=== PATIENT | male | born 1940 | race Caucasian/White ===

== ENCOUNTER 2024-01-05 09:44 | Outpatient (CLI) | payer MEDICARE, OTHER, SELFPAY ==
[2024-01-05 09:38] LABS: Abs Immature Grans 0.03 10^3/uL (0.0-0.06); Absolute Basophil Count 0.06 10^3/uL (0.0-0.2); Absolute Eosinophil Count 0.23 10^3/uL (0.0-0.7); Absolute Lymphocyte Count 0.96 10^3/uL (1.2-3.4); Absolute Monocyte Count 0.62 10^3/uL (0.1-0.8); Eosinophils % 3.7 %; HCT 38.4 % (40.0-50.0); HGB 12.7 g/dL (13.5-17.5); Immature Grans % 0.5 %; Lymphocytes % 15.2 %; MCH 29.4 pg (27.0-33.0); MCHC 33.1 % (32.0-36.0); MCV 89 fL (80-95); MPV 8.2 fL (8.0-11.0); Monocytes % 9.8 %; Neutrophils % 69.8 %; Platelet Count 282 10^3/uL (130-400); RBC 4.32 10^6/uL (4.36-5.78); RDW 18.8 % (11.8-14.1); RDW-SD 61.4 fL
[2024-01-05 09:55] LABS: ALT 23 U/L (16-63); AST 18 U/L (15-37); Albumin 3.4 g/dL (3.4-5.0); Alkaline Phosphatase 82 U/L (46-116); Anion Gap 7.5 mmol/L (3-11); BUN 17 mg/dL (7-18); Bilirubin, Total 0.43 mg/dL (0.2-1.0); CO2 28.5 mmol/L (21.0-32.0); CREATININE 1.4 mg/dL (0.70-1.30); Calcium 9.4 mg/dL (8.5-10.1); Chloride 109 mmol/L (98-107); Estimated GFR 49.56 (mL/min/1.73m2); Glucose 92 mg/dL (74-106); Potassium 3.9 mmol/L (3.5-5.1); Sodium 145 mmol/L (136-145); Total Protein 7.4 g/dL (6.4-8.2)
--- OUTSIDE RECORDS SUMMARY | 2024-01-05 09:57 | XMS_ITS | Encounter Summary ---
Author Organization [facility] [place] [address] Care Team Providers Care Security Investigator Name Role Phone None Primary Care Provider Unavailabl e Encounter Details Date Type Department Care Team (Late Contact Info) Description 11/15/2023 Orders Only Hematology [place] [address] Alex Charles MD [facility] [place] [address] Social History Tobacco Use Types Packs/Day Years Used Date Smoking Tobacco: Former Cigarettes 2 25 Alcohol Use Standard Drinks/Week Comments Yes 21 (1 standard drink = 0.6 oz pu re alcohol) Sex and Gender Information Value Date Recorded Sex Assigned at Not on file Gender Identity Not on file Sexual Orientation Not on file documented as of this encounter Plan of Treatment Upcoming Encounters Date Type Department Care Team (Late Contact Info) Description 01/05/2024 10:00 AM EST Office Visit Hematology/Oncology at [address] [phone] Alex Charles MD [facility] [place] [address] Agnes Jose APRN [address] [place] [address] DR [place] [address] Colon cancer metastasized to liver 01/05/2024 10:30 AM EST Infusion Hematology Oncology at [address] [phone] Arrived documented as of this encounter Goals Goal Patient Goal Type Associated Problems Recent Progress Patient-Stated? Author Patient's specific desired goal: Patient Facing Action Plan No Godfrey Noguera, [facility] Note: Goal(s): Live an additional year to year and a half Measured by: survival Time-frame: to be tracked by pharmacy annually documented as of this encounter Visit Diagnoses Not on filedocumented in this encounter Care Teams Security Investigator Relationship Specialty Start Date End Date None None PCP - General 01/20/10 documented as of this encounter
--- OUTSIDE RECORDS SUMMARY | 2024-01-05 09:57 | XMS_ITS | Encounter Summary ---
Author Organization [facility] [place] [address] Care Team Providers Care Financial Services Agent Name Role Phone None Primary Care Provider Unavailabl e Encounter Details Date Type Department Care Team (Latest Contact Info) Description 11/23/2023 Travel Social History Tobacco Use Types Packs/Day Years [...] Encounters Date Type Department Care Team (Late st Contact Info) Description 01/05/2024 10:00 AM EST Office Visit Hematology/Oncology at [address] [phone] Alex Charles MD [facility] [place] [address] Agnes Jose APRN [address] [place] [address] DR HEMATOLOGY AND ONCOLOGY [place], [place] [id number] Colon cancer metastasized to liver 01/05/2024 10:30 AM EST Infusion Hematology Oncology at [address] [phone] Arrived documented as of this encounter Goals Goal Patient Goal Type Associated Problems Recent Progress Patient-Stated? Author Patient's specific desired goal: Patient Facing Action Plan No Godfrey Noguera, [facility] Note: Goal(s): Live an additional year to year and a half Measured by: survival Time-frame: to be tracked by pharmacy annually documented as of this encounter Visit Diagnoses Not on filedocumented in this encounter Care Teams Financial Services Agent Relationship Specialty Start Date End Date None None PCP - General 01/20/10 documented as of this encounter
--- OUTSIDE RECORDS SUMMARY | 2024-01-05 09:57 | XMS_ITS | Encounter Summary ---
Author Organization [facility] [place] [address] Care Team Providers Care Bean Sprout Grower Name Role Phone None Primary Care Provider Unavailabl e Reason for Visit * Reason Comments Follow-up Encounter Details Date Type Department Care Team (Late st Contact Info) Description 12/07/2023 8:15 AM EDT Office Visit Hematology [place] [phone] Nena Beverly, [facility] DR [place] [address] Colon cancer metastasized to liver Social History Tobacco Use Types Packs/Day Years Used Date Smoking Tobacco: Former Cigarettes 2 25 Alcohol Use Standard Drinks/Week Comments Yes 21 (1 standard drink = 0.6 oz pu re alcohol) Sex and Gender Information Value Date Recorded Sex Assigned at Not on file Gender Identity Not on file Sexual Orientation Not on file documented as of this encounter Last Filed Vital Signs Vital Sign Reading Time Taken Comments Blood Pressure 147/80 12/07/2023 8:02 AM EDT Pulse 83 12/07/2023 8:02 AM EDT Temperature 36 ??C (96.8 ??F) 12/07/2023 8:02 AM EDT Respiratory Rate 18 12/07/2023 8:02 AM EDT Oxygen Saturation 97% 12/07/2023 8:02 AM EDT Inhaled Oxygen Concentration - - Weight 101.3 kg (223 lb 5.2 oz) 12/07/2023 8:02 AM EDT Height 171.7 cm (5' 7.6) 12/07/2023 8:02 AM EDT Body Mass Index 34.36 12/07/2023 8:02 AM EDT documented in this encounter Progress Notes * Nena Beverly, [employer] - 12/07/2023 8:15 AM EDT Subjective Patient ID: Bart Hathaway is 83 y.o. Problem List: Colon cancer, stage IV A. September 2022 - began to have episodes of blood per rectum and subsequently had a syncopal episode. Colonoscopy 10/28/22 - fungating mass involving the appendiceal orifice on October 28, 2022. Pathology showed adenocarcinoma B. Developed fever and chills. CT showed an encapsulated collection arising from the sigmoid colon likely representing abscess. Patient was taken to the operating on December 14, 2022. He was found tohave adherence of the mid sigmoid colon to the cecum, bulky inflammatory extension of the mass intothe right lower quadrant retroperitoneum. He underwent sigmoid colectomy, right colectomy, ileotransverse anastomosis and end sigmoid colostomy. Findings: 1. No evidence of justin spillage or dissemination of infection freely into the peritoneal cavity 2. Wide dense adherence of the mid sigmoid colon to the cecum over a 5 to 7 cm length, not safely separable in malignant context. Approximately 12 cm of sigmoid colon removed 3. Bulky inflammatory extension of mass into the right lower quadrant retroperitoneum, carefully mobilized away from surrounding structures with care taken to avoid intrusion into tumor and injury tosurrounding structures. 4. Ileotransverse anastomosis created and end sigmoid colostomy created to limit leak risks and facilitate chemotherapy 12/14/22 - Right hemicolectomy Path - SYNOPTIC Specimen Procedure: Right hemicolectomy Tumor Tumor Site: Cecum Histologic Type: Adenocarcinoma Histologic Grade: G2, moderately differentiated Tumor Size: 4.5 Centimeters (cm) Tumor Extent: Invades through muscularis propria into the pericolonic or perirectal tissue Macroscopic Tumor Perforation: Cannot be determined - per report, cannot be determined but likely present given the tumor is adhered to a segment of sigmoid colon and the junctional giles are presumably engulfed by an abscess Lymphovascular Invasion: Not identified Perineural Invasion: Not identified Treatment Effect: No known presurgical therapy Margins Margin Status for Invasive Carcinoma: All margins negative for invasive carcinoma Margin Status for Non-Invasive Tumor: All margins negative for high-grade dysplasia / intramucosal carcinoma and low-grade dysplasia Regional Lymph Nodes Regional Lymph Node Status: All regional lymph nodes negative for tumor Number of Lymph Nodes Examined: 28 Tumor Deposits: Not identified Distant Metastasis Distant Site(s) Involved: Liver - refer to outside case labelled as [id number] Pathologic Stage Classification (pTNM, AJCC 8th Edition) pT Category: pT3 pN Category: pN0 pM Category: pM1 DISCUSSION Provided immunostains show that the expression of Mismatch Repair Proteins is intact. Molecular studies - KRAS mutated (No other clinically significant variants were detected within the genes analyzed: AKT1, BRAF, EGFR, ERBB2, FOXL2, GNA11, GNAQ, KIT, KRAS, MET, NRAS, PDGFRA, PIK3CA, RET and TP53. No amplifications in ERBB2, MET or EGFR were detected. C. CT chest 01/06/23 - Impression: Mulitple pulmonary nodules, largest measuring 1.7 cm in the left lower lobe superior segment with small bilateral pleural effisions could represent metastasis or infection/inflammation Unchanged right adrenal 1.2 cm nodule, indeterminate MRI 01/06/23 - Impression: 1. 1.2 cm solid enhancing lesion in the right hepatic lobe segment 6 suspicious for a metastasis 2. Bilateral adrenal nodularity not well assessed on the in/out of phase image due to motion artifact PET/CT 01/23/23 1.1 cm nodule in the right lobe of the liver very suspicious for metastatic disease 1.7 cm left lower nodule SUV 2.3 and minimal bilateral pleural effusions and a 1.4 cm right lower paratracheal lymph node; SUV 3 D. 02/15/23 - Liver mass, biopsy: - Metastatic adenocarcinoma, moderately differentiated, consistent with colonic origin, see note. Note: Provided immunostains show that the tumor cells are positive for CK20 and CDX2, whereas are negative for CK7. This immunoprofile supports above diagnosis E. CT chest 03/21/23 - Impression: Compared to December 2022: Motion degraded exam Resolution of multiple ill defined round glass and part solid nodules in the lungs No mediastinal lymphadenopathy Increased moderate right and small left pleural effusions Known metastatic liver lesion not imaged Indeterminate 12 mm right adrenal nodule without significant activity on prior PET/CTs 03/25/23 - Bronchoscopy and FNA. Lymph node 4R, 4L and 11R stations negative for malignancy F. 05/25/23 - CT guided ablation of liver metastasis G. MRI abdomen 07/26/23 - Impression: 1. Limited study due to patient motion artifact 2. Status post segment 5/6 ablation with 0.9 focus of residual or adjacent tumor at superior margin. At least four additional segment 5/6 peripherally hypoenhancing lesions measuring up to 1.2 cm, new from 12/2022 and suspicious for satellite metastases 3. 3.1 cm hepatic segment 4B peripherally enhancing metastasis, new from 12/[address] c/a/p 09/19/23 Chest - IMPRESSION: 1. No definite evidence of metastatic disease in the chest. There is a stable 4 mm nodule in the right lower lobe of the lungs. Stable subcentimeter thoracic lymph nodes. Abd/pelvis - IMPRESSION: 1. Hypoenhancing hepatic masses as described above, consistent with patient's known metastatic disease to the liver. Comparison to the prior outside MRI from 07/26/2023 is difficult, due to differences in modality. However, the hepatic masses appear increased in size on today's exam when compared to the prior MRI, which is suspicious for progression of metastatic disease in the liver with compared to the prior study. No other evidence of metastatic disease in the abdomen or pelvis. I. Began therapy with Capox on 10/28/23, reduced dose of both oxaliplatin and capecitabine J. CT c/a/p 11/18/23 - IMPRESSION 1. Enlarging hepatic metastases. 2. Stable 4 mm right lower lobe pulmonary nodule. This is indeterminate. Given stability, a benign etiology is favored. Continued attention on follow-up is recommended. 3. Stable 13 mm right adrenal nodule. This is indeterminate but givenstability favored to be benignas well. Continued attention on follow-up is recommended. 2. HTN 3. HLD 4. Atrial fibrillation HPI Bart Hathaway is referred for evaluation and management of stage IV colon cancer. The history is summarized above. On 10/28/23, he began therapy with reduced dose Capox. He developed a rash and SOB with his 1st cycle. Dr Charles recommended single agent irinotecan. He had his first cycle 2 weeks ago. He tolerated this well. Bart is by himself in clinic today. Soc Hx: Has homes in [place], [place], and [place]. 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 Fam Hx: Father - Prostate cancer Mother - Alzheimer's disease Review of Systems Constitutional: Positive for fatigue. Negative for activity change, appetite change and fever. Moderate constant pain HENT: Negative for sore throat and trouble swallowing. Respiratory: Negative for cough, chest tightness and shortness of breath. Cardiovascular: Negative for chest pain and palpitations. Gastrointestinal: Positive for abdominal pain (LLQ occasional) and diarrhea (1-2 days, uses imodium, Depends on what I eat). Negative for blood in stool, constipation, nausea and vomiting. Ostomy functioning well. Musculoskeletal: Negative for joint swelling and myalgias. Neurological: Negative for dizziness, weakness, light-headedness and numbness. Objective Patient Vitals for the past 24 hrs: Temp Pulse Resp BP SpO2 12/07/23 0802 36 ??C (96.8 ??F) 83 18 147/80 97 % Wt Readings from Last 3 Encounters: 12/07/23 101.3 kg (223 lb 5.2 oz) 11/23/23 100.6 kg (221 lb 12.5 oz) 11/15/23 99.1 kg (218 lb 7.6 oz) Physical Exam Vitals reviewed. Constitutional: General: He is not in acute distress. HENT: Head: Normocephalic and atraumatic. Mouth/Throat: Pharynx: No oropharyngeal exudate. Eyes: General: No scleral icterus. Cardiovascular: Rate and Rhythm: Normal rate and regular rhythm. Pulmonary: Effort: No respiratory distress. Breath sounds: No wheezing or rales. Abdominal: General: There is no distension. Tenderness: There is no abdominal tenderness. There is no guarding. Musculoskeletal: General: No swelling. Lymphadenopathy: Cervical: No cervical adenopathy. Skin: General: Skin is warm and dry. Findings: No rash. Neurological: General: No focal deficit present. Mental Status: He is alert. Coordination: Coordination normal. Psychiatric: Mood and Affect: Mood normal. Recent Results (from the past 24 hour(s)) CBC (with Diff) Result Value Ref Range White Blood Cell 4.71 4.00 - 9.50 x10(3)/mcL Red Blood Cell 3.71 (L) 4.58 - 5.54 x10(6)/mcL Hemoglobin 11.2 (L) 13.7 - 16.5 g/dL Hematocrit 33.0 (L) 40.5 - 48.5 % Mean Cell Volume 88.9 82.9 - 93.1 fL Mean Cell Hemoglobin 30.2 27.5 - 32.1 pg Mean Cell Hemoglobin Concentration 33.9 32.0 - 35.7 g/dL Platelet 253 145 - 357 x10(3)/mcL Mean Platelet Volume 8.3 7.6 - 12.9 fL RDW Standard Deviation 64.4 (H) 36.0 - 45.0 fL RDW coefficient of variation 20.0 (H) 11.4 - 13.8 % NRBC% auto 0.0 % NRBC Absolute <0.01 <0.01 x10(3)/mcL Neutrophil % 53.6 % Neutrophil Absolute (ANC) - Automated 2.52 1.70 - 6.10 x10(3)/mcL Lymph % 28.0 % Lymph Absolute 1.32 0.90 - 3.20 x10(3)/mcL Monocyte % 14.4 % Monocyte Absolute 0.68 0.30 - 0.90 x10(3)/mcL Eos % 3.2 % Eos Absolute 0.15 0.00 - 0.40 x10(3)/mcL Basophil % 0.4 % Baso Absolute <0.04 0.00 - 0.10 x10(3)/mcL Immature Gran % 0.4 % Immature Gran Absolute <0.04 0.00 - 0.04 x10(3)/mcL Comprehensive metabolic panel Non-fasting Result Value Ref Range Glucose 114 65 - 199 mg/dL Blood Urea Nitrogen 24 (H) 10 - 20 mg/dL Creatinine 1.41 0.80 - 1.50 mg/dL Sodium 142 135 - 145 mMol/L Potassium 4.3 3.5 - 5.0 mMol/L Chloride 109 (H) 98 - 107 mMol/L Carbon Dioxide 23 22 - 31 mMol/L Anion Gap 10 5 - 15 mMol/L Calcium 9.3 8.5 - 10.5 mg/dL Protein, Total 7.1 6.1 - 8.0 g/dL Albumin 3.7 3.2 - 5.2 g/dL Aspartate Aminotransferase 22 <=39 unit/L Alanine Aminotransferase 18 0 - 55 unit/L Alkaline Phosphatase 82 40 - 130 unit/L Bilirubin, Total 0.3 <=1.3 mg/dL Est Glomerular Filtration Rate - Male 49 mL/min/1.73 m?? Fasting Status No CEA Result Value Ref Range Carcinoembryonic Antigen 9.0 (H) <=3.8 ng/ml CEA 09/19/23 7.2 08/22/23 5.5 03/08/23 1.7 12/14/22 4.4 Pharmacogenomics (PGx) DPYD and UGT1A1 Genotyping DPYD Genotype: *1/*1 DPYD Activity Score: 2 DPYD Predicted Phenotype: DPYD Normal Metabolizer UGT1A1 Genotype: *1/*1 UGT1A1 Predicted Phenotype: UGT1A1 Normal Metabolizer Assessment and Plan Bart Hathaway is 83 yo, seen for in f/u of stage IV colon cancer, adenocarcinoma, pMMR, KRAS mutated. Dx in 09/2022 after presenting with blood per rectum. The primary was located in the cecum. 11/2022 - Emergent right colectomy, sigmoid colectomy, ileotransverse anastomosis and end sigmoid colostomy after presenting with fever, chills and abd pain, found to have liver abscess. Path report above. Staging evaluation showed liver lesion, biopsied and showed metastatic adenocarcinoma. Indeterminate lung nodule also seen, negative by EBUS. S/p ablation of liver lesion in 04/2023. MRI 07/26/23, CT c/a/p 08/2023 - progression of hepatic metastatic disease. He had multiple visits with Medical Oncology including Dr. Krishnan at [facility] who recommended Folfox/avastin, and with Dr. Monroy at [facility] who discussed options of FOLFOX plus Avastin, FOLFIRI plus Avastin, CAPOX, Xeloda plus Avastin, and Xeloda single agent. We met on 10/12/23. After an extended discussion about logistics, expected side effect profiles, expected response and efficacy, and prognostic information, Bart was not interested a fluorouracil-based regimen. He very much wants to maintain his current lifestyle. Thus, he was more amenable to capecitabine-based therapy. He elected to be treated with Capox. Given his age, medical history, and preferences, the doses of both the oxaliplatin and capecitabine were reduced to start. He began therapy on 10/28/23 and took the last dose of capecitabine in the AM on 11/11/23. He had a very difficult time with therapy, as described above. The skin reaction was primarily on the scalp. No HFS. The SOB sounds as though it was significant and also very worrisome. The skin is healing and his breathing is back to baseline. Given the toxicity he experienced, Dr Charles did not feel that wecan continue with the current therapy. One could perhaps consider trying Folfox instead although ifthis were going to be done, it would initially need to be done as an inpatient with close monitoring of his cardiopulmonary status. Another option would be single agent irinotecan. A third option would be a supportive care approach without ongoing active therapy. CT scan done 11/17 shows progression of hepatic metastatic disease. The lesions are too large for ablation at this time. The idea of hospitalization and of having a pump is very difficult for him given his desire/need totravel to [place]. We talked about it and he is very clear that he does not want the pump. He is s/p C1 FOLFOX. We will go ahead with therapy today with irinotecan. We will start with reduced dose therapy and increase if tolerated. Will also consider addition of avastin. We will see him in two weeks. His next visit after that will be in 4 weeks (due to travel), and we will plan to do that in [facility]. Nena Beverly DNP, APRN, AGACNP-BC, AOCNP, ACHPN Division of Hematology Oncology-Gastrointestinal Dining Services ManagerWirer Helperphoto tube assembler [facility] documented in this encounter Plan of Treatment Upcoming Encounters Date Type Department Care Team (Late st Contact Info) Description 01/05/2024 10:00 AM EST Office Visit Hematology/Oncology at [address] [phone] Alex Charles MD [facility] [place] [address] Agnes Jose APRN [address] [place] [address] DR [place]EMAT[place]Y [place] [address] Colon cancer metastasized to liver 01/05/2024 10:30 AM EST Infusion Hematology Oncology at [address] [phone] Arrived documented as of this encounter Goals Goal Patient Goal Type Associated Problems Recent Progress Patient-Stated? Author Patient's specific desired goal: Patient Facing Action Plan No Godfrey Noguera, [facility] Note: Goal(s): Live an additional year to year and a half Measured by: survival Time-frame: to be tracked by pharmacy annually documented as of this encounter Visit Diagnoses Diagnosis Colon cancer metastasized to liver Malignant neoplasm of colon, unspecified site Colon cancer metastasized to liver Malignant neoplasm of colon, unspecified site documented in this encounter Care Teams Bean Sprout Grower Relationship Specialty Start Date End Date None None PCP - General 01/20/10 documented as of this encounter
--- OUTSIDE RECORDS SUMMARY | 2024-01-05 09:57 | XMS_ITS | Encounter Summary ---
Author Organization [facility] [place] [address] Care Team Providers Care Dance Instructor Name Role Phone None Primary Care Provider Unavailabl e Encounter Details Date Type Department Care Team (Latest Contact Info) Description 12/07/2023 Travel Social History Tobacco Use Types Packs/Day [...] 10:00 AM EST Office Visit Hematology/Oncology at [address] [phone] Alex Charles MD [facility] [place] [address] Agnes Jose APRN [address] [place] [address] DR HEMATOLOGY AND ONCOLOGY [place], [place] [id number] Colon cancer metastasized to liver 01/05/2024 10:30 AM EST Infusion Hematology Oncology at [address] [phone] Arrived documented as of this encounter Goals Goal Patient Goal Type Associated Problems Recent Progress Patient-Stated? Author Patient's specific desired goal: Patient Facing Action Plan No Godfrey Noguera, [facility] Note: Goal(s): Live an additional year to year and a half Measured by: survival Time-frame: to be tracked by pharmacy annually documented as of this encounter Visit Diagnoses Not on filedocumented in this encounter Care Teams Dance Instructor Relationship Specialty Start Date End Date None None PCP - General 01/20/10 documented as of this encounter
--- OUTSIDE RECORDS SUMMARY | 2024-01-05 09:57 | XMS_ITS | Encounter Summary ---
Author Organization [facility] [place] [address] Care Team Providers Care Dermatology Nurse Name Role Phone None Primary Care Provider Unavailabl e Encounter Details Date Type Department Care Team (Latest Contact Info) Description 11/18/2023 Travel Social History Tobacco Use Types Packs/Day [...] 10:00 AM EST Office Visit Hematology/Oncology at [address] [phone] Alex Charles MD [facility] [place] [address] Agnes Jose APRN [address] [place] [address] DR HEMATOLOGY AND ONCOLOGY [place], [place] [id number] Colon cancer metastasized to liver 01/05/2024 10:30 AM EST Infusion Hematology Oncology at [address] [phone] Arrived documented as of this encounter Goals Goal Patient Goal Type Associated Problems Recent Progress Patient-Stated? Author Patient's specific desired goal: Patient Facing Action Plan No Godfrey Noguera, [facility] Note: Goal(s): Live an additional year to year and a half Measured by: survival Time-frame: to be tracked by pharmacy annually documented as of this encounter Visit Diagnoses Not on filedocumented in this encounter Care Teams Dermatology Nurse Relationship Specialty Start Date End Date None None PCP - General 01/20/10 documented as of this encounter
--- OUTSIDE RECORDS SUMMARY | 2024-01-05 09:57 | XMS_ITS | Encounter Summary ---
Author Organization [facility] [place] [place] [address] Care Team Providers Care Wildland Fire Operations Specialist Name Role Phone None Primary Care Provider Unavailabl e Reason for Visit * Treatment/Therapy Plan Authorization (Routine) - Authorized Specialty Diagnoses / Procedures Referred By Contac t Referred To Contact Hematology and Oncology Diagnoses Colon cancer metastasized to liver Procedures INFUSION Alex Charles MD [facility] [place] [address] [facility] Hem Onc Infusion [address] [place] [phone] Referral ID Status Reason Start Date Expiration Date V isits Requested Visits Authorized [id number] Authorized 11/23/2023 11/22/2024 1 99 Encounter Details Date Type Department Care Team (Latest Contact Info) Description 11/23/2023 7:35 AM EDT - 11/23/2023 11:59 PM EDT Hospital Encounter [place]ematology [place] [phone] Colon cancer metastasized to liver Discharge Disposition: Home Social History Tobacco Use Types Packs/Day Years Used Date Smoking Tobacco: Former Cigarettes 2 25 Alcohol Use Standard Drinks/Week Comments Yes 21 (1 standard drink = 0.6 oz pu re alcohol) Sex and Gender Information Value Date Recorded Sex Assigned at Not on file Gender Identity Not on file Sexual Orientation Not on file documented as of this encounter Medications at Time of Discharge Medication Sig Dispensed Refills Start Date End Date prochlorperazine (Compazine) 10 mg tabletIndications:Colon cancer metastasized to liver Take 1 tablet by mouth every 6 hours as needed for Nausea. 15 tablet 10/28/2023 ibuprofen (Advil) 200 mg tabletIndications:osteoa rthritis Take 600 mg by mouth every 6 hours as needed for Pain. Indications: joint damage causing pain and loss of function CAPEcitabine (Xeloda) 500 mg tabletIndications:Colon cancer metastasized to liver Take 3 tablets (1,500 mg) by mouth 2 times daily. Take within 30 minutes after eating. Call clinic before/prior to starting medication/script. Take twice a day for 14 days followed by 7 days off 84 tablet 5 10/20/2023 apixaban (Eliquis) 2.5 mg tablet Take 2.5 mg by mouth. 05/16/2023 fexofenadine-pseudoephed rine (Saniya-D 12 Hour) 60-120 mg Tablet Sustained Release 12 hr Take by mouth Daily @ 0600. 04/18/2017 multivitamin with minerals (MULTIVITAMIN AND MINERALS ORAL) Take by mouth. 05/20/2023 potassium chloride ER (Klor-Con M) 20 mEq ER micro-encapsulated crystal tablet Take 20 mEq by mouth 2 times daily. 04/18/2017 b complex vitamins Capsule Take by mouth. 06/03/2021 atorvastatin (Lipitor) 10 mg tablet Take 10 mg by mouth. 12/15/2022 cholecalciferoL, Vitamin D3, (Vitamin D3) 50 mcg (2,000 unit) tablet Take 50 mcg by mouth. 06/11/2022 docusate sodium (Colace) 100 mg capsule Take 100 mg by mouth. 01/06/2023 metoprolol succinate XL (Toprol-XL) 100 mg ER 24 hr tablet Take 100 mg by mouth. 05/20/2023 NIFEdipine (Adalat CC) 60 mg ER tablet Take 60 mg by mouth. 05/20/2023 hydroCHLOROthiazide (Esidrix) 50 mg tablet Take 50 mg by mouth daily. thiamine 100 mg Tablet Take 1 tablet by mouth daily. 90 tablet 6 11/29/2013 lisinopril (PRINIVIL;ZESTRIL) 10 mg Tablet Take 10 mg by mouth daily. simvastatin (ZOCOR) 10 mg Tablet Take 10 mg by mouth nightly. MV,Ca,Ynk-Tzuf-DD-Lycope ne 8 mg iron- 200 mcg-600 mcg Tablet Take 1 tablet by mouth Daily @ 0600. 12/15/2022 12/07/2023 documented as of this encounter Progress Notes * eLena Sanchez RN - 11/23/2023 10:08 AM EDT Patient Name: Bart Hathaway Patient Age: 83 y.o. Birthdate: 1940 Admit date: 11/23/2023 Attending Physician: No att. providers found TIME TREATMENT STARTED: 09 TIME TREATMENT ENDED: 1220 Bart Hathaway, 83 y.o. male with diagnosis of colon cancer with liver mets is here for chemotherapy infusion of irinotecan. CYCLE: 1 DAY: 1 S: Pt. offers no complaints at this time. O: Chemotherapy orders independently verified for correct drug name, route and dosage per patient'sheight, weight and BSA by Leena Sanchez RN and onsite pharmacist REACTIONS (DESCRIPTION, TIME, INTERVENTION AND EFFECTIVENESS) NA A: Pt. Tolerated treatment well. Bart Hathaway confirms that all questions and issues have been addressed. P: Return to clinic as advised. Pt. chemo teaching instructions reinforced: During clinic hours (8am-5pm Tuesday-Tuesday): pt. can call [phone] with questions or concerns. After clinic hours (5pm-8am Tuesday-Tuesday and weekends) pt can call [phone] and ask for the homoeopath/oncologist environmental manager. Bart Hathaway verbalized understanding of potential chemotherapy side effects and home care including but not limited to- handwashing to prevent infection, signs and symptoms of low blood counts (fever, fatigue, bleeding), to call with a fever of 100.4 or greater, any significant constipation/diarrhea, importance of nutrition and fluid intake (drinking at least 32-64 ounces of non-caffeinated beverages/day), mouth care. documented in this encounter Plan of Treatment Upcoming Encounters Date Type Department Care Team (Late st Contact Info) Description 01/05/2024 10:00 AM EST Office Visit Hematology/Oncology at [address] [phone] Alex Charles MD [facility] [place] [address] Agnes Jose APRN [address] [place] [address] DR [place] [address] Colon cancer metastasized to liver 01/05/2024 10:30 AM EST Infusion Hematology Oncology at [address] [phone] Arrived documented as of this encounter Goals Goal Patient Goal Type Associated Problems Recent Progress Patient-Stated? Author Patient's specific desired goal: Patient Facing Action Plan No Godfrey Noguera, [facility] Note: Goal(s): Live an additional year to year and a half Measured by: survival Time-frame: to be tracked by pharmacy annually documented as of this encounter Visit Diagnoses Diagnosis Colon cancer metastasized to liver Malignant neoplasm of colon, unspecified site Colon cancer metastasized to liver Malignant neoplasm of colon, unspecified site documented in this encounter Administered Medications Inactive Administered Medications - up to 3 most recent administrations Medication Order MAR Action Action Date Dose Rate Site atropine (0.1 mg/mL) injection 0.5 mg 0.5 mg, Intravenous, Administer over 1 Minutes, ONCE, 1 dose, On Tue11/23/23 at 0945, Administer prior to IRINOtecan, Routine Given 11/23/2023 10:28 AM EDT 0.5 mg dexAMETHasone (PF) (Decadron) (10 mg/mL) injection 10 mg 10 mg, Intravenous, ONCE, 1 dose, On Tue11/23/23 at 1015, Administer prior to chemotherapy Given 11/23/2023 10:01 AM EDT 10 mg IRINOtecan (Camptosar) 260 mg in dextrose 5% 513 mL infusion 260 mg (rounded from 273.75 mg = 125 mg/m2/dose ? 2.19 m2 Treatment Plan BSA from Recorded weight), Intravenous, ONCE, 1 dose, On Tue11/23/23 at 1045, Administer over 90 Minutes, Warning Vesicant/Irritant Medication New Bag 11/23/2023 10:35 AM EDT 260 mg 342 mL/hr palonosetron (Aloxi) (0.05 mg/mL) injection 0.25 mg 0.25 mg, Intravenous, ONCE, 1 dose, On Tue11/23/23 at 0945, Administer over 30 seconds. Administer prior to chemotherapy, Routine Given 11/23/2023 10:01 AM EDT 0.25 mg documented in this encounter Care Teams Wildland Fire Operations Specialist Relationship Specialty Start Date End Date None None PCP - General 01/20/10 documented as of this encounter
--- OUTSIDE RECORDS SUMMARY | 2024-01-05 09:57 | XMS_ITS | Encounter Summary ---
Author Organization [facility] Address [facility] [place] [address] Care Team Providers Care Soft Mud Molder Name Role Phone None Primary Care Provider Unavailabl e Reason for Visit * Treatment/Therapy Plan Authorization (Routine) - Authorized Specialty Diagnoses / Procedures Referred By Contac t Referred To Contact Hematology and Oncology Diagnoses Colon cancer metastasized to liver Procedures INFUSION Alex Charles MD [facility] [place] [address] [facility] Hem Onc Infusion [address] [place] [phone] Referral ID Status Reason Start Date Expiration Date V isits Requested Visits Authorized [id number] Authorized 11/23/2023 11/22/2024 1 99 Encounter Details Date Type Department Care Team (Late st Contact Info) Description 01/05/2024 10:30 AM EST Infusion Hematology Oncology at [address] [phone] Arrived Social History Tobacco Use Types Packs/Day Years [...] AM EST Office Visit Hematology/Oncology at [address] [phone] Alex Charles MD [facility] [place] [address] Agnes Jose APRN [address] [place] [address] [place] [address] Colon cancer metastasized to liver documented as of this encounter Goals Goal Patient Goal Type Associated Problems Recent Progress Patient-Stated? Author Patient's specific desired goal: Patient Facing Action Plan No Godfrey Noguera, [facility] Note: Goal(s): Live an additional year to year and a half Measured by: survival Time-frame: to be tracked by pharmacy annually documented as of this encounter Visit Diagnoses Not on filedocumented in this encounter Care Teams Soft Mud Molder Relationship Specialty Start Date End Date None None PCP - General 01/20/10 documented as of this encounter
--- OUTSIDE RECORDS SUMMARY | 2024-01-05 09:57 | XMS_ITS | Encounter Summary ---
Author Organization [facility] Address [facility] [place] [address] Care Team Providers Care Fee Clerk Name Role Phone None Primary Care Provider Unavailabl e Encounter Details Date Type Department Care Team (Late Contact Info) Description 01/05/2024 10:00 AM EST Office Visit Hematology/Oncology at [address] [phone] Alex Charles MD [facility] [address] Agnes Jose [address] HEMATOLOGY [place] [address] Colon cancer metastasized to liver Social History [...] Care Team (Late Contact Info) Description 01/05/2024 10:30 AM EST Infusion Hematology Oncology at [address] [phone] Arrived documented as of this encounter Goals Goal Patient Goal Type Associated Problems Recent Progress Patient-Stated? Author Patient's specific desired goal: Patient Facing Action Plan No Godfrey Ngouera, [facility] Note: Goal(s): Live an additional year to year and a half Measured by: survival Time-frame: to be tracked by pharmacy annually documented as of this encounter Visit Diagnoses Diagnosis Colon cancer metastasized to liver Malignant neoplasm of colon, unspecified site documented in this encounter Care Teams Fee Clerk Relationship Specialty Start Date End Date None None PCP - General 01/20/10 documented as of this encounter
--- OUTSIDE RECORDS SUMMARY | 2024-01-05 09:57 | XMS_ITS | Encounter Summary ---
Author Organization [facility] [place] [address] Care Team Providers Care Business Continuity Consultant Name Role Phone None Primary Care Provider Unavailabl e Encounter Details Date Type Department Care Team (Late Contact Info) Description 11/12/2023 Orders Only [place]ematology [place] [address] Alex Charles MD [facility] [place] [address] Social History Tobacco Use Types Packs/Day Years [...] 10:00 AM EST Office Visit Hematology/Oncology at [address] [phone] Alex Charles MD [facility] [place] [address] Agnes Jose APRN [address] [place] [address] DR HEMATOLOGY [place] [address] Colon cancer metastasized to liver 01/05/2024 10:30 AM EST Infusion Hematology Oncology at [address] [phone] Arrived documented as of this encounter Goals Goal Patient Goal Type Associated Problems Recent Progress Patient-Stated? Author Patient's specific desired goal: Patient Facing Action Plan No Godfrey Noguera, [facility] Note: Goal(s): Live an additional year to year and a half Measured by: survival Time-frame: to be tracked by pharmacy annually documented as of this encounter Visit Diagnoses Not on filedocumented in this encounter Care Teams Business Continuity Consultant Relationship Specialty Start Date End Date None None PCP - General 01/20/10 documented as of this encounter
--- OUTSIDE RECORDS SUMMARY | 2024-01-05 09:57 | XMS_ITS | Encounter Summary ---
Author Organization [facility] [place] [address] Care Team Providers Care Material Coordinator Name Role Phone None Primary Care Provider Unavailabl e Reason for Visit * Reason Comments Follow-up Encounter Details Date Type Department Care Team (Late st Contact Info) Description 11/23/2023 8:45 AM EDT Office Visit [place]ology [place] [phone] Alex Holliday MD [facility] [place] [address] Colon cancer metastasized to liver Social History [...] Sign Reading Time Taken Comments Blood Pressure 148/64 11/23/2023 8:06 AM EDT Pulse 82 11/23/2023 8:06 AM EDT Temperature 36.8 ??C (98.2 ??F) 11/23/2023 8:06 AM ED T Respiratory Rate 17 11/23/2023 8:06 AM EDT Oxygen Saturation 99% 11/23/2023 8:06 AM EDT Inhaled Oxygen Concentration - - Weight 100.6 kg (221 lb 12.5 oz) 11/23/2023 8:06 AM EDT Height 171.3 cm (5' 7.44) 11/23/2023 8:06 AM ED T Body Mass Index 34.28 11/23/2023 8:06 AM EDT documented in this encounter Progress Notes * Alex Holliday MD - 11/23/2023 8:45 AM EDT Subjective Patient ID: Bart Hathaway [...] - refer to outside case labelled as [id number] Pathologic Stage Classification (pTNM, AJCC 8th Edition) [...] he began therapy with reduced dose Capox. Bart is by himself in clinic today. He had a difficult time with cycle 1 of chemotherapy as described in the prior note. He is doing much better now and the symptoms have largely resolved. Soc Hx: Has homes in [place], [place], and [place]. 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 Fam Hx: Father - Prostate cancer Mother - Alzheimer's disease Review of Systems Constitutional: Negative for activity change, appetite change, fatigue and fever. HENT: Negative for sore throat and trouble swallowing. Respiratory: Negative for cough, chest tightness and shortness of breath. Cardiovascular: Negative for chest pain and palpitations. Gastrointestinal: Negative for abdominal pain, blood in stool, constipation, nausea and vomiting. Musculoskeletal: Negative for joint swelling and myalgias. Neurological: Negative for dizziness, weakness, light-headedness and numbness. Objective No data found. Physical Exam Vitals reviewed. Constitutional: General: He [...] Result Value Ref Range White Blood Cell 5.29 4.00 - 9.50 x10(3)/mcL Red Blood Cell 4.35 (L) 4.58 - 5.54 x10(6)/mcL Hemoglobin 12.3 (L) 13.7 - 16.5 g/dL Hematocrit 38.1 (L) 40.5 - 48.5 % Mean Cell Volume 87.6 82.9 - 93.1 fL Mean Cell Hemoglobin 28.3 27.5 - 32.1 pg Mean Cell Hemoglobin Concentration 32.3 32.0 - 35.7 g/dL Platelet 215 145 - 357 x10(3)/mcL Mean Platelet Volume 7.9 7.6 - 12.9 fL RDW Standard Deviation 58.6 (H) 36.0 - 45.0 fL RDW coefficient of variation 20.2 (H) 11.4 - 13.8 % NRBC% auto 0.0 % NRBC Absolute <0.01 <0.01 x10(3)/mcL Neutrophil % 59.3 % Neutrophil Absolute (ANC) - Automated 3.14 1.70 - 6.10 x10(3)/mcL Lymph % 17.6 % Lymph Absolute 0.93 0.90 - 3.20 x10(3)/mcL Monocyte % 15.5 % Monocyte Absolute 0.82 0.30 - 0.90 x10(3)/mcL Eos % 6.0 % Eos Absolute 0.32 0.00 - 0.40 x10(3)/mcL Basophil % 0.8 % Baso Absolute 0.04 0.00 - 0.10 x10(3)/mcL Immature Gran % 0.8 % Immature Gran Absolute 0.04 0.00 - 0.04 x10(3)/mcL CEA 09/19/23 7.2 08/22/23 5.5 03/08/23 1.7 12/14/22 4.4 Pharmacogenomics (PGx) DPYD and UGT1A1 Genotyping DPYD Genotype: *1/*1 DPYD Activity Score: 2 DPYD Predicted Phenotype: DPYD Normal Metabolizer UGT1A1 Genotype: *1/*1 UGT1A1 Predicted Phenotype: UGT1A1 Normal Metabolizer Assessment and Plan Bart Hathwaay is 83 yo, seen for in f/u [...] with Medical Oncology including Dr. Krishnan at [facility] who recommended Folfox/avastin, and with Dr. Monroy at [facility] who discussed options of FOLFOX plus Avastin, [...] to baseline. Given the toxicity he experienced, I do not feel that we can continue with the current therapy. One could perhaps consider trying Folfox instead although if this were going to be done, I think it would initially need to be done as an inpatient with close monitoringof his cardiopulmonary status. Another option would be single agent irinotecan. A third option would be a supportive care approach without ongoing active therapy. He returns today following a CT scan which shows progression of hepatic metastatic disease. The lesions are too large for ablation at this time. The idea of hospitalization and of having a pump is very difficult for him given his desire/need totravel to [place]. We talked about it and he is very clear that he does not want the pump. We will go ahead with therapy today with irinotecan. We will start with reduced dose therapy and increase if tolerated. Will also consider addition of avastin. We will see him in two weeks. His next visit after that will be in 4 weeks, and we will plan to do that in [facility]. documented in this encounter Miscellaneous Notes * Addendum Note - Alex Holliday MD - 11/23/2023 8:45 AM EDTAddended by: ALEX HOLLIDAY on: 11/23/2023 09:55 AM Modules accepted: Orders documented in this encounter Plan of Treatment Upcoming Encounters Date Type Department Care Team (Late st Contact Info) Description 01/05/2024 10:00 AM EST Office Visit Hematology/Oncology at [address] [phone] Alex Holliday MD [facility] [address] Agnes Jose APRN [address] [place] [address] HEMATOLOGY [place] [address] Colon cancer metastasized to liver 01/05/2024 10:30 AM EST Infusion Hematology Oncology at [address] [phone] Arrived Scheduled Orders Name Type Priority Associated Diagnoses Orde r Schedule CBC (with Diff) Lab Routine Colon cancer metastasized to liver Every 2 Weeks for 12 Occurrences starting 11/23/2023 until 11/22/2024 Comprehensive metabolic panel Non-fasting Lab Routine Colon cancer metastasized to liver Every 2 Weeks for 12 Occurrences starting 11/23/2023 until 11/22/2024 CEA Lab Routine Colon cancer metastasized to liver Every 2 Weeks for 12 Occurrences starting 11/23/2023 until 11/22/2024 documented as of this encounter Goals Goal Patient Goal Type Associated Problems Recent Progress Patient-Stated? Author Patient's specific desired goal: Patient Facing Action Plan No Godfrey Noguera, [facility] Note: Goal(s): Live an additional year to year and a half Measured by: survival Time-frame: to be tracked by pharmacy annually documented as of this encounter Visit Diagnoses Diagnosis Colon cancer metastasized to liver Malignant neoplasm of colon, unspecified site Colon cancer metastasized to liver Malignant neoplasm of colon, unspecified site documented in this encounter Care Teams Material Coordinator Relationship Specialty Start Date End Date None None PCP - General 01/20/10 documented as of this encounter
--- OUTSIDE RECORDS SUMMARY | 2024-01-05 09:57 | XMS_ITS | Encounter Summary ---
Author Organization [facility] [place] [address] Care Team Providers Care Palliative Care Physician Name Role Phone None Primary Care Provider Unavailabl e Encounter Details Date Type Department Care Team (Latest Contact Info) Description 11/15/2023 Travel Social History Tobacco Use Types Packs/Day [...] 10:00 AM EST Office Visit Hematology/Oncology at [address] [phone] Alex Charles MD [facility] [place] [address] Agnes Jose APRN [address] [place] [address] DR HEMATOLOGY AND ONCOLOGY [place], [place] [id number] Colon cancer metastasized to liver 01/05/2024 10:30 AM EST Infusion Hematology Oncology at [address] [phone] Arrived documented as of this encounter Goals Goal Patient Goal Type Associated Problems Recent Progress Patient-Stated? Author Patient's specific desired goal: Patient Facing Action Plan No Godfrey Noguera, [facility] Note: Goal(s): Live an additional year to year and a half Measured by: survival Time-frame: to be tracked by pharmacy annually documented as of this encounter Visit Diagnoses Not on filedocumented in this encounter Care Teams Palliative Care Physician Relationship Specialty Start Date End Date None None PCP - General 01/20/10 documented as of this encounter
--- OUTSIDE RECORDS SUMMARY | 2024-01-05 09:57 | XMS_ITS | Encounter Summary ---
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 MV,Ca,Pcu-Qjtb-WW-Lycope ne 8 mg iron- 200 mcg-600 mcg Tablet Take 1 tablet by mouth Daily @ 0600. 12/15/2022 12/07/2023 documented as of this encounter Plan of Treatment Upcoming Encounters Date Type Department Care Team (Late st Contact Info) Description 01/05/2024 10:00 AM EST Office Visit Hematology/Oncology at [address] [phone] Alex Charles MD [facility] [place] [address] Agnes Jose APRN [address] [place] [address] [place] [address] Colon cancer metastasized to liver 01/05/2024 10:30 AM EST Infusion Hematology Oncology at [address] [phone] Arrived documented as of this encounter Goals Goal Patient Goal Type Associated Problems Recent Progress Patient-Stated? 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 ??Enlarging hepatic metastases. 2. ??Stable 4 mm right lower lobe pulmonary nodule. ??This is indeterminate. Given stability, a benign etiology is favored. ??Continued attention on follow- up is recommended. 3. ??Stable 13 mm right adrenal nodule. ??This is indeterminate but given stability favored to be benign as well. ??Continued attention on follow-up is recommended. Thank you for letting us participate in the care of this patient. ??If you are a health care provider and have any questions regarding this report, please contact the number below. ??For patients who have questions please contact the health housekeeper caregiver that requested your imaging first. ? Narrative 11/22/2023 1:07 PM EDT EXAMINATION: CT CHEST ABDOMEN PELVIS W CONTRAST (GENERIC) CLINICAL HISTORY: Stage IV colon cancer, s/p 1 cycle of chemotherapy with significant adverse reaction. ??Restaging C18.9, Malignant neoplasm of colon, unspecified TECHNIQUE: Helical CT of the chest, abdomen, and pelvis following the intravenous administration of contrast. Administered 120.0 ml of OMNIPAQUE 350.00 mg/ml. Oral contrast was administered. COMPARISON: Comparison is made to CT of the Chest, Abdomen, and Pelvis September 19, 2023 FINDINGS: Radiology Aide Images: Noncontributory. CT OF THE CHEST: Pulmonary parenchyma: There is dependent atelectasis in the bilateral lungs. There are a few punctate calcified granulomas in both lungs. ??There is a stable 4 mm nodule in the right lower lobe (series 303, image 55). Airways: The central airways are patent. ??There is no endobronchial or endotracheal lesion. Pleura: There is no pleural effusion or pneumothorax. Lymph nodes:There are no pathologically enlarged lymph nodes. ??There are a few calcified right hilar lymph nodes, consistent with prior granulomatous disease. Heart, pericardium, and great vessels: Cardiac size is within normal limits. There is physiologic pericardial fluid. ??There is calcification of the aortic valve. ??There is moderate multifocal atherosclerotic calcification of the coronary arteries. ??The aorta is normal in course and caliber. ??There is a normal three-vessel aortic arch configuration. ??Visualized aspects the great vessels are widely patent. ??There is a retropharyngeal course of the bilateral common carotid arteries. ??The pulmonary arteries are normal in course and caliber; there are no central intraluminal filling defects. Other mediastinal structures: The mediastinal fat is preserved. ??Limited evaluation of the esophagus is within normal limits. Lower neck: The thyroid gland is atrophic. ??There are a few sub-5 mm hypoattenuating thyroid nodules, unchanged. ??Per ACR white paper guidelines, these require no further imaging follow-up. Body wall soft tissues: Normal. Skeletal structures: As detailed below. CT OF THE ABDOMEN AND PELVIS: Liver: There is hypoattenuating hepatic metastases particularly in the inferior aspect of the right hepatic lobe which are now confluent compared to the prior examination. ??Cumulatively, these metastases measure 8.6 x 2.5 cm. ??The largest component of metastases previously measured 4.4 x 2.2 cm. ??A more focal metastasis within the inferior aspect of segment 4 now measures 55 x 38 mm, previously 45 x 31 mm. ??There are scattered hypoattenuating lesions throughout the remainder of the liver, consistent with hepatic cysts. Bile ducts: Normal. Gallbladder: The gallbladder is contracted. ??There are calcified gallstones. There is no gallbladder wall thickening or pericholecystic fluid. ??The pericholecystic fat is preserved. Pancreas: Normal. Spleen: Normal. Adrenals: There is a stable 13 mm right adrenal nodule. ??Left adrenal gland is normal. Kidneys: Normal. Urinary Bladder: The urinary bladder is distended and is otherwise unremarkable. Vasculature: The aorta is normal in course and caliber. ??There is mild atherosclerotic calcification of the aorta and its branch vessels. ??The inferior vena cava is normal in course and caliber. ??The superior mesenteric, splenic, and portal veins are patent. ??The hepatic veins are limited evaluation but appear patent centrally. ??The renal veins are patent. Lymph Nodes: ??There are no pathologically enlarged lymph nodes. Bowel: Limited evaluation the distal esophagus is unremarkable. ??The stomach is distended with contrast and food stuffs. ??The duodenum is normal in course and caliber. ??The remainder of the small bowel is within normal limits. ??There is an ileocolonic anastomosis the right lower quadrant which appears patent. ??There is a moderate volume of stool throughout the remainder of the large bowel. ??There is a left lower quadrant end colostomy. ??There is a blind-ending sigmoid colon. There is moderate diverticulosis coli of the descending colon without secondary signs of acute diverticulitis. ??There is heterogeneity of the parastomal fat, unchanged. ??The layering fluid within the most caudal aspect of the parastomal fat is unchanged. Peritoneum and mesentery: No ascites, free air, or loculated fluid collection. No mesenteric inflammation. Abdominal wall: As detailed above under gastric intestinal tract. ??There is a well healed vertically origin midline incision. Reproductive organs: The prostate gland is mildly enlarged. ??There few calcifications centrally. ??Visualized aspects of the penis and scrotum are within normal limits. Osseous structures: There is paired posterior spinal fixation hardware at L4-S1. There is stable grade 1 anterolisthesis of L4 on L5 and L5 and S1 as well as grade 1 retrolisthesis of L1 on L2, L2 on L3 and L3 on L4. ??There are degenerative changes throughout the visualized spine. ??There are no suspicious osseous lesions. Procedure Note Frank Benito, DO - 11/22/2023 EXAMINATION: CT CHEST ABDOMEN PELVIS W CONTRAST (GENERIC) CLINICAL HISTORY: Stage IV colon cancer, s/p 1 cycle of chemotherapywith significant adverse reaction. Restaging C18.9, Malignant neoplasm of colon, unspecified TECHNIQUE: Helical CT of the chest, abdomen, and pelvis following the intravenous administration of contrast. Administered 120.0 ml ofOMNIPAQUE 350.00 mg/ml. Oral contrast was administered. COMPARISON: Comparison is made to CT of the Chest, Abdomen, and PelvisJuly 2023 FINDINGS: Radiology Aide Images: Noncontributory. CT OF THE CHEST: Pulmonary parenchyma: There is dependent atelectasis in the bilaterallungs. There are a few punctate calcified granulomas in both lungs. There is astable 4 mm nodule in the right lower lobe (series 303, image 55). Airways: The central airways are patent. There is no endobronchial or endotracheal lesion. Pleura: There is no pleural effusion or pneumothorax. Lymph nodes:There are no pathologically enlarged lymph nodes. There are afew calcified right hilar lymph nodes, consistent with prior granulomatousdisease. Heart, pericardium, and great vessels: Cardiac size is within normallimits. There is physiologic pericardial fluid. There is calcification of theaortic valve. There is moderate multifocal atherosclerotic calcification ofthe coronary arteries. The aorta is normal in course and caliber. There ernie normal three-vessel aortic arch configuration. Visualized aspects thegreat vessels are widely patent. There is a retropharyngeal course of thebilateral common carotid arteries. The pulmonary arteries are normal in courseand caliber; there are no central intraluminal filling defects. Other mediastinal structures: The mediastinal fat is preserved. Limited evaluation of the esophagus is within normal limits. Lower neck: The thyroid gland is atrophic. There are a few sub-5 mm hypoattenuating thyroid nodules, unchanged. Per ACR white paperguidelines, these require no further imaging follow-up. Body wall soft tissues: Normal. Skeletal structures: As detailed below. CT OF THE ABDOMEN AND PELVIS: Liver: There is hypoattenuating hepatic metastases particularly in theinferior aspect of the right hepatic lobe which are now confluent compared to theprior examination. Cumulatively, these metastases measure 8.6 x 2.5 cm. Thelargest component of metastases previously measured 4.4 x 2.2 cm. A more focal metastasis within the inferior aspect of segment 4 now measures 55 x 38mm, previously 45 x 31 mm. There are scattered hypoattenuating lesionsthroughout the remainder of the liver, consistent with hepatic cysts. Bile ducts: Normal. Gallbladder: The gallbladder is contracted. There are calcifiedgallstones. There is no gallbladder wall thickening or pericholecystic fluid. The pericholecystic fat is preserved. Pancreas: Normal. Spleen: Normal. Adrenals: There is a stable 13 mm right adrenal nodule. Left adrenalgland is normal. Kidneys: Normal. Urinary Bladder: The urinary bladder is distended and is otherwiseunremarkable. Vasculature: The aorta is normal in course and caliber. There is mild atherosclerotic calcification of the aorta and its branch vessels. Theinferior vena cava is normal in course and caliber. The superior mesenteric,splenic, and portal veins are patent. The hepatic veins are limited evaluationbut appear patent centrally. The renal veins are patent. Lymph Nodes: There are no pathologically enlarged lymph nodes. Bowel: Limited evaluation the distal esophagus is unremarkable. Thestomach is distended with contrast and food stuffs. The duodenum is normal in courseand caliber. The remainder of the small bowel is within normal limits. Thereis an ileocolonic anastomosis the right lower quadrant which appears patent.There is a moderate volume of stool throughout the remainder of the large bowel.There is a left lower quadrant end colostomy. There is a blind-ending sigmoidcolon. There is moderate diverticulosis coli of the descending colon withoutsecondary signs of acute diverticulitis. There is heterogeneity of the parastomalfat, unchanged. The layering fluid within the most caudal aspect of theparastomal fat is unchanged. Peritoneum and mesentery: No ascites, free air, or loculated fluidcollection. No mesenteric inflammation. Abdominal wall: As detailed above under gastric intestinal tract. Thereis a well healed vertically origin midline incision. Reproductive organs: The prostate gland is mildly enlarged. There few calcifications centrally. Visualized aspects of the penis and scrotumare within normal limits. Osseous structures: There is paired posterior spinal fixation hardware atL4-S1. There is stable grade 1 anterolisthesis of L4 on L5 and L5 and S1 as wellas grade 1 retrolisthesis of L1 on L2, L2 on L3 and L3 on L4. There are degenerative changes throughout the visualized spine. There are nosuspicious osseous lesions. IMPRESSION 1. Enlarging hepatic metastases. 2. Stable 4 mm right lower lobe pulmonary nodule. This is indeterminate. Given stability, a benign etiology is favored. Continued attention onfollow-up is recommended. 3. Stable 13 mm right adrenal nodule. This is indeterminate but given stability favored to be benign as well. Continued attention on follow-upis recommended. Thank you for letting us participate in the care of this patient. If youare a health care provider and have any questions regarding this report,please contact the number below. For patients who have questions please contactthe health housekeeper caregiver that requested your imaging first. 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 Colon cancer metastasized to liver Malignant neoplasm of colon, unspecified site documented in this encounter Administered Medications Inactive Administered Medications - up to 3 most recent administrations Medication Order MAR Action Action Date Dose Rate Site iohexoL (Omnipaque) (350 mg/mL) solution 0-200 mL 0-200 mL, Intravenous, ONCE PRN, 1 dose, Starting on Tue11/18/23 at 1647, Until Tue11/18/23 at 1648, Per Protocol, Warning Vesicant/Irritant Medication , Radiology Contrast, Routine Given 11/18/2023 4:48 PM EDT 120 mLs iohexoL (Omnipaque) (350 mg/mL) solution 0-50 mL 0-50 mL, Oral, ONCE, 1 dose, On Tue11/18/23 at 1745, Warning Vesicant/Irritant Medication , Radiology Contrast, Routine Given 11/18/2023 5:45 PM EDT 50 mLs documented in this encounter Care Teams Corporate Financial Analyst Relationship Specialty Start Date End Date None None PCP - General 01/20/10 documented as of this encounter
--- OUTSIDE RECORDS SUMMARY | 2024-01-05 09:57 | XMS_ITS | Encounter Summary ---
Author Organization [facility] Address [place] [address] Care Team Providers Care Director Safety Council Name Role Phone None Primary Care Provider Unavailabl e Encounter Details Date Type Department Care Team (Latest Contact Info) Description 01/05/2024 Travel Social History Tobacco Use Types Packs/Day [...] 10:00 AM EST Office Visit Hematology/Oncology at [address] [phone] Alex Charles MD [facility] [place] [address] Agnes Jose APRN [address] [place] [address] DR HEMATOLOGY AND ONCOLOGY [place], [place] [id number] Colon cancer metastasized to liver 01/05/2024 10:30 AM EST Infusion Hematology Oncology at [address] [phone] Arrived documented as of this encounter Goals Goal Patient Goal Type Associated Problems Recent Progress Patient-Stated? Author Patient's specific desired goal: Patient Facing Action Plan No Godfrey Noguera, [facility] Note: Goal(s): Live an additional year to year and a half Measured by: survival Time-frame: to be tracked by pharmacy annually documented as of this encounter Visit Diagnoses Not on filedocumented in this encounter Care Teams Director Safety Council Relationship Specialty Start Date End Date None None PCP - General 01/20/10 documented as of this encounter
--- OUTSIDE RECORDS SUMMARY | 2024-01-05 09:57 | XMS_ITS | Encounter Summary ---
[place] [address] Care Team Providers Care Infantryman Name Role Phone None Primary Care Provider Unavailabl e Encounter Details Date Type Department Care Team (Latest Contact Info) Description 11/23/2023 7:35 AM EDT - 11/23/2023 11:59 PM EDT Hospital Encounter Hematology [place] [phone] Primary colon cancer with metastasis to other [...] Tablet Take 10 mg by mouth nightly. MV,Ca,Ers-Molr-JN-Lycope ne 8 mg iron- 200 mcg-600 mcg Tablet Take 1 tablet by mouth Daily @ 0600. 12/15/2022 12/07/2023 documented as of this encounter Plan of Treatment Upcoming Encounters Date Type Department Care Team (Late st Contact Info) Description 01/05/2024 10:00 AM EST Office Visit Hematology/Oncology at [address] [phone] Alex Charles MD [facility] [place] [address] Agnes Jose APRN [address] [place] [address] [place] [address] Colon cancer metastasized to liver 01/05/2024 10:30 AM EST Infusion Hematology Oncology at [address] [phone] Arrived documented as of this encounter Goals Goal Patient Goal Type Associated Problems Recent Progress Patient-Stated? 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 This result was generated using a Nora Louise immunoassay. ??Results obtained from other methods or manufacturers cannot be used interchangeably with this method. Blood VENOUS BLOOD SPECIMEN / Unknown Venipuncture / Unknown 11/23/2023 7:45 AM EDT 11/23/2023 7:45 AM EDT Alex Charles MD CHEMISTRY ORDERABLES [facility] [place] [address] * Comprehensive metabolic panel (11/23/2023 7:45 AM EDT) Glucose 125 65 - 199 mg/dL 11/23/2023 8:24 AM [facility] Comment:Glucose Concentratio n >=200 mg/dL plus symptoms is consistent with Diabetes Mellitus. Blood Urea Nitrogen 19 10 - 20 mg/dL 11/23/2023 8:24 AM [facility] Creatinine 1.31 0.80 - 1.50 mg/dL 11/23/2023 8:24 AM [facility] Sodium 142 135 - 145 mMol/L 11/23/2023 8:24 AM [facility] Potassium 4.2 3.5 - 5.0 mMol/L 11/23/2023 8:24 AM [facility] Chloride 107 98 - 107 mMol/L 11/23/2023 8:24 AM [facility] Carbon Dioxide 24 22 - 31 mMol/L 11/23/2023 8:24 AM [facility] Anion Gap 11 5 - 15 mMol/L 11/23/2023 8:24 AM [facility] Calcium 9.1 8.5 - 10.5 mg/dL 11/23/2023 8:24 AM [facility] Protein, Total 6.9 6.1 - 8.0 g/dL 11/23/2023 8:24 AM [facility] Albumin 3.8 3.2 - 5.2 g/dL 11/23/2023 8:24 AM [facility] Aspartate Aminotransferase 23 <=39 unit/L 11/23/2023 8:24 AM [facility] Alanine Aminotransferase 17 0 - 55 unit/L 11/23/2023 8:24 AM [facility] Alkaline Phosphatase 80 40 - 130 unit/L 11/23/2023 8:24 AM [facility] Bilirubin, Total 0.4 <=1.3 mg/dL 11/23/2023 8:24 AM EDT [facility] Est Glomerular Filtration Rate - Male 54 mL/min/1. 73 m?? 11/23/2023 8:24 AM EDT [facility] Comment: This patient's estimated GFR was calculated using the 2020 CKD-EPI equation. The estimated GFR can vary from the measured GFR by up to 30% in the absence of rapidly changing kidney function. Assessment of the estimated GFR is not appropriate when creatinine concentrations are rapidly changing. For clinical situations in which a more precise estimate of GFR is necessary, consider alternative methods of GFR estimation such as a 24-hour urine creatinine clearance. Assignment of CKD stage 1 - 5 for patients with an eGFR near the transition point between stages may be based on clinical assessment of muscle mass and symptoms in addition to eGFR. Link: eGFR Calculator [employer] Fasting Status No 11/23/2023 8:24 AM T [facility] Blood VENOUS BLOOD SPECIMEN / Unknown Venipuncture / Unknown 11/23/2023 7:45 AM EDT 11/23/2023 7:45 AM EDT Alex Charles MD CHEMISTRY ORDERABLES [facility] [place] [address] * (ABNORMAL) CBC (with Diff) (11/23/2023 7:45 AM EDT) White Blood Cell 5.29 4.00 - 9.50 x10(3)/mc L 11/23/2023 7:59 AM EDT [facility] Red Blood Cell 4.35(L) 4.58 - 5.54 x10(6)/mc L 11/23/2023 7:59 AM EDT [facility] Hemoglobin 12.3(L) 13.7 - 16.5 g/dL 11/23/2023 7:59 AM EDT [facility] Hematocrit 38.1(L) 40.5 - 48.5 % 11/23/2023 7:59 AM EDT [facility] Mean Cell Volume 87.6 82.9 - 93.1 fL 11/23/2023 7:59 AM [facility] Mean Cell Hemoglobin 28.3 27.5 - 32.1 pg 11/23/2023 7:59 AM [facility] Mean Cell Hemoglobin Concentration 32.3 32.0 - 35.7 g/dL 11/23/2023 7:59 AM [facility] Platelet 215 145 - 357 x10(3)/mc L 11/23/2023 7:59 AM [facility] Mean Platelet Volume 7.9 7.6 - 12.9 fL 11/23/2023 7:59 AM [facility] RDW Standard Deviation 58.6(H) 36.0 - 45.0 fL 11/23/2023 7:59 AM [facility] RDW coefficient of variation 20.2(H) 11.4 - 13.8 % 11/23/2023 7:59 AM [facility] NRBC% auto 0.0 % 11/23/2023 7:59 AM [facility] NRBC Absolute <0.01 <0.01 x10(3)/mc L 11/23/2023 7:59 AM [facility] Neutrophil % 59.3 % 11/23/2023 7:59 AM [facility] Neutrophil Absolute (ANC) - Automated 3.14 1.70 - 6.10 x10(3)/mc L 11/23/2023 7:59 AM [facility] Lymph % 17.6 % 11/23/2023 7:59 AM [facility] Lymph Absolute 0.93 0.90 - 3.20 x10(3)/mc L 11/23/2023 7:59 AM [facility] Monocyte % 15.5 % 11/23/2023 7:59 AM [facility] Monocyte Absolute 0.82 0.30 - 0.90 x10(3)/mc L 11/23/2023 7:59 AM [facility] Eos % 6.0 % 11/23/2023 7:59 AM EDT [facility] Eos Absolute 0.32 0.00 - 0.40 x10(3)/mc L 11/23/2023 7:59 AM EDT [facility] Basophil % 0.8 % 11/23/2023 7:59 AM EDT [facility] Baso Absolute 0.04 0.00 - 0.10 x10(3)/mc L 11/23/2023 7:59 AM EDT [facility] Immature Gran % 0.8 % 7:59 AM EDT [facility] Immature Gran Absolute 0.04 0.00 - 0.04 x10(3)/mc L 11/23/2023 7:59 AM EDT [facility] Blood VENOUS BLOOD SPECIMEN / Unknown Venipuncture / Unknown 11/23/2023 7:45 AM EDT 11/23/2023 7:45 AM EDT Alex Charles MD HEMATOLOGY ORDERABLE S [facility] [place] [address] documented in this encounter Visit Diagnoses Diagnosis 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
--- OUTSIDE RECORDS SUMMARY | 2024-01-05 09:57 | XMS_ITS | Encounter Summary ---
Author Organization [facility] [place] [address] Care Team Providers Care Supervisor Coffee Name Role Phone None Primary Care Provider Unavailabl e Encounter Details Date Type Department Care Team (Latest Contact Info) Description 11/15/2023 1:51 PM EDT - 11/15/2023 11:59 PM EDT Hospital Encounter [place] [phone] Colon cancer metastasized to liver Discharge Disposition: [...] Tablet Take 10 mg by mouth nightly. MV,Ca,Ebj-Avoo-SF-Lycope ne 8 mg iron- 200 mcg-600 mcg Tablet Take 1 tablet by mouth Daily @ 0600. 12/15/2022 12/07/2023 documented as of this encounter Plan of Treatment Upcoming Encounters Date Type Department Care Team (Late st Contact Info) Description 01/05/2024 10:00 AM EST Office Visit Hematology/Oncology at [address] [phone] Alex Charles MD [facility] [place] [address] Agnes Jose APRN [address] [place] [address] DR [place] [address] Colon cancer metastasized to liver 01/05/2024 10:30 AM EST Infusion Hematology Oncology at [address] [place] [phone] Arrived documented as of this encounter Goals Goal Patient Goal Type Associated Problems Recent Progress Patient-Stated? Author Patient's specific desired goal: Patient Facing Action Plan Godfrey Najera [facility] Note: Goal(s): Live an additional year to year and a half Measured by: survival Time-frame: to be tracked by pharmacy annually documented as of this encounter Procedures Procedure Name Priority Date/Time Associated Diagnosis Comments URINALYSIS DIPSTICK STAT 11/15/2023 2 :05 PM EDT Colon cancer metastasized to liver CBC (WITH DIFF) STAT 11/15/2023 2:00 PM EDT Colon cancer metastasized to liver CEA STAT 11/15/2023 2:00 PM EDT Colon cancer metastasized to liver COMPREHENSIVE METABOLIC PANEL STAT 11/15/2023 2:00 PM EDT Colon cancer metastasized to liver documented in this encounter Results * (ABNORMAL) Urinalysis Dipstick (11/15/2023 2:05 PM EDT) Glucose, Urine Dipstick Negative Negative 11/15/2023 2:[address] [facility] Protein, Urine Dipstick Trace(A) Negative 11/15/2023 2:[address] [facility] Bilirubin, Urine Dipstick Negative Negative 11/15/2023 2:[address] [facility] Comment:Clinical correlation required for positive Urine Bilirubin results as false positive may occur with some drugs and drug related products. If a false positive is suspected a serum total bilirubin should be considered if clinically indicated. Urobilinogen, Urine Dipstick Normal Normal, 0.2 mg/dL, 1.0 mg/dL 11/15/2023 2:[address] [facility] pH, Urine (dipstick) 5.5 5.0 - 8.0 11/15/2023 2:[address] [facility] Blood, Urine Dipstick Negative Negative 11/15/2023 2:[address] [facility] Ketone, Urine Dipstick Trace(A) Negative 11/15/2023 2:[address] [facility] Nitrite, Urine Dipstick Negative Negative 11/15/2023 2:[address] [facility] Leukocytes, Urine Dipstick Negative Negative 11/15/2023 2:[address] [facility] Specific [place] Urine Automated 1.019 1.005 - 1.030 11/15/2023 2:[address] [facility] Appearance, Urine Dipstick Clear Clear 11/15/2023 2:[address] [facility] Color, Urine Dipstick Dark Yellow Yellow, Dark Yellow 11/15/2023 2:[address] [facility] CULTURE ADDED? 11/15/2023 2:[address] [facility] Urine URINE SPECIMEN OBTAINED BY CLEAN CATCH PROCEDURE / Unknown Non Blood Collection / Unknown 11/15/2023 2:05 PM EDT 11/15/2023 2:05 PM EDT Alex Charles MD URINE ORDERABLES [facility] [place] [address] * (ABNORMAL) CEA (11/15/2023 2:00 PM EDT) Carcinoembryonic Antigen 6.9(H) <=3.8 ng/ml 11/15/2023 3:[address] [facility] Comment: Some smokers may have elevated CEA, generally < 5.5 ng/mL. This result was generated using a Nora Louise immunoassay. ??Results obtained from other methods or manufacturers cannot be used interchangeably with this method. Blood VENOUS BLOOD SPECIMEN / Unknown Venipuncture / Unknown 11/15/2023 2:00 PM EDT 11/15/2023 2:00 PM EDT Alex Charles MD CHEMISTRY ORDERABLES [facility] [place] [address] * (ABNORMAL) Comprehensive metabolic panel (11/15/2023 2:00 PM EDT) Glucose 113 65 - 199 mg/dL 11/15/2023 3:[address] [facility] Comment:Glucose Concentratio n >=200 mg/dL plus symptoms is consistent with Diabetes Mellitus. Blood Urea Nitrogen 21(H) 10 - 20 mg/dL 11/15/2023 3:[address] [facility] Creatinine 1.29 0.80 - 1.50 mg/dL 11/15/2023 3:[address] [facility] Sodium 139 135 - 145 mMol/L 11/15/2023 3:[address] [facility] Potassium 3.4(L) 3.5 - 5.0 mMol/L 11/15/2023 3:[address] [facility] Chloride 100 98 - 107 mMol/L 11/15/2023 3:[address] [facility] Carbon Dioxide 25 22 - 31 mMol/L 11/15/2023 3:[address] [facility] Anion Gap 14 5 - 15 mMol/L 11/15/2023 3:[address] [facility] Calcium 9.2 8.5 - 10.5 mg/dL 11/15/2023 3:[address] [facility] Protein, Total 7.0 6.1 - 8.0 g/dL 11/15/2023 3:[address] [facility] Albumin 3.8 3.2 - 5.2 g/dL 11/15/2023 3:[address] [facility] Aspartate Aminotransferase 29 <=39 unit/L 11/15/2023 3:[address] [facility] Alanine Aminotransferase 22 0 - 55 unit/L 11/15/2023 3:[address] [facility] Alkaline Phosphatase 77 40 - 130 unit/L 11/15/2023 3:[address] [facility] Bilirubin, Total 0.3 <=1.3 mg/dL 11/15/2023 3:[address] [facility] Est Glomerular Filtration Rate - Male 55 mL/min/1. 73 m?? 11/15/2023 3:[address] [facility] Comment: This patient's estimated GFR was [...] Calculator [employer] Fasting Status No 11/15/2023 3:[address] [facility] Blood VENOUS BLOOD SPECIMEN / Unknown Venipuncture / Unknown 11/15/2023 2:00 PM EDT 11/15/2023 2:00 PM EDT Alex Charles MD CHEMISTRY ORDERABLES [facility] [place] [address] * (ABNORMAL) CBC (with Diff) (11/15/2023 2:00 PM EDT) White Blood Cell 7.31 4.00 - 9.50 x10(3)/mc L 11/15/2023 2:[address] [facility] Red Blood Cell 4.35(L) 4.58 - 5.54 x10(6)/mc L 11/15/2023 2:12 PM [facility] Hemoglobin 12.0(L) 13.7 - 16.5 g/dL 11/15/2023 2:12 PM [facility] Hematocrit 36.3(L) 40.5 - 48.5 % 11/15/2023 2:12 PM [facility] Mean Cell Volume 83.4 82.9 - 93.1 fL 11/15/2023 2:12 PM [facility] Mean Cell Hemoglobin 27.6 27.5 - 32.1 pg 11/15/2023 2:12 PM [facility] Mean Cell Hemoglobin Concentration 33.1 32.0 - 35.7 g/dL 11/15/2023 2:12 PM [facility] Platelet 185 145 - 357 x10(3)/mc L 11/15/2023 2:12 PM [facility] Mean Platelet Volume 7.6 7.6 - 12.9 fL 11/15/2023 2:12 PM [facility] RDW Standard Deviation 47.7(H) 36.0 - 45.0 fL 11/15/2023 2:12 PM [facility] RDW coefficient of variation 17.8(H) 11.4 - 13.8 % 11/15/2023 2:12 PM [facility] NRBC% auto 0.0 % 11/15/2023 2:12 PM [facility] NRBC Absolute 0.00 0.00 - 0.00 x10(3)/mc L 11/15/2023 2:12 PM [facility] Neutrophil % 67.1 % 11/15/2023 2:12 PM [facility] Neutrophil Absolute (ANC) - Automated 4.90 1.70 - 6.10 x10(3)/mc L 11/15/2023 2:12 PM [facility] Lymph % 16.8 % 11/15/2023 2:[address] [facility] Lymph Absolute 1.23 0.90 - 3.20 x10(3)/mc L 11/15/2023 2:[address] [facility] Monocyte % 13.1 % 11/15/2023 2:[address] [facility] Monocyte Absolute 0.96(H) 0.30 - 0.90 x10(3)/mc L 11/15/2023 2:[address] [facility] Eos % 1.2 % 11/15/2023 2:[address] [facility] Eos Absolute 0.09 0.00 - 0.40 x10(3)/mc L 11/15/2023 2:[address] [facility] Basophil % 0.3 % 11/15/2023 2:[address] [facility] Baso Absolute 0.02 0.00 - 0.10 x10(3)/mc L 11/15/2023 2:[address] [facility] Immature Gran % 1.5 % 2:[address] [facility] Immature Gran Absolute 0.11(H) 0.00 - 0.04 x10(3)/mc L 11/15/2023 2:[address] [facility] Blood VENOUS BLOOD SPECIMEN / Unknown Venipuncture / Unknown 11/15/2023 2:00 PM EDT 11/15/2023 2:00 PM EDT Alex Charles MD HEMATOLOGY ORDERABLE S [facility] [place] [address] documented in this encounter Visit Diagnoses Diagnosis Colon cancer metastasized to liver Malignant neoplasm of colon, unspecified site Colon cancer metastasized to liver Malignant neoplasm of colon, unspecified site documented in this encounter Care Teams Supervisor Coffee Relationship Specialty Start Date End Date None None PCP - General 01/20/10 documented as of this encounter
--- OUTSIDE RECORDS SUMMARY | 2024-01-05 09:57 | XMS_ITS | Encounter Summary ---
Author Organization [facility] [place] [address] Care Team Providers Care Director [facility] Name Role Phone None Primary Care Provider Unavailabl e Encounter Details Date Type Department Care Team (Late Contact Info) Description 12/06/2023 Orders Only Hematology [place] [address] Nena Beverly [facility] DR HEMATOLOGY [place] [address] Colon cancer metastasized to liver Social History [...] 10:00 AM EST Office Visit Hematology/Oncology at [address] [phone] Alex Charles MD [facility] [place] [address] Agnes Jose [address] [place] [address] Colon cancer metastasized to liver 01/05/2024 10:30 AM EST Infusion Hematology Oncology at [address] [phone] Arrived documented as of this encounter Goals Goal Patient Goal Type Associated Problems Recent Progress Patient-Stated? Author Patient's specific desired goal: Patient Facing Action Plan Godfrey Najera [facility] ED Note: Goal(s): Live an additional year to year and a half Measured by: survival Time-frame: to be tracked by pharmacy annually documented as of this encounter Results * (ABNORMAL) CEA (12/07/2023 7:37 AM EDT) Carcinoembryonic Antigen 9.0(H) <=3.8 ng/ml 12/07/2023 9:09 AM EDT [facility] Comment: Some smokers may have elevated CEA, generally < 5.5 ng/mL. This result was generated using a Nora Louise immunoassay. ??Results obtained from other methods or manufacturers cannot be used interchangeably with this method. Blood VENOUS BLOOD SPECIMEN / Unknown Venipuncture / Unknown 12/07/2023 7:37 AM EDT 12/07/2023 7:37 AM EDT Nena Beverly APRN CHEMISTRY ORDER KENTRELL [facility] [place] [address] * (ABNORMAL) Comprehensive metabolic panel Non-fasting (12/07/2023 7:37 AM EDT) Glucose 114 65 - 199 mg/dL 12/07/2023 8:22 AM EDT [facility] Comment:Glucose Concentratio n >=200 mg/dL plus symptoms is consistent with Diabetes Mellitus. Blood Urea Nitrogen 24(H) 10 - 20 mg/dL 12/07/2023 8:22 AM EDT [facility] Creatinine 1.41 0.80 - 1.50 mg/dL 12/07/2023 8:22 AM EDT [facility] Sodium 142 135 - 145 mMol/L 12/07/2023 8:22 AM [facility] Potassium 4.3 3.5 - 5.0 mMol/L 12/07/2023 8:22 AM [facility] Chloride 109(H) 98 - 107 mMol/L 12/07/2023 8:22 AM [facility] Carbon Dioxide 23 22 - 31 mMol/L 12/07/2023 8:22 AM [facility] Anion Gap 10 5 - 15 mMol/L 12/07/2023 8:22 AM [facility] Calcium 9.3 8.5 - 10.5 mg/dL 12/07/2023 8:22 AM [facility] Protein, Total 7.1 6.1 - 8.0 g/dL 12/07/2023 8:22 AM [facility] Albumin 3.7 3.2 - 5.2 g/dL 12/07/2023 8:22 AM [facility] Aspartate Aminotransferase 22 <=39 unit/L 12/07/2023 8:22 AM [facility] Alanine Aminotransferase 18 0 - 55 unit/L 12/07/2023 8:22 AM [facility] Alkaline Phosphatase 82 40 - 130 unit/L 12/07/2023 8:22 AM [facility] Bilirubin, Total 0.3 <=1.3 mg/dL 12/07/2023 8:22 AM [facility] Est Glomerular Filtration Rate - Male 49 mL/min/1. 73 m?? 12/07/2023 8:22 AM [facility] Comment: This patient's estimated GFR was [...] Calculator [employer] Fasting Status No 12/07/2023 8:22 AM EDT [facility] Blood VENOUS BLOOD SPECIMEN / Unknown Venipuncture / Unknown 12/07/2023 7:37 AM EDT 12/07/2023 7:37 AM EDT Nena Beverly APRN CHEMISTRY ORDER KENTRELL [facility] [place] [address] * (ABNORMAL) CBC (with Diff) (12/07/2023 7:37 AM EDT) White Blood Cell 4.71 4.00 - 9.50 x10(3)/mc L 12/07/2023 7:53 AM EDT [facility] Red Blood Cell 3.71(L) 4.58 - 5.54 x10(6)/mc L 12/07/2023 7:53 AM [facility] Hemoglobin 11.2(L) 13.7 - 16.5 g/dL 12/07/2023 7:53 AM [facility] Hematocrit 33.0(L) 40.5 - 48.5 % 12/07/2023 7:53 AM [facility] Mean Cell Volume 88.9 82.9 - 93.1 fL 12/07/2023 7:53 AM [facility] Mean Cell Hemoglobin 30.2 27.5 - 32.1 pg 12/07/2023 7:53 AM [facility] Mean Cell Hemoglobin Concentration 33.9 32.0 - 35.7 g/dL 12/07/2023 7:53 AM [facility] Platelet 253 145 - 357 x10(3)/mc L 12/07/2023 7:53 AM [facility] Mean Platelet Volume 8.3 7.6 - 12.9 fL 12/07/2023 7:53 AM [facility] RDW Standard Deviation 64.4(H) 36.0 - 45.0 fL 12/07/2023 7:53 AM [facility] RDW coefficient of variation 20.0(H) 11.4 - 13.8 % 12/07/2023 7:53 AM [facility] NRBC% auto 0.0 % 12/07/2023 7:53 AM [facility] NRBC Absolute <0.01 <0.01 x10(3)/mc L 12/07/2023 7:53 AM [facility] Neutrophil % 53.6 % 12/07/2023 7:53 AM [facility] Neutrophil Absolute (ANC) - Automated 2.52 1.70 - 6.10 x10(3)/mc L 12/07/2023 7:53 AM [facility] Lymph % 28.0 % 12/07/2023 7:53 AM [facility] Lymph Absolute 1.32 0.90 - 3.20 x10(3)/mc L 12/07/2023 7:53 AM [facility] Monocyte % 14.4 % 12/07/2023 7:53 AM [facility] Monocyte Absolute 0.68 0.30 - 0.90 x10(3)/mc L 12/07/2023 7:53 AM [facility] Eos % 3.2 % 12/07/2023 7:53 AM [facility] Eos Absolute 0.15 0.00 - 0.40 x10(3)/mc L 12/07/2023 7:53 AM [facility] Basophil % 0.4 % 12/07/2023 7:53 AM [facility] Baso Absolute <0.04 0.00 - 0.10 x10(3)/mc L 12/07/2023 7:53 AM [facility] Immature Gran % 0.4 % 7:53 AM EDT [facility] Immature Gran Absolute <0.04 0.00 - 0.04 x10(3)/mc L 12/07/2023 7:53 AM EDT [facility] Blood VENOUS BLOOD SPECIMEN / Unknown Venipuncture / Unknown 12/07/2023 7:37 AM EDT 12/07/2023 7:37 AM EDT Nena Beverly APRN HEMATOLOGY GLENIS YANCEY [facility] [place] [address] documented in this encounter Visit Diagnoses Diagnosis Colon cancer metastasized to liver Malignant neoplasm of colon, unspecified site Colon cancer metastasized to liver Malignant neoplasm of colon, unspecified site documented in this encounter Care Teams Director Community [facility] Relationship Specialty Start Date End Date None None PCP - General 01/20/10 documented as of this encounter
--- OUTSIDE RECORDS SUMMARY | 2024-01-05 09:57 | XMS_ITS | Encounter Summary ---
Author Organization [facility] [place] [address] Care Team Providers Care Appeals And Generalist Clerk Name Role Phone None Primary Care Provider Unavailabl e Encounter Details Date Type Department Care Team (Latest Contact Info) Description 12/07/2023 7:45 AM EDT Laboratory Appointment Lab at [facility] Hematology Oncology [address] [place] [id number] Colon cancer metastasized to liver Social History [...] 10:00 AM EST Office Visit Hematology/Oncology at [address] [phone] Alex Charles MD [facility] [place] [address] Agnes Jose APRN [address] [place] [address] [place] [address] Colon cancer metastasized to liver 01/05/2024 10:30 AM EST Infusion Hematology Oncology at [address] [phone] Arrived documented as of this encounter Goals Goal Patient Goal Type Associated Problems Recent Progress Patient-Stated? Author Patient's specific desired goal: Patient Facing Action Plan No Godfrey Noguera, [facility] Note: Goal(s): Live an additional year to year and a half Measured by: survival Time-frame: to be tracked by pharmacy annually documented as of this encounter Procedures Procedure Name Priority Date/Time Associated Diagnosis Comments CBC (WITH DIFF) STAT 12/07/2023 7:37 AM EDT Colon cancer metastasized to liver CEA STAT 12/07/2023 7:37 AM EDT Colon cancer metastasized to liver COMPREHENSIVE METABOLIC PANEL STAT 12/07/2023 7:37 AM EDT Colon cancer metastasized to liver documented in this encounter Results * (ABNORMAL) CEA (12/07/2023 7:37 AM EDT) Carcinoembryonic Antigen 9.0(H) <=3.8 ng/ml 12/07/2023 9:09 AM EDT [facility] Comment: Some smokers may have elevated CEA, generally < 5.5 ng/mL. This result was generated using a Nora Louise immunoassay. ??Results obtained from other methods or manufacturers cannot be used interchangeably with this method. Blood VENOUS BLOOD SPECIMEN / Unknown Venipuncture / Unknown 12/07/2023 7:37 AM EDT 12/07/2023 7:37 AM EDT Nena Beverly APRN CHEMISTRY ORDER KENTRELL [facility] [place] [address] * (ABNORMAL) Comprehensive metabolic panel Non-fasting (12/07/2023 7:37 AM EDT) Glucose 114 65 - 199 mg/dL 12/07/2023 8:22 AM EDT [facility] Comment:Glucose Concentratio n >=200 mg/dL plus symptoms is consistent with Diabetes Mellitus. Blood Urea Nitrogen 24(H) 10 - 20 mg/dL 12/07/2023 8:22 AM [facility] Creatinine 1.41 0.80 - 1.50 mg/dL 12/07/2023 8:22 AM [facility] Sodium 142 135 - 145 mMol/L 12/07/2023 8:22 AM [facility] Potassium 4.3 3.5 - 5.0 mMol/L 12/07/2023 8:22 AM [facility] Chloride 109(H) 98 - 107 mMol/L 12/07/2023 8:22 AM [facility] Carbon Dioxide 23 22 - 31 mMol/L 12/07/2023 8:22 AM [facility] Anion Gap 10 5 - 15 mMol/L 12/07/2023 8:22 AM [facility] Calcium 9.3 8.5 - 10.5 mg/dL 12/07/2023 8:22 AM [facility] Protein, Total 7.1 6.1 - 8.0 g/dL 12/07/2023 8:22 AM [facility] Albumin 3.7 3.2 - 5.2 g/dL 12/07/2023 8:22 AM [facility] Aspartate Aminotransferase 22 <=39 unit/L 12/07/2023 8:22 AM [facility] Alanine Aminotransferase 18 0 - 55 unit/L 12/07/2023 8:22 AM [facility] Alkaline Phosphatase 82 40 - 130 unit/L 12/07/2023 8:22 AM [facility] Bilirubin, Total 0.3 <=1.3 mg/dL 12/07/2023 8:22 AM [facility] Est Glomerular Filtration Rate - Male 49 mL/min/1. 73 m?? 12/07/2023 8:22 AM [facility] Comment: This patient's estimated GFR [...] Fasting Status No 12/07/2023 8:22 AM EDT [facility] Blood VENOUS BLOOD SPECIMEN / Unknown Venipuncture / Unknown 12/07/2023 7:37 AM EDT 12/07/2023 7:37 AM EDT Nena Beverly APRN CHEMISTRY ORDER KENTRELL [facility] [place] [address] * (ABNORMAL) CBC (with Diff) (12/07/2023 7:37 AM EDT) White Blood Cell 4.71 4.00 - 9.50 x10(3)/mc L 12/07/2023 7:53 AM [facility] Red Blood Cell 3.71(L) 4.58 - 5.54 x10(6)/mc L 12/07/2023 7:53 AM [facility] Hemoglobin 11.2(L) 13.7 - 16.5 g/dL 12/07/2023 7:53 AM [facility] Hematocrit 33.0(L) 40.5 - 48.5 % 12/07/2023 7:53 [facility] Mean Cell Volume 88.9 82.9 - 93.1 fL 12/07/2023 7:53 AM [facility] Mean Cell Hemoglobin 30.2 27.5 - 32.1 pg 12/07/2023 7:53 AM [facility] Mean Cell Hemoglobin Concentration 33.9 32.0 - 35.7 g/dL 12/07/2023 7:53 AM [facility] Platelet 253 145 - 357 x10(3)/mc L 12/07/2023 7:53 AM [facility] Mean Platelet Volume 8.3 7.6 - 12.9 fL 12/07/2023 7:53 AM [facility] RDW Standard Deviation 64.4(H) 36.0 - 45.0 fL 12/07/2023 7:53 AM [facility] RDW coefficient of variation 20.0(H) 11.4 - 13.8 % 12/07/2023 7:53 AM [facility] NRBC% auto 0.0 % 12/07/2023 7:53 AM [facility] NRBC Absolute <0.01 <0.01 x10(3)/mc L 12/07/2023 7:53 AM [facility] Neutrophil % 53.6 % 12/07/2023 7:53 AM [facility] Neutrophil Absolute (ANC) - Automated 2.52 1.70 - 6.10 x10(3)/mc L 12/07/2023 7:53 AM [facility] Lymph % 28.0 % 12/07/2023 7:53 AM [facility] Lymph Absolute 1.32 0.90 - 3.20 x10(3)/mc L 12/07/2023 7:53 AM [facility] Monocyte % 14.4 % 12/07/2023 7:53 AM [facility] Monocyte Absolute 0.68 0.30 - 0.90 x10(3)/mc L 12/07/2023 7:53 AM [facility] Eos % 3.2 % 12/07/2023 7:53 AM [facility] Eos Absolute 0.15 0.00 - 0.40 x10(3)/mc L 12/07/2023 7:53 AM EDT [facility] Basophil % 0.4 % 12/07/2023 7:53 AM EDT [facility] Baso Absolute <0.04 0.00 - 0.10 x10(3)/mc L 12/07/2023 7:53 AM EDT [facility] Immature Gran % 0.4 % 7:53 AM EDT [facility] Immature Gran Absolute <0.04 0.00 - 0.04 x10(3)/mc L 12/07/2023 7:53 AM EDT [facility] Blood VENOUS BLOOD SPECIMEN / Unknown Venipuncture / Unknown 12/07/2023 7:37 AM EDT 12/07/2023 7:37 AM EDT Nena Beverly APRN HEMATOLOGY GLENIS YANCEY Performing Organization Address City/State/[facility] Co de Phone Number [facility] [place] [address] documented in this encounter Visit Diagnoses Diagnosis Colon cancer metastasized to liver Malignant neoplasm of colon, unspecified site Colon cancer metastasized to liver Malignant neoplasm of colon, unspecified site documented in this encounter Care Teams Appeals And Generalist Clerk Relationship Specialty Start Date End Date None None PCP - General 01/20/10 documented as of this encounter
--- OUTSIDE RECORDS SUMMARY | 2024-01-05 09:57 | XMS_ITS ---
Author Organization [facility] [place] [address] Care Team Providers Care Billposter Name Role Phone None Primary Care Provider Unavailabl e Active Problems Problem Noted Date Diagnosed Date Colon cancer metastasized to liver 10/12/2023 Radiculopathy of lumbar region 08/11/2020 Hypertension 11/28/2013 Elevated cholesterol 11/28/2013 Current Oncology Plans [facility] ONC GI COLORECTAL CANCER - IRINOtecan (180 MG/M2 EVERY 14 DAYS)* Plan Start Date:11/23/2023 Plan Provider:Alex Charles MD Linked Problems Colon cancer metastasized to liver Treatment Medications Current Day (Day 1 , Cycle 3 - Planned for 01/05/2024) Next Day (Day 1, Cycle 4 - Planned for 2024) IRINOtecan (Camptosar) in de xtrose 5% 500 mL infusionIRINOtecan (Camptosar) Recon Soln IRINOtecan (Camptosar) 260 mg in dextrose 5% 513 mL infusion IRINOtecan (Camptosar) 260 mg in dextrose 5% 513 mL infusion Past Plans ADULT TREATMENT Plan Name Start Date Discontinue Date Treatment Medications Discontinue Reason Plan Provider Cycles [facility] ONC GI COLORECTAL CANCER - OXALIplatin / CAPEcitabine / BEVACizumab 4 11/23/2023 oxaliplatin (Eloxatin)OXAL Iplatin (Eloxatin) in dextrose 5% 250 mL infusion Not Tolerated Alex Charles MD 1 of 4 cycles started Radiation Treatments * No radiation treatments are documented for this patient in [facility]. Treatments may have been administered in another system.
--- OUTSIDE RECORDS SUMMARY | 2024-01-05 09:57 | XMS_ITS | Encounter Summary ---
[place] [address] Care Team Providers Care Keel Press Operator Name Role Phone None Primary Care Provider Unavailabl e Encounter Details Date Type Department Care Team (Late st Contact Info) Description 11/17/2023 Specialty [place] [phone] Katia Gay [facility] Social History Tobacco Use Types Packs/Day Years Used Date Smoking Tobacco: Former Cigarettes 2 25 Alcohol Use Standard Drinks/Week Comments Yes 21 (1 standard drink = 0.6 oz pu re alcohol) Sex and Gender Information Value Date Recorded Sex Assigned at Not on file Gender Identity Not on file Sexual Orientation Not on file documented as of this encounter Progress Notes * Katia Gay [facility] - 11/17/2023 11:01 AM EDT Clinical Management Plan: Discontinuation of Therapy Specialty Pharmacy Consultation; Katia Gay [facility] Comprehensive Medication Management (CMM) Bart Hathaway [address] [place] [phone] Telephone Information: Work Phone Not on file. [facility] re: severe skin rxn on scalp - may do Irino or Folfox Is the patient transferring services to a different Specialty Pharmacy, discontinuing the medication, or modifying current Specialty services? See above (Optional) If modifying Specialty services, patient unenrolls from: n/a Medication: Capecitabine Reason for discontinuation or transfer: severe skin rash on scalp. May transition to infusions. Approximate date of discontinuation or transfer: 11/08/23 Patient's response to therapy: unable to determine, short course Summary of services provided by [facility] Special[facility]: Counseling, billing assistance, refill reminders Summary of on-going needs: follow up scheduled Referral for additional services (if applicable): N/A Is the patient aware of the referral? Yes Instructions provided to patient about discharge/transfer: Yes, clinic staff aware. Provider aware of discontinuation or transfer: Yes Patient understands no changes to current drug regimen were made at the appointment and [facility] (summary located at top of note) for provider review and follow up. Of note, if transferring to another specialty pharmacy, a copy of patient's medication profile was offered to accepting pharmacy. Katia Gay RPH 11/17/23 11:05 AM documented in this encounter Plan of Treatment Upcoming Encounters Date Type Department Care Team (Late st Contact Info) Description 01/05/2024 10:00 AM EST Office Visit Hematology/Oncology at [address] [phone] Alex Charles MD [facility] [place] [address] Agnes Jose APRN [address] [place] [address] DR [place] [address] Colon cancer metastasized to liver 01/05/2024 10:30 AM EST Infusion Hematology Oncology at [address] [phone] Arrived documented as of this encounter Goals Goal Patient Goal Type Associated Problems Recent Progress Patient-Stated? Author Patient's specific desired goal: Patient Facing Action Plan No Godfrey Noguera [facility] Note: Goal(s): Live an additional year to year and a half Measured by: survival Time-frame: to be tracked by pharmacy annually documented as of this encounter Visit Diagnoses Not on filedocumented in this encounter Care Teams Keel Press Operator Relationship Specialty Start Date End Date None None PCP - General 01/20/10 documented as of this encounter
--- OUTSIDE RECORDS SUMMARY | 2024-01-05 09:57 | XMS_ITS | Clinical Summary ---
Author Organization [facility] Address [facility] [place] [address] Care Team Providers Care Dry Boss Name Role Phone None Primary Care Provider Unavailabl e Allergies Active Allergy Reactions Criticality Noted Date Comments Grass Pollen 07/21/2004 nasal congestion Tree And Shrub Pollen 07/21/2004 nasal congestion Medications Medication Sig Dispensed Refills Start Date End Date Status lisinopril (PRINIVIL;ZESTRIL) 10 mg Tablet Take 10 mg by mouth daily. Active simvastatin (ZOCOR) 10 mg Tablet Take 10 mg by mouth nightly. Active thiamine 100 mg Tablet Take 1 tablet by mouth daily. 90 tablet 6 11/29/2013 Active apixaban (Eliquis) 2.5 mg tablet Take 2.5 mg by mouth. 05/16/2023 Active fexofenadine-pseudoep hedrine (Saniya-D 12 Hour) 60-120 mg Tablet Sustained Release 12 hr Take by mouth Daily @ 0600. 04/18/2017 Active multivitamin with minerals (MULTIVITAMIN AND MINERALS ORAL) Take by mouth. 05/20/2023 Active potassium chloride ER (Klor-Con M) 20 mEq ER micro-encapsulated crystal tablet Take 20 mEq by mouth 2 times daily. 04/18/2017 Active b complex vitamins Capsule Take by mouth. 06/03/2021 Active atorvastatin (Lipitor) 10 mg tablet Take 10 mg by mouth. 12/15/2022 Active cholecalciferoL, Vitamin D3, (Vitamin D3) 50 mcg (2,000 unit) tablet Take 50 mcg by mouth. 06/11/2022 Active docusate sodium (Colace) 100 mg capsule Take 100 mg by mouth. 01/06/2023 Active metoprolol succinate XL (Toprol-XL) 100 mg ER 24 hr tablet Take 100 mg by mouth. 05/20/2023 Active NIFEdipine (Adalat CC) 60 mg ER tablet Take 60 mg by mouth. 05/20/2023 Active hydroCHLOROthiazide (Esidrix) 50 mg tablet Take 50 mg by mouth daily. Active ibuprofen (Advil) 200 mg tabletIndications:ost eoarthritis Take 600 mg by mouth every 6 hours as needed for Pain. Indications: joint damage causing pain and loss of function Active CAPEcitabine (Xeloda) 500 mg tabletIndications:Col on cancer metastasized to liver Take 3 tablets (1,500 mg) by mouth 2 times daily. Take within 30 minutes after eating. Call clinic before/prior to starting medication/script . Take twice a day for 14 days followed by 7 days off 84 tablet 5 10/20/2023 Active prochlorperazine (Compazine) 10 mg tabletIndications:Col on cancer metastasized to liver Take 1 tablet by mouth every 6 hours as needed for Nausea. 15 tablet 10/28/2023 Active Active Problems Problem Noted Date Diagnosed Date Colon cancer metastasized to liver 10/12/2023 Radiculopathy of lumbar region 08/11/2020 Hypertension 11/28/2013 Elevated cholesterol 11/28/2013 Encounters Date Type Department Care Team Description 01/05/2024 10:30 AM EST Infusion Hematology Oncology at [address] [phone] Arrived 01/05/2024 10:00 AM EST Office Visit Hematology/Oncolog y at [address] [phone] Alex Charles MD LaRoza, Stephanie A, APRN Colon cancer metastasized to liver 01/05/2024 Travel 12/07/2023 8:15 AM EDT Office Visit Hematology [place] [address] Nena Beverly APRN Colon cancer metastasized to liver 12/07/2023 7:45 AM EDT Laboratory Appointment Lab at [facility] [place] Oncology [address] [place] [id number] Colon cancer metastasized to liver 12/07/2023 7:33 AM EDT - 12/07/2023 11:59 PM EDT Hospital Encounter Hematology [place] [address] Colon cancer metastasized to liver Discharge Disposition: Home 12/07/2023 Travel 12/06/2023 Orders Only Hematology [place] [address] Nena Beverly APRN Colon cancer metastasized to liver 11/23/2023 8:45 AM EDT Office Visit Hematology [place] [address] Alex Charles MD Colon cancer metastasized to liver 11/23/2023 7:35 AM EDT - 11/23/2023 11:59 PM EDT Hospital Encounter Hematology [place] [address] 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 Discharge Disposition: Home 11/23/2023 7:35 AM EDT - 11/23/2023 11:59 PM EDT Hospital Encounter Hematology [place] [address] Colon cancer metastasized to liver Discharge Disposition: Home 11/23/2023 Travel 11/18/2023 2:16 PM EDT - 11/18/2023 11:59 PM EDT Hospital [place] [address] Alex Charles MD 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 Discharge Disposition: Home 11/18/2023 Travel 11/17/2023 Specialty [place] [address] Katia Gay, [facility] 11/15/2023 3:00 PM EDT Office Visit Hematology [place] [address] Alex Charles MD 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 11/15/2023 1:51 PM EDT - 11/15/2023 11:59 PM EDT Hospital Encounter Hematology [place] [address] Colon cancer metastasized to liver Discharge Disposition: Home 11/15/2023 Orders Only Hematology and Oncology at [place] [phone] Alex Charles MD 11/15/2023 Travel 11/14/2023 Telephone Hematology and Oncology at [place] [phone] Christine Florentino RN 11/12/2023 Orders Only Hematology and Oncology at [place] [phone] Alex Charles MD 11/11/2023 Telephone Hematology [place] [address] Flor Dotson RN 11/02/2023 Telephone Hematology [place] [address] Ayla Espinal, RN 10/28/2023 10:00 AM EDT Office Visit Hematology and Oncology at [place] [phone] Nena Beverly APRN Colon cancer metastasized to liver 10/28/2023 9:44 AM EDT - 10/28/2023 11:59 PM EDT Hospital Encounter Hematology and Oncology at [place] [phone] Colon cancer metastasized to liver Discharge Disposition: Home 10/28/2023 9:43 AM EDT Hospital Encounter Hematology [place] [address] Colon cancer metastasized to liver Discharge Disposition: Home 10/28/2023 Travel 10/28/2023 Specialty Pharmacy Pharmacy at [place] [phone] Brit Lora CPHT 10/26/2023 Telephone Hematology [place] [phone] Ayla Espinal RN 10/26/2023 Orders Only Hematology [place] [address] Alex Charles MD 10/20/2023 Orders Only Hematology and Oncology at [place] [phone] Alex Charles MD Colon cancer metastasized to liver 10/20/2023 Specialty Pharmacy Pharmacy at [place] [address] Godfrey Noguera, [facility] Initial Clinical Assessment/Patient Education (capecitabine) for HemOnc 10/13/2023 Telephone Hematology [place] [address] Ayla Espinal RN 10/13/2023 Specialty [place] [address] Janet Hatfield [facility] 10/12/2023 2:45 PM EDT Office Visit Hematology and Oncology at [place] [address] Alex Charles MD Colon cancer metastasized to liver 10/12/2023 Travel from Last 3 Months Immunizations Name Administration Dates Next Due Influenza PF, Split 11/29/2013 Family History Medical History Relation Comments Heart Disease Father Heart Disease Paternal Grandfather Heart Disease Paternal Grandmother Relation Status Comments Father Paternal Grandfather Paternal Grandmother Social History Tobacco Use Types Packs/Day Years Used Date Smoking Tobacco: Former Cigarettes 2 25 Tobacco Cessation:Counseling Given: Not Answered Alcohol Use Standard Drinks/Week Comments Yes 21 (1 standard drink = 0.6 oz pu re alcohol) Sex and Gender Information Value Date Recorded Sex Assigned at Not on file Gender Identity Not on file Sexual Orientation Not on file Last Filed Vital Signs Vital Sign Reading [...] Mass Index 34.36 12/07/2023 8:02 AM EDT Plan of Treatment Upcoming Encounters Date Type Department Care Team (Late st Contact Info) Description 01/05/2024 10:00 AM EST Office Visit Hematology/Oncology at [address] [phone] Alex Charles MD [facility] [place] [address] Agnes Jose APRN [address] [place] [address] DR HEMATOLOGY AND ONCOLOGY [place], [place] [phone] Colon cancer metastasized to liver 01/05/2024 10:30 AM EST Infusion Hematology Oncology at [address] [phone] Arrived Health Maintenance Due Date Last Done Comments Tetanus/Diphtheria/Pertussis Vaccines (1 - Tdap) 1958 Zoster vaccine (1 of 2) 1989 Advance Directive 1994 Pneumoccocal Vaccine: 65+ (1 of 1 - PCV) 01/20/2004 Covid-19 Vaccine (3 - season) 2023, 04/29/2020 Influenza (Flu) vaccine (1 o f 1 - Influenza standard series) 10/30/2023 11/29/2013 Goals Goal Patient Goal Type Associated Problems Recent Progress Patient-Stated? 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 COMPREHENSIVE METABOLIC PANEL Routine 11/23/2023 7:45 AM EDT 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 CBC (WITH DIFF) Routine 11/23/2023 7:45 AM EDT 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 CT CHEST ABDOMEN PELVIS W CONTRAST (GENERIC) Routine 11/18/2023 4:47 PM EDT 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 URINALYSIS DIPSTICK STAT 11/15/2023 2 :05 PM EDT Colon cancer metastasized to liver CEA STAT 11/15/2023 2:00 PM EDT Colon cancer metastasized to liver COMPREHENSIVE METABOLIC PANEL STAT 11/15/2023 2:00 PM EDT Colon cancer metastasized to liver CBC (WITH DIFF) STAT 11/15/2023 2:00 PM EDT Colon cancer metastasized to liver URINALYSIS DIPSTICK STAT 10/28/2023 9 :52 AM EDT Colon cancer metastasized to liver COMPREHENSIVE METABOLIC PANEL STAT 10/28/2023 9:49 AM EDT Colon cancer metastasized to liver CEA STAT 10/28/2023 9:49 AM EDT Colon cancer metastasized to liver CBC (WITH DIFF) STAT 10/28/2023 9:49 AM EDT Colon cancer metastasized to liver DIAGNOSTIC RADIOLOGY SCAN 10/07/2023 12:00 AM EDT from Last 3 Months Results * (ABNORMAL) CBC (with Diff) (12/07/2023 7:37 AM EDT) Only the most recent of4 resultswithin the time period is included. White Blood Cell 4.71 4.00 - 9.50 x10(3)/mc L [facility]07[facility] Red Blood Cell 3.71(L) 4.58 - 5.54 x10(6)/mc L 12/07/2023 7:53 AM [facility] Hemoglobin 11.2(L) 13.7 - 16.5 g/dL 12/07/2023 7:53 AM [facility] Hematocrit 33.0(L) 40.5 - 48.5 % 12/07/2023 7:53 AM [facility] Mean Cell Volume 88.9 82.9 - 93.1 fL 12/07/2023 7:53 AM [facility] Mean Cell Hemoglobin 30.2 27.5 - 32.1 pg 12/07/2023 7:53 AM [facility] Mean Cell Hemoglobin Concentration 33.9 32.0 - 35.7 g/dL 12/07/2023 7:53 AM [facility] Platelet 253 145 - 357 x10(3)/mc L 12/07/2023 7:53 AM [facility] Mean Platelet Volume 8.3 7.6 - 12.9 fL 12/07/2023 7:53 AM [facility] RDW Standard Deviation 64.4(H) 36.0 - 45.0 fL 12/07/2023 7:53 AM [facility] RDW coefficient of variation 20.0(H) 11.4 - 13.8 % 12/07/2023 7:53 AM [facility] NRBC% auto 0.0 % 12/07/2023 7:53 AM [facility] NRBC Absolute <0.01 <0.01 x10(3)/mc L 12/07/2023 7:53 AM [facility] Neutrophil % 53.6 % 12/07/2023 7:53 AM [facility] Neutrophil Absolute (ANC) - Automated 2.52 1.70 - 6.10 x10(3)/mc L 12/07/2023 7:53 AM [facility] Lymph % 28.0 % 12/07/2023 7:53 AM [facility] Lymph Absolute 1.32 0.90 - 3.20 x10(3)/mc L 12/07/2023 7:53 AM [facility] Monocyte % 14.4 % 12/07/2023 7:53 AM [facility] Monocyte Absolute 0.68 0.30 - 0.90 x10(3)/mc L 12/07/2023 7:53 AM [facility] Eos % 3.2 % 12/07/2023 7:53 AM [facility] Eos Absolute 0.15 0.00 - 0.40 x10(3)/mc L 12/07/2023 7:53 AM [facility] Basophil % 0.4 % 12/07/2023 7:53 AM [facility] Baso Absolute <0.04 0.00 - 0.10 x10(3)/mc L 12/07/2023 7:53 AM [facility] Immature Gran % 0.4 % 7:53 AM [facility] Immature Gran Absolute <0.04 0.00 - 0.04 x10(3)/mc L 12/07/2023 7:53 AM [facility] Blood VENOUS BLOOD SPECIMEN / Unknown Venipuncture / Unknown 12/07/2023 7:37 AM EDT 12/07/2023 7:37 AM EDT Nena Beverly APRN HEMATOLOGY ORDE RABLES Performing Organization Address [facility] Co de Phone Number [facility] [place] [address] * (ABNORMAL) CEA (12/07/2023 7:37 AM EDT) Only the most recent of4 resultswithin the time period is included. Carcinoembryonic Antigen 9.0(H) <=3.8 ng/ml 12/07/2023 9:09 AM EDT [facility] Comment: Some smokers may have elevated CEA, generally < 5.5 ng/mL. This result was generated using a Nora Louise immunoassay. ??Results obtained from other methods or manufacturers cannot be used interchangeably with this method. Blood VENOUS BLOOD SPECIMEN / Unknown Venipuncture / Unknown 12/07/2023 7:37 AM EDT 12/07/2023 7:37 AM EDT Nena Beverly APRN CHEMISTRY ORDER KENTRELL Performing Organization Address [facility] Co de Phone Number [facility] [place] [address] * (ABNORMAL) Comprehensive metabolic panel Non-fasting (12/07/2023 7:37 AM EDT) Only the most recent of4 resultswithin the time period is included. Glucose 114 65 - 199 mg/dL 12/07/2023 8:22 AM EDT [facility] Comment:Glucose Concentratio n >=200 mg/dL plus symptoms is consistent with Diabetes Mellitus. Blood Urea Nitrogen 24(H) 10 - 20 mg/dL 12/07/2023 8:22 AM EDT [facility] Creatinine 1.41 0.80 - 1.50 mg/dL 12/07/2023 8:[facility] Sodium 142 135 - 145 mMol/L 12/07/2023 8:22 AM [facility] Potassium 4.3 3.5 - 5.0 mMol/L 12/07/2023 8:22 AM [facility] Chloride 109(H) 98 - 107 mMol/L 12/07/2023 8:22 AM [facility] Carbon Dioxide 23 22 - 31 mMol/L 12/07/2023 8:22 AM [facility] Anion Gap 10 5 - 15 mMol/L 12/07/2023 8:22 AM [facility] Calcium 9.3 8.5 - 10.5 mg/dL 12/07/2023 8:22 AM [facility] Protein, Total 7.1 6.1 - 8.0 g/dL 12/07/2023 8:22 AM [facility] Albumin 3.7 3.2 - 5.2 g/dL 12/07/2023 8:22 AM [facility] Aspartate Aminotransferase 22 <=39 unit/L 12/07/2023 8:22 AM [facility] Alanine Aminotransferase 18 0 - 55 unit/L 12/07/2023 8:22 AM [facility] Alkaline Phosphatase 82 40 - 130 unit/L 12/07/2023 8:22 AM [facility] Bilirubin, Total 0.3 <=1.3 mg/dL 12/07/2023 8:22 AM [facility] Est Glomerular Filtration Rate - Male 49 mL/min/1. 73 m?? 12/07/2023 8:22 AM [facility] Comment: This patient's estimated GFR [...] Fasting Status No 12/07/2023 8:22 AM EDT [facility] Blood VENOUS BLOOD SPECIMEN / Unknown Venipuncture / Unknown 12/07/2023 7:37 AM EDT 12/07/2023 7:37 AM EDT Nena Beverly APRN CHEMISTRY ORDER KENTRELL [facility] [place] [address] * CT Chest Abdomen Pelvis w Contrast (Generic) (11/18/2023 4:47 PM EDT) Fylet WORKSTATION ID [id number] RAD Anatomical Region Laterality Modality Abdomen, Pelvis [...] who have questions please contact the health acute care assistant that requested your imaging first. ? Electronically signed by: Frank Benito DO, [facility] ([phone]), at 11/22/2023 1:07 PM Narrative 11/22/2023 1:07 PM EDT EXAMINATION: CT [...] Abdomen, and Pelvis September 19, 2023 FINDINGS: [employer] Consultant Images: Noncontributory. CT OF THE CHEST: Pulmonary [...] suspicious osseous lesions. Procedure Note Frank Benito, - 11/22/2023 EXAMINATION: CT CHEST ABDOMEN PELVIS [...] the Chest, Abdomen, and PelvisJuly 2023 FINDINGS: [employer] Consultant Images: Noncontributory. CT OF THE CHEST: Pulmonary [...] patients who have questions please contactthe health acute care assistant that requested your imaging first. Electronically signed by: Frank Benito DO, [facility]([phone]), at 11/22/2023 1:07 PM Alex Charles MD IM CT ORDERABLES * (ABNORMAL) Urinalysis Dipstick (11/15/2023 2:05 PM EDT) Only the most recent of2 resultswithin the time period is included. Glucose, Urine Dipstick Negative Negative 11/15/2023 2:32 PM EDT [facility] Protein, Urine Dipstick Trace(A) Negative 11/15/2023 2:32 PM EDT [facility] Bilirubin, Urine Dipstick Negative Negative 11/15/2023 2:32 PM EDT [facility] Comment:Clinical correlation required for positive Urine Bilirubin results as false positive may occur with some drugs and drug related products. If a false positive is suspected a serum total bilirubin should be considered if clinically indicated. Urobilinogen, Urine Dipstick Normal Normal, 0.2 mg/dL, 1.0 mg/dL 11/15/2023 2:32 PM EDT [facility] pH, Urine (dipstick) 5.5 5.0 - 8.0 11/15/2023 2:32 PM EDT [facility] Blood, Urine Dipstick Negative Negative 11/15/2023 2:32 PM EDT [facility] Ketone, Urine Dipstick Trace(A) Negative 11/15/2023 2:32 PM EDT [facility] Nitrite, Urine Dipstick Negative Negative 11/15/2023 2:32 PM EDT [facility] Leukocytes, Urine Dipstick Negative Negative 11/15/2023 2:32 PM EDT [facility] Specific [place] Urine Automated 1.019 1.005 - 1.030 11/15/2023 2:32 PM EDT [facility] Appearance, Urine Dipstick Clear Clear 11/15/2023 2:32 PM EDT [facility] Color, Urine Dipstick Dark Yellow Yellow, Dark Yellow 11/15/2023 2:32 PM EDT [facility] CULTURE ADDED? 11/15/2023 2:32 PM EDT [facility] Urine URINE SPECIMEN OBTAINED BY CLEAN CATCH PROCEDURE / Unknown Non Blood Collection / Unknown 11/15/2023 2:05 PM EDT 11/15/2023 2:05 PM EDT Alex Charles MD URINE ORDERABLES [facility] [place] [address] * Scan Doc: Diagnostic Radiology (10/07/2023 12:00 AM EDT) Anatomical Region Laterality Modality Other Narrative 10/07/2023 12:00 AM EDT Ordered by an unspecified provider. Scanning Provider MEDIA MGR SCAN EXT O RDR/RSLT from Last 3 Months Advance Directives * Full Code (Latest Code Status on File) Date Activated Date Inactivated Comments 11/29/2013 2:21 PM 08/11/2020 11:24 AM Question Answer Comments Does patient have decision m aking capacity? Yes, Order is based on Patients wishes. * Full Code Date Activated Date Inactivated Comments 11/28/2013 10:00 PM 11/29/2013 2:21 PM Question Answer Comments Order Status: Initial Order Does patient have decision m aking capacity? Yes, Order is based on Patients wishes. Care Teams Dry Boss Relationship Specialty Start Date End Date None None PCP - General 01/20/10
--- OUTSIDE RECORDS SUMMARY | 2024-01-05 09:57 | XMS_ITS | Encounter Summary ---
Author Organization [facility] [place] [address] Care Team Providers Care Distribution Center Associate Name Role Phone None Primary Care Provider Unavailabl e Encounter Details Date Type Department Care Team (Late st Contact Info) Description 11/14/2023 Telephone Hematology [place] [phone] Christine Florentino RN Social History Tobacco Use Types Packs/Day Years Used Date Smoking Tobacco: Former Cigarettes 2 25 Alcohol Use Standard Drinks/Week Comments Yes 21 (1 standard drink = 0.6 oz pu re alcohol) Sex and Gender Information Value Date Recorded Sex Assigned at Not on file Gender Identity Not on file Sexual Orientation Not on file documented as of this encounter Miscellaneous Notes * Telephone Encounter - Christine Florentino RN - 11/14/2023 2:21 PM EDT Call to Bart to check in on rash discussed with other RN 11/11/23. Pt also took a questionnaire in anticipation of his Med Onc Appt tomorrow that had reported severe symptoms Pt did not answer, vm left. It appears he is active on [facility] as well, so will send him message there too. Note to Dr. Charles to inform of questionnaire and inability to reach pt. Pt has appt with Dr. Charles tomorrow 11/14. Addendum: attempted to call patient again [phone]. No answers at either listed number. Left ER precautions in . 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 He tells me that since he started taking these chemo pills and everything has been downhill, last dose Tuesday AM. Reports his lips are still swollen and it feels like he has a fever but he keeps checking and it ranges in the 97sF although he does endorse taking ibuprofen 600mg every 6 hours throughout the day. He also tells me under his eyes are swollen and on his lips. His rash continues but he says it's improved although he did notice his head has began to peel skin in some spots. His eyes are burning but he is not light sensitive or having vision changes.No sores in mouth. Eating and drinking ok untiltoday, stopped eating because of the diarrhea. Reports having 3-4 episodes of diarrhea today. Denies dizziness, lightheadedness, heart palpitations. Has had a couple cups of tea, a glass of water, a hydration drink. His diarrhea is brown and without blood or black tarry appearance. He is out audibly out of breath on the phone, he said he is short of breath but This is no different than how it's been, it's been a couple weeks like this Reports he is getting2-3 hours of sleep and wakes up to pee and then it's hard to get back to sleep. Reports no problem with shortness of breath at night when lying down, only using 1 pillow. Denies any pain today including on rash. 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 He understands the risks associated with this syndrome including that we discussed . He does NOT wish to go to the ER. He wants to proceed with his Dr. Charles appt tomorrow. Asked if provider called him to relay need for ER if that would encourage him to go, he said it would NOT. Plan of Care and actions for worsening condition per Telephone Triage for Oncology Nurses, 3rd Edition, Fernando RICO and Vicente, 2019/Telephone Triage Protocols for Nurses 6th Edition, Negar Diaz/ [facility] Standard Practice and/or discussion w/ provider . Pt/responsible caregiver able to read back and verbalize understanding of plan and intention to comply with plan/disposition: Yes Pt/responsible caregiver able to verbalize understanding of and intention to call clinic with any new or worsening signs or symptoms: yes Follow up: high priority note to provider and secure chat to draw attn to this message. documented in this encounter Plan of Treatment Upcoming Encounters Date Type Department Care Team (Late st Contact Info) Description 01/05/2024 10:00 AM EST Office Visit Hematology/Oncology at [address] [phone] Alex Charles MD [facility] [place] [address] Agnes Jose APRN [address] [place] [address] DR [place] [address] Colon cancer metastasized to liver 01/05/2024 10:30 AM EST Infusion Hematology Oncology at [address] [phone] Arrived documented as of this encounter Goals Goal Patient Goal Type Associated Problems Recent Progress Patient-Stated? Author Patient's specific desired goal: Patient Facing Action Plan No Godfrey Noguera, [facility] Note: Goal(s): Live an additional year to year and a half Measured by: survival Time-frame: to be tracked by pharmacy annually documented as of this encounter Visit Diagnoses Not on filedocumented in this encounter Care Teams Distribution Center Associate Relationship Specialty Start Date End Date None None PCP - General 01/20/10 documented as of this encounter
--- OUTSIDE RECORDS SUMMARY | 2024-01-05 09:57 | XMS_ITS | Encounter Summary ---
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 Social History Tobacco Use Types Packs/Day Years [...] Sign Reading Time Taken Comments Blood Pressure 120/59 11/15/2023 2:10 PM EDT Pulse 78 11/15/2023 2:10 PM EDT Temperature 36.5 ??C (97.7 ??F) 11/15/2023 2:10 PM ED T Respiratory Rate 18 11/15/2023 2:10 PM EDT Oxygen Saturation 97% 11/15/2023 2:10 PM EDT Inhaled Oxygen Concentration - - Weight 99.1 kg (218 lb 7.6 oz) 11/15/2023 2:10 P M EDT Height 171.3 cm (5' 7.45) 11/15/2023 2:10 PM ED T Body Mass Index 33.76 11/15/2023 2:10 PM EDT documented in this encounter Progress Notes * Alex Charles MD - 11/15/2023 3:00 PM EDT Subjective Patient ID: Bart Hathaway is [...] - refer to outside case labelled as [id number] Pathologic Stage Classification (pTNM, AJCC 8th Edition) [...] reduced dose of both oxaliplatin and capecitabine 2. HTN 3. HLD 4. Atrial fibrillation HPI Bart Hathaway is referred for evaluation and management of stage IV colon cancer. The history is summarized above. On 10/28/23, he began therapy with reduced dose Capox. Bart's significant other [place] is on speaker phone. He had a difficult time with cycle 1. The lastdose of capecitabine was in the AM on 11/11/23. He called in that day with a severe rash, mostly on his face and upper shoulders and also had swelling of the lips. No sores in his mouth. He is carefulabout sun exposure due to a prior h/o skin cancer. The lips are still a little bit swollen and sore but much better. He felt SOB while on the pills and says getting up and down stairs was difficult for him because of breathing problems. He says he is able to get up and down the stairs easily now and that his breathing is back to baseline. He denies chest pain. Yesterday AM he began to have diarrhea. He did not take anything for that and has not had any stools today. He has been eating well although his weight is a few pounds lower. He had some cold sensitivity after treatment but that is gonenow. He had no chest pain, no jaw pain, no arm pain, no palpitations, no nausea or vomiting, no diaphoresis. [place] mentions that she was with Bart throughout the treatment. She describes significant dyspnea and says that times when talking to him, he was breathing very hard, as though he had just run a race. Soc Hx: Has homes in [place], [place], and [place]. 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 Fam Hx: Father - Prostate cancer Mother - Alzheimer's disease Review of Systems Constitutional: Negative for activity change, appetite change, fatigue and fever. HENT: Negative for sore throat and trouble swallowing. Respiratory: Positive for shortness of breath (while on chemotherapy, none now). Negative for coughand chest tightness. Cardiovascular: Negative for chest pain and palpitations. Gastrointestinal: Negative for abdominal pain, blood in stool, constipation, nausea and vomiting. Musculoskeletal: Negative for joint swelling and myalgias. Neurological: Negative for dizziness, weakness, light-headedness and numbness. Objective No data found. Physical Exam Vitals reviewed. Constitutional: General: He is not in acute distress. HENT: Head: Normocephalic and atraumatic. Mouth/Throat: Pharynx: No oropharyngeal exudate. Comments: No sores in the mouth. Lower lip appears somewhat swollen and with some scabbing. Eyes: General: No scleral icterus. Cardiovascular: Rate and Rhythm: Normal rate and regular rhythm. Pulmonary: Effort: No respiratory distress. Breath sounds: No wheezing or rales. Abdominal: General: There is no distension. Tenderness: There is no abdominal tenderness. There is no guarding. Musculoskeletal: General: No swelling. Lymphadenopathy: Cervical: No cervical adenopathy. Skin: General: Skin is warm and dry. Findings: No rash. Comments: Erythema of skin of scalp with some scabbing, no evidence of infection. Neurological: General: No focal deficit present. Mental Status: He is alert. Coordination: Coordination normal. Psychiatric: Mood and Affect: Mood normal. Recent Results (from the past 24 hour(s)) CBC (with Diff) Result Value Ref [place] White Blood Cell 7.31 4.00 - 9.50 x10(3)/mcL Red Blood Cell 4.35 (L) 4.58 - 5.54 x10(6)/mcL Hemoglobin 12.0 (L) 13.7 - 16.5 g/dL Hematocrit 36.3 (L) 40.5 - 48.5 % Mean Cell Volume 83.4 82.9 - 93.1 fL Mean Cell Hemoglobin 27.6 27.5 - 32.1 pg Mean Cell Hemoglobin Concentration 33.1 32.0 - 35.7 g/dL Platelet 185 145 - 357 x10(3)/mcL Mean Platelet Volume 7.6 7.6 - 12.9 fL RDW Standard Deviation 47.7 (H) 36.0 - 45.0 fL RDW coefficient of variation 17.8 (H) 11.4 - 13.8 % NRBC% auto 0.0 % NRBC Absolute 0.00 0.00 - 0.00 x10(3)/mcL Neutrophil % 67.1 % Neutrophil Absolute (ANC) - Automated 4.90 1.70 - 6.10 x10(3)/mcL Lymph % 16.8 % Lymph Absolute 1.23 0.90 - 3.20 x10(3)/mcL Monocyte % 13.1 % Monocyte Absolute 0.96 (H) 0.30 - 0.90 x10(3)/mcL Eos % 1.2 % Eos Absolute 0.09 0.00 - 0.40 x10(3)/mcL Basophil % 0.3 % Baso Absolute 0.02 0.00 - 0.10 x10(3)/mcL Immature Gran % 1.5 % Immature Gran Absolute 0.11 (H) 0.00 - 0.04 x10(3)/mcL Comprehensive metabolic panel Result Value Ref Range Glucose 113 65 - 199 mg/dL Blood Urea Nitrogen 21 (H) 10 - 20 mg/dL Creatinine 1.29 0.80 - 1.50 mg/dL Sodium 139 135 - 145 mMol/L Potassium 3.4 (L) 3.5 - 5.0 mMol/L Chloride 100 98 - 107 mMol/L Carbon Dioxide 25 22 - 31 mMol/L Anion Gap 14 5 - 15 mMol/L Calcium 9.2 8.5 - 10.5 mg/dL Protein, Total 7.0 6.1 - 8.0 g/dL Albumin 3.8 3.2 - 5.2 g/dL Aspartate Aminotransferase 29 <=39 unit/L Alanine Aminotransferase 22 0 - 55 unit/L Alkaline Phosphatase 77 40 - 130 unit/L Bilirubin, Total 0.3 <=1.3 mg/dL Est Glomerular Filtration Rate - Male 55 mL/min/1.73 m?? Fasting Status No CEA Result Value Ref Range Carcinoembryonic Antigen 6.9 (H) <=3.8 ng/ml Urinalysis Dipstick Result Value Ref Range Glucose, Urine Dipstick Negative Negative Protein, Urine Dipstick Trace (A) Negative Bilirubin, Urine Dipstick Negative Negative Urobilinogen, Urine Dipstick Normal Normal, 0.2 mg/dL, 1.0 mg/dL pH, Urine (dipstick) 5.5 5.0 - 8.0 Blood, Urine Dipstick Negative Negative Ketone, Urine Dipstick Trace (A) Negative Nitrite, Urine Dipstick Negative Negative Leukocytes, Urine Dipstick Negative Negative Specific [place] Urine Automated 1.019 1.005 - 1.030 Appearance, Urine Dipstick Clear Clear Color, Urine Dipstick Dark Yellow Yellow, Dark Yellow CULTURE ADDED? CEA 09/19/23 7.2 08/22/23 5.5 03/08/23 1.7 [...] with Medical Oncology including Dr. Krishnan at [facility] who recommended Folfox/avastin, and with Dr. Monroy at [facility] who discussed options of FOLFOX plus Avastin, [...] care approach without ongoing active therapy. He would like to think about things.I am going to see him back in 1-2 weeks with a restaging CT scan (to reassess whether there may be a role for liver directed therapies) and we will discuss options further. The CMP came back after he had left. I tried to call him to ask him to take some potassium but did not reach him. I left a message and hope to talk with him tomorrow. documented in this encounter Plan of Treatment Upcoming Encounters Date Type Department Care Team (Late st Contact Info) Description 01/05/2024 10:00 AM EST Office Visit Hematology/Oncology at [address] [phone] Alex Charles MD [facility] [place] [address] Agnes Jose [address] HEMATOLOGY [place] [address] Colon cancer metastasized to liver 01/05/2024 10:30 AM EST Infusion Hematology Oncology at [address] [phone] Arrived documented as of this encounter Goals Goal Patient Goal Type Associated Problems Recent Progress Patient-Stated? Author Patient's specific desired goal: Patient Facing Action Plan Godfrey Najera, [facility] Note: Goal(s): Live an additional year to year and a half Measured by: survival Time-frame: to be tracked by pharmacy annually documented as of this encounter Results * (ABNORMAL) CEA (11/23/2023 7:45 AM EDT) Carcinoembryonic Antigen 10.4(H) <=3.8 ng/ml 11/23/2023 8:31 AM EDT [facility] Comment: Some smokers may have elevated CEA, generally < 5.5 ng/mL. This result was generated using a Nora Louise immunoassay. ??Results obtained from other methods or manufacturers cannot be used interchangeably with this method. Blood VENOUS BLOOD SPECIMEN / Unknown Venipuncture / Unknown 11/23/2023 7:45 AM EDT 11/23/2023 7:45 AM EDT Alex Charles MD CHEMISTRY ORDERABLES [facility] [place] [address] * Comprehensive metabolic panel (11/23/2023 7:45 AM EDT) Glucose 125 65 - 199 mg/dL 11/23/2023 8:24 AM EDT [facility] Comment:Glucose Concentratio n >=200 mg/dL plus symptoms is consistent with Diabetes Mellitus. Blood Urea Nitrogen 19 10 - 20 mg/dL 11/23/2023 8:24 AM EDT [facility] Creatinine 1.31 0.80 - 1.50 mg/dL [facility]/23[facility]23 [facility] Sodium 142 135 - 145 mMol/L 11/23/2023 8:[facility] Potassium 4.2 3.5 - 5.0 mMol/L 11/23/2023 8:24 [facility] Chloride 107 98 - 107 mMol/L 11/23/2023 8:24 [facility] Carbon Dioxide 24 22 - 31 mMol/L 11/23/2023 8:24 [facility] Anion Gap 11 5 - 15 mMol/L 11/23/2023 8:[address] [facility] Calcium 9.1 8.5 - 10.5 mg/dL 11/23/2023 8:24 [facility] Protein, Total 6.9 6.1 - 8.0 g/dL 11/23/2023 8:24 [facility] Albumin 3.8 3.2 - 5.2 g/dL 11/23/2023 8:24 AM EDT [facility] Aspartate Aminotransferase 23 <=39 unit/L 11/23/2023 8:[facility] Alanine Aminotransferase 17 0 - 55 unit/L 11/23/2023 8:[address] [facility] Alkaline Phosphatase 80 40 - 130 unit/L 11/23/2023 8:[address] [facility] Bilirubin, Total 0.4 <=1.3 mg/dL 11/23/2023 8:[address] [facility] Est Glomerular Filtration Rate - Male 54 mL/min/1. 73 m?? 11/23/2023 8:[address] [facility] Comment: This patient's estimated GFR [...] Fasting Status No 11/23/2023 8:24 AM T [facility] Blood VENOUS BLOOD SPECIMEN / Unknown Venipuncture / Unknown 11/23/2023 7:45 AM EDT 11/23/2023 7:45 AM EDT Alex Charles MD CHEMISTRY ORDERABLES [facility] [place] [address] * (ABNORMAL) CBC (with Diff) (11/23/2023 7:45 AM EDT) White Blood Cell 5.29 4.00 - 9.50 x10(3)/mc L 11/23/2023 7:59 AM EDT [facility] Red Blood Cell 4.35(L) 4.58 - 5.54 x10(6)/mc L 11/23/2023 7:[address] [facility] Hemoglobin 12.3(L) 13.7 - 16.5 g/dL 11/23/2023 7:[address] [facility] Hematocrit 38.1(L) 40.5 - 48.5 % 11/23/2023 7:[address] [facility] Mean Cell Volume 87.6 82.9 - 93.1 fL 11/23/2023 7:[address] [facility] Mean Cell Hemoglobin 28.3 27.5 - 32.1 pg 11/23/2023 7:[address] [facility] Mean Cell Hemoglobin Concentration 32.3 32.0 - 35.7 g/dL 11/23/2023 7:[address] [facility] Platelet 215 145 - 357 x10(3)/mc L 11/23/2023 7:[address] [facility] Mean Platelet Volume 7.9 7.6 - 12.9 fL 11/23/2023 7:[address] [facility] RDW Standard Deviation 58.6(H) 36.0 - 45.0 fL 11/23/2023 7:[address] [facility] RDW coefficient of variation 20.2(H) 11.4 - 13.8 % 11/23/2023 7:[address] [facility] NRBC% auto 0.0 % 11/23/2023 7:[address] [facility] NRBC Absolute <0.01 <0.01 x10(3)/mc L 11/23/2023 7:[address] [facility] Neutrophil % 59.3 % 11/23/2023 7:[address] [facility] Neutrophil Absolute (ANC) - Automated 3.14 1.70 - 6.10 x10(3)/mc L 11/23/2023 7:[address] [facility] Lymph % 17.6 % 11/23/2023 7:59 AM EDT [facility] Lymph Absolute 0.93 0.90 - 3.20 x10(3)/mc L 11/23/2023 7:59 AM EDT [facility] Monocyte % 15.5 % 11/23/2023 7:59 AM EDT [facility] Monocyte Absolute 0.82 0.30 - 0.90 x10(3)/mc L 11/23/2023 7:59 AM EDT [facility] Eos % 6.0 % 11/23/2023 7:59 AM EDT [facility] Eos Absolute 0.32 0.00 - 0.40 x10(3)/mc L 11/23/2023 7:59 AM EDT [facility] Basophil % 0.8 % 11/23/2023 7:59 AM EDT [facility] Baso Absolute 0.04 0.00 - 0.10 x10(3)/mc L 11/23/2023 7:59 AM EDT [facility] Immature Gran % 0.8 % 7:59 AM EDT [facility] Immature Gran Absolute 0.04 0.00 - 0.04 x10(3)/mc L 11/23/2023 7:59 AM EDT [facility] Blood VENOUS BLOOD SPECIMEN / Unknown Venipuncture / Unknown 11/23/2023 7:45 AM EDT 11/23/2023 7:45 AM EDT Alex Charles MD HEMATOLOGY ORDERABLE S [facility] [address] * CT Chest Abdomen Pelvis w Contrast (Generic) (11/18/2023 4:47 PM EDT) Pathologist [email or web address] WORKSTATION ID [id number] RAD Anatomical Region Laterality Modality Abdomen, Pelvis [...] who have questions please contact the health childcare center administrator that requested your imaging first. ? Electronically signed by: Frank Benito DO, [facility] ([phone]), at 11/22/2023 1:07 PM Narrative 11/22/2023 1:07 [...] Abdomen, and Pelvis September 19, 2023 FINDINGS: Rotary Drier Feeder Images: Noncontributory. CT OF THE CHEST: Pulmonary [...] the Chest, Abdomen, and PelvisJuly 2023 FINDINGS: Rotary Drier Feeder Images: Noncontributory. CT OF THE CHEST: Pulmonary [...] patients who have questions please contactthe health childcare center administrator that requested your imaging first. 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
--- OUTSIDE RECORDS SUMMARY | 2024-01-05 09:57 | XMS_ITS | Encounter Summary ---
Author Organization [facility] [place] [address] Care Team Providers Care Multimedia Editor Name Role Phone None Primary Care Provider Unavailabl e Reason for Visit * Reason Comments Chemotherapy * Treatment/Therapy Plan Authorization (Routine) - Authorized Specialty Diagnoses / Procedures Referred By Kim murphy Referred To Contact Hematology and Oncology Diagnoses Colon cancer metastasized to liver Procedures INFUSION lAex Charles MD [facility] [place] [address] [facility] Hem Onc Infusion [address] [place] [phone] Referral ID Status Reason Start Date Expiration Date V isits Requested Visits Authorized [id number] Authorized 11/23/2023 11/22/2024 1 99 Encounter Details Date Type Department Care Team (Latest Contact Info) Description 12/07/2023 7:33 AM EDT - 12/07/2023 11:59 PM EDT Hospital Encounter [place] [phone] Colon cancer metastasized to liver Discharge Disposition: [...] 15 tablet 10/28/2023 ibuprofen (Advil) 200 mg tabletIndications:osteoar thritis Take 600 mg by mouth every 6 [...] tablet Take 2.5 mg by mouth. 05/16/2023 fexofenadine-pseudoephedr ine (Saniya-D 12 Hour) 60-120 mg Tablet Sustained [...] Tablet Take 10 mg by mouth nightly. documented as of this encounter Progress Notes * So Elizondo RN - 12/07/2023 8:56 AM EDT Patient Name: Bart Hathaway Patient Age: 83 y.o. Birthdate: 1940 Admit date: 12/07/2023 Attending Physician: Pati att. providers found TIME TREATMENT STARTED: 0900 TIME TREATMENT ENDED: 1125 Bart Hathaway, 83 y.o. male with diagnosis of colon cancer metastasized to liver is here for chemotherapy infusion of Irinotecan. PROTOCOL: n/a CYCLE: 2 WEEK: n/a DAY: 1 S: Pt. offers no complaints at this time. O: Chemotherapy orders independently verified for correct drug name, route and dosage per patient'sheight, weight and BSA by So Elizondo RN and onsite pharmacist REACTIONS (DESCRIPTION, TIME, INTERVENTION AND EFFECTIVENESS) none A: Pt. Tolerated treatment well. Bart Hathaway confirms that all questions and issues have been addressed. P: Return to clinic as advised. documented in this encounter Plan of Treatment Upcoming Encounters Date Type Department Care Team (Late st Contact Info) Description 01/05/2024 10:00 AM EST Office Visit Hematology/Oncology at [address] [phone] Alex Charles MD [facility] [place] [address] Agnes Jose APRN [address] [place] [address] DR HEMATOLOGY AND ONCOLOGY [place], [place] [address] Colon cancer metastasized to liver 01/05/2024 10:30 AM EST Infusion Hematology Oncology at [address] [phone] Arrived documented as of this encounter Goals Goal Patient Goal Type Associated Problems Recent Progress Patient-Stated? Author Patient's specific desired goal: Patient Facing Action Plan No Godfrey Noguera, [facility] Note: Goal(s): Live an additional year [...] over 1 Minutes, ONCE, 1 dose, On Tue12/07/23 at 0900, Administer prior to IRINOtecan, Routine Given 12/07/2023 9:20 AM EDT 0.5 mg dexAMETHasone (Decadron) tablet 10 mg 10 mg, Oral, ONCE, 1 dose, On Tue12/07/23 at 0900, Administer prior to chemotherapy, Routine Given 12/07/2023 9:17 AM EDT 10 mg IRINOtecan (Camptosar) 260 mg in dextrose 5% 513 mL infusion 260 mg (rounded from 273.75 mg = 125 mg/m2/dose ? 2.19 m2 Treatment Plan BSA from Recorded weight), Intravenous, ONCE, 1 dose, On Tue12/07/23 at 1000, Administer over 90 Minutes, Warning Vesicant/Irritant Medication New Bag 12/07/2023 9:42 AM EDT 260 mg 342 mL/hr palonosetron (Aloxi) (0.05 mg/mL) injection 0.25 mg 0.25 mg, Intravenous, ONCE, 1 dose, On Tue12/07/23 at 0900, Administer over 30 seconds. Administer prior to chemotherapy, Routine Given 12/07/2023 9:18 AM EDT 0.25 mg documented in this encounter Care Teams Multimedia Editor Relationship Specialty Start Date End Date None None PCP - General 01/20/10 documented as of this encounter
--- OUTSIDE RECORDS SUMMARY | 2024-01-05 09:58 | XMS_ITS | Encounter Summary ---
Author Organization [facility] Address [facility] [place] [address] Care Team Providers Care Assessment Technician Name Role Phone None Primary Care Provider Unavailabl e Encounter Details Date Type Department Care Team (Late Contact Info) Description 02/09/2017 Interpretation Only [address] [place] [phone] Josh Pérez MD [address] [place] [id number] Social History Tobacco Use Types Packs/Day Years [...] 10:00 AM EST Office Visit Hematology/Oncology at [address] [phone] Alex Charles MD [facility] [address] Agnes Jose APRN [address] [place] [address] DR HEMATOLOGY AND ONCOLOGY [place], [place] [phone] Colon cancer metastasized to liver 01/05/2024 10:30 AM EST Infusion Hematology Oncology at [address] [phone] Arrived documented as of this encounter Procedures Procedure Name Priority Date/Time Associated Diagnosis Comments XR O-ARM MORE THAN ONE HOUR Routine 02/09/2017 9:30 AM EST documented in this encounter Results * XR O-Arm More Than One Hour (02/09/2017 9:30 AM EST) Anatomical Region Laterality Modality Other 02/09/2017 9:30 AM EST Impressions 02/10/2017 8:11 AM EST Intraoperative fluoroscopic and tomographic images of posterior fixation of L4-S1. Narrative 02/10/2017 8:11 AM EST EXAMINATION: C-ARM (=>1HR) , O-ARM ( =>1HR ) CLINICAL HISTORY: CORTICAL SCREW 2 LVL - OR2, ?? TECHNIQUE: AP and lateral saved intraoperative fluoroscopic images and axial tomographic images of the lower lumbar spine COMPARISON: None FINDINGS: Postsurgical changes from laminectomies at L4 and L5 with bilateral pedicle screw placements at L4-S1. None of the screws extend into the paravertebral soft tissues. There is multilevel degenerative disc disease and facet arthropathy. Mild calcified atherosclerosis of the visualized abdominal aorta and iliac arteries. Procedure Note Bart Broussard MD - 02/10/2017 EXAMINATION: C-ARM (=>1HR) , O-ARM ( =>1HR ) CLINICAL HISTORY: CORTICAL SCREW 2 LVL - OR2, TECHNIQUE: AP and lateral saved intraoperative fluoroscopic images andaxial tomographic images of the lower lumbar spine COMPARISON: None FINDINGS: Postsurgical changes from laminectomies at L4 and L5 with bilateralpedicle screw placements at L4-S1. None of the screws extend into theparavertebral soft tissues. There is multilevel degenerative disc disease and facetarthropathy. Mild calcified atherosclerosis of the visualized abdominal aorta andiliac arteries. IMPRESSION Intraoperative fluoroscopic and tomographic images of posterior fixationof L4-S1. Josh Pérez MD PACS IMAGES documented in this encounter Visit Diagnoses Not on filedocumented in this encounter Care Teams Assessment Technician Relationship Specialty Start Date End Date None None PCP - General 01/20/10 documented as of this encounter
--- OUTSIDE RECORDS SUMMARY | 2024-01-05 09:58 | XMS_ITS | Encounter Summary ---
Author Organization [facility] [place] [address] Care Team Providers Care Business Analytics Director Name Role Phone None Primary Care Provider Unavailabl e Encounter Details Date Type Department Care Team (Late st Contact Info) Description 10/13/2023 Telephone [place]ematology [place] [phone] Ayla Espinal, RN Social History Tobacco Use Types Packs/Day [...] encounter Miscellaneous Notes * Telephone Encounter - Ayla Espinal, RN - 10/13/2023 3:52 PM EDT Message received from clinical clerical secretary: [phone]-Patient called and states he was reading about the medication prescribed yesterday,he states the literature states not to be taken with ibuprofen. Patient states he has to take ibuprofen for his back pain and is wondering what he should do. Call placed to patient who explains he takes around 600mg TID of ibuprofen. Has had issues with back pain for years and finds that this is the only thing that helps him. Was reading that he shouldn't take it while on treatment. Explained that he can continue to take the ibuprofen. We will watch his counts and if platelets start to get low he will have to talk with providers more regarding a plan. Pt verbalized understanding and agreement and knows to call clinic with any concerns and/or questions. aware and in agreement with the above. documented in this encounter Plan of Treatment Upcoming Encounters Date Type Department Care Team (Late st Contact Info) Description 01/05/2024 10:00 AM EST Office Visit Hematology/Oncology at [address] [phone] Alex Charles MD [facility] [place] [address] Agnes Jose APRN [address] [place] [address] DR HEMATOLOGY AND ONCOLOGY [place], [place] [address] Colon cancer metastasized to liver 01/05/2024 10:30 AM EST Infusion Hematology Oncology at [address] [phone] Arrived documented as of this encounter Visit Diagnoses Not on filedocumented in this encounter Care Teams Business Analytics Director Relationship Specialty Start Date End Date None None PCP - General 01/20/10 documented as of this encounter
--- OUTSIDE RECORDS SUMMARY | 2024-01-05 09:58 | XMS_ITS | Encounter Summary ---
Author Organization [facility] [place] [address] Care Team Providers Care Maintenance And Engineering Manager Name Role Phone None Primary Care Provider Unavailabl e Reason for Visit * Reason Comments Follow-up Encounter Details Date Type Department Care Team (Late st Contact Info) Description 10/28/2023 10:00 AM EDT Office Visit [place]ematology [place] [phone] Nena Beverly, [facility] DR HEMATOLOGY [place] [address] Colon cancer metastasized to liver Social History [...] Sign Reading Time Taken Comments Blood Pressure 150/72 10/28/2023 9:58 AM EDT Pulse 88 10/28/2023 9:58 AM EDT Temperature 36.3 ??C (97.3 ??F) 10/28/2023 9:58 AM ED T Respiratory Rate 18 10/28/2023 9:58 AM EDT Oxygen Saturation 96% 10/28/2023 9:58 AM EDT Inhaled Oxygen Concentration - - Weight 100.4 kg (221 lb 5.5 oz) 10/28/2023 9:58 AM EDT Height 170.8 cm (5' 7.24) 10/28/2023 9:58 AM ED T Body Mass Index 34.42 10/28/2023 9:58 AM EDT documented in this encounter Progress Notes * Nena Beverly, APPLIANCE SERVICE REPRESENTATIVE - 10/28/2023 10:00 AM EDT Images from the original note were not included. Subjective Patient ID: Bart Hathaway is 83 [...] - refer to outside case labelled as [id number] Pathologic Stage Classification (pTNM, AJCC 8th Edition) [...] metastatic disease in the abdomen or pelvis. 2. HTN 3. HLD 4. Atrial fibrillation HPI Bart Hathaway is seen for management of stage IV colon cancer. He is to start CAPOX today. The history is summarized above. Bart is accompanied to clinic today via phone by a friend, [place] Packer (currently in [place]). 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 He divides his time equally between all He feels overall well. I do everything. 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 Stool output is consistent and without blood. He does have an injured R shoulder and has had some tingling in his right hand as a result since June. Other medical issues of HTN and afib are well-controlled on his current medications. Has a trip planned in 12/17/23-01/01/24 for a work trip which may interfere with treatment. Soc Hx: Has homes in [place], [place], and [place]. 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 Fam [...] 24 hrs: Temp Pulse Resp BP SpO2 10/28/23 0958 36.3 ??C (97.3 ??F) 88 18 150/72 96 % Wt Readings from Last 3 Encounters: 10/28/23 100.4 kg (221 lb 5.5 oz) 10/12/23 100.5 kg (221 lb 9 oz) 04/19/17 103 kg (227 lb 1.9 oz) Physical Exam Vitals reviewed. Constitutional: General: He is not in acute distress. HENT: Head: Normocephalic and atraumatic. Mouth/Throat: Pharynx: Oropharynx is clear. No oropharyngeal exudate. Eyes: General: No scleral icterus. Cardiovascular: Rate and Rhythm: Normal rate and regular rhythm. Pulmonary: Effort: Pulmonary effort is normal. No respiratory distress. Breath sounds: No wheezing or rales. Abdominal: General: There is no distension. Tenderness: There is no abdominal tenderness. There is no guarding. Comments: Ostomy in place, clean, and non-tender Musculoskeletal: General: No swelling. Lymphadenopathy: Cervical: No cervical adenopathy. Skin: General: Skin is warm and dry. Findings: No rash. Neurological: General: No focal deficit present. Mental Status: He is alert. Coordination: Coordination normal. Psychiatric: Mood and Affect: Mood normal. CEA 09/19/23 7.2 08/22/23 5.5 03/08/23 1.7 12/14/22 4.4 Pharmacogenomics (PGx) DPYD and UGT1A1 Genotyping DPYD Genotype: *1/*1 DPYD Activity Score: 2 DPYD Predicted Phenotype: DPYD Normal Metabolizer UGT1A1 Genotype: *1/*1 UGT1A1 Predicted Phenotype: UGT1A1 Normal Metabolizer Assessment and Plan Bart Hathaway is 83 yo, seen for evaluation and management of stage IV colon cancer, adenocarcinoma, pMMR, [...] - progression of hepatic metastatic disease. He has not yet received systemic therapy. This has been discussed with Dr. Krishnan at [facility] whorecommended Folfox/avastin, and with Dr. Monroy at [facility] who discussed options of FOLFOX plus Avastin, FOLFIRI plus Avastin, CAPOX, Xeloda plus Avastin, and Xeloda single agent. After an extended discussion about logistics, expected side effect profiles, expected response and efficacy, and prognostic information, Bart is not particularly interested a fluorouracil-based regimen. He very much wants to maintain his current lifestyle. Thus, he is more amenable to capecitabine-based therapy. Given his age, medical history, and preferences, we will plan to start at a reduced dose of CAPOX (850mg/m2 and 85mg/m2, respectively). In setting of potential further liver ablation, we will hold off on bevacizumab. Clinically stable, counts meet treatment parameters. We will proceed with C1 CAPOX. Side effects discussed, encouraged to call immediately with uncontrolled symptoms, questions and/or concerns. Plan to RTC in 3 weeks with infusion (oxaliplatin), labs, and provider visit. Nena Juarez. Rush MORFIN APRN, AGACNP-BC, AOCNP, ACHPN Division of Hematology Oncology-Gastrointestinal Toe Closing Machine TenderRestaurant Workerclothing busheler [facility] documented in this encounter Plan of Treatment Upcoming Encounters Date Type Department Care Team (Late st Contact Info) Description 01/05/2024 10:00 AM EST Office Visit Hematology/Oncology at [address] [phone] Alex Charles MD [facility] [place] [place] [address] Agnes Jose APRN [address] [place] [address] H[place]Y [place] [address] Colon cancer metastasized to liver 01/05/2024 10:30 AM EST Infusion Hematology Oncology at [address] [phone] Arrived documented as of this encounter Goals Goal Patient Goal Type Associated Problems Recent Progress Patient-Stated? Author Patient's specific desired goal: Patient Facing Action Plan No Godfrey Noguera, [facility] Note: Goal(s): Live an additional year to year and a half Measured by: survival Time-frame: to be tracked by pharmacy annually documented as of this encounter Visit Diagnoses Diagnosis Colon cancer metastasized to liver Malignant neoplasm of colon, unspecified site Colon cancer metastasized to liver Malignant neoplasm of colon, unspecified site documented in this encounter Care Teams Maintenance And Engineering Manager Relationship Specialty Start Date End Date None None PCP - General 01/20/10 documented as of this encounter
--- OUTSIDE RECORDS SUMMARY | 2024-01-05 09:58 | XMS_ITS | Encounter Summary ---
Author Organization [facility] [address] Care Team Providers Care Motor Grader Rough Grade Name Role Phone None Primary Care Provider Unavailabl e Encounter Details Date Type Department Care Team (Latest Contact Info) Description 09/19/2023 7:31 AM EDT - 09/19/2023 11:59 PM EDT Hospital [place] [phone] Discharge Disposition: Home Social History Tobacco Use [...] Sig Dispensed Refills Start Date End Date apixaban (Eliquis) 2.5 mg tablet Take 2.5 [...] tablet Take 60 mg by mouth. 05/20/2023 thiamine 100 mg Tablet Take 1 tablet by mouth daily. 90 tablet 6 11/29/2013 lisinopril (PRINIVIL;ZESTRIL) 10 mg Tablet Take 10 mg by mouth daily. simvastatin (ZOCOR) 10 mg Tablet Take 10 mg by mouth nightly. MV,Ca,Yia-Oypk-EX-Lycope ne 8 mg iron- 200 mcg-600 mcg Tablet Take 1 tablet by mouth Daily @ 0600. 12/15/2022 12/07/2023 hydrochlorothiazide (MICROZIDE) 12.5 mg Capsule Take 12.5 mg by mouth daily. 10/12/2023 aspirin 81 mg Tablet, Delayed Release (E.C.) Take 81 mg by mouth daily. 10/12/2023 documented as of this encounter Plan of Treatment Upcoming Encounters Date Type Department Care Team (Late st Contact Info) Description 01/05/2024 10:00 AM EST Office Visit Hematology/Oncology at [address] [phone] Alex Charles MD [facility] [place] [address] Agnes Jose APRN [address] [place] [address] DR [place] [address] Colon cancer metastasized to liver 01/05/2024 10:30 AM EST Infusion Hematology Oncology at [address] [phone] Arrived documented as of this encounter Procedures Procedure Name Priority Date/Time Associated Diagnosis Comments SURGICAL PATHOLOGY REPORT Routine 09/19/2023 7:31 AM EDT documented in this encounter Results * Surgical Pathology Report (09/19/2023 7:31 AM EDT) Final Diagnosis [id number] ? Location: [facility] The signing pathologist has (i) examined the relevant preparation(s) for the specimen(s) and (ii) rendered or confirmed the diagnosis(es). . ?Surgical Pathology DIAGNOSIS CONSULTATION CASE A - 35 slide(s) labeled [id number], collection date . 1. Ileocecal lymph node: - One lymph node, negative for malignancy (0/1). 2. Right colon with attached sigmoid colon: - Invasive colonic adenocarcinoma, moderately differentiated, see synoptic report. B - 5 slide(s) labeled [id number], collection date 02/15/2023. 1. Liver mass, biopsy: - Metastatic adenocarcinoma, moderately differentiated, consistent with colonic origin, see note. Note: Provided immunostains show that the tumor cells are positive for CK20 and CDX2, whereas are negative for CK7. This immunoprofile supports above diagnosis. Electronically signed by: ?Anurag CLAYTON, [place] Verified: ??09/28/2023 14:08 ??Pathologist Performed at: ??-[facility] Dept. of Pathology, [place] [address] Museum Informatics Specialist: Nannette Jacinto MD, FCAP, ??IA Certificate: [id number] SYNOPTIC Specimen ? Procedure: ??Right hemicolectomy Tumor ? Tumor Site: ??Cecum ? Histologic Type: ??Adenocarcinoma ? Histologic Grade: ??G2, moderately differentiated ? Tumor Size: ??4.5 Centimeters (cm) ? Tumor Extent: ??Invades through muscularis propria into the pericolonic or ?perirectal tissue ? Macroscopic Tumor Perforation: ??Cannot be determined - per report, cannot ?be determined but likely present given the tumor is adhered to a segment of ?sigmoid colon and the junctional giles are presumably engulfed by an abscess ? Lymphovascular Invasion: ??Not identified ? Perineural Invasion: ??Not identified ? Treatment Effect: ??No known presurgical therapy Margins ? Margin Status for Invasive Carcinoma: ??All margins negative for invasive ?carcinoma ? Margin Status for Non-Invasive Tumor: ??All margins negative for high-grade ?dysplasia / intramucosal carcinoma and low-grade dysplasia Regional Lymph Nodes ? Regional Lymph Node Status: ??All regional lymph nodes negative for tumor ? Number of Lymph Nodes Examined: ??28 ? Tumor Deposits: ??Not identified Distant Metastasis ? Distant Site(s) Involved: ??Liver - refer to outside case labelled as ?[id number] Pathologic Stage Classification (pTNM, AJCC 8th Edition) ? pT Category: ??pT3 . SYNOPTIC ? pN Category: ??pN0 ? pM Category: ??pM1 Additional Findings ? Additional Findings: ??Adenoma(s); ??Diverticulosis ? CAP eCC 2021 Q2 Release DISCUSSION Provided immunostains show that the expression of Mismatch Repair Proteins is intact. SPECIMEN(S) SUBMITTED CONSULTATION CASE A - 35 slide(s) labeled [id number], collection date . B - 5 slide(s) labeled [id number], collection date 02/15/2023. [id number] CARBON COPY: [facility] Department of Pathology [address] [place] [address] Phone: ??[phone] Fax: ??[phone] CLINICAL INFORMATION Colon mass SPECIMEN PROCESSING [facility] pathology slide(s) are reviewed. Refer to Diagnosis and Specimen Submitted for specific case information. For the full text of the [facility] report(s) please refer to the Chart Review Media tab in the electronic health record (eDH). 09/28/2023 2:08 PM EDT [facility] Consult Case 09/19/2023 7:31 AM EDT 09/19/2023 7:31 AM EDT Consult Case 09/19/2023 7:31 AM EDT 09/19/2023 7:31 AM EDT Alex Charles MD PATHOLOGY/CYTOLOGY O RDERABLES Performing Organization Address City/State/[facility] Co de Phone Number [facility] [place] [place] [address] documented in this encounter Visit Diagnoses Not on filedocumented in this encounter Care Teams Motor Grader Rough Grade Relationship Specialty Start Date End Date None None PCP - General 01/20/10 documented as of this encounter
--- OUTSIDE RECORDS SUMMARY | 2024-01-05 09:58 | XMS_ITS | Encounter Summary ---
Author Organization [facility] Address [facility] Marianne johnson [place] [address] Care Team Providers Care Frame Operator Name Role Phone None Primary Care Provider Unavailabl e Encounter Details Date Type Department Care Team (Late Contact Info) Description 09/19/2023 12:05 AM EDT Ancillary Procedure Radiology Library at [facility] [place] [phone] Antony Blanco MD [address] [place] [address] [place] [address] Social History Tobacco Use Types Packs/Day Years [...] 10:00 AM EST Office Visit Hematology/Oncology at [address] [phone] Alex Charles MD [facility] [place] [address] Agnes Jose APRN [address] [place] [address] DR HEMATOLOGY [place] [address] Colon cancer metastasized to liver 01/05/2024 10:30 AM EST Infusion Hematology Oncology at [address] [phone] Arrived documented as of this encounter Procedures Procedure Name Priority Date/Time Associated Diagnosis Comments FILM LIBRARY STORAGE ONLY CT ABDOMEN AND PELVIS Routine 09/19/2023 12:05 AM EDT documented in this encounter Results * Film Library- Storage Only CT Abdomen & Pelvis (09/19/2023 12:05 AM EDT) Narrative PRISCILLA RODAS - 10/07/2023 3:40 PM EDT This exam is auto-finalizing. It's purpose is for storage only. Antony Blanco MD IMG FILM LIBRARY ORD ERABLES [place], [place] documented in this encounter Visit Diagnoses Not on filedocumented in this encounter Care Teams Frame Operator Relationship Specialty Start Date End Date None None PCP - General 01/20/10 documented as of this encounter
--- OUTSIDE RECORDS SUMMARY | 2024-01-05 09:58 | XMS_ITS | Encounter Summary ---
[place] [address] Care Team Providers Care Firmware Test Engineer Name Role Phone None Primary Care Provider Unavailabl e Reason for Visit * Reason Comments Vertigo Irregular Heart Beat Encounter Details Date Type Department Care Team (Late st Contact Info) Description 11/28/2013 4:23 PM EDT - 11/29/2013 5:01 PM EDT Emergency [address] [id number] Jody Valle MD [facility] [place] [address] Kalpana Guerin, [facility] [place] [address] Hypertension; Ataxia Discharge Disposition: Home Social History Tobacco Use [...] Sign Reading Time Taken Comments Blood Pressure 160/97 11/29/2013 12:02 PM EDT rn notified Pulse 78 11/29/2013 12:02 PM EDT Temperature 36.7 ??C (98.1 ??F) 11/29/2013 1 2:02 PM EDT Respiratory Rate 16 11/29/2013 12:0 2 PM EDT Oxygen Saturation 97% 11/29/2013 12: 02 PM EDT Inhaled Oxygen Concentration - - Weight 95.1 kg (209 lb 11.2 oz) 11/28/2013 9:46 PM EDT Height 185.4 cm (6' 1) 11/28/2013 9:46 PM EDT Body Mass Index 27.67 11/28/2013 9:46 PM EDT documented in this encounter Discharge Instructions * Patient Instructions* Lb Trejo MD - 11/29/2013 2:11 PM EDT You were admitted to the neurology service at [facility]. Your diagnosis: Viral Illness with Inner Ear Vestibular Disturbance. Medication Changes: Continue these medications: HCTZ 12.5 mg daily, Simvastatin 10 mg nightly, Lisinopril 10 mg daily, Aspirin 81 mg daily, Thiamine 100 mg daily Stop these medications: none. Change these medications: none. Patient Instructions: Call your doctor or seek medical attention if you have weakness or numbness in your face or one of your limbs or difficulty speaking loss of vision seizures or loss of consciousness Diet: we recommend a heart healthy diet: low fat, low cholesterol, low concentrated sweets. Activity Restrictions: none Driving Restrictions: none Home oxygen therapy: none needed Anticoagulation Follow-up and Instructions: none FOLLOWUP APPOINTMENT: You will have an outpatient followup appointment in the neurology clinic at [facility]. If not already listed in this document, we will contact you to schedule this appointment. -- If 1 week passes by after you are discharged and you still do not have an appointment, please call [phone]. Future Appointments and Orders Future Appointments: Provider: Department: Dept Phone: Center: 01/01/2014 2:00 PM Tiffanie Omer MD Neurology [phone] [facility] Future Orders Please Complete By Expires Full code [COD2 Custom] Process Instructions: 1) Ordering MD or AUTOMOTIVE ELECTRICIAN must provide Order Justification documentation for a: Partial Code Order Do Not Attempt Resuscitation (DNR) Revision of Code Status order (Rescind DNR Order) 2) If the Attending of Record, as the Responsible decision maker selects a Partial Code or DNR order, a 2nd physician must document in a note, their agreement that resuscitation would be a non-beneficial treatment. 3) If the ordering provider is not the Attending of Record, the ordering MD or AUTOMOTIVE ELECTRICIAN must obtain (verbal) approval of the Attending of Record. Completing this documentation indicates that you have obtained verbal approval from the Attending of Record Scheduling Instructions: Comments: Questions: Responses: Responsible decision maker(s), other than patient Does patient have decision making capacity? Yes, Order is based on Patients wishes. Content of discussion: documented in this encounter Medications at Time of Discharge Medication Sig Dispensed Refills Start Date End Date thiamine 100 mg Tablet Take 1 tablet by mouth daily. 90 tablet 6 11/29/2013 lisinopril (PRINIVIL;ZESTRIL) 10 mg Tablet Take 10 mg by mouth daily. simvastatin (ZOCOR) 10 mg Tablet Take 10 mg by mouth nightly. hydrochlorothiazide (MICROZIDE) 12.5 mg Capsule Take 12.5 mg by mouth daily. 10/12/2023 aspirin 81 mg Tablet, Delayed Release (E.C.) Take 81 mg by mouth daily. 10/12/2023 documented as of this encounter Progress Notes * Provider, Brenda - 11/30/2013 9:16 AM EDT * Marleni Cooper RN - 11/29/2013 1:26 PM EDT Per Neuro team another set of orthostatic vitals taken after bolus. Lying Down: 159/86 124 HR Immediately Standin/86 113 HR Pt reports not feeling dizzy during orthostatics, or dizzy at all throughout the day. Pt reports increase in sinus pressure and runny nose after bolus earlier. * Kalpana Guerin DO - 11/29/2013 9:00 AM EDT Neurology Progress Note Patient Name: Bart Hathaway Admit Date: 11/28/2013 Attending: Dr. Guerin Patient ID: Bart Hathaway is a 73 y.o. M w/hx of HLD, HTN presenting with complaints of nausea and gait instability. Also had a recent earache in his inner ear. Active Issues: Gait instability Secondary Problems: HTN HLD BCC resection Cataract surgery Interval History: Patient doing well this AM. Afebrile. Denies any dizziness or instability while sitting up. Gait much improved. Medications: Scheduled Meds: ??? thiamine 100 mg Intravenous Daily ??? [COMPLETED] bolus IV fluid Intravenous Once ??? aspirin 81 mg Oral Daily ??? hydrochlorothiazide 12.5 mg Oral Daily ??? simvastatin 10 mg Oral Nightly ??? sodium chloride 0.9 % 5 mL Intravenous Q12H ??? enoxaparin 40 mg Subcutaneous Daily ??? docusate sodium 100 mg Oral BID ??? senna-docusate 1-4 tablet Oral BID Continuous Infusions: ??? [] sodium chloride 0.9% 100 mL/hr (11/28/13 2205) PRN Meds:.sodium chloride 0.9 %, lidocaine (PF), acetaminophen, [COMPLETED] gadopentetate dimeglumine, flu vacc (5 yrs+) (PF) Physical Exam: Vitals: Temp: [36.7 ??C (98.1 ??F)-36.8 ??C (98.2 ??F)] Heart Rate: [71-109] Resp: [14-25] BP: (130-170)/(74-106) SpO2: [95 %-98 %] Gen: Patient of apparent stated age, well nourished, well developed, awake, alert, NAD Neuro Exam: MS: Alert and oriented to person, place and time, clear language, no dysarthria, follows commands CN: PERRL, EOMI, visual lafleur full Facial sensation intact, no facial asymmetry Hearing intact to finger rub Palate elevates symmetrically, tongue protrudes midline SCM and trap strength intact Motor: Normal bulk and tone. UE and LE are 5/5 bilaterally. Sensation: Intact to light touch Reflexes: DTRs 2+ R, 2+ L Biceps 2+ R, 2+ L Brachioradialis 2+ R, 2+ L Triceps 3+ R, 3+ L Patellar Toes - R down, L down Coordination: Mild action tremor on finger to nose, bilaterally. Gait: Stable, mildly unsteady, improved balance. Labs: Recent Results (from the past 24 hour(s)) VITAMIN B12 Component Value Range Vitamin B-12 661 207 - 974 pg/mL FOLATE, SERUM Component Value Range Folate Lvl >20.0 4.6 - 34.8 ng/mL URINALYSIS WITH MICROSCOPIC Component Value Range Glucose UA Negative Negative mg/dL Protein UA Negative Negative mg/dL Bilirubin UA Negative Negative mg/dL Urobilinogen UA Normal Normal mg/dL pH UA 5.0 5.0 - 8.0 Blood UA Negative Negative mg/dL Ketones UA Negative Negative mg/dL Nitrite UA Negative Negative Leukocytes UA Negative Negative mcL Appearance UA Hazy (*) Clear Spec [place] UA 1.012 1.002 - 1.030 Color UA Yellow Yellow RBC UA <1 0 - 3 /HPF WBC UA 1 0 - 3 /HPF Squam Epith UA <1 <=4 /HPF MAGNESIUM Component Value Range Magnesium 0.82 0.69 - 1.07 mmol/L PHOSPHORUS Component Value Range Phosphorus 3.6 2.5 - 4.5 mg/dL PROTHROMBIN TIME Component Value Range PT 13.6 12.5 - 15.5 sec INR 1.0 0.9 - 1.1 APTT Component Value Range PTT 31 25 - 35 sec VITAMIN B12 Component Value Range Vitamin B-12 631 207 - 974 pg/mL BASIC METABOLIC PANEL (NON-FASTING) Component Value Range Glucose Lvl 108 60 - 199 mg/dL BUN 17 10 - 20 mg/dL Creatinine 1.13 0.80 - 1.50 mg/dL Sodium 143 135 - 145 mmol/L Potassium 3.7 3.5 - 5.0 mmol/L Chloride 104 98 - 107 mmol/L CO2 27 22 - 31 mmol/L Anion Gap 12 5 - 15 mmol/L Calcium 9.1 8.5 - 10.5 mg/dL Estimated GFR >60 >=60 HEMOGRAM Component Value Range WBC 5.5 4.0 - 10.0 x10(3)/mcL RBC 4.77 4.63 - 6.08 x10(6)/mcL Hemoglobin 16.2 13.7 - 17.5 gm/dL Hematocrit 44.5 40.0 - 51.0 % MCV 93.3 (*) 79.0 - 92.0 fL MCH 34.0 (*) 25.6 - 32.2 pg MCHC 36.4 32.0 - 36.5 gm/dL Platelets 189 145 - 370 x10(3)/mcL RDWSD 41.8 35.0 - 46.0 fL RDWCV 12.4 10.9 - 14.4 % MPV 8.5 (*) 9.0 - 12.0 fL DIFFERENTIAL, AUTOMATED Component Value Range Neutrophils % 55.4 34.0 - 71.0 % Neutr Abs (ANC) 3.05 1.50 - 6.30 x10(3)/mcL Lymphocytes % 25.1 19.0 - 53.0 % Lymphocytes Abs 1.4 1.0 - 3.6 x10(3)/mcL Monocytes % 17.3 (*) 4.0 - 13.0 % Monocyte Abs 1.0 0.2 - 1.0 x10(3)/mcL Eosinophils % 1.6 0.0 - 7.0 % Eosinophils Abs 0.1 0.0 - 0.5 x10(3)/mcL Basophils % 0.2 0.0 - 2.0 % Basophils Abs 0.0 0.0 - 0.2 x10(3)/mcL Immature Gran % 0.40 0.00 - 0.66 % Cherise Gran Abs 0.02 0.00 - 0.05 x10(3)/mcL HIV Component Value Range HIV 1/2 Ab Negative Negative Diagnostic Tests and Imaging: CT head 11/28/2013: Impression 1. Small focus of hypoattenuation in the right occipital lobe with associated mass effect which could reflect a subacute stroke or small mass. Unexpected finding. 2. Patchy foci of subcortical and periventricular hypoattenuation which may reflect the sequelae of chronic microvascular ischemic disease. 3. 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 4. Minimal paranasal sinus disease. MRI 11/28/2013: Impression 1. No intracranial mass or abnormal enhancement. The finding on CT probably represents an area of partial volume effect. 2. No evidence of infarct. Narrowing of the left P1 WOOL HAT FLANGER segment. Assessment / Plan: Bart Hathaway is a 73 y.o. M w/hx of HTN, HLD presenting with acute onset gait instability. On admission, he was found to have a (+)Romberg, and gait instability with veering to the right on ambulation. His MRI is negative for any abnormal enhancement and the CT head shows hypo-attenuation which may reflect the sequelae of chronic microvascular ischemic diease. He may have had an inner ear infection ([facility]), and he may have had a viral illness related to his earache and sinus headache. Labs till date have been unrevealing. In addition, HIV test has been negative. Pending labs are syphilis antibody, vitamin b1, vitamin E and lyme antibody.In addition, orthostatics will be completed since his heart rate increases when he stands. He has been given IV fluids for this and he was rechecked. His orthostatics were normal after IV fluid bolus. At this time IV thiamine is being given as inpatient as there is a history of alcohol abuse and hewill be discharged on thiamine tablets 100 mg daily. He will be optimized for discharge today has his symptoms has significantly and markedly improved and the leading diagnosis is related to a possible viral illness causing vestibular problems. # Inner Ear, Viral Illness causing ataxia - q4h vitals and neuro checks - MRI Brain w/wo contrast completed. - B12/Folate, Vitamin E pending. - Lyme IgM and IgG pending. - TSH/Free T4 completed. #Supportive - PT/OT - [facility] diet - Tylenol PRN - RBOs - Lovenox for DVT ppx - Continue home Aspirin 81mg qd, Simvastatin 10mg qd, HCTX 12.5 qd - HOLD home lisinopril given possible need for permissive HTN in case of stroke Tiffanie Omer MD Neurology Resident PGY2 Pager [phone] General Neurology [phone] Neurology Staff Note I have reviewed the above resident's history during the visit and I agree with the details as written. My physical examination confirms the resident's findings. The assessment and plan were formulated in discussion with me at the time of the visit and I agree with them as documented. KALPANA GUERIN DO * Brit Valle RN - 11/29/2013 6:42 AM EDT Patient Name:Bart Hathaway 04/02 [facility] Telemetry Note Diagnosis r/t telemetry:tachycardia No complaints of SOB, N/V, or CP, CTM BP 143/88 Pulse 71 Temp 36.8 ??C (98.2 ??F) (Oral) Resp 20 Ht 185.4 cm (6' 1) Wt 95.119 kg (209 lb 11.2 oz) BMI 27.67 kg/m2 SpO2 95% Cardiac meds: See MAR Assessment: Potential Risk for Change in Cardiac Status, No events of note. Plan: Continue tele monitoring, assess hemodynamic tolerance of dysrythmia, see tele strip (attached) BRIT VALLE RN 11/29/2013 6:42 AM documented in this encounter H&P Notes * Kalpana Guerin, DO - 11/28/2013 1:46 PM EDT Neurology History and Physical Patient name:Bart Hathaway Date of :1940 Admit date: 11/28/2013 CC: Unstable gait We have been asked to see Bart Hathaway by the ED HPI: Bart Hathaway is a 73 y.o. M w/hx of HLD, HTN presenting with complaints of nausea and gait instability. He was at his usual state of health until Tuesday morning. In the morning on Tuesday he was ambulating to the bathroom when he realized he was unstable on ambulation. Says he had to grab on to objects to ambulate, these symptoms continued for the whole day. Found himself veering to the right when walking. He usually has no trouble walking, few days ago would walk at least one mile, now walkswith a cane. Denies any lightheadedness, or vertigo. No sensory symptoms (tingling, burning pain, numbness) and no weakness in his extremities.No vision changes, no visual field deficits. Has developed a mild frontal headache 1-2/10 in intensity, dull and largely constant. Since Tuesday his symptomshave slightly improved. He was also experiencing abdominal pains, nausea and vomiting on Tuesday, associated with loose stool (4 BMs, brown in color). Abdominal complaints and nausea resolved by the following day - he attributed his symptoms to acid reflux, took Pepcid AC on Tuesday, which relieved his pain. On Tuesday he also started developing an ear ache on the right side, and fell congested - thought he was developing an ear infection, which prompted his visit to the [facility] in [facility] today morning. Upon evaluation he was found to be tachycardic, and was sent to the ED for further evaluation. He denies any fevers, chills or sweats. No issues swallowing. No sore throat. No new cough, or shortness of breath. No chest pain or palpitations. No BRPRB, melena. No hematuria or dysuria. No myalgias or arthralgias. No rash. No history of neurologic disease, no prior strokes. He has a ~50 py history, quit decades ago. Currently uses alcohol 2-3 drinks per night. 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 He is based in [place], however has a house in [place] as well. He is not , but is in a relationship. He has been tested for STDs in the past. Denies any travel outside of the country. No tick bites, did have mosquito bites. Past Medical History: - Hypertension - Hyperlipidemia - BCC resection - Cataract surgery Medications: Dose Details aspirin 81 mg Tbec Take 81 mg by mouth daily. 81 mg Refills: 0 hydrochlorothiazide 12.5 mg Cap Commonly known as: MICROZIDE Take 12.5 mg by mouth daily. 12.5 mg Refills: 0 lisinopril 10 mg Tab Commonly known as: PRINIVIL;ZESTRIL Take 10 mg by mouth daily. 10 mg Refills: 0 simvastatin 10 mg Tab Commonly known as: ZOCOR Take 10 mg by mouth nightly. 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 Single, but in a relationship. - Smoking History: ~50 py history - Alcohol History: ~2 drinks per night Physical Exam: Vitals: Temp: -- Heart Rate: [97-106] Resp: [13-29] BP: (148-158)/(93-97) SpO2: [97 %-98 %] Constitutional: Patient of apparent stated age, well nourished, well developed, no acute distress HEENT: Anicteric sclerae, no injection, no sinus tenderness, ear canals nl, no tympanic membranes translucent, Neck: No menengismus CV: RRR, S1, S2, no murmur Resp: CTAB Abd: Soft, nontender, non-distended, no lundberg's Ext: No edema. No bony deformity Neuro: - MS: Alert, oriented, clear language, no dysarthria - CN: PERRL no APD, EOMI no nystagmus, visual lafleur full, trigeminal sensation intact, no facial asymmetry, hearing intact to whisper, Moreira's does not lateralize, Rinne's AC>BC bilaterally palate elevates symmetrically, tongue protrudes midline, SCM and trap strength intact - Motor: Normal bulk and tone. 4+/5 strength in LUE, otherwise 5/5 bilaterally - Sensation: Intact to light touch, pain, temperature, vibration and proprioception throughout - Reflexes: 3+ DTRs throughout, downgoing toes - Coordination: Finger to nose intact, rapid alternating movements intact and symmetric, slight intention tremor L>R, (+) romberg - Gait: Unstable and wide based gait, veering to the right on ambulation, impaired tandem gait. Labs: Recent Results (from the past 24 hour(s)) ELECTROLYTES PANEL Component Value Range Sodium 139 135 - 145 mmol/L Potassium 3.4 (*) 3.5 - 5.0 mmol/L Chloride 101 98 - 107 mmol/L CO2 26 22 - 31 mmol/L Anion Gap 12 5 - 15 mmol/L BUN Component Value Range BUN 16 10 - 20 mg/dL CREATININE Component Value Range Creatinine 1.19 0.80 - 1.50 mg/dL Estimated GFR 60 >=60 GLUCOSE, RANDOM Component Value Range Glucose Lvl 98 60 - 199 mg/dL PROTHROMBIN TIME Component Value Range PT 13.0 12.5 - 15.5 sec INR 0.9 0.9 - 1.1 HEMOGRAM Component Value Range WBC 5.3 4.0 - 10.0 x10(3)/mcL RBC 5.05 4.63 - 6.08 x10(6)/mcL Hemoglobin 17.0 13.7 - 17.5 gm/dL Hematocrit 47.4 40.0 - 51.0 % MCV 93.9 (*) 79.0 - 92.0 fL MCH 33.7 (*) 25.6 - 32.2 pg MCHC 35.9 32.0 - 36.5 gm/dL Platelets 188 145 - 370 x10(3)/mcL RDWSD 42.5 35.0 - 46.0 fL RDWCV 12.6 10.9 - 14.4 % MPV 8.7 (*) 9.0 - 12.0 fL DIFFERENTIAL, AUTOMATED Component Value Range Neutrophils % 63.1 34.0 - 71.0 % Neutr Abs (ANC) 3.32 1.50 - 6.30 x10(3)/mcL Lymphocytes % 18.3 (*) 19.0 - 53.0 % Lymphocytes Abs 1.0 1.0 - 3.6 x10(3)/mcL Monocytes % 16.7 (*) 4.0 - 13.0 % Monocyte Abs 0.9 0.2 - 1.0 x10(3)/mcL Eosinophils % 1.1 0.0 - 7.0 % Eosinophils Abs 0.1 0.0 - 0.5 x10(3)/mcL Basophils % 0.4 0.0 - 2.0 % Basophils Abs 0.0 0.0 - 0.2 x10(3)/mcL Immature Gran % 0.40 0.00 - 0.66 % Cherise Gran Abs 0.02 0.00 - 0.05 x10(3)/mcL Diagnostic Tests and Imaging: CT Head: Impression 1. Small focus of hypoattenuation in the right occipital lobe with associated mass effect which could reflect a subacute stroke or small mass. Unexpected finding. 2. Patchy foci of subcortical and periventricular hypoattenuation which may reflect the sequelae of chronic microvascular ischemic disease. 3. 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 4. Minimal paranasal sinus disease. MRI Brain w/wo contrast pending: Pending Assessment/Plan: Mr. Hathaway is a 73 yo M w/hx of HTN, HLD presenting with acute onset gait instability. On exam heis found to have a (+)Romberg, and gait instability with veering to the right on ambulation. Interestingly no cerebellar findings are present. Most likely cause for his symptoms are stroke, and possible a mass lesions. Cerebellitis is also a possibility, he may have had a viral illness (headache, GI sx, ear ache). Will send thyroid panel for diffuse hyperreflexia and tachycardia. Further work-up will depend on MRI findings. Plan as below; - Admit to neurology, q4h vitals and neuro checks - MRI Brain w/wo contrast for further characterization of lesions - B12/Folate, Vitamin E LFTs - Lyme IgM and IgG - TSH/Free T4 - Consider LP - PT/OT - [facility] diet - Tylenol PRN - RBOs - Lovenox for DVT ppx - Continue home Aspirin 81mg qd, Simvastatin 10mg qd, HCTX 12.5 qd - HOLD home lisinopril given possible need for permissive HTN in case of stroke CODE: FULL PCP: Office Rui Land, [facility] [place], [place]. JOEL GONZALES MD PGY 2 Neurology Pager #[phone] Neurology Staff Note I have reviewed the above resident's history during the visit and I agree with the details as written. My physical examination confirms the resident's findings. The assessment and plan were formulated in discussion with me at the time of the visit and I agree with them as documented. The patient does have a wide based, ataxic gait and was c/o vomiting, a sinus MARIE, and right ear pain. Will proceed with MRI w/and w/out contrast to r/o mass or stroke. Other considerations include viral, inner ear infection. 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 Patient is updated that we are waiting for his bed to be cleaned. * Jody Valle MD - 11/28/2013 11:07 AM EDT Chief Complaint Patient presents with ??? Vertigo ??? Irregular Heart Beat HPI This is a 73 yo M with a history of HTN presenting from [facility] with an irregular heartbeatand vertigo for the past 5 days. The patient was in his usual state of health until 11/24, but started to feel like a flu was coming on, which he says includes sinus pressure and earache worse on the R than the L. He also developed difficulty walking with accompanying dizziness. The next day, he had one episode of yellow vomit and 4 episodes of diarrhea which he characterized as solid, well formed stool. He has not had a bowel movement since these BMs. He continues to have dizziness, however, with a requirement of a cane for walking because he feels he may fall. He has not fallen thus far. No Known Allergies Review of Systems Constitutional: Negative for fever, chills, activity change, appetite change and fatigue. HENT: Positive for hearing loss, ear pain, congestion and tinnitus. Negative for rhinorrhea, sneezing, neck pain, neck stiffness and ear discharge. 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 He has a clicking in his R ear which he says started with his symptoms of dizziness. Eyes: Negative for discharge and visual disturbance. Respiratory: Negative for chest tightness, shortness of breath and wheezing. Cardiovascular: Negative for chest pain, palpitations and leg swelling. Gastrointestinal: Negative for nausea, vomiting, abdominal pain, diarrhea, constipation and abdominal distention. Genitourinary: Negative for frequency and difficulty urinating. Musculoskeletal: Negative for myalgias. Skin: Negative for color change. Neurological: Negative for headaches. Physical Exam Constitutional: He is oriented to person, place, and time. He appears well- nourished. No distress. HENT: Head: Atraumatic. Right Ear: External ear normal. Left Ear: External ear normal. Nose: Nose normal. Mouth/Throat: Oropharynx is clear and moist. No oropharyngeal exudate. Normal ear exam bilaterally. Eyes: Conjunctivae normal and EOM are normal. Pupils are equal, round, and reactive to light. Righteye exhibits no discharge. Left eye exhibits no discharge. No scleral icterus. Neck: Normal range of motion. Neck supple. No JVD present. Cardiovascular: Normal rate, regular rhythm and normal heart sounds. Exam reveals no gallop and no friction rub. No murmur heard. Pulmonary/Chest: Effort normal and breath sounds normal. No respiratory distress. He has no wheezes. He has no rales. He exhibits no tenderness. Abdominal: Soft. Bowel sounds are normal. He exhibits no distension and no mass. There is no tenderness. Musculoskeletal: Normal range of motion. Lymphadenopathy: He has no cervical adenopathy. Neurological: He is alert and oriented to person, place, and time. He has normal reflexes. No cranial nerve deficit. He exhibits normal muscle tone. Coordination abnormal. (+) Romberg. No dysdiadochokinesia. Deviation of gait to the R with notable ataxia. (-) Ramona-Hallpike test B/L. Skin: Skin is warm and dry. He is not diaphoretic. Procedures MDM 73 yo M with history of HTN and HLP with symptoms concerning for a cerebellar lesion vs. Peripheralproprioceptive deficit such as BPPV. We will image his head to rule out acute infarct or intracranial bleed. The patient is currently clinically stable. F/u CBC, BMP, U/A, CT head ED Course: CBC was unremarkable. Urinalysis was (-). CT head showed R occipital lesion with mass effect, possibly partially on the cerebellum. Neurology was consulted and admitted the patient to their service in stable condition. MRI pending. Leonardo Nash MD Resident 11/28/13 1644 ED ATTENDING ADDENDUM: The patient was seen in conjunction with Dr. Nash, the resident physician. I have independently performed the yanez portions of the history and physical exam. I have reviewed all diagnostic studies personally including labs, imaging studies and EKG's. I have discussed the details of the case with the resident and agree with the assessment and plan as described in the resident note above unless noted otherwise below. Jody Valle MD 11/30/13 1026 * Valerie Jonas RN - 11/28/2013 10:34 AM EDT Resident at bedside documented in this encounter Miscellaneous Notes * Miscellaneous - Provider, Scanning - 11/29/2013 6:03 PM EDT * Discharge Summary - Kalpana Guerin DO - 11/29/2013 1:46 PM EDT Discharge Summary Patient Name: Bart Hathaway Patient Age: 73 y.o. Language: German Race: White Ethnicity: Not nor Admit date: 11/28/2013 Discharge date and time: 11/29/2013 Attending Physician: Kalpana Guerin DO Discharge Physician: Tiffanie Omer MD Follow-up Recommendations for Providers: Please follow up with patient for his tachycardia and orthostatics. Inpatient was resolved with IV fluids, may need cardiology follow up for any repeat tachycardia. Inpatient Provider Contact Information: For questions regarding this document or issues related to this hospitalization on the Neurology Service, please contact the author(s) of this discharge summary through the [facility] . Discharge Diagnoses (Hospital Problems) and Secondary Diagnoses (Chronic Problems): Active Hospital Problems Diagnosis ??? Hypertension ??? Elevated cholesterol Resolved Hospital Problems Diagnosis Date Resolved No resolved problems to display. There are no active non-hospital problems to display for this patient. Past Medical History Diagnosis Date ??? Hyperlipidemia ??? Hypertension History of Presentation: Bart Hathaway is a 73 y.o. M w/hx of HLD, HTN presenting with complaints of nausea and gait instability. He was at his usual state of health until Tuesday morning. In the morning on Tuesday he was ambulating to the bathroom when he realized he was unstable on ambulation. Says he had to grab on to objects to ambulate, these symptoms continued for the whole day. Found himself veering to the right when walking. He usually has no trouble walking, few days ago would walk at least one mile, now walkswith a cane. Denies any lightheadedness, or vertigo. No sensory symptoms (tingling, burning pain, numbness) and no weakness in his extremities.No vision changes, no visual field deficits. Has developed a mild frontal headache 1-2/10 in intensity, dull and largely constant. Since Tuesday his symptomshave slightly improved. He was also experiencing abdominal pains, nausea and vomiting on Tuesday, associated with loose stool (4 BMs, brown in color). Abdominal complaints and nausea resolved by the following day - he attributed his symptoms to acid reflux, took Pepcid AC on Tuesday, which relieved his pain. On Tuesday he also started developing an ear ache on the right side, and fell congested - thought he was developing an ear infection, which prompted his visit to the [facility] in [facility] today morning. Upon evaluation he was found to be tachycardic, and was sent to the ED for further evaluation. He denies any fevers, chills or sweats. No issues swallowing. No sore throat. No new cough, or shortness of breath. No chest pain or palpitations. No BRPRB, melena. No hematuria or dysuria. No myalgias or arthralgias. No rash. No history of neurologic disease, no prior strokes. He has a ~50 py history, quit decades ago. Currently uses alcohol 2-3 drinks per night. 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 He is based in [place], however has a house in [place] as well. He is not , but is in a relationship. He has been tested for STDs in the past. Denies any travel outside of the country. No tick bites, did have mosquito bites. Physical Exam at Admission: Vitals: Temp: -- Heart Rate: [97-106] Resp: [13-29] BP: (148-158)/(93-97) SpO2: [97 %-98 %] Constitutional: Patient of apparent stated age, well nourished, well developed, no acute distress HEENT: Anicteric sclerae, no injection, no sinus tenderness, ear canals nl, no tympanic membranes translucent, Neck: No menengismus CV: RRR, S1, S2, no murmur Resp: CTAB Abd: Soft, nontender, non-distended, no lundberg's Ext: No edema. No bony deformity Neuro: - MS: Alert, oriented, clear language, no dysarthria - CN: PERRL no APD, EOMI no nystagmus, visual lafleur full, trigeminal sensation intact, no facial asymmetry, hearing intact to whisper, Moreira's does not lateralize, Rinne's AC>BC bilaterally palate elevates symmetrically, tongue protrudes midline, SCM and trap strength intact - Motor: Normal bulk and tone. 4+/5 strength in LUE, otherwise 5/5 bilaterally - Sensation: Intact to light touch, pain, temperature, vibration and proprioception throughout - Reflexes: 3+ DTRs throughout, downgoing toes - Coordination: Finger to nose intact, rapid alternating movements intact and symmetric, slight intention tremor L>R, (+) romberg - Gait: Unstable and wide based gait, veering to the right on ambulation, impaired tandem gait. Hospital Course: Bart Hathaway was admitted to the neurology service for further evaluation. Patient was monitoredwith frequent checks of vitals and neurological status. He is a 73 y.o. M with a history of HTN, HLD presenting with acute onset gait instability on 11/28/2013. On admission, he was found to have a positive Romberg, and gait instability with veering to the right on ambulation. These physical findings were concerning and his the initial diagnostic differential included: stroke, mass lesions in the brain, cerebellitis related to a viral illness since he complained of an earache, headache and mild GI symptoms. In lieu of this, an CT head was pursued which showed a question of hypo-attenuation possibly reflecting the sequelae of chronic microvascular ischemic disease. With this finding, an MRI brain was pursued and it was negative for any abnormal enhancement and essentially normal. Since admission he received Normal Saline IV fluids with his home medications continued except for the Lisinopril for permissive hypertension, in case he had had a stroke (As discussed earlier, MRI did not show one). The leading thought was that he may have had a viral illness as he presented with nausea and vomiting, also affecting his inner ear causing the unsteady gait and a vestibular disturbance. There may have also been a component of orthostatic hypotension. On day 2 of admission his orthostatics were mildly positive and they improved somewhat after fluids. His HR might have been elevated as related to dehydration. He was not symptomatic in this regard and was wanting to be discharged today. If his heart rate continues to remain elevated in the [employer] he should be evaluated by acardiologist as well as follow up with his primary care physician. This has been discussed extensively with the patient prior to discharge. Labs till date have been unrevealing. In addition, HIV test has been negative. Pending labs are syphilis antibody, vitamin b1, vitamin E and lyme antibody. He was also given IV thiamine as inpatient as there is a history of alcohol abuse and he will be discharged on thiamine tablets 100 mg daily. As mentioned earlier, his B1 lab level is pending. Through his admission his symptoms have significantly and markedly improved. He was walking much steadier and he expressed readiness for discharge. He was evaluated by rehabilitation services and deemed appropriate for discharge to Home without PT services. Patient essentially returned to prior level of function, rehabilitation not indicated at this time. He will continue uses his own cane. Operations & Procedures: none. Consultations: 1. PT/OT- he can be discharged to home without PT services and will use cane at home. Diagnostic Tests & Neuroimaging: Date Study Results 11/29/13 ECG Sinus rhythm with Premature atrial complexes Voltage criteria for left ventricular hypertrophy Abnormal ECG When compared with ECG of 09-SEP-1994 16:17, Premature atrial complexes are now Present Nonspecific T wave abnormality now evident in Lateral leads 11/28/13 CT Head 1. Small focus of hypoattenuation in the right occipital lobe with associated mass effect which could reflect a subacute stroke or small mass. Unexpected finding. 2. Patchy foci of subcortical and periventricular hypoattenuation which may reflect the sequelae of chronic microvascular ischemic disease. 3. 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 4. Minimal paranasal sinus disease. 11/28/13 MRI BRAIN 1. No intracranial mass or abnormal enhancement. The finding on CT probably represents an area of partial volume effect. 2. No evidence of infarct. Narrowing of the left P1 [employer] segment. Labs: Recent Results (from the past 72 hour(s)) EKG 12-LEAD Component Value Range Ventricular rate 100 Atrial Rate 100 P-R Interval 156 QRS Duration 86 Q-T Interval 350 QTC Calculated (Bezet) 451 Calculated P Richmond 35 Calculated R Richmond -17 Calculated T Richmond 48 INTERPRETATION Value: Sinus rhythm with Premature atrial complexes Voltage criteria for left ventricular hypertrophy Abnormal ECG When compared with ECG of 09-SEP-1994 16:17, Premature atrial complexes are now Present Nonspecific T wave abnormality now evident in Lateral leads Confirmed by Gordon Gong MD ([id number]) on 11/29/2013 10:44:37 AM ELECTROLYTES PANEL Component Value Range Sodium 139 135 - 145 mmol/L Potassium 3.4 (*) 3.5 - 5.0 mmol/L Chloride 101 98 - 107 mmol/L CO2 26 22 - 31 mmol/L Anion Gap 12 5 - 15 mmol/L BUN Component Value Range BUN 16 10 - 20 mg/dL CREATININE Component Value Range Creatinine 1.19 0.80 - 1.50 mg/dL Estimated GFR 60 >=60 GLUCOSE, RANDOM Component Value Range Glucose Lvl 98 60 - 199 mg/dL PROTHROMBIN TIME Component Value Range PT 13.0 12.5 - 15.5 sec INR 0.9 0.9 - 1.1 HEMOGRAM Component Value Range WBC 5.3 4.0 - 10.0 x10(3)/mcL RBC 5.05 4.63 - 6.08 x10(6)/mcL Hemoglobin 17.0 13.7 - 17.5 gm/dL Hematocrit 47.4 40.0 - 51.0 % MCV 93.9 (*) 79.0 - 92.0 fL MCH 33.7 (*) 25.6 - 32.2 pg MCHC 35.9 32.0 - 36.5 gm/dL Platelets 188 145 - 370 x10(3)/mcL RDWSD 42.5 35.0 - 46.0 fL RDWCV 12.6 10.9 - 14.4 % MPV 8.7 (*) 9.0 - 12.0 fL DIFFERENTIAL, AUTOMATED Component Value Range Neutrophils % 63.1 34.0 - 71.0 % Neutr Abs (ANC) 3.32 1.50 - 6.30 x10(3)/mcL Lymphocytes % 18.3 (*) 19.0 - 53.0 % Lymphocytes Abs 1.0 1.0 - 3.6 x10(3)/mcL Monocytes % 16.7 (*) 4.0 - 13.0 % Monocyte Abs 0.9 0.2 - 1.0 x10(3)/mcL Eosinophils % 1.1 0.0 - 7.0 % Eosinophils Abs 0.1 0.0 - 0.5 x10(3)/mcL Basophils % 0.4 0.0 - 2.0 % Basophils Abs 0.0 0.0 - 0.2 x10(3)/mcL Immature Gran % 0.40 0.00 - 0.66 % Cherise Gran Abs 0.02 0.00 - 0.05 x10(3)/mcL T4 TOTAL Component Value Range T4, total 6.7 5.1 - 10.8 mcg/dL TSH Component Value Range TSH 1.87 0.27 - 4.20 mcIU/mL VITAMIN B12 Component Value Range Vitamin B-12 661 207 - 974 pg/mL FOLATE, SERUM Component Value Range Folate Lvl >20.0 4.6 - 34.8 ng/mL URINALYSIS WITH MICROSCOPIC Component Value Range Glucose UA Negative Negative mg/dL Protein UA Negative Negative mg/dL Bilirubin UA Negative Negative mg/dL Urobilinogen UA Normal Normal mg/dL pH UA 5.0 5.0 - 8.0 Blood UA Negative Negative mg/dL Ketones UA Negative Negative mg/dL Nitrite UA Negative Negative Leukocytes UA Negative Negative mcL Appearance UA Hazy (*) Clear Spec [place] UA 1.012 1.002 - 1.030 Color UA Yellow Yellow RBC UA <1 0 - 3 /HPF WBC UA 1 0 - 3 /HPF Squam Epith UA <1 <=4 /HPF MAGNESIUM Component Value Range Magnesium 0.82 0.69 - 1.07 mmol/L PHOSPHORUS Component Value Range Phosphorus 3.6 2.5 - 4.5 mg/dL PROTHROMBIN TIME Component Value Range PT 13.6 12.5 - 15.5 sec INR 1.0 0.9 - 1.1 APTT Component Value Range PTT 31 25 - 35 sec VITAMIN B12 Component Value Range Vitamin B-12 631 207 - 974 pg/mL BASIC METABOLIC PANEL (NON-FASTING) Component Value Range Glucose Lvl 108 60 - 199 mg/dL BUN 17 10 - 20 mg/dL Creatinine 1.13 0.80 - 1.50 mg/dL Sodium 143 135 - 145 mmol/L Potassium 3.7 3.5 - 5.0 mmol/L Chloride 104 98 - 107 mmol/L CO2 27 22 - 31 mmol/L Anion Gap 12 5 - 15 mmol/L Calcium 9.1 8.5 - 10.5 mg/dL Estimated GFR >60 >=60 HEMOGRAM Component Value Range WBC 5.5 4.0 - 10.0 x10(3)/mcL RBC 4.77 4.63 - 6.08 x10(6)/mcL Hemoglobin 16.2 13.7 - 17.5 gm/dL Hematocrit 44.5 40.0 - 51.0 % MCV 93.3 (*) 79.0 - 92.0 fL MCH 34.0 (*) 25.6 - 32.2 pg MCHC 36.4 32.0 - 36.5 gm/dL Platelets 189 145 - 370 x10(3)/mcL RDWSD 41.8 35.0 - 46.0 fL RDWCV 12.4 10.9 - 14.4 % MPV 8.5 (*) 9.0 - 12.0 fL DIFFERENTIAL, AUTOMATED Component Value Range Neutrophils % 55.4 34.0 - 71.0 % Neutr Abs (ANC) 3.05 1.50 - 6.30 x10(3)/mcL Lymphocytes % 25.1 19.0 - 53.0 % Lymphocytes Abs 1.4 1.0 - 3.6 x10(3)/mcL Monocytes % 17.3 (*) 4.0 - 13.0 % Monocyte Abs 1.0 0.2 - 1.0 x10(3)/mcL Eosinophils % 1.6 0.0 - 7.0 % Eosinophils Abs 0.1 0.0 - 0.5 x10(3)/mcL Basophils % 0.2 0.0 - 2.0 % Basophils Abs 0.0 0.0 - 0.2 x10(3)/mcL Immature Gran % 0.40 0.00 - 0.66 % Cherise Gran Abs 0.02 0.00 - 0.05 x10(3)/mcL EKG 12-LEAD Component Value Range Ventricular rate 107 Atrial Rate 107 P-R Interval 156 QRS Duration 88 Q-T Interval 336 QTC Calculated (Bezet) 448 Calculated P Richmond 41 Calculated R Richmond -15 Calculated T Richmond -144 INTERPRETATION Value: Sinus tachycardia with Premature atrial complexes Moderate voltage criteria for LVH, may be normal variant T wave abnormality, consider lateral ischemia Abnormal ECG When compared with ECG of 28-NOV-2013 10:23, (unconfirmed) Premature atrial complexes are now Present Inverted T waves have replaced nonspecific T wave abnormality in Lateral leads HIV Component Value Range HIV 1/2 Ab Negative Negative Pending Studies and Lab Data: The patient will need the following 5 tests completed on: 11/28/2013 1. Hepatic Function Panel 4. Vitamin E 2. Lyme IgG & IgM Antibody 5. Vitamin B1, whole blood 3. Syphilis Antibody, IgG Authorizing Provider: Jody Valle MD, Kalpana Guerin, Vital Signs at Discharge: BP: 160/97 mmHg (rn notified), Heart Rate: 78 , Temp: 36.7 ??C (98.1 ??F), Resp: 16 , BMI (Calculated): 27.7 Height: 185.4 cm (6' 1) (11/28/132145) Weight - Scale: 95.119 kg (209 lb 11.2 oz) (11/28/132145) Functional and Cognitive Status: Stable Physical Exam at Discharge: Vitals: Temp: [36.7 ??C (98.1 ??F)-36.8 ??C (98.2 ??F)] Heart Rate: [71-109] Resp: [14-25] BP: (130-170)/(74-106) SpO2: [95 %-98 %] Gen: Patient of apparent stated age, well nourished, well developed, awake, alert, NAD Neuro Exam: MS: Alert and oriented to person, place and time, clear language, no dysarthria, follows commands CN: PERRL, EOMI, visual lafleur full Facial sensation intact, no facial asymmetry Hearing intact to finger rub Palate elevates symmetrically, tongue protrudes midline SCM and trap strength intact Motor: Normal bulk and tone. UE and LE are 5/5 bilaterally. Sensation: Intact to light touch Reflexes: DTRs 2+ R, 2+ L Biceps 2+ R, 2+ L Brachioradialis 2+ R, 2+ L Triceps 3+ R, 3+ L Patellar Toes - R down, L down Coordination: Mild action tremor on finger to nose, bilaterally. Gait: Stable, mildly unsteady, improved balance. Discharge Conditions/Prognosis: Stable Discharge to: Home Updated Allergies/ADRs: No Known Allergies Immunizations Given this Hospitalization: There is no immunization history for the selected administration types on file for this patient. Discharge Medications: Your Medications As of 11/29/2013 3:09 PM New Medications Dose Details thiamine 100 mg Tab Take 1 tablet by mouth daily. 100 mg Quantity: 90 tablet Refills: 6 Continued medications, unchanged Dose Details aspirin 81 mg Tbec Take 81 mg by mouth daily. 81 mg Refills: 0 hydrochlorothiazide 12.5 mg Cap Commonly known as: MICROZIDE Take 12.5 mg by mouth daily. 12.5 mg Refills: 0 lisinopril 10 mg Tab Commonly known as: PRINIVIL;ZESTRIL Take 10 mg by mouth daily. 10 mg Refills: 0 simvastatin 10 mg Tab Commonly known as: ZOCOR Take 10 mg by mouth nightly. 10 mg Refills: 0 Smoking Status at Discharge: History Smoking status ??? Former Smoker -- 2.0 packs/day for 25 years ??? Types: Cigarettes Smokeless tobacco ??? Not on file Instructions Given to Patient at Discharge: Patient Instructions You were admitted to the neurology service at [facility]. Your diagnosis: Viral Illness with Inner Ear Vestibular Disturbance. Medication Changes: Continue these medications: HCTZ 12.5 mg daily, Simvastatin 10 mg nightly, Lisinopril 10 mg daily, Aspirin 81 mg daily, Thiamine 100 mg daily Stop these medications: none. Change these medications: none. Patient Instructions: Call your doctor or seek medical attention if you have weakness or numbness in your face or one of your limbs or difficulty speaking loss of vision seizures or loss of consciousness Diet: we recommend a heart healthy diet: low fat, low cholesterol, low concentrated sweets. Activity Restrictions: none Driving Restrictions: none Home oxygen therapy: none needed Anticoagulation Follow-up and Instructions: none FOLLOWUP APPOINTMENT: You will have an outpatient followup appointment in the neurology clinic at [facility]. If not already listed in this document, we will contact you to schedule this appointment. -- If 1 week passes by after you are discharged and you still do not have an appointment, please call [phone]. Future Appointments and Orders Future Appointments: Provider: Department: Dept Phone: Center: 01/01/2014 2:00 PM Tiffanie Omer MD Neurology [phone] [facility] Future Orders Please Complete By Expires Full code [COD2 Custom] Process Instructions: 1) Ordering MD or AUTOMOTIVE ELECTRICIAN must provide Order Justification documentation for a: Partial Code Order Do Not Attempt Resuscitation (DNR) Revision of Code Status order (Rescind DNR Order) 2) If the Attending of Record, as the Responsible decision maker selects a Partial Code or DNR order, a 2nd physician must document in a note, their agreement that resuscitation would be a non-beneficial treatment. 3) If the ordering provider is not the Attending of Record, the ordering MD or AUTOMOTIVE ELECTRICIAN must obtain (verbal) approval of the Attending of Record. Completing this documentation indicates that you have obtained verbal approval from the Attending of Record Scheduling Instructions: Comments: Questions: Responses: Responsible decision maker(s), other than patient Does patient have decision making capacity? Yes, Order is based on Patients wishes. Content of discussion: General Instructions None Future Appointments and Orders Future Appointments: Provider: Department: Dept Phone: Center: 01/01/2014 2:00 PM Tiffanie Omer MD Neurology [phone] [facility] Future Orders Please Complete By Expires Full code [COD2 Custom] Process Instructions: 1) Ordering MD or AUTOMOTIVE ELECTRICIAN must provide Order Justification documentation for a: Partial Code Order Do Not Attempt Resuscitation (DNR) Revision of Code Status order (Rescind DNR Order) 2) If the Attending of Record, as the Responsible decision maker selects a Partial Code or DNR order, a 2nd physician must document in a note, their agreement that resuscitation would be a non-beneficial treatment. 3) If the ordering provider is not the Attending of Record, the ordering MD or AUTOMOTIVE ELECTRICIAN must obtain (verbal) approval of the Attending of Record. Completing this documentation indicates that you have obtained verbal approval from the Attending of Record Scheduling Instructions: Comments: Questions: Responses: Responsible decision maker(s), other than patient Does patient have decision making capacity? Yes, Order is based on Patients wishes. Content of discussion: Neurology Staff Note I have reviewed the above resident's discharge summary, I agree with the details as written. KALPANA GUERIN DO * Consult Note - Ravinder Diaz, RN - 11/29/2013 1:00 PM EDT Behavioral Intervention Team Note 73 year old man with a history of HLD, HTN admitted with complaints of nausea and gait instability.History of alcohol dependence-currently 2-3 drinks per night. No apparent signs or symptoms of withdrawal currently. Discussed health issues associated with alcohol consumption and the definition of high and low riskdrinking for males over 65 years of age. Patient reports being unaware of these guidelines. He declines the need to eliminate alcohol consumption completely stating, I am very active and I like my drinks in the evening..but I could cut down. Patient plans to reduce his daily consumption to a lowrisk level-1 drink per day. He agreed to review Rethinking Drinking booklet but declines the need for substance use treatment resources. Assessment: 73 year old man with a history of HLD, HTN admitted with complaints of nausea and gait instability.History of alcohol dependence-currently 2-3 drinks per night. No apparent signs or symptoms of withdrawal currently. Declines the need to eliminate alcohol consumption completely but plans to reduce drinking to low risk level-1 drink per day. Declines the need for substance use treatment resources but will review Rethinking Drinking booklet. Plan: 1. Patient plans to reduce alcohol consumption to 1 drink per day. 2 Patient to review Rethinking Drinking booklet. Ravinder Caraballo RN BIT pager #[phone] * Initial Assessments - MinisterioRui argueta - 11/29/2013 12:42 PM EDT Physical Therapy Evaluation Patient profile: Pt. is a 73 y.o. y.o. male admitted on 11/28/[address] Guerin, Kalpana Moe DO. Per H&P yesterday, 73 yo M w/hx of HTN, HLD presenting with acute onset gait instability. On exam heis found to have a (+)Romberg, and gait instability with veering to the right on ambulation. Interestingly no cerebellar findings are present. Most likely cause for his symptoms are stroke, and possible a mass lesions. Cerebellitis is also a possibility, he may have had a viral illness (headache, GI sx, ear ache). Will send thyroid panel for diffuse hyperreflexia and tachycardia. Further work-up will depend on MRI findings. PMH: Past Medical History Diagnosis Date ??? Hyperlipidemia ??? Hypertension No past surgical history on file. Social History: Patient lives alone, has a friend who can stay with him. 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 Says he is days behind and needs to be discharged today so he can get on the road. Says I have thousands of dollars depending on it Precautions/Special Considerations: fall risk, Afib Subjective: feeling fine, wants to go home, says he has not fallen at home, just felt off balance, travels for work and says thousands of dollars at stake if not getting going for work immediately; pt feels he is at his baseline functional ability. Objective: Pt seen for evaluation today. Pain: no complaints Vital Signs: Sp02: WNL on room air HR: 100s at rest, up to 130 per tele monitor when attempting ambulation, short distance Mental Status: pleasant, cooperative, anxious to get out because of his work Musculoskeletal: ROM: WFL Strength: WFL--symmetrical, no deficits LEs Other: denies numbness or tingling, denies visual deficits, light touch all intact; C/o R ear ache Bed Mobility: Supine to Sit: indep, no difficulty Sit to Supine: indep, no difficulty Transfers: Sit to Stand: supervision Stand to Sit: supervision Gait: Distance: 75 feet Device used: straight cane Level of assist: Standby supervision except on episode of losing his balance to the R at which timehe needed min assist to maintain stance Gait pattern: slow, wide base, caution posture Pt. to utilize straight cane and contact guard assist for ambulation with nursing. Balance: Sitting: good Standing: fair, lost his balance once and felt he could have self corrected with cane but therapists had already helped stabilize stance Informed Consent: The patient agrees to and understands the PT treatment plan and goals. Education: patient has been educated on Safety , Role of therapy and Discharge planning and verbalizes understanding. Patient status, treatment, and mobility recommendations discussed with nursing. Assessment: Pt tolerated today???s evaluation well. The patient presents with decreased balance. The pt would benefit from skilled therapy services to maximize functional independence while in the hospital and to address limitations as noted above. Anticipate home at d/c, likely to use assistive dev ice at all times. Plan: Pt to be seen 1-2 times for therapy including Gait , Role of therapy, Balance and Discharge planning. Patient agrees with plan as stated above. Equipment needs: to be determined Discharge Recommendations: to be determined Occupational Therapy consult Total time spent with patient: 30 minutes for evaluation with OT Total timed interventions: 0 minutes RUI LEÓN, PT 11/29/2013 Pager: [phone] Physical Therapy G-Code: Mobility Status Modifier CURRENT CI - At least 1 percent but less than 20 percent impaired, limited or restricted PROJECTED CI - At least 1 percent but less than 20 percent impaired, limited or restricted DISCHARGE CI - At least 1 percent but less than 20 percent impaired, limited or restricted G Code Rationale: This G-Code and these disability modifiers were selected as the primary therapy goal based upon the patient's evaluation including the following functional test(s) No Functional Measure Used. Current ability measures, co-morbidities and clinical judgement were also used to select the disability modifier. This Patient's current G-Code functional level is 1-20% impaired based uponslightly decreased balance. * Consult Note - Ravinder Diaz RN - 11/29/2013 10:41 AM EDT Behavioral Intervention Team Screening Note This chart was reviewed by the BIT team. Further intervention is planned. BIT Team Pager #[phone] * Initial Assessments - Adam Peoples, OT - 11/29/2013 8:18 AM EDT Occupational Therapy Evaluation Patient profile: Bart Hathaway is a 73 y.o. male patient of Kalpana Manriquez DO, admitted on 11/28/2013. Per H&P yesterday, 73 yo M w/hx of HTN, HLD presenting with acute onset gait instability. On exam he is found to have a (+)Romberg, and gait instability with veering to the right on ambulation. Interestingly no cerebellar findings are present. Most likely cause for his symptoms are stroke, and possible a mass lesions. Cerebellitis is also a possibility, he may have had a viral illness (headache, GI sx, ear ache). Will send thyroid panel for diffuse hyperreflexia and tachycardia. Further work-up will depend on MRI findings. Past Medical History Diagnosis Date ??? Hyperlipidemia ??? Hypertension No past surgical history on file. Social History: Patient lives alone. Patient has a friend who can stay with him. Home Setup: Multi level home, bathrooms on main level and upstairs; tub shower and walk in shower DME: Patient using cane the past week or two. Baseline ADL/Mobility: Independent ADLS and IADLS. Patient drives for work to other states. 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 Objective: Seen today for OT evaluation. Cognitive Status/Behavior: alert, oriented to person, place, and time Communication: [facility] Vision & Perception: Patient tracking left and right. Patient with nystagmus with left side tracking. Patient able to read clock. Range of motion, strength, coordination: B UE WFL Sensation: Patient does not report any numbness or tingling. Activities of Daily Living: Self-feeding: Independent after set-up Upper and lower body dressing and bathing: ?? Patient able to don pants supervision. Functional Mobility: Supine to sit: Independent Stand to stand: Supervision Ambulation: Supervision with LOB x1 to the right CTG A Stand to sit: Supervision Sit to supine: Independent Balance: Dynamic standing fair to good. IADL???s: Assistance available to patient. Endurance: Information taken from last recorded vitals in flow sheet. Last value Range last 8 hrs Heart Rate Heart Rate: 88 Heart Rate: [71-88] Blood Pressure BP: 132/81 mmHg BP: (132-143)/(81-88) SpO2 SpO2: 97 % SpO2: [95 %-97 %] Fair- with HR increase into the 140s needing to lay down after mobility Pain: Minimal discomfort. Skin: Not assessed. Informed Consent: The patient agrees to and understands the OT treatment plan and goals. Education: patient educated on Role of occupational therapy/rehabilitation, ADL, Safety and Recommendations and needs reinforcement. understanding. Patient status, treatment, and mobility recommendations discussed with nursing. Assessment: Pt has been seen by OT for evaluation, and he presents with impaired ability to perform daily activities and functional mobility secondary to instability and steering to the right. Pt tolerated treatment in conjunction with PT with elevated HR and needing to lay down per nursing instruction. Pt would benefit from ongoing OT services to maximize functional independence. Recommendations: Equipment needs at discharge: ? chair in shower Discharge Recommendations: Patient would like to return home and return back to work including driving. Goals: To be achieved by D/C. 1. Patient will stand at sink level with independent x10 min for ADLs. 2. Patient will perform simple kitchen mgt independently. 3. Patient will ambulate to the bathroom with independently, assistive device as needed. 4. Patient will demonstrate energy conservation principals with all ADLs indep. Plan: Pt to be seen 1 to 3 more treatments for therapy including Role of occupational therapy/rehabilitation, Adaptive equipment training, ADL, Safety, Precautions/Protocol, Functional Mobility, HomeManagement, Recommendations and Discharge planning Eval Date: 11/29/2013 Total time spent with patient: 30 minutes evaluation with PT Total timed interventions: 0 minutes Pager: [phone] ADAM PEOPLES OT 11/29/2013 Occupational Therapy Rehabilitation Department G-Code: Self-Care Status Modifier CURRENT CI - At least 1 percent but less than 20 percent impaired, limited or restricted PROJECTED CI - At least 1 percent but less than 20 percent impaired, limited or restricted DISCHARGE Patient not d/c yet G Code Rationale: This G-Code and these disability modifiers were selected as the primary therapy goal based upon the patient's evaluation including the following functional test(s) No Functional Measure Used. Current ability measures, co-morbidities and clinical judgement were also used to select the disability modifier. Mr. Hathaway's current G-Code functional level is 5% impaired based upon clinical observation. * Plan of Care - Brit Valle RN - 11/28/2013 10:46 PM EDT Problem: General Plan of Care Goal: Plan of Care Review Outcome: Present (see interventions, notes) Pt arrived on unit, able to amb to bed with standby assist, slightly unsteady. Pt oriented to room,able to make needs known, educated to purposeful rounding. Pt encouraged to use call houser, urinal placed at bedside. Pt able to reposition independently in bed, belongings accounted for, PRECISION DEVICES INSPECTOR/TESTER performed VS, no issues of note, 2/10 headache, denied need for anything to help with pain. Pt A+Ox4, IV fluids infusing via IV in right hand, stat lock applied and dressing to IV changed. Pt on tele, CTM BRIT VALLE RN 11/28/2013 10:46 PM * Miscellaneous - Provider, Scanning - 11/28/2013 8:14 PM EDT * ED Triage - Valerie Jonas, RN - 11/28/2013 10:10 AM EDT Patient arrives through triage after being sent over from the [facility] with an irregular heartbeat. Patient states he went to the [facility] with complaints of an ear ache and dizziness and was told to come here. Patient is alert and oriented X4. Skin warm pink and dry. Patient ambulates toroom with steady gait. documented in this encounter Plan of Treatment Upcoming Encounters Date Type Department Care Team (Late st Contact Info) Description 01/05/2024 10:00 AM EST Office Visit Hematology/Oncology at [address] [phone] Alex Charles MD [facility] [place] [address] Agnes Jose [employer] [address] [place] [address] DR HEMATOLOGY AND ONCOLOGY [place], [place] [phone] Colon cancer metastasized to liver 01/05/2024 10:30 AM EST Infusion Hematology Oncology at [address] [phone] Arrived documented as of this encounter Procedures Procedure Name Priority Date/Time Associated Diagnosis Comments BULLET SLUGS INSPECTOR SCAN 11/30/2013 9:16 AM EDT VITAMIN B1, WHOLE BLOOD STAT 11/29/2013 9:48 AM EDT SYPHILIS ANTIBODY SCREEN WITH REFLEX STAT 11/29/2013 9:48 AM EDT HIV SCREEN, 4TH GENERATION ([facility]/CGP/APD/NLH) STAT 11/29/2013 9:48 AM EDT EKG 12-LEAD STAT 11/29/2013 9:14 AM EDT Hypertension LYME IGG & IGM ANTIBODY Routine 11/29/2013 6:15 AM EDT HEMOGRAM Routine 11/29/2013 6:15 AM EDT DIFFERENTIAL, AUTOMATED Routine 11/29/2013 6:15 AM EDT APTT Routine 11/29/2013 6:15 AM EDT PROTHROMBIN TIME Routine 11/29/2013 6:15 AM EDT CBC (WITH DIFF) Routine 11/29/2013 6:15 AM EDT VITAMIN E Routine 11/29/2013 6:15 AM EDT PHOSPHORUS Routine 11/29/2013 6:15 AM EDT MAGNESIUM Routine 11/29/2013 6:15 AM EDT VITAMIN B12 Routine 11/29/2013 6:15 AM EDT BASIC METABOLIC PANEL Routine 11/29/2013 6:15 AM EDT MRI ANGIOGRAM HEAD & MRI BRAIN WWO CONTRAST STAT 11/28/2013 5:02 PM EDT URINALYSIS WITH REFLEX CULTURE STAT 11/28/2013 4:06 PM EDT FOLATE, SERUM Routine 11/28/2013 3:15 PM EDT VITAMIN B12 Routine 11/28/2013 3:15 PM EDT HEMOGRAM STAT 11/28/2013 11:45 AM EDT DIFFERENTIAL, AUTOMATED STAT 11/28/2013 11:45 AM EDT CREATININE STAT 11/28/2013 11:45 AM EDT PROTHROMBIN TIME STAT 11/28/2013 11:4 5 AM EDT CBC (WITH DIFF) STAT 11/28/2013 11:45 AM EDT BUN STAT 11/28/2013 11:45 AM EDT TSH STAT 11/28/2013 11:45 AM EDT T4 TOTAL STAT 11/28/2013 11:45 AM EDT GLUCOSE STAT 11/28/2013 11:45 AM EDT ELECTROLYTES PANEL STAT 11/28/2013 11 :[address] HEAD WO CONTRAST (GENERIC) STAT 11/28/2013 11:32 AM EDT EKG 12-LEAD STAT 11/28/2013 10:23 AM EDT documented in this encounter Results * SCAN DOC: BULLET SLUGS INSPECTOR (11/30/2013 9:16 AM EDT) Anatomical Region Laterality Modality Other Narrative 11/30/2013 9:44 AM EDT Procedure Note Provider, Scanning - 11/30/2013 9:16 AM EDT Scanning Provider MEDIA MGR SCAN EXT O RDR/RSLT * Syphilis Antibody, IgG (11/29/2013 9:48 AM EDT) Syphilis IgG Neg Neg [facility] Blood specimen (specimen) 11/29/2013 9:48 AM EDT 11/30/2013 7:55 AM EDT Narrative Resulting Agency Comment Spec In Lab Kalpana Guerin DO CHEMISTRY ORDERABLES [facility] * HIV (11/29/2013 9:48 AM EDT) HIV 1/2 Ab Negative Negative [facility] Blood specimen (specimen) 11/29/2013 9:48 AM EDT 11/29/2013 9:55 AM EDT Narrative Resulting Agency Comment Spec In Lab Kalpana Guerin DO CHEMISTRY ORDERABLES Performing Organization Address [facility] Co de Phone Number [facility] * Vitamin B1, whole blood (11/29/2013 9:48 AM EDT) Pathologist [facility] Vit B1 Lvl Wb (JUNE) 148 70 - 180 nmol/L [facility] Comment: Test Performed by: [employer] [place] [address] [place]: Laurel Snow, Ph.D. Blood specimen (specimen) 11/29/2013 9:48 AM EDT 12/03/2013 4:04 PM EDT Narrative Resulting Agency Comment Spec In Lab Kalpana Guerin DO LAB SEND OUT ORDERAB LES Performing Organization Address [facility] Co de Phone Number [facility] * EKG 12 Lead (11/29/2013 9:14 AM EDT) [facility] Ventricular rate 107 BPM MUSE SYSTEM Atrial Rate 107 BPM MUSE SYSTEM P-R Interval 156 ms MUSE SYSTEM QRS Duration 88 ms MUSE SYSTEM Q-T Interval 336 ms MUSE SYSTEM QTC Calculated (Bezet) 448 ms MUSE SYSTEM Calculated P [place] 41 degrees MUSE SYSTEM Calculated R [place] -15 degrees MUSE SYSTEM Calculated T [place] -144 degrees MUSE SYSTEM INTERPRETATION Sinus tachycardia with Premature atrial complexes Moderate voltage criteria for LVH, may be normal variant T wave abnormality, consider lateral ischemia Abnormal ECG When compared with ECG of 28-NOV-2013 10:23, Premature atrial complexes are now Present Inverted T waves have replaced nonspecific T wave abnormality in Lateral leads Confirmed by Gordon Gong MD ([id number]) on 11/30/2013 9:52:13 AM MUSE SYSTEM 11/29/2013 9:14 AM EDT 11/30/2013 9:52 AM EDT Kalpana Guerin DO ECG ORDERABLES Performing Organization Address [facility] Co de Phone Number MUSE SYSTEM * (ABNORMAL) Differential, Automated (11/29/2013 6:15 AM EDT) Neutrophil % 55.4 34.0 - 71.0 % [facility] MILLENNI[facility] Neutrophil Absolute 3.05 1.50 - 6.30 x10(3)/mc L [facility] MILLENNIUM Lymph % 25.1 19.0 - 53.0 % CERNER MILLENNIUM Lymphocytes Abs 1.4 1.0 - 3.6 x10(3)/mc L [facility] MILLENNIUM Monocyte % 17.3(H) 4.0 - 13.0 % CERNER MILLENNIUM Monocyte Abs 1.0 0.2 - 1.0 x10(3)/mc L [facility] MILLENNIUM Eos % 1.6 0.0 - 7.0 % CERNER MILLENNIUM Eosinophils Abs 0.1 0.0 - 0.5 x10(3)/mc L [facility] MILLENNIUM Basophil % 0.2 0.0 - 2.0 % CERNER MILLENNIUM Baso Absolute 0.0 0.0 - 0.2 x10(3)/mc L [facility] MILLENNIUM Immature Gran % 0.40 0.00 - 0.66 % [facility]ILLENNI[facility] Comment: Immature granulocytes(IG's)percentage and absolute count will include metamyelocytes, myelocytes, and promyelocytes. Blood smears from CBCs yielding IG's will be scanned manually for concordance. If this scan disagrees with the automated IG or if promyelocytes are noted, a manual differential will be performed. Immature Gran Absolute 0.02 0.00 - 0.05 x10(3)/mc L [facility] Blood specimen (specimen) 11/29/2013 6:15 AM EDT 11/29/2013 6:33 AM EDT Narrative Resulting Agency Comment Spec In Lab Jody Valle MD HEMATOLOGY ORDERABL ES [facility] * (ABNORMAL) Hemogram (11/29/2013 6:15 AM EDT) White Blood Cell 5.5 4.0 - 10.0 x10(3)/mc L [facility] MILLENNIUM Red Blood Cell 4.77 4.63 - 6.08 x10(6)/mc L [facility] MILLENNIUM Hemoglobin 16.2 13.7 - 17.5 gm/dL [facility] MILLENNIUM Hematocrit 44.5 40.0 - 51.0 % CERNER MILLENNIUM Mean Cell Volume 93.3(H) 79.0 - 92.0 fL CERN[facility] MILLENNIUM Mean Cell Hemoglobin 34.0(H) 25.6 - 32.2 pg CERNER MILLENNIUM Mean Cell Hemoglobin Concentration 36.4 32.0 - 36.5 gm/dL CERNER MILLENNIUM Platelet 189 145 - 370 x10(3)/mc L CERNER MILLENNIUM RDW Standard Deviation 41.8 35.0 - 46.0 fL CERNER MILLENNIUM RDW coefficient of variation 12.4 10.9 - 14.4 % CERNER MILLENNIUM Mean Platelet Volume 8.5(L) 9.0 - 12.0 fL [facility] MILLENNIUM Blood specimen (specimen) 11/29/2013 6:15 AM EDT 11/29/2013 6:33 AM EDT Narrative Resulting Agency Comment Spec In Lab Jody Valle MD HEMATOLOGY ORDERABL ES [facility] * Basic Metabolic Panel (non-fasting) (11/29/2013 6:15 AM EDT) [facility] Glucose 108 60 - 199 mg/dL [facility] MILLENNIUM Comment:Diabetes: >=200 mg/d L plus symptoms Blood Urea Nitrogen 17 10 - 20 mg/dL CERNER MILLENNIUM Creatinine 1.13 0.80 - 1.50 mg/dL [facility] MILLENNIUM Comment: Please note that the pediatric reference intervals supplied above were not validated at [facility]. Results from pediatric patients should be interpreted in conjunction to the patient's age, height and muscle mass. Sodium 143 135 - 145 mmol/L CERNER MILLENNIUM Potassium 3.7 3.5 - 5.0 mmol/L [facility] MILLENNIUM Comment: Please note: ??Patients with WBC >100,000 may have falsely elevated Potassium levels. ??For accurate Potassium quantification in these patients send serum separator tube (gold top) for subsequent determinations. ??Contact the Clinical Chemistry Laboratory if there are any questions. Chloride 104 98 - 107 mmol/L CERNER MILLENNIUM Carbon Dioxide 27 22 - 31 mmol/L CERNER MILLENNIUM Anion Gap 12 5 - 15 mmol/L CERN[facility] MILLENNIUM Calcium 9.1 8.5 - 10.5 mg/dL CERNER MILLENNIUM Est Glomerular Filtration Rate >60 >=60 [facility] MILLENNI[facility] Comment: This estimated GFR (eGFR) value was calculated using the MDRD equation which has been validated on patients between the ages of 18 and 70. The MDRD should not be used to assess kidney function in patients < 18 years of age or in patients with extremes of body mass, or in patients with acute kidney failure. This value should be multiplied by 1.2 for patients. For further information please copy and paste the following links into your internet browser. http://Goodreads/DHnkdep http://Goodreads/DHMCnkf Blood specimen (specimen) 11/29/2013 6:15 AM EDT 11/29/2013 6:33 AM EDT Narrative Resulting Agency Comment Spec In Lab Jody Valle MD CHEMISTRY ORDERABLE S Performing Organization Address [facility] Co de Phone Number [facility] MILLENNI[facility] * Lyme IgG & IgM Antibody (11/29/2013 6:15 AM EDT) Lyme Antibody Neg Neg [facility] MILLENNIUM Blood specimen (specimen) 11/29/2013 6:15 AM EDT 11/30/2013 7:55 AM EDT Narrative Resulting Agency Comment Spec In Lab Kalpana Guerin DO IMMUNOLOGY ORDERABLE S Performing Organization Address [facility] Co de Phone Number [facility] MILLENNIUM * Vitamin E (11/29/2013 6:15 AM EDT) Vitamin E 12.6 5.5 - 17.0 mg/L [facility]ILL[facility] Comment: Test Performed by: [employer] [address] [address] [place]: Laurel Snow, Ph.D. Blood specimen (specimen) 11/29/2013 6:15 AM EDT 11/29/2013 8:28 AM EDT Narrative Resulting Agency Comment Spec In Lab Kalpana Guerin DO LAB SEND OUT ORDERAB LES Performing Organization Address [facility] Co de Phone Number [facility] * Vitamin B12 (11/29/2013 6:15 AM EDT) Vitamin B12 631 207 - 974 pg/mL [facility] Blood specimen (specimen) 11/29/2013 6:15 AM EDT 11/29/2013 6:33 AM EDT Narrative Resulting Agency Comment Spec In Lab Kalpana Guerin CHEMISTRY ORDERABLES Performing Organization Address [facility] de Phone Number [facility] * APTT (11/29/2013 6:15 AM EDT) Partial Thromboplastin Time 31 25 - 35 sec [facility] Comment: Recommended therapeutic PTT range for full dose unfractionated heparin is 80-114 seconds. Blood specimen (specimen) 11/29/2013 6:15 AM EDT 11/29/2013 6:33 AM EDT Narrative Resulting Agency Comment Spec In Lab Jody Valle MD HEMATOLOGY ORDERABL ES Performing Organization Address [facility] de Phone Number [facility] * Prothrombin Time (11/29/2013 6:15 AM EDT) Prothrombin Time 13.6 12.5 - 15.5 sec [facility] Comment: [facility] Transfusion Committee Guidelines: INR less than 2.0, PTT less than OR equal to 43.5 seconds, or Fibrinogen greater than or equal to 100 mg/dl indicate adequate procoagulant activity for hemostasis in patients without underlying bleeding disorders. International Normalization Ratio 1.0 0.9 - 1.1 [facility] MILLENNIUM Blood specimen (specimen) 11/29/2013 6:15 AM EDT 11/29/2013 6:33 AM EDT Narrative Resulting Agency Comment Spec In Lab Jody Valle MD HEMATOLOGY ORDERABL ES Performing Organization Address [facility]/ZIP Co de Phone Number [facility] * Phosphorus (11/29/2013 6:15 AM EDT) Phosphorus 3.6 2.5 - 4.5 mg/dL [facility] SEQUEIR[facility] Blood specimen (specimen) 11/29/2013 6:15 AM EDT 11/29/2013 6:33 AM EDT Narrative Resulting Agency Comment Spec In Lab Jody Valle MD CHEMISTRY ORDERABLE S Performing Organization Address [facility]/ZIP Co de Phone Number [facility] * Magnesium (11/29/2013 6:15 AM EDT) Magnesium 0.82 0.69 - 1.07 mmol/L [facility] Blood specimen (specimen) 11/29/2013 6:15 AM EDT 11/29/2013 6:33 AM EDT Narrative Resulting Agency Comment Spec In Lab Jody Valle MD CHEMISTRY ORDERABLE S Performing Organization Address [facility] Co de Phone Number [facility] * MRI head angiogram and MRI brain with/WO contrast (11/28/2013 5:02 PM EDT) Anatomical Region Laterality Modality Head Magnetic Resonan ce 11/28/2013 5:02 PM EDT Narrative 11/28/2013 5:45 PM EDT Examination MRA Head and MRI Brain W [facility] Clinical History pt with R-occpital lobe lesion with mass effect, ataxia and (+) romberg on exam Comparison None Technique MRI of the brain performed prior to and following intravenous administration of 18 mL Magnevist. ??MRA of the [place] Couch performed without the use of intravenous contrast. Findings MR brain: There is mild generalized atrophy. ??Ventricles are otherwise normal in size and contour. ??There is no restricted diffusion to suggest recent infarct. ??There is no intracranial mass, mass effect or shift. ??There is no abnormal enhancement. ??Patchy areas of T2 prolongation are present throughout the white matter of both cerebral hemispheres, a common nonspecific finding typically attributed to small vessel ischemic change. ??Posterior fossa structures, and the craniocervical junction are normal. MRI [place] Couch: ??The intracranial ICAs are normal in caliber bilaterally. ?? MCA, JERRICA, and visualized branches appear normal. ??The intradural vertebral arteries, basilar artery are normal in caliber. ??There are some areas of narrowing of the left P1 segment which appear to be mild to moderate, especially just after the origin of the WOOL HAT FLANGER. ?? Impression ? 1. No intracranial mass or abnormal enhancement. ??The finding on CT probably represents an area of partial volume effect. ? 2. No evidence of infarct. Narrowing of the left P1 WOOL HAT FLANGER segment. Procedure Note Shiva Rivera MD - 11/28/2013 Examination MRA Head and MRI Brain W [facility]ad Clinical History pt with R-occpital lobe lesion with mass effect, ataxia and (+) romberg onexam Comparison None Technique MRI of the brain performed prior to and following intravenousadministration of 18 mL Magnevist. MRA of the [place] C[place] performed without the use of intravenous contrast. Findings MR brain: There is mild generalized atrophy. Ventricles are otherwisenormal in size and contour. There is no restricted diffusion to suggest recent infarct. There is no intracranial mass, mass effect or shift. There isno abnormal enhancement. Patchy areas of T2 prolongation are presentthroughout the white matter of both cerebral hemispheres, a common nonspecificfinding typically attributed to small vessel ischemic change. Posterior fossa structures, and the craniocervical junction are normal. MRI [place] Couch: The intracranial ICAs are normal in caliberbilaterally. MCA, JERRICA, and visualized branches appear normal. The intradural vertebral arteries, basilar artery are normal in caliber. There are some areas of narrowing of the left P1 segment which appear to be mild to moderate, especially just after the origin of the WOOL HAT FLANGER. Impression 1. No intracranial mass or abnormal enhancement. The finding on CT probably represents an area of partial volume effect. 2. No evidence of infarct. Narrowing of the left P1 WOOL HAT FLANGER segment. Jody Valle MD [facility] [place] ORDERABLES * (ABNORMAL) Urinalysis with microscopic (11/28/2013 4:06 PM EDT) Glucose, Urine Dipstick Negative Negative mg/dL [facility] MILLENNIUM Protein, Urine Dipstick Negative Negative mg/dL [facility]ERN[facility] MILLENNIUM Bilirubin, Urine Dipstick Negative Negative mg/dL [facility] Comment: Clinical correlation required for positive Urine Bilirubin results as false positive may occur with some drugs and drug related products. If a false positive is suspected a serum total bilirubin should be considered if clinically indicated. Urobilinogen, Urine Dipstick Normal Normal mg/dL CERNER MILLENNIUM pH, Urn (dipstick) 5.0 5.0 - 8.0 CERNER MILLENNIUM Blood, Urine Dipstick Negative Negative mg/dL CERNER MILLENNIUM Ketone, Urine Dipstick Negative Negative mg/dL CERNER MILLENNIUM Nitrite, Urine Dipstick Negative Negative CERNER MILLENNIUM Leukocytes, Urine Dipstick Negative Negative mcL CERNER MILLENNIUM Appearance, Urine Dipstick Hazy(A) Clear CERNER MILLENNIUM Specific [place] Urine Automated 1.012 1.002 - 1.030 CERNER MILLENNIUM Color, Urine Dipstick Yellow Yellow CERNER MILLENNIUM RBC, Urine <1 0 - 3 /HPF CERNER MILLENNIUM WBC, Urine 1 0 - 3 /HPF CERNER MILLENNIUM Squamous Epithelial Cells, Urine <1 <=4 /HPF CERNER MILLENNIUM Urine specimen (specimen) 11/28/2013 4:06 PM EDT 11/28/2013 4:18 PM EDT Narrative Resulting Agency Comment Spec In Lab Jody Valle MD URINE ORDERABLES CERNER MILLENNIUM * Folate, serum (11/28/2013 3:15 PM EDT) Pathologist [facility] Folate >20.0 4.6 - 34.8 ng/mL CERNER MILLENNIUM Blood specimen (specimen) 11/28/2013 3:15 PM EDT 11/28/2013 3:26 PM EDT Narrative Resulting Agency Comment Spec In Lab Jody Valle MD CHEMISTRY ORDERABLE S CERNER MILLENNIUM * Vitamin B12 (11/28/2013 3:15 PM EDT) Pathologist [facility] Vitamin B12 661 207 - 974 pg/mL [facility] MILLENNIUM Blood specimen (specimen) 11/28/2013 3:15 PM EDT 11/28/2013 3:26 PM EDT Narrative Resulting Agency Comment Spec In Lab Jody Valle MD CHEMISTRY ORDERABLE S Performing Organization Address [facility] Co de Phone Number [facility] MARCOSENNIUM * TSH (11/28/2013 11:45 AM EDT) Pathologist [facility] Thyroid Stimulating Hormone 1.87 0.27 - 4.20 mcIU/mL [facility] MARCOSENNIUM Blood specimen (specimen) 11/28/2013 11:45 AM EDT 11/28/2013 11:56 AM EDT Narrative Resulting Agency Comment Spec In Lab Jody Valle MD CHEMISTRY ORDERABLE S Performing Organization Address [facility] de Phone Number [facility] MARCOSENNIUM * T4 Total (11/28/2013 11:45 AM EDT) [facility] T4 Total 6.7 5.1 - 10.8 mcg/dL [facility] MARCOSENNIUM Comment: Reference Range: Cord Blood: ??6.9-14.4 mcg/dL Females: ??7.2-14.2 mcg/dL Pediatric ranges: ??Interpret with caution-ranges have not been verified Blood specimen (specimen) 11/28/2013 11:45 AM EDT 11/28/2013 11:56 AM EDT Narrative Resulting Agency Comment Spec In Lab Jody Valle MD CHEMISTRY ORDERABLE S Performing Organization Address [facility] Co de Phone Number [facility] MARCOSSAN [facility] * (ABNORMAL) Differential, Automated (11/28/2013 11:45 AM EDT) Pathologist [facility] Neutrophil % 63.1 34.0 - 71.0 % [facility] Neutrophil Absolute 3.32 1.50 - 6.30 x10(3)/mc L [facility] Lymph % 18.3(L) 19.0 - 53.0 % CERNER MILLENNIUM Lymphocytes Abs 1.0 1.0 - 3.6 x10(3)/mc L CERNER MILLENNIUM Monocyte % 16.7(H) 4.0 - 13.0 % CERNER MILLENNIUM Monocyte Abs 0.9 0.2 - 1.0 x10(3)/mc L CERNER MILLENNIUM Eos % 1.1 0.0 - 7.0 % CERNER MILLENNIUM Eosinophils Abs 0.1 0.0 - 0.5 x10(3)/mc L CERNER MILLENNIUM Basophil % 0.4 0.0 - 2.0 % CERNER MILLENNIUM Baso Absolute 0.0 0.0 - 0.2 x10(3)/mc L CERNER MILLENNIUM Immature Gran % 0.40 0.00 - 0.66 % CERNER MILLENNIUM Comment: Immature granulocytes(IG's)percentage and absolute count will include metamyelocytes, myelocytes, and promyelocytes. Blood smears from CBCs yielding IG's will be scanned manually for concordance. If this scan disagrees with the automated IG or if promyelocytes are noted, a manual differential will be performed. Immature Gran Absolute 0.02 0.00 - 0.05 x10(3)/mc L CERNER MILLENNIUM Blood specimen (specimen) 11/28/2013 11:45 AM EDT 11/28/2013 11:52 AM EDT Narrative Resulting Agency Comment Spec In Lab Jody Valle MD HEMATOLOGY ORDERABL ES CERKAMI RODRÍGUEZENNIUM * (ABNORMAL) Hemogram (11/28/2013 11:45 AM EDT) White Blood Cell 5.3 4.0 - 10.0 x10(3)/mc L CERNER MILLENNIUM Red Blood Cell 5.05 4.63 - 6.08 x10(6)/mc L CERNER MILLENNIUM Hemoglobin 17.0 13.7 - 17.5 gm/dL CERNER MILLENNIUM Hematocrit 47.4 40.0 - 51.0 % CERNER MILLENNIUM Mean Cell Volume 93.9(H) 79.0 - 92.0 fL CERNER MILLENNIUM Mean Cell Hemoglobin 33.7(H) 25.6 - 32.2 pg CERNER MILLENNIUM Mean Cell Hemoglobin Concentration 35.9 32.0 - 36.5 gm/dL CERNER MILLENNIUM Platelet 188 145 - 370 x10(3)/mc L CERNER MILLENNIUM RDW Standard Deviation 42.5 35.0 - 46.0 fL CERNER MILLENNIUM RDW coefficient of variation 12.6 10.9 - 14.4 % CERNER MILLENNIUM Mean Platelet Volume 8.7(L) 9.0 - 12.0 fL [facility] MILLENNIUM Blood specimen (specimen) 11/28/2013 11:45 AM EDT 11/28/2013 11:52 AM EDT Narrative Resulting Agency Comment Spec In Lab Jody Valle MD HEMATOLOGY ORDERABL ES Performing Organization Address [facility] Co de Phone Number [facility] * Prothrombin Time (11/28/2013 11:45 AM EDT) Prothrombin Time 13.0 12.5 - 15.5 sec [facility] Comment: [facility] Transfusion Committee Guidelines: INR less than 2.0, PTT less than OR equal to 43.5 seconds, or Fibrinogen greater than or equal to 100 mg/dl indicate adequate procoagulant activity for hemostasis in patients without underlying bleeding disorders. International Normalization Ratio 0.9 0.9 - 1.1 [facility] Blood specimen (specimen) 11/28/2013 11:45 AM EDT 11/28/2013 11:52 AM EDT Narrative Resulting Agency Comment Spec In Lab Jody Valle MD HEMATOLOGY ORDERABL ES Performing Organization Address [facility]/ZIP Co de Phone Number [facility] * Glucose, random (11/28/2013 11:45 AM EDT) Glucose 98 60 - 199 mg/dL [facility] Comment:Diabetes: >=200 mg/d L plus symptoms Blood specimen (specimen) 11/28/2013 11:45 AM EDT 11/28/2013 11:52 AM EDT Narrative Resulting Agency Comment Spec In Lab Jody Valle MD CHEMISTRY ORDERABLE S Performing Organization Address [facility] Co de Phone Number [facility] [employer]IUM * Creatinine (11/28/2013 11:45 AM EDT) Creatinine 1.19 0.80 - 1.50 mg/dL [facility] [employer] Bio-TechSAN [facility] Comment: Please note that the pediatric reference intervals supplied above were not validated at [facility]. Results from pediatric patients should be interpreted in conjunction to the patient's age, height and muscle mass. Est Glomerular Filtration Rate 60 >=60 CERNER [employer] Bio-TechENNIUM Comment: This estimated GFR (eGFR) value was calculated using the MDRD equation which has been validated on patients between the ages of 18 and 70. The MDRD should not be used to assess kidney function in patients < 18 years of age or in patients with extremes of body mass, or in patients with acute kidney failure. This value should be multiplied by 1.2 for patients. For further information please copy and paste the following links into your internet browser. http://Goodreads/DHnkdep [email or web address]://Goodreads/[facility]f Blood specimen (specimen) 11/28/2013 11:45 AM EDT 11/28/2013 11:52 AM EDT Narrative Resulting Agency Comment Spec In Lab Jody Valle MD CHEMISTRY ORDERABLE S Performing Organization Address [facility] de Phone Number [facility] [employer]IUM * BUN (11/28/2013 11:45 AM EDT) Blood Urea Nitrogen 16 10 - 20 mg/dL [facility] [employer] Bio-TechS[facility] Blood specimen (specimen) 11/28/2013 11:45 AM EDT 11/28/2013 11:52 AM EDT Narrative Resulting Agency Comment Spec In Lab Jody Valle MD CHEMISTRY ORDERABLE S Performing Organization Address [facility] Co de Phone Number [employer] * (ABNORMAL) Electrolytes panel (11/28/2013 11:45 AM EDT) Sodium 139 135 - 145 mmol/L CERNER MILLENNIUM Potassium 3.4(L) 3.5 - 5.0 mmol/L CERNER MILLENNIUM Comment: Please note: ??Patients with WBC >100,000 may have falsely elevated Potassium levels. ??For accurate Potassium quantification in these patients send serum separator tube (gold top) for subsequent determinations. ??Contact the Clinical Chemistry Laboratory if there are any questions. Chloride 101 98 - 107 mmol/L CERNER MILLENNIUM Carbon Dioxide 26 22 - 31 mmol/L CERNER MILLENNIUM Anion Gap 12 5 - 15 mmol/L CERNER MILLENNIUM Blood specimen (specimen) 11/28/2013 11:45 AM EDT 11/28/2013 11:52 AM EDT Narrative Resulting Agency Comment Spec In Lab Jody Valle MD CHEMISTRY ORDERABLE S CERNER MILLENNIUM * (ABNORMAL) CT head WO contrast (11/28/2013 11:32 AM EDT) Anatomical Region Laterality Modality Head Computed Tomogra phy 11/28/2013 11:3 2 AM EDT Narrative 11/28/2013 12:[address] Head Without Contrast Clinical History Ataxia for past 5 days. ??Sinus congestion and earache. ??R/o stroke Comparison None Technique CT head without contrast Findings There is a small focus of hypoattenuation in the right occipital lobe associated with local mass effect and focal [id number] midline shift to the posterior falx. There is asymmetric enlargement of the occipital horn of the right lateral ventricle which may be related to focal cerebral atrophy. There are patchy foci of subcortical and periventricular hypoattenuation. Basal cisterns are patent and symmetric. No intraparenchymal hemorrhage or cortical infarct. Collins-white differentiation is preserved. No extra-axial blood or fluid collections. There is mild mucosal thickening in the paranasal sinuses. Mastoid air cells are clear. Multiple high attenuation foci in the region of the left supraorbital rim may reflect postsurgical change. ??Orbits are unremarkable. No abnormalities of the base of skull or the calvarium. Impression ? 1. Small focus of hypoattenuation in the right occipital lobe with associated mass effect which could reflect a subacute stroke or small mass. Unexpected finding. ? 2. Patchy foci of subcortical and periventricular hypoattenuation which may reflect the sequelae of chronic microvascular ischemic disease. ? 3. 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 ? 4. Minimal paranasal sinus disease. Film and interpretation reviewed by the attending Resulting Agency Comment Unexpected Finding Procedure Note Latanya Gregory MD - 11/28/[address] Head Without Contrast Clinical History Ataxia for past 5 days. Sinus congestion and earache. R/o stroke Comparison None Technique CT head without contrast Findings There is a small focus of hypoattenuation in the right occipital lobe associated with local mass effect and focal [id number] midline shift tothe posterior falx. There is asymmetric enlargement of the occipital horn ofthe right lateral ventricle which may be related to focal cerebral atrophy.There are patchy foci of subcortical and periventricular hypoattenuation. Basal cisterns are patent and symmetric. No intraparenchymal hemorrhage orcortical infarct. Collins-white differentiation is preserved. No extra-axial blood orfluid collections. There is mild mucosal thickening in the paranasal sinuses.Mastoid air cells are clear. Multiple high attenuation foci in the region of theleft supraorbital rim may reflect postsurgical change. Orbits areunremarkable. No abnormalities of the base of skull or the calvarium. Impression 1. Small focus of hypoattenuation in the right occipital lobe with associated mass effect which could reflect a subacute stroke or smallmass. Unexpected finding. 2. Patchy foci of subcortical and periventricular hypoattenuationwhich may reflect the sequelae of chronic microvascular ischemic disease. 3. Probable remote infarct involving the right parasagittal parietallobe. 4. Minimal paranasal sinus disease. Film and interpretation reviewed by the attending Jody Valle MD IMG CT ORDERABLES * EKG 12 Lead (11/28/2013 10:23 AM EDT) Ventricular rate 100 BPM MUSE SYSTEM Atrial Rate 100 BPM MUSE SYSTEM P-R Interval 156 ms MUSE SYSTEM QRS Duration 86 ms MUSE SYSTEM Q-T Interval 350 ms MUSE SYSTEM QTC Calculated (Bezet) 451 ms MUSE SYSTEM Calculated P [place] 35 degrees MUSE SYSTEM Calculated R [place] -17 degrees MUSE SYSTEM Calculated T [place] 48 degrees MUSE SYSTEM INTERPRETATION Sinus rhythm with Premature atrial complexes Voltage criteria for left ventricular hypertrophy Abnormal ECG When compared with ECG of 09-SEP-1994 16:17, Premature atrial complexes are now Present Nonspecific T wave abnormality now evident in Lateral leads Confirmed by Gordon Gong MD ([id number]) on 11/29/2013 10:44:37 AM MUSE SYSTEM 11/28/2013 10:2 3 AM EDT 11/29/2013 10:44 AM EDT Jody Valle MD ECG ORDERABLES MUSE SYSTEM documented in this encounter Visit Diagnoses Diagnosis Hypertension Unspecified essential hypertension Ataxia Lack of coordination Hypertension Unspecified essential hypertension Elevated cholesterol Pure hypercholesterolemia Colon cancer metastasized to liver Malignant neoplasm of colon, unspecified site documented in this encounter Administered Medications Inactive Administered Medications - up to 3 most recent administrations Medication Order MAR Action Action Date Dose Rate Site aspirin EC tablet 81 mg 81 mg, Oral, DAILY, First dose on Tue11/29/13 at 0900, Until Discontinued, Routine Given 11/29/2013 8:15 AM EDT 81 mg enoxaparin (LOVENOX) injection 40 mg 40 mg, Subcutaneous, DAILY, First dose on Tue11/29/13 at 0900, Until Discontinued, Routine Given 11/29/2013 8:17 AM EDT 40 mg gadopentetate dimeglumine (MAGNEVIST) injection 0.2 mL/kg 0.2 mL/kg/dose, Intravenous, ONCE PRN, Per Protocol, Starting on Tue11/28/13 at 1742, 1 dose, Until Tue11/28/13 at 1645 Given 11/28/2013 4:45 PM EDT 18 mLs hydrochlorothiazide (HYDRODIURIL) tablet 12.5 mg 12.5 mg, Oral, DAILY, First dose on Tue11/29/13 at 0900, Until Discontinued, Routine Given 11/29/2013 8:14 AM EDT 12.5 mg simvastatin (ZOCOR) tablet 10 mg 10 mg, Oral, NIGHTLY, First dose on Tue11/28/13 at 2230, Until Discontinued Given 11/29/2013 8:16 AM EDT 10 mg sodium chloride 0.9 % flush 5 mL 5 mL, Intravenous, EVERY 12 HOURS, First dose on Tue11/28/13 at 2230, Until Discontinued, Routine Given 11/29/2013 10:30 AM EDT 5 mLs Given 11/28/2013 10:02 PM EDT 5 mLs sodium chloride 0.9% 1,000 mL IV bolus Intravenous, ONCE, 1 dose, On Valery 11/29/13 at 0945 Given 11/29/2013 10:18 AM EDT sodium chloride 0.9% infusion 100 mL/hr, Intravenous, CONTINUOUS, Starting on Tue11/28/13 at 2230, Until Tue11/29/13 at 0829 New Bag 11/28/2013 10:05 PM EDT 100 mL/hr 100 mL/hr New Bag 11/28/2013 10:04 PM EDT 100 mL/hr 100 mL/hr thiamine (B-1) injection 100 mg 100 mg, Intravenous, DAILY, First dose on Tue11/29/13 at 1000, Until Discontinued Given 11/29/2013 12:01 PM EDT 100 mg documented in this encounter Active and Recently Administered Medications Times are shown in EDT. Scheduled Medication Order 11/27/2013 11/28/2013 11/29/2013 aspirin EC tablet 81 mg (CANCELED) 81 mg, Oral, DAILY, First dose on Tue11/29/13 at 0900, Until Discontinued, Routine 0815 (Given - Provid er: Marleni Cooper RN) enoxaparin (LOVENOX) injection 40 mg (CANCELED) 40 mg, Subcutaneous, DAILY, First dose on Tue11/29/13 at 0900, Until Discontinued, Routine 0817 (Given - Provid er: Marleni Cooper RN) hydrochlorothiazide (HYDRODIURIL) tablet 12.5 mg (CANCELED) 12.5 mg, Oral, DAILY, First dose on Tue11/29/13 at 0900, Until Discontinued, Routine 0814 (Given - Provid er: Marleni Cooper RN) simvastatin (ZOCOR) tablet 10 mg (CANCELED) 10 mg, Oral, NIGHTLY, First dose on Tue11/28/13 at 2230, Until Discontinued 0816 (Given - Provid er: Marleni Cooper RN) sodium chloride 0.9 % flush 5 mL (CANCELED) 5 mL, Intravenous, EVERY 12 HOURS, First dose on Tue11/28/13 at 2230, Until Discontinued, Routine 2202 (Given - Provider: Brit Valle RN) 1030 (Given - Provider: Tamara Romero RN) sodium chloride 0.9% 1,000 mL IV bolus (COMPLETED) Intravenous, ONCE, 1 dose, On Valery 11/29/13 at 0945 1018 (Given - Provid er: Tamara Romero RN) thiamine (B-1) injection 100 mg (CANCELED) 100 mg, Intravenous, DAILY, First dose on Tue11/29/13 at 1000, Until Discontinued 1201 (Given - Provid er: Tamara Romero RN) thiamine tablet 100 mg 100 mg, Oral, DAILY, First dose on Tue11/29/13 at 1600, Until Discontinued, Routine 1600 (Due) Continuous Medication Order 11/27/2013 11/28/2013 11/29/2013 sodium chloride 0.9% infusion () 100 mL/hr, Intravenous, CONTINUOUS, Starting on Tue11/28/13 at 2230, Until Tue11/29/13 at 0829 2204 (New Bag - Provider: Brit Valle RN)2205 (New Bag - Provider: Brit Valle RN) PRN Medication Order 11/27/2013 11/28/2013 11/29/2013 gadopentetate dimeglumine (MAGNEVIST) injection 0.2 mL/kg (COMPLETED) 0.2 mL/kg/dose, Intravenous, ONCE PRN, Per Protocol, Starting on Tue11/28/13 at 1742, 1 dose, Until Tue11/28/13 at 1645 1645 (Given - Provider: Sree Briseno) documented in this encounter Care Teams Firmware Test Engineer Relationship Specialty Start Date End Date None None PCP - General 01/20/10 documented as of this encounter
--- OUTSIDE RECORDS SUMMARY | 2024-01-05 09:58 | XMS_ITS | Encounter Summary ---
Author Organization [facility] [place] [address] Care Team Providers Care Spray Dyer Name Role Phone None Primary Care Provider Unavailabl e Encounter Details Date Type Department Care Team (Latest Contact Info) Description 10/28/2023 9:44 AM EDT - 10/28/2023 11:59 PM EDT Hospital Encounter H[place]ology [place] [phone] Colon cancer metastasized to liver Discharge Disposition: [...] Tablet Take 10 mg by mouth nightly. MV,Ca,Das-Tqap-CL-Lycope ne 8 mg iron- 200 mcg-600 mcg Tablet Take 1 tablet by mouth Daily @ 0600. 12/15/2022 12/07/2023 documented as of this encounter Plan of Treatment Upcoming Encounters Date Type Department Care Team (Late st Contact Info) Description 01/05/2024 10:00 AM EST Office Visit Hematology/Oncology at [address] [phone] Alex Charles MD [facility] [place] [address] Agnes Jose APRN [address] [place] [address] DR HEMATOLOGY [place] [address] Colon cancer metastasized to liver 01/05/2024 10:30 AM EST Infusion Hematology Oncology at [address] [place] [phone] Arrived documented as of this encounter Goals Goal Patient Goal Type Associated Problems Recent Progress Patient-Stated? Author Patient's specific desired goal: Patient Facing Action Plan Godfrey Najera [facility] Note: Goal(s): Live an additional year to year and a half Measured by: survival Time-frame: to be tracked by pharmacy annually documented as of this encounter Procedures Procedure Name Priority Date/Time Associated Diagnosis Comments URINALYSIS DIPSTICK STAT 10/28/2023 9 :52 AM EDT Colon cancer metastasized to liver CBC (WITH DIFF) STAT 10/28/2023 9:49 AM EDT Colon cancer metastasized to liver CEA STAT 10/28/2023 9:49 AM EDT Colon cancer metastasized to liver COMPREHENSIVE METABOLIC PANEL STAT 10/28/2023 9:49 AM EDT Colon cancer metastasized to liver documented in this encounter Results * Urinalysis Dipstick (10/28/2023 9:52 AM EDT) Glucose, Urine Dipstick Negative Negative 10/28/2023 10:50 AM [facility] Protein, Urine Dipstick Negative Negative 10/28/2023 10:50 AM [facility] Bilirubin, Urine Dipstick Negative Negative 10/28/2023 10:50 AM [facility] Comment:Clinical correlation required for positive Urine Bilirubin results as false positive may occur with some drugs and drug related products. If a false positive is suspected a serum total bilirubin should be considered if clinically indicated. Urobilinogen, Urine Dipstick Normal Normal, 0.2 mg/dL, 1.0 mg/dL 10/28/2023 10:50 AM T [facility] pH, Urine (dipstick) 7.0 5.0 - 8.0 10/28/2023 10:50 AM EDT [facility] Blood, Urine Dipstick Negative Negative [facility] Ketone, Urine Dipstick Negative Negative [facility] Nitrite, Urine Dipstick Negative Negative 10/28/2023 10:50 AM EDT [facility] Leukocytes, Urine Dipstick Negative Negative 10/28/2023 10:50 AM [facility] Specific Rinard Urine Automated 1.018 1.005 - 1.030 10/28/2023 10:50 AM [facility] Appearance, Urine Dipstick Clear Clear 10/28/2023 10:50 AM [facility] Color, Urine Dipstick Dark Yellow Yellow, Dark Yellow 10/28/2023 10:50 AM [facility] Urine URINE SPECIMEN OBTAINED BY CLEAN CATCH PROCEDURE / Unknown 10/28/2023 9:52 AM EDT 10/28/2023 9:52 AM EDT Alex Charles MD URINE ORDERABLES [facility] [place] [address] * (ABNORMAL) Comprehensive metabolic panel (10/28/2023 9:49 AM EDT) Glucose 140 65 - 199 mg/dL 10/28/2023 10:51 AM EDT [facility] Comment:Glucose Concentratio n >=200 mg/dL plus symptoms is consistent with Diabetes Mellitus. Blood Urea Nitrogen 20 10 - 20 mg/dL 10/28/2023 10:51 AM EDT [facility] Creatinine 1.16 0.80 - 1.50 mg/dL 10/28/2023 10:51 AM EDT [facility] Sodium 137 135 - 145 mMol/L 10/28/2023 10:51 AM [facility] Potassium 4.3 3.5 - 5.0 mMol/L 10/28/2023 10:51 AM [facility] Chloride 103 98 - 107 mMol/L 10/28/2023 10:51 AM [facility] Carbon Dioxide 23 22 - 31 mMol/L 10/28/2023 10:51 AM [facility] Anion Gap 11 5 - 15 mMol/L 10/28/2023 10:51 AM [facility] Calcium 9.7 8.5 - 10.5 mg/dL 10/28/2023 10:51 AM [facility] Protein, Total 7.7 6.1 - 8.0 g/dL 10/28/2023 10:51 AM [facility] Albumin 3.9 3.2 - 5.2 g/dL 10/28/2023 10:51 AM [facility] Aspartate Aminotransferase 26 <=39 unit/L 10/28/2023 10:51 AM [facility] Alanine Aminotransferase 28 0 - 55 unit/L 10/28/2023 10:51 AM [facility] Alkaline Phosphatase 133(H) 40 - 130 unit/L 10/28/2023 10:51 AM [facility] Bilirubin, Total 0.5 <=1.3 mg/dL 10/28/2023 10:51 AM [facility] Est Glomerular Filtration Rate - Male 62 mL/min/1. 73 m?? 10/28/2023 10:51 AM [facility] Comment: This patient's estimated [...] Calculator [employer] Fasting Status No 10/28/2023 10:51 AM EDT [facility] Blood VENOUS BLOOD SPECIMEN / Unknown Venipuncture / Unknown 10/28/2023 9:49 AM EDT 10/28/2023 9:49 AM EDT Alex Charles MD CHEMISTRY ORDERABLES Performing Organization Address [facility] Co de Phone Number [facility] [place] [address] * (ABNORMAL) CEA (10/28/2023 9:49 AM EDT) Carcinoembryonic Antigen 5.8(H) <=3.8 ng/ml 10/28/2023 10:58 AM EDT [facility] Comment: Some smokers may have elevated CEA, generally < 5.5 ng/mL. This result was generated using a Nora Louise immunoassay. ??Results obtained from other methods or manufacturers cannot be used interchangeably with this method. Blood VENOUS BLOOD SPECIMEN / Unknown Venipuncture / Unknown 10/28/2023 9:49 AM EDT 10/28/2023 9:49 AM EDT Alex Charles MD CHEMISTRY ORDERABLES Performing Organization Address [facility] Co de Phone Number [facility] [place] [address] * (ABNORMAL) CBC (with Diff) (10/28/2023 9:49 AM EDT) White Blood Cell 7.25 4.00 - 9.50 x10(3)/mc L 10/28/2023 10:38 AM EDT [facility] Red Blood Cell 4.93 4.58 - 5.54 x10(6)/mc L 10/28/2023 10:38 AM EDT [facility] Hemoglobin 13.0(L) 13.7 - 16.5 g/dL 10/28/2023 10:38 AM [facility] Hematocrit 41.5 40.5 - 48.5 % 10/28/2023 10:38 AM [facility] Mean Cell Volume 84.2 82.9 - 93.1 fL 10/28/2023 10:38 AM [facility] Mean Cell Hemoglobin 26.4(L) 27.5 - 32.1 pg 10/28/2023 10:38 AM [facility] Mean Cell Hemoglobin Concentration 31.3(L) 32.0 - 35.7 g/dL 10/28/2023 10:38 AM [facility] Platelet 314 145 - 357 x10(3)/mc L 10/28/2023 10:38 AM [facility] Mean Platelet Volume 8.0 7.6 - 12.9 fL 10/28/2023 10:38 AM [facility] RDW Standard Deviation 53.1(H) 36.0 - 45.0 fL 10/28/2023 10:38 AM [facility] RDW coefficient of variation 17.5(H) 11.4 - 13.8 % 10/28/2023 10:38 AM [facility] NRBC% auto 0.0 % 10/28/2023 10:38 AM [facility] NRBC Absolute 0.00 0.00 - 0.00 x10(3)/mc L 10/28/2023 10:38 AM [facility] Neutrophil % 76.4 % 10/28/2023 10:38 AM [facility] Neutrophil Absolute (ANC) - Automated 5.54 1.70 - 6.10 x10(3)/mc L 10/28/2023 10:38 AM [facility] Lymph % 12.3 % 10/28/2023 10:38 AM [facility] Lymph Absolute 0.89(L) 0.90 - 3.20 x10(3)/mc L 10/28/2023 10:38 AM EDT [facility] Monocyte % 7.7 % 10/28/2023 10:38 AM EDT [facility] Monocyte Absolute 0.56 0.30 - 0.90 x10(3)/mc L 10/28/2023 10:38 AM EDT [facility] Eos % 2.3 % 10/28/2023 10:38 AM EDT [facility] Eos Absolute 0.17 0.00 - 0.40 x10(3)/mc L 10/28/2023 10:38 AM EDT [facility] Basophil % 0.6 % 10/28/2023 10:38 AM EDT [facility] Baso Absolute 0.04 0.00 - 0.10 x10(3)/mc L 10/28/2023 10:38 AM EDT [facility] Immature Gran % 0.7 % 10:38 AM EDT [facility] Immature Gran Absolute 0.05(H) 0.00 - 0.04 x10(3)/mc L 10/28/2023 10:38 AM EDT [facility] Blood VENOUS BLOOD SPECIMEN / Unknown Venipuncture / Unknown 10/28/2023 9:49 AM EDT 10/28/2023 9:49 AM EDT Alex Charles MD HEMATOLOGY ORDERABLE S [facility] [place] [address] documented in this encounter Visit Diagnoses Diagnosis Colon cancer metastasized to liver Malignant neoplasm of colon, unspecified site Colon cancer metastasized to liver Malignant neoplasm of colon, unspecified site documented in this encounter Care Teams Spray Dyer Relationship Specialty Start Date End Date None None PCP - General 01/20/10 documented as of this encounter
--- OUTSIDE RECORDS SUMMARY | 2024-01-05 09:58 | XMS_ITS | Encounter Summary ---
Author Organization [facility] [place] [address] Care Team Providers Care Monitoring Specialist Name Role Phone None Primary Care Provider Unavailabl e Encounter Details Date Type Department Care Team (Late st Contact Info) Description 11/02/2023 Telephone Hematology [place] [phone] Ayla Espinal, RN Social History Tobacco Use [...] Telephone Encounter - Ayla Espinal, RN - 11/02/2023 11:02 AM EDT Chemotherapy Follow-up Call Placed call to patient to assess tolerance of first time chemotherapy treatment. Regimen received: CAPOX Date of treatment: 10/27 Assessment: Symptom Present (yes[y]/no[n]/ stable[s] from baseline) Additional information/Assessment GI Nausea Y Mild Vomiting N Nausea medication Y Uses compazine and that works well Tolerating diet Y Appetite has been good. Maintaining fluid intake (indicate volume) Y Bowel movements regular Y Diarrhea N Mouth sores N General Pain (0 none - 10 high) 1/10 Pain in middle of sternum. Started about a week ago. Comes and goes. Can't think of anything that makes the pain better or worse. Pain is a 1/10. Describes it as an aching. Does not need to take anything. No SOB when he is experiencing it. Exertion does not worsen pain.Pain does not spread anywhere else. Using pain medications N Fever Neuro Level of fatigue (0 - 5) Having trouble sleeping as he gets up 2-3 times in the night to void. Falls N Numbness/tingling in arms/legs N Did get some cold sensitivity the day after infusion but this has resolved Cognitive changes Skin Skin changes N Pinpoint red dots N Other s/s of bleeding N IV site/VAD problems Y IV site is bruising Musculoskeletal Joint swelling or tenderness N Arthralgias or myalgias Y Baseline unchanged. Voiding problems Y Is voiding more at night which is making it harder for him to sleep. Color and quality of urine Yellow to clear Cardio-pulmonary Shortness of breath N Does have ROBERTS no SOB when sitting Chest pain See above Swelling in legs N Calf pain or tenderness N Cough (productive/non-productive) N Psychosocial Coping Need prescription renewals N Other issues : Education provided: Plan: Instructed patient to be sure to call clinic back if pain worsens or changes at all. Advised on making sure to avoid drinking lots of fluid before bed. Also avoid caffeine later in theday. Call clinic back if still having issues with voiding more at night. Reinforced to patient/care-toddler caregiver to call facility 20/09 with any new/worsening signs and symptoms orconcerns or questions. Phone number provided. Pt verbalized understanding and is in agreement with plan. documented in this encounter Plan of Treatment Upcoming Encounters Date Type Department Care Team (Late st Contact Info) Description 01/05/2024 10:00 AM EST Office Visit Hematology/Oncology at [address] [phone] Alex Charles MD [facility] [place] [place] [address] Agnes Jose APRN [address] [place] [address] HEMATOLOGY [place] [address] Colon cancer metastasized to liver 01/05/2024 10:30 AM EST Infusion Hematology Oncology at [address] [phone] Arrived documented as of this encounter Goals Goal Patient Goal Type Associated Problems Recent Progress Patient-Stated? Author Patient's specific desired goal: Patient Facing Action Plan No Godfrey Noguera, [facility] Note: Goal(s): Live an additional year to year and a half Measured by: survival Time-frame: to be tracked by pharmacy annually documented as of this encounter Visit Diagnoses Not on filedocumented in this encounter Care Teams Monitoring Specialist Relationship Specialty Start Date End Date None None PCP - General 01/20/10 documented as of this encounter
--- OUTSIDE RECORDS SUMMARY | 2024-01-05 09:58 | XMS_ITS | Encounter Summary ---
[place] [address] Care Team Providers Care Metal Refiner Name Role Phone None Primary Care Provider Unavailabl e Encounter Details Date Type Department Care Team (Late st Contact Info) Description 10/26/2023 Telephone Hematology [place] [phone] Ayla Espinal, RN Social History Tobacco Use [...] Telephone Encounter - Ayla Espinal, RN - 10/26/2023 2:31 PM EDT Oral Chemotherapy Follow-up Note 10/26/2023 Bart Hathaway, 1940 Assessment of self-administration of oral chemotherapy is performed via phone call with patient. The patient: filled the prescription at [facility] and will start to take this medication on 10/28/23after he is seen in clinic. read back the name and strength of the oral chemotherapy from the label, including the instructionsfor use as follows: Capecitabine 500mg- Take 3 tablets (1,500 mg) by mouth 2 times daily. Take within 30 minutes after eating. Call clinic before/prior to starting medication/script. Take twice a day for 14 days followed by 7 days off was able to repeat directions for use in his/her own words and demonstrated understanding of the regimen, including safe handling of oral chemotherapy and its side effects. did not have further questions or problems regarding the oral chemotherapy. does not require further assistance in order to comply with oral chemotherapy. was reminded to call the oncology clinic with any concerns or questions 24 hours a day / 7 days a week and contact information was reviewed. documented in this encounter Plan of Treatment Upcoming Encounters Date Type Department Care Team (Late st Contact Info) Description 01/05/2024 10:00 AM EST Office Visit Hematology/Oncology at [address] [phone] Alex Charles MD [facility] [place] [address] Agnes Jose APRN [address] [place] [address] DR HEMATOLOGY AND ONCOLOGY [place], [place] [id number] Colon cancer metastasized to liver 01/05/2024 10:30 AM EST Infusion Hematology Oncology at [address] [phone] Arrived documented as of this encounter Goals Goal Patient Goal Type Associated Problems Recent Progress Patient-Stated? Author Patient's specific desired goal: Patient Facing Action Plan No Godfrey Noguera, [facility] Note: Goal(s): Live an additional year to year and a half Measured by: survival Time-frame: to be tracked by pharmacy annually documented as of this encounter Visit Diagnoses Not on filedocumented in this encounter Care Teams Metal Refiner Relationship Specialty Start Date End Date None None PCP - General 01/20/10 documented as of this encounter
--- OUTSIDE RECORDS SUMMARY | 2024-01-05 09:58 | XMS_ITS | Encounter Summary ---
Author Organization [facility] Address [facility] [place] [address] Care Team Providers Care Animal Control Officer Name Role Phone None Primary Care Provider Unavailabl e Encounter Details Date Type Department Care Team (Late Contact Info) Description 09/22/2020 10:00 AM EDT Ancillary Procedure Pain Management at [facility] [place] [phone] Alfonso Ken MD [facility] [place] [address] Social History Tobacco Use Types Packs/Day Years [...] 10:00 AM EST Office Visit Hematology/Oncology at [address] [phone] Alex Charles MD [facility] [place] [address] Agnes Jose APRN [address] [place] [address] DR HEMATOLOGY AND ONCOLOGY [place], [place] [id number] Colon cancer metastasized to liver 01/05/2024 10:30 AM EST Infusion Hematology Oncology at [address] [phone] Arrived documented as of this encounter Procedures Procedure Name Priority Date/Time Associated Diagnosis Comments FILM LIBRARY - STORAGE ONLY PAIN CLINIC XR APD ONLY Routine 09/22/2020 10:32 AM EDT documented in this encounter Visit Diagnoses Not on filedocumented in this encounter Care Teams Animal Control Officer Relationship Specialty Start Date End Date None None PCP - General 01/20/10 documented as of this encounter
--- OUTSIDE RECORDS SUMMARY | 2024-01-05 09:58 | XMS_ITS | Encounter Summary ---
Author Organization [facility] [place] [address] Care Team Providers Care Rehabilitation Aide Name Role Phone None Primary Care Provider Unavailabl e Encounter Details Date Type Department Care Team (Latest Contact Info) Description 10/28/2023 Travel Social History Tobacco Use Types Packs/Day [...] 10:00 AM EST Office Visit Hematology/Oncology at [address] [phone] Alex Charles MD [facility] [place] [address] Agnes Jose APRN [address] [place] [address] DR HEMATOLOGY AND ONCOLOGY [place], [place] [id number] Colon cancer metastasized to liver 01/05/2024 10:30 AM EST Infusion Hematology Oncology at [address] [phone] Arrived documented as of this encounter Goals Goal Patient Goal Type Associated Problems Recent Progress Patient-Stated? Author Patient's specific desired goal: Patient Facing Action Plan No Godfrey Noguera, [facility] Note: Goal(s): Live an additional year to year and a half Measured by: survival Time-frame: to be tracked by pharmacy annually documented as of this encounter Visit Diagnoses Not on filedocumented in this encounter Care Teams Rehabilitation Aide Relationship Specialty Start Date End Date None None PCP - General 01/20/10 documented as of this encounter
--- OUTSIDE RECORDS SUMMARY | 2024-01-05 09:58 | XMS_ITS | Encounter Summary ---
Author Organization [facility] Address [facility] [place] [address] Care Team Providers Care Real Estate Sales Associate Name Role Phone None Primary Care Provider Unavailabl e Encounter Details Date Type Department Care Team (Late Contact Info) Description 06/10/2017 Interpretation Only [address] [place] [address] Josh Pérez MD [address] [place] [phone] Social History Tobacco Use Types Packs/Day Years [...] 10:00 AM EST Office Visit Hematology/Oncology at [address] [phone] Alex Charles MD [facility] [place] [address] Agnes Jose APRN [address] [place] [address] DR HEMATOLOGY AND ONCOLOGY [place], [place] [id number] Colon cancer metastasized to liver 01/05/2024 10:30 AM EST Infusion Hematology Oncology at [address] [phone] Arrived documented as of this encounter Procedures Procedure Name Priority Date/Time Associated Diagnosis Comments XR LUMBAR SPINE MIN 4 VIEW Routine 06/10/2017 11:01 AM EDT documented in this encounter Results * XR Lumbar Spine Min 4 view (06/10/2017 11:01 AM EDT) Anatomical Region Laterality Modality L-spine N/A Radiographic Kristy ging 06/10/2017 11:0 1 AM EDT Addenda Addendum by Cherrie Blue MD on 06/28/2017 12:21 PM EDT ADDENDUM #1 TECHNIQUE: ??AP, Lateral, Spot, Flexion and Extension views of the lateral spine. ORIGINAL REPORT EXAMINATION: SPINE LUMBAR COMPLT w/FLX/EXT CLINICAL HISTORY: ZOT - OTHER - S/P LUMBAR FUSION, ?? TECHNIQUE: 3 views COMPARISON: February 2017 FINDINGS: L4-S1 laminectomy and posterior instrumented fusion. Unchanged appearance and alignment of hardware. Number of non-rib bearing lumbar-type vertebrae: 5 Vertebral bodies: Normal vertebral height. No vertebral fracture. Diffuse osteophytes. Unchanged displaced osteophyte at anterior-inferior corner of L2. Disk spaces: Unchanged disc space narrowing at all levels accompanied by endplate sclerosis. Soft tissues: Normal. ?? Alignment: L3-4: Unchanged 8 mm retrolisthesis of L3 on 4 on neutral and extension, reduce on flexion. L5-S1: 8 mm anterolisthesis, no motion. Levocurvature: 11 degree, apex at L3-4. Flexion-extension: IMPRESSION: 1. ??Uncomplicated decompression and instrumented fusion across L4 and S1. 2. ??Minimal motion at L3-4 level. 3. ?? Unchanged Spondylosis of the remaining lumbar levels. Impressions 06/10/2017 5:11 PM EDT 1. ??Uncomplicated decompression and instrumented fusion across L4 and S1. 2. ??Minimal motion at L3-4 level. 3. ?? Unchanged Spondylosis of the remaining lumbar levels. Narrative 06/10/2017 5:11 PM EDT EXAMINATION: SPINE LUMBAR COMPLT w/FLX/EXT CLINICAL HISTORY: ZOT - OTHER - S/P LUMBAR FUSION, ?? TECHNIQUE: 3 views COMPARISON: February 2017 FINDINGS: L4-S1 laminectomy and posterior instrumented fusion. Unchanged appearance and alignment of hardware. Number of non-rib bearing lumbar-type vertebrae: 5 Vertebral bodies: Normal vertebral height. No vertebral fracture. Diffuse osteophytes. Unchanged displaced osteophyte at anterior-inferior corner of L2. Disk spaces: Unchanged disc space narrowing at all levels accompanied by endplate sclerosis. Soft tissues: Normal. ?? Alignment: L3-4: Unchanged 8 mm retrolisthesis of L3 on 4 on neutral and extension, reduce on flexion. L5-S1: 8 mm anterolisthesis, no motion. Levocurvature: 11 degree, apex at L3-4. Flexion-extension: Procedure Note Cherrie Blue MD - 06/10/2017 EXAMINATION: SPINE LUMBAR COMPLT w/FLX/EXT CLINICAL HISTORY: ZOT - OTHER - S/P LUMBAR FUSION, TECHNIQUE: 3 views COMPARISON: February 2017 FINDINGS: L4-S1 laminectomy and posterior instrumented fusion. Unchanged appearanceand alignment of hardware. Number of non-rib bearing lumbar-type vertebrae: 5 Vertebral bodies: Normal vertebral height. No vertebral fracture.Diffuse osteophytes. Unchanged displaced osteophyte at anterior-inferior corner ofL2. Disk spaces: Unchanged disc space narrowing at all levels accompanied by endplate sclerosis. Soft tissues: Normal. Alignment: L3-4: Unchanged 8 mm retrolisthesis of L3 on 4 on neutral and extension,reduce on flexion. L5-S1: 8 mm anterolisthesis, no motion. Levocurvature: 11 degree, apex atL3-4. Flexion-extension: IMPRESSION 1. Uncomplicated decompression and instrumented fusion across L4 andS1. 2. Minimal motion at L3-4 level. 3. Unchanged Spondylosis of the remaining lumbar levels. Josh Pérez MD IMG DX ORDERABLES documented in this encounter Visit Diagnoses Not on filedocumented in this encounter Care Teams Real Estate Sales Associate Relationship Specialty Start Date End Date None None PCP - General 01/20/10 documented as of this encounter
--- OUTSIDE RECORDS SUMMARY | 2024-01-05 09:58 | XMS_ITS | Encounter Summary ---
Author Organization [facility] Address [facility] [place] [address] Care Team Providers Care Test Baker Name Role Phone None Primary Care Provider Unavailabl e Encounter Details Date Type Department Care Team (Late Contact Info) Description 03/18/2017 Interpretation Only [address] [place] [address] Josh Pérez MD [address] [place] [phone] Social History Tobacco Use Types Packs/Day Years [...] 10:00 AM EST Office Visit Hematology/Oncology at [address] [phone] Alex Charles MD [facility] [place] [address] Agnes Jose APRN [address] [place] [address] DR HEMATOLOGY AND ONCOLOGY [place], [place] [address] Colon cancer metastasized to liver 01/05/2024 10:30 AM EST Infusion Hematology Oncology at [address] [phone] Arrived documented as of this encounter Procedures Procedure Name Priority Date/Time Associated Diagnosis Comments XR LUMBAR SPINE 2 OR 3 VIEWS Routine 03/18/2017 10:03 AM EST documented in this encounter Results * XR Lumbar Spine 2 Or 3 Views (Generic) (03/18/2017 10:03 AM EST) Anatomical Region Laterality Modality L-spine N/A Radiographic Kristy ging 03/18/2017 10:0 3 AM EST Impressions 03/18/2017 4:49 PM EST Incomplete fusion at L4-L5 and L5-S1. Narrative 03/18/2017 4:49 PM EST EXAMINATION: SPINE LUMBAR (2-3VWS) -ROUTN CLINICAL HISTORY: ASSESS HEALING - S/P LUMBAR SPINE FUSION, L5,S1, ?? TECHNIQUE: Flexion, lateral, extension 3 views COMPARISON: None FINDINGS: L4-L5 and L5-S1 lumbar fusion with grade 1 L4-L5 anterolisthesis and preserved alignment throughout flexion and extension. Approximately 4.5 mm listhesis at L4-L5 and 9.4 mm listhesis at L5-S1. Moderate L3-L4 disc space narrowing with disc osteophyte complexes which also extends into the L2-L3 disc space. No lumbar vertebral body compression fracture. L2-L3 grade 1 retrolisthesis. Procedure Note Nan Iqbal MD - 03/18/2017 EXAMINATION: SPINE LUMBAR (2-3VWS) -ROUTN CLINICAL HISTORY: ASSESS HEALING - S/P LUMBAR SPINE FUSION, L5,S1, TECHNIQUE: Flexion, lateral, extension 3 views COMPARISON: None FINDINGS: L4-L5 and L5-S1 lumbar fusion with grade 1 L4-L5 anterolisthesis andpreserved alignment throughout flexion and extension. Approximately 4.5 mm listhesisat L4-L5 and 9.4 mm listhesis at L5-S1. Moderate L3-L4 disc space narrowingwith disc osteophyte complexes which also extends into the L2-L3 disc space.No lumbar vertebral body compression fracture. L2-L3 grade 1retrolisthesis. IMPRESSION Incomplete fusion at L4-L5 and L5-S1. Josh Pérez MD IMG DX ORDERABLES documented in this encounter Visit Diagnoses Not on filedocumented in this encounter Care Teams Test Baker Relationship Specialty Start Date End Date None None PCP - General 01/20/10 documented as of this encounter
--- OUTSIDE RECORDS SUMMARY | 2024-01-05 09:58 | XMS_ITS | Encounter Summary ---
Author Organization [facility] [place] [address] Care Team Providers Care Automobile Mechanic Name Role Phone None Primary Care Provider Unavailabl e Encounter Details Date Type Department Care Team (Late st Contact Info) Description 07/11/2020 Orders Only Pain Management at [facility] [address] [facility] [place] [address] Alfonso Ken MD [facility] [place] [address] Social History Tobacco Use Types Packs/Day Years Used Date Smoking Tobacco: Former Cigarettes 2 25 Alcohol Use Standard Drinks/Week Comments Yes 21 (1 standard drink = 0.6 oz pu re alcohol) Sex and Gender Information Value Date Recorded Sex Assigned at Not on file Gender Identity Not on file Sexual Orientation Not on file documented as of this encounter Progress Notes * Alex Craig RN - 07/11/2020 8:26 AM EDT Patient name: Bart Hathaway : 1940 cheduled date/time: 08/11/20 @ 1130/1145 Procedure: LESI @ L2-3 Diagnoses: LOW BACK PAIN ICD 10:M54.5 Length of Procedure: []?30 minutes [x]?45 minutes[]? 60 minutes []? 90 minutes Date of last MRI/CT: 01/17/20 (MRI/CT required prior to the following procedures: Blood Patch, Caudal Epidural, SEVERINO, LESI, TESI,TFESI) Entered referral [x]? Confirmed that patient will have paratransit driver that will stay with them during the procedure? Yes [x]? No []? Does the patient currently have any skin openings, cuts or rashes? Yes []? No [x]? For females under the age of 50 who are not post hysterectomy or menopause -Verbal statement of non- []? N/A [x]? Has the patient had a Covid-19 vaccine or are they scheduled? yes 1ST VACCINE DATE: 2ND VACCINE DATE: 05/27/20 (It is suggested that the patient NOT have the vaccine 1 week prior to a steroid injection or 2 weeks after a steroid injection) Is the patient: Allergic to anesthetics, iodine,steroids or shellfish? no Has the patient been taking greater than 40mg of steroid for longer than 14 days? Yes []? STOP(Notify provider for further instructions) No [x]? (Proceed with scheduling) On metformin or other diabetic medication? no On antibiotics? no On anticoagulants? no On NSAIDs? yes On any natural or nutritional vitamins or supplements? Yes [x]? (Discontinue 7 days prior) No Medication Must stop prior Can Resume Labs Coumadin (Warfarin) 5 days Per Prescriber 1 hour prior (<1.2) PT/INR Plavix (Clopidogrel) 7 days Per Prescriber n/a Fragmin (Dalteparin) 24 hours Per Prescriber n/a Lovenox (Enoxaparin) 24 hours Per Prescriber n/a Ticlid (Ticlopidine) 14 days Per Prescriber n/a Innohep (Tinzaparin) 24 hours Per Prescriber n/a Aggrenox (Dipyridamole) 7 days Per Prescriber n/a Pletal (Cilostazol) 2 days Per Prescriber n/a Pradaxa (Dabigretran) 5 days Per Presciber n/a Xarelto (Rivaroxaban) 3 days 24 hours after n/a Eliquis (Apixaban) 3 days Per Prescriber n/a Inlyta (Axitinib) 24 hours 48 hours after n/a Agrylin (Anagrelide) n/a n/a Day of procedure Platelet count Effient (Prasugrel) 7 days Per Prescriber n/a Brilinta (Ticagrelor) 5 days Per Prescriber n/a Trental (Pentoxifylline) 2 days Per Prescriber n/a Aspirin (ASA, Darien, Excedrin) 6 days Per Prescriber n/a Aggrastat (Tirofiban) 8 hours Per Prescriber n/a Angiomax (Bivalirudin) Must be discussed with provider before scheduling Per Provider Argatroban Must be discussed with provider before scheduling Per Provider Arixta (Fondaparinux) 4 days Per Prescriber n/a Effient (Prasugrel) 7 days Per Prescriber n/a Elmiron (Pentosan) 7 days Per Prescriber n/a Heparin, subq (Hemochron) 12 hours Per Prescriber n/a Integrelin (Eptifibatide) 8 hours Per Prescriber n/a Iprivask (Desirudin) Must be discussed with provider before scheduling Per Provider Normiflo (Ardeparin) 24 hours Per Prescriber n/a Persantine (Dipyridamole) 2 days Per Prescriber n/a Argatroban Must be discussed with provider before scheduling Per Provider n/a Savaysa (Edoxaban) 3 days Per Prescriber Reopro (Abciximab) 2 days Per Prescriber n/a The following directions were given to patient on NSAID no N/A [] Medication Other Names Recommended Discontinuation Aspirin - 81 mg and 325 mg (Note: If recommended or prescribed by provider, contact Pain Management) ASA, Darien, Excedrein 6 days Diclofenac Voltaren Stop 1 day prior, restart 24 hours after Etodolac Lodine Stop 2 days prior, restart 24 hours after Flurbiprofen Ansaid Stop 7 days prior, restart 24 hours after Ibuprofen Advil, Motrin, Midol Stop 1 days prior, restart 24 hours after Indomethicin Indocin Stop 2 days prior, restart 24 hours after Ketorolac Toradol Stop 1 days prior, restart 24 hours after Meloxicam Mobic Stop 4 days prior, restart 24 hours after Nabumetone Relafen Stop 6 days prior, restart 24 hours after Naproxen Naprosyn, Aleve Stop 4 days prior, restart 24 hours after Oxaprozin Daypro Stop 10 days prior, restart 24 hours after Piroxicam Feldene Stop 10 days prior, restart 24 hours after Salsalate Disalcid Stop 1 days prior, restart 24 hours after Nutritional Supplements Fish Oil, Ginko Biloba, Garlic, Vitamin E, Bromelain, Nattokinase Stop 7 days prior, restart 24 hours after NSAID Medication Therapy Protocol Guide for Procedures - (Guidelines from the [place] [employer] for Regional Anesthesia) Lower Risk Procedures - Do not stop NSAIDs; Do not stop Anticoagulants Bursa Injections Peripheral joint and musculoskeletal injection Peripheral Nerve Blocks Piriformis Injection Sacral Lateral Branch Blocks SI Joint Injection Trigger pont injections Occipital Nerve Block Cutaneous Nerve Block Higher Risk Procedures - Stop NSAIDs and Anticoagulants per tables above FRANCIS (Cervical, Thoracic, Lumbar, Sacral) Transforaminal FRANCIS MBB or RFA Blood Patch Caudal FRANCIS Intrathecal catheter and pump implant Intercostal Nerve Block Lumbar Puncture Pudendal Nerve Block Paravertebral Block Peripheral Nerve Stimulation trial and Implant Pocket revision and IPG/ITT replacement SCS Trial and Implant Sympathetic Block (stellate, thoracic, splanchnic, celiac, lumbar, hypogastric) Pars Interarticular Trigeminal Nerve Block Order placed for C-arm [x] I , , RN, have reviewed the previous information and it is acceptable to proceed with procedure documented in this encounter Plan of Treatment Upcoming Encounters Date Type Department Care Team (Late st Contact Info) Description 01/05/2024 10:00 AM EST Office Visit Hematology/Oncology at [address] [phone] Alex Charles MD [facility] [place] [address] Agnes Jose APRN [address] [place] [address] DR [place] [address] Colon cancer metastasized to liver 01/05/2024 10:30 AM EST Infusion Hematology Oncology at [address] [phone] Arrived documented as of this encounter Visit Diagnoses Not on filedocumented in this encounter Care Teams Automobile Mechanic Relationship Specialty Start Date End Date None None PCP - General 01/20/10 documented as of this encounter
--- OUTSIDE RECORDS SUMMARY | 2024-01-05 09:58 | XMS_ITS | Encounter Summary ---
Author Organization [facility] [place] [address] Care Team Providers Care Air Drill Operator Name Role Phone None Primary Care Provider Unavailabl e Reason for Visit * Reason Onset Date Comments Pre Procedure Call 09/16/2020 Encounter Details Date Type Department Care Team (Late st Contact Info) Description 09/16/2020 Telephone [facility] [address] [facility] [place] [address] Alfonso Ken MD [facility] [place] [address] Pre Procedure Call Social History Tobacco Use Types Packs/Day Years [...] encounter Miscellaneous Notes * Telephone Encounter - Alex Craig RN - 09/16/2020 11:07 AM EDT The following details have been reviewed with the patient 5 days before their scheduled pain injection: LESI @ L2-3 Scheduled date/time: 09/22/20 @ 945/1000 Confirmed that patient will have truck driver supervisor that will stay with them during the procedure? Yes [x] No [] Does the patient currently have any skin openings, cuts or rashes? Yes [] No [x] Did the patient begin any new medications since being scheduled for this procedure? Yes [] No [x] Has the patient been taking greater than 40mg of steroid for longer than 14 days? Yes [] STOP(Notify provider for further instructions) No [x] (Proceed with injection as scheduled) Has the patient had a Covid-19 vaccine or are they scheduled? yes 1ST VACCINE DATE: 2ND VACCINE DATE: 05/27/20 (It is suggested that the patient NOT have the vaccine 1 week prior to a steroid injection or 2 weeks after a steroid injection) For females under the age of 50 who are not post hysterectomy or menopause -Verbal statement of non- [] N/A [x] On NSAIDs? yes Patients current pain score: 03/09 Treatments Tried: Physical Therapy Water therapy What makes your pain better: nothing What makes your pain worse: activity Are there any questions you have prior to your procedure: none Advised to discontinue the following medication(s) on the dates specified: See List Below Anticoagulant Medication Therapy Protocol Guide for Procedures: Medication Must stop prior May resume Labs Coumadin (Warfarin) 5 days Per Prescriber [...] Prescriber n/a Pradaxa (Dabigretran) 5 days Per Prescriber n/a Xarelto (Rivaroxaban) 3 days 24 hours after n/a Eliquis (Apixaban) 3 days Per Prescriber n/a Inlyta (Axitinib) 24 hours 48 hours after n/a Agrylin (Anagrelide) N/a n/a Day of procedure Platelet count Effient [...] Persantine (Dipyridamole) 2 days Per Prescriber n/a Reopro (Abciximab) 2 days Per Prescriber n/a Non-Steroidal Anti-Inflammatory Drug Guidelines: Medication Other Names Recommended Discontinuation Can Resume Aspirin - 81 mg and 325 mg (Note: If recommended or prescribed by provider, contact Pain Management) ASA, Darien, Excedrein 6 days Per Prescriber Diclofenac Voltaren 1 day 24 hours after Etodolac Lodine 2 days 24 hours after Flurbiprofen Ansaid 7 days 24 hours after Ibuprofen Advil, Motrin, Midol 1 day 24 hours after Indomethicin Indocin 2 days 24 hours after Ketorolac Toradol 1 day 24 hours after Meloxicam Mobic 4 days 24 hours after Nabumetone Relafen 6 days 24 hours after Naproxen Naprosyn, Aleve 4 days 24 hours after Oxaprozin Daypro 10 days 24 hours after Piroxicam Feldene 10 days 24 hours after Salsalate Disalcid 1 day 24 hours after Nutritional Supplements Fish Oil, Ginko Biloba, Garlic, Vitamin E, Bromelain, Nattokinase 7 days 24hours after NSAID Medication Therapy Protocol Guide for Procedures - (Guidelines from the [place] [employer] for Regional Anesthesia) Lower Risk Procedures - Do not stop Anticoagulants Bursa Injections Peripheral joint and musculoskeletal injection Peripheral Nerve Blocks Piriformis Injection Sacral Lateral Branch Blocks SI Joint Injection Trigger pont injections Higher Risk Procedures - Stop NSAIDs and Anticoagulants per tables above FRANCIS (Cervical, Thoracic, Lumbar, Sacral) Transforaminal FRANCIS MBB or RFA Blood Patch Caudal FRANCIS Intrathecal catheter and pump implant Intercostal Nerve Block Lumbar Puncture Paravertebral Block Peripheral Nerve Stimulation trial and Implant Pocket revision and IPG/ITT replacement SCS Trial and Implant Sympathetic Block (stellate, thoracic, splanchnic, celiac, lumbar, hypogastric) Trigeminal Nerve Block The patient has been instructed to call with any changes including medication, medical history and skin integrity. Call made by COLLIN Cardoza for the pain clinic. documented in this encounter Plan of Treatment Upcoming Encounters Date Type Department Care Team (Late st Contact Info) Description 01/05/2024 10:00 AM EST Office Visit Hematology/Oncology at [address] [phone] Alex Charles MD [facility] [place] [place] [address] Agnes Jose APRN [address] [place] [address] DR HEMATOLOGY AND ONCOLOGY [place], [place] [address] Colon cancer metastasized to liver 01/05/2024 10:30 AM EST Infusion Hematology Oncology at [address] [phone] Arrived documented as of this encounter Visit Diagnoses Not on filedocumented in this encounter Care Teams Air Drill Operator Relationship Specialty Start Date End Date None None PCP - General 01/20/10 documented as of this encounter
--- OUTSIDE RECORDS SUMMARY | 2024-01-05 09:58 | XMS_ITS | Encounter Summary ---
Author Organization [facility] [place] [address] Care Team Providers Care Juvenile Correctional Officer Name Role Phone None Primary Care Provider Unavailabl e Encounter Details Date Type Department Care Team (Latest Contact Info) Description 09/22/2020 9:45 AM EDT - 09/22/2020 10:28 AM EDT Hospital Encounter Pain Management [place] [phone] Alfonso Ken MD [facility] [place] [address] Discharge Disposition: Home Social History Tobacco Use [...] Sign Reading Time Taken Comments Blood Pressure 161/77 09/22/2020 10:19 AM EDT Pulse 88 09/22/2020 10:19 AM EDT Temperature - - Respiratory Rate - - Oxygen Saturation 95% 09/22/2020 10:19 AM EDT Inhaled Oxygen Concentration - - Weight - - Height - - Body Mass Index - - documented in this encounter Discharge Instructions * Discharge Instructions* Alex Craig RN - 09/22/2020 10:26 AM EDT [facility] Pain Management Discharge Instructions: You were seen today by: Surgeon(s): Alfonso Ken MD The following was performed: Procedure(s) (LRB): INJECTION, EPIDURAL, LUMBAR OR SACRAL (CAUDAL), WITH IMAGING GUIDANCE (WRVU 1.8) (N/A) It is normal that the injection site will be sore for up to 48 hours. {CHECK BOX SELECTION:70738} You may also experience mild stiffness in the joint near the injection site. You may resume your normal activities: {Time; today/tomorrow:17923}. You may shower today. DO NOT tub bathe, use whirlpools, hot tubs or pool therapy for 2 days. RemoveBand-Aid(s) later today/tomorrow. Do not drive until tomorrow. Use caution walking/climbing stairs as you may be unsteady on your feet. You may use your usual medications, including pain medications, as directed, unless otherwise instructed. You may use an ice pack as needed for the first 24 hours, on for 20 minutes then off for 20 minutes. Do not apply heat today. Attempt to empty your bladder 4-6 hours after your procedure. {CHECK BOX SELECTION:38643} If you have diabetes, monitor your blood sugars frequently. If your blood sugar increases and is of concern, contact your Primary Care Provider. You received the following medications: Medications Given During Procedure Date/Time Order Dose Route Action {\field{\*\fldinst HYPERLINK ecmd:ord?[id number]}{\fldrslt \18 09/22/2020 1024}} dexamethasone(PF) (Decadron) (10 mg/mL) injection 15 mg Intra-articular Given {\field{\*\fldinst HYPERLINK ecmd:ord?[id number]}{\fldrslt \18 09/22/2020 1025}} iohexoL (Omnipaque) (240 mg/mL) injection solution 2 mL Intra-articular Given {\field{\*\fldinst HYPERLINK ecmd:ord?bx=[id number]}{\fldrslt \18 09/22/2020 1025}} lidocaine (pf) (Xylocaine) (10 mg/mL) 1% injection 2 mL Intra-articular Given During regular business hours, please phone the Pain Management Center at with any questions or if the following or other troubling symptoms develop: 1) Prolonged dizziness or weakness (more than 1 day). 2) Localized swelling, redness or drainage at the injection site(s). 3) Temperature of 101 degrees that lasts for more than 4 hours. After 5 PM or on weekends, call . If you are unable to reach the Pain Management Center and have a complication, please call your Primary Care Provider or proceed to your local emergency department. Alex Craig RN Special instructions documented in this encounter Medications at Time of Discharge Medication Sig Dispensed Refills Start Date End Date fexofenadine-pseudoephed rine (Saniya-D 12 Hour) 60-120 mg Tablet Sustained Release 12 hr Take by mouth Daily @ 0600. 04/18/2017 potassium chloride ER (Klor-Con M) 20 mEq ER micro-encapsulated crystal tablet Take 20 mEq by mouth 2 times daily. 04/18/2017 thiamine 100 mg Tablet Take 1 tablet [...] daily. 10/12/2023 documented as of this encounter H&P Notes * Alfonso Ken MD - 09/22/2020 10:06 AM EDT Patient Name: Bart Hathaway Patient Age: 80 y.o. Birthdate: 1940 Admit date: 09/22/2020 Attending Physician: Alfonso Ken MD PREPROCEDURE HISTORY AND PHYSICAL Date of Visit: September 22, 2020 Chief Complaint: Back pain HPI: Subjective Bart Hathaway is a 80 y.o. male who presents today for a LESI. The history is obtained from the patient, and I have reviewed medical records provided by the referring physician and located in the electronic medical record to fill in gaps in the patient's recollection of events, treatments and outcomes. LOCATION: right lumbar area or left lumbar area. PAIN LEVEL AT REST 06/07 PAST MEDICAL HISTORY: Past Medical History: Diagnosis Date ??? Hyperlipidemia ??? Hypertension ??? Radiculopathy of lumbar region 08/11/2020 PAST SURGICAL HISTORY: No past surgical history on file. ALLERGIES: Patient has no known allergies. MEDICATIONS: Medications 11/28/13 1109 Medication Sig Taking? thiamine 100 mg Tablet Take 1 tablet by mouth daily. lisinopril (PRINIVIL;ZESTRIL) 10 mg Tablet Take 10 mg by mouth daily. simvastatin (ZOCOR) 10 mg Tablet Take 10 mg by mouth nightly. hydrochlorothiazide (MICROZIDE) 12.5 mg Capsule Take 12.5 mg by mouth daily. aspirin 81 mg Tablet, Delayed Release (E.C.) Take 81 mg by mouth daily. FAMILY HISTORY: Family History Problem Relation Age of Onset ??? Heart Disease Paternal Grandmother ??? Heart Disease Paternal Grandfather ??? Heart Disease Father SOCIAL HISTORY: Social History Socioeconomic History ??? Marital status: Spouse name: Not on file ??? Number of children: Not on file ??? Years of education: Not on file ??? Highest education level: Not on file Occupational History ??? Not on file Tobacco Use ??? Smoking status: Former Smoker Packs/day: 2.00 Years: 25.00 Pack years: 50.00 Types: Cigarettes Substance and Sexual Activity ??? Alcohol use: Yes Alcohol/week: 21.0 standard drinks Types: 14 Glasses of wine, 7 Shots of liquor per week ??? Drug use: No ??? Sexual activity: Not on file Other Topics Concern ??? Do You live alone? No ??? Tobacco in Home Not Asked Social History Narrative ??? Not on file Social Determinants of Health Financial Resource Strain: ??? Difficulty of Paying Living Expenses: Food Insecurity: ??? Worried About Running Out of Food in the Last Year: ??? Ran Out of Food in the Last Year: Transportation Needs: ??? Lack of Transportation (Medical): ??? Lack of Transportation (Non-Medical): Physical Activity: ??? Days of Exercise per Week: ??? Minutes of Exercise per Session: ROS: Patient denies recent fevers, chills, infections, wounds, hospitalizations, ED visits or antibiotics use PHYSICAL EXAM: There were no vitals taken for this visit. CV: RRR Pulm: CTA B Skin: No concerning infection, erythema or warmth near the procedure site RADIOLOGIC DATA: MRI reviewed revealing postoperative changes, pseudomeningocele, and spinal stenosis. ASSESSMENT: Assessment Lumbar radiculopathy Bart Hathaway is a 80 y.o. male who presents today for the above procedure. Risks and benefits were discussed with the patient and all questions answered. There are no contraindications to proceed. PLAN: Proceed with LESI procedure at L2-3 as planned. Alfonso Ken MD 09/22/2020 documented in this encounter Miscellaneous Notes * Op Note - Alfonso Ken MD - 09/22/2020 10:18 AM EDT Pain Management Operative Note Patient Name: Bart Hathaway : [id number] MR#: [id number] Case Date: 09/22/2020 Surgeon: Surgeon(s) and Role: * Alfonso Ken MD - Primary Present on Admission: ??? Radiculopathy of lumbar region Postoperative diagnosis: Same Procedure(s) (LRB): INJECTION, EPIDURAL, LUMBAR OR SACRAL (CAUDAL), WITH IMAGING GUIDANCE (WRVU 1.8) (N/A) LUMBAR INTERLAMINAR EPIDURAL STERIOID INJECTION PROCEDURE NOTE Mr. Bart Hathaway has been referred to the Pain Management Center for a lumbar epidural steroid injection by Josh Pérez MD [address] [place], [place] [id number]. The patient complains of low back pain with pain radiating down the bilateral leg. Mr. Hathaway was greeted by the nurse who verified patients name and . The patient was then taken to the fluoroscopy suite. Mr. Hathaway was interviewed and the medical record reviewed. There were no medical, pharmacologic,radiographic, or other structural contraindications to attempting fluoroscopically guided lumbar epidural steroid injection. Risks and potential side effects, as well as potential benefits of the procedure were reviewed with Mr. Hathaway. His voiced concerns were addressed. After I was assured thatinformed consent was obtained, the patient consent form was signed. Standard time-out procedure wasperformed. Mr. Hathaway was placed in the prone position on the fluoroscopy table and automated blood pressurecuff and pulse oximeter applied. The skin entry point for entering/approaching the L2-L3 epidural space for the lumbar epidural steroid injection was marked. Following thorough chlorhexadine preparation of the skin and draping and 1% lidocaine infiltration of the skin entry point and subcutaneous tissues, an 18 gauge Touhy needle was placed and advanced under fluoroscopic guidance and with loss of resistance technique into the L2-L3 epidural space. Needle tip placement and depth were aided and confirmed by fluoroscopy. There was no paresthesia or return of blood or CSF through the needle. 2 cc's of Omnipaque 240 was injected (48 cc's was wasted) with clear epidural spread confirmed with fluoroscopy. 15 mg of preservative-free Dexamethasone (10 mg/cc) was injected (5 mg was wasted). This was followed by 2 cc of preservative-free 1% lidocaine to flush the steroid out of the needle. There was not any unusual discomfort expressed by Mr. Hathaway. (48 cc of Omnipaque and 5 mg of Dexamethasone was wasted) Mr. Hathaway's vital signs were stable throughout the procedure and were as recorded in nursing records. Follow up plans and appointments were discussed with Mr. Hathaway. The patient is set to follow up with Dr. Pérez or undersigned. Post procedure instruction was given as documented in nursing records and having met discharge criteria he was discharged from the Pain Management Center. Comments: If this procedure is successful in helping with pain and improving his function, it can be completed a maximum of 3 times every 12 months. His post- procedure pain level was 0/10. I personally performed this entire procedure. Alfonso Ken MD CC: Josh Pérez MD [address] [place] [phone] documented in this encounter Plan of Treatment Upcoming Encounters Date Type Department Care Team (Late st Contact Info) Description 01/05/2024 10:00 AM EST Office Visit Hematology/Oncology at [address] [phone] Alex Charles MD [facility] [place] [address] Agnes Jose, FUNERAL ASSISTANT [address] [place] [address] DR HEMATOLOGY [place] [address] Colon cancer metastasized to liver 01/05/2024 10:30 AM EST Infusion Hematology Oncology at [address] [phone] Arrived documented as of this encounter Procedures Procedure Name Priority Date/Time Associated Diagnosis Comments FILM LIBRARY - STORAGE ONLY PAIN CLINIC XR APD ONLY Routine 09/22/2020 10:32 AM EDT documented in this encounter Results * Film Library-Storage Only Pain Clinic XR APD Only (09/22/2020 10:32 AM EDT) Narrative [facility] - 09/22/2020 10:32 AM EDT See PACS for result report. Alfonso Ken MD IMG DX ORDERABLES Performing Organization Address City/State/[facility] Co de Phone Number [place], [place] documented in this encounter Visit Diagnoses Diagnosis Radiculopathy of lumbar region- Primary Thoracic or lumbosacral neuritis or radiculitis, unspecified Colon cancer metastasized to liver Malignant neoplasm of colon, unspecified site documented in this encounter Active and Recently Administered Medications Times are shown in EDT. PRN Medication Order 09/20/2020 09/21/2020 09/22/2020 dexamethasone (PF) (Decadron) (10 mg/mL) injection (CANCELED) ONCE PRN, Starting on Tue09/22/20 at 1024, Until Tue09/22/20 at 1228, Intra-Operative (Intra-Procedure), Routine 1024 (Given - Provid er: Alfonso Ken MD) iohexoL (Omnipaque) (240 mg/mL) injection solution (CANCELED) ONCE PRN, Starting on Tue09/22/20 at 1025, Until Tue09/22/20 at 1228, Intra-Operative (Intra-Procedure), Routine 1025 (Given - Provid er: Alfonso Ken MD) lidocaine (pf) (Xylocaine) (10 mg/mL) 1% injection (CANCELED) ONCE PRN, Starting on Tue09/22/20 at 1025, Until Tue09/22/20 at 1228, Intra-Operative (Intra-Procedure), Routine 1025 (Given - Provid er: Alfonso Ken MD) documented in this encounter Care Teams Juvenile Correctional Officer Relationship Specialty Start Date End Date None None PCP - General 01/20/10 documented as of this encounter
--- OUTSIDE RECORDS SUMMARY | 2024-01-05 09:58 | XMS_ITS ---
[place] [address] Care Team Providers Care Sales Strategy Manager Name Role Phone None Primary Care Provider Unavailabl e HemOnc Status:Un-enrolled (Enrolling) Start date:10/13/2023 Enrollment reason:Un-enrolled - Therapy Discontinued Linked medications:capecitabine (Active) Linked problems:Colon cancer metastasized to liver (Active) Continued Care and Services Coordination
--- OUTSIDE RECORDS SUMMARY | 2024-01-05 09:58 | XMS_ITS | Encounter Summary ---
Author Organization [facility] Address [facility] [place] [address] Care Team Providers Care Jet Operator Name Role Phone None Primary Care Provider Unavailabl e Encounter Details Date Type Department Care Team (Latest Contact Info) Description 10/12/2023 Travel Social History Tobacco Use Types Packs/Day [...] 10:00 AM EST Office Visit Hematology/Oncology at [address] [phone] Alex Chalres MD [facility] [place] [address] Agnes Jose APRN [address] [place] [address] DR HEMATOLOGY AND ONCOLOGY [place], [place] [address] Colon cancer metastasized to liver 01/05/2024 10:30 AM EST Infusion Hematology Oncology at [address] [phone] Arrived documented as of this encounter Visit Diagnoses Not on filedocumented in this encounter Care Teams Jet Operator Relationship Specialty Start Date End Date None None PCP - General 01/20/10 documented as of this encounter
--- OUTSIDE RECORDS SUMMARY | 2024-01-05 09:58 | XMS_ITS | Encounter Summary ---
[place] [address] Care Team Providers Care Consumer Electronics Merchandiser Name Role Phone None Primary Care Provider Unavailabl e Reason for Visit * Treatment/Therapy Plan Authorization (Routine) - Closed Specialty Diagnoses / Procedures Referred By Kim t Referred To Contact Diagnoses Colon cancer metastasized to liver Alex Charles MD [facility] [place] [address] [facility] [address] [place] [address] Referral ID Status Reason Start Date Expiration Date Visits Re quested Visits Authorized [id number] Closed 10/12/2023 10/11/2024 99 100 Encounter Details Date Type Department Care Team (Latest Contact Info) Description 10/28/2023 9:43 AM EDT Hospital Encounter [place] [address] Colon cancer metastasized to liver Discharge Disposition: [...] Sig Dispensed Refills Start Date End Date ibuprofen (Advil) 200 mg tabletIndications:osteoa rthritis Take [...] Tablet Take 10 mg by mouth nightly. MV,Ca,Cle-Ztzl-JM-Lycope ne 8 mg iron- 200 mcg-600 mcg Tablet Take 1 tablet by mouth Daily @ 0600. 12/15/2022 12/07/2023 documented as of this encounter Progress Notes * Jennifer Herrera RN - 10/28/2023 3:14 PM EDT Patient Name: Bart Hathaway Patient Age: 83 y.o. Birthdate: 1940 Admit date: 10/28/2023 Attending Physician: Pati att. providers found DIAGNOSIS: 1. Colon cancer metastasized to liver TREATMENT START TIME: 1141 TREATMENT END TIME: 1510 REASON FOR VISIT: Chemotherapy infusion of oxaliplatin Allergies Allergen Reactions Grass Pollen nasal congestion Tree And Shrub Pollen nasal congestion PROTOCOL: N/A CYCLE: 1 WEEK: N/A DAY: 1 SUBJECTIVE: Patient offers no complaints at this time. OBJECTIVE: Reviewed plan of care including but not limited to medication administration; patient asking appropriate questions and verbalized understanding to information provided. VITAL SIGNS: There were no vitals filed for this visit. LAB DATA: Recent Results (from the past 24 hour(s)) CBC (with Diff) Result Value Ref Range White Blood Cell 7.25 4.00 - 9.50 x10(3)/mcL Red Blood Cell 4.93 4.58 - 5.54 x10(6)/mcL Hemoglobin 13.0 (L) 13.7 - 16.5 g/dL Hematocrit 41.5 40.5 - 48.5 % Mean Cell Volume 84.2 82.9 - 93.1 fL Mean Cell Hemoglobin 26.4 (L) 27.5 - 32.1 pg Mean Cell Hemoglobin Concentration 31.3 (L) 32.0 - 35.7 g/dL Platelet 314 145 - 357 x10(3)/mcL Mean Platelet Volume 8.0 7.6 - 12.9 fL RDW Standard Deviation 53.1 (H) 36.0 - 45.0 fL RDW coefficient of variation 17.5 (H) 11.4 - 13.8 % NRBC% auto 0.0 % NRBC Absolute 0.00 0.00 - 0.00 x10(3)/mcL Neutrophil % 76.4 % Neutrophil Absolute 5.54 1.70 - 6.10 x10(3)/mcL Lymph % 12.3 % Lymph Absolute 0.89 (L) 0.90 - 3.20 x10(3)/mcL Monocyte % 7.7 % Monocyte Absolute 0.56 0.30 - 0.90 x10(3)/mcL Eos % 2.3 % Eos Absolute 0.17 0.00 - 0.40 x10(3)/mcL Basophil % 0.6 % Baso Absolute 0.04 0.00 - 0.10 x10(3)/mcL Immature Gran % 0.7 % Immature Gran Absolute 0.05 (H) 0.00 - 0.04 x10(3)/mcL CEA Result Value Ref Range Carcinoembryonic Antigen 5.8 (H) <=3.8 ng/ml Comprehensive metabolic panel Result Value Ref Range Glucose 140 65 - 199 mg/dL Blood Urea Nitrogen 20 10 - 20 mg/dL Creatinine 1.16 0.80 - 1.50 mg/dL Sodium 137 135 - 145 mMol/L Potassium 4.3 3.5 - 5.0 mMol/L Chloride 103 98 - 107 mMol/L Carbon Dioxide 23 22 - 31 mMol/L Anion Gap 11 5 - 15 mMol/L Calcium 9.7 8.5 - 10.5 mg/dL Protein, Total 7.7 6.1 - 8.0 g/dL Albumin 3.9 3.2 - 5.2 g/dL Aspartate Aminotransferase 26 <=39 unit/L Alanine Aminotransferase 28 0 - 55 unit/L Alkaline Phosphatase 133 (H) 40 - 130 unit/L Bilirubin, Total 0.5 <=1.3 mg/dL Est Glomerular Filtration Rate - Male 62 mL/min/1.73 m?? Fasting Status No Urinalysis Dipstick Result Value Ref Range Glucose, Urine Dipstick Negative Negative Protein, Urine Dipstick Negative Negative Bilirubin, Urine Dipstick Negative Negative Urobilinogen, Urine Dipstick Normal Normal, 0.2 mg/dL, 1.0 mg/dL pH, Urine (dipstick) 7.0 5.0 - 8.0 Blood, Urine Dipstick Negative Negative Ketone, Urine Dipstick Negative Negative Nitrite, Urine Dipstick Negative Negative Leukocytes, Urine Dipstick Negative Negative Specific Gustine Urine Automated 1.018 1.005 - 1.030 Appearance, Urine Dipstick Clear Clear Color, Urine Dipstick Dark Yellow Yellow, Dark Yellow IV ACCESS: Chemotherapy orders independently verified for correct drug name, route and dosage per patient's height, weight and BSA by Jennifer Herrera RN and pharmacist. Chemotherapy administered per protocol. REACTIONS: NONE ASSESSMENT: Bart Hathaway awake and alert - tolerated treatment well. Bart Hathaway confirms that all questions and issues have been addressed. PLAN: Return to clinic as scheduled. documented in this encounter Plan of Treatment Upcoming Encounters Date Type Department Care Team (Late st Contact Info) Description 01/05/2024 10:00 AM EST Office Visit Hematology/Oncology at [address] [phone] Alex Charles MD [facility] [place] [address] Agnes Jose APRN [address] [place] [address] [place] [address] Colon cancer metastasized to liver 01/05/2024 10:30 AM EST Infusion Hematology Oncology at [address] [phone] Arrived documented as of this encounter Goals Goal Patient Goal Type Associated Problems Recent Progress Patient-Stated? Author Patient's specific desired goal: Patient Facing Action Plan Godfrey Najera, [facility] Note: Goal(s): Live an additional year to year and a half Measured by: survival Time-frame: to be tracked by pharmacy annually documented as of this encounter Results * Urinalysis Dipstick (10/28/2023 9:52 AM EDT) Glucose, Urine Dipstick Negative Negative 10/28/2023 10:50 AM EDT [facility] Protein, Urine Dipstick Negative Negative 10/28/2023 10:50 AM EDT [facility] Bilirubin, Urine Dipstick Negative Negative 10/28/2023 10:50 AM EDT [facility] Comment:Clinical correlation required for positive Urine Bilirubin results as false positive may occur with some drugs and drug related products. If a false positive is suspected a serum total bilirubin should be considered if clinically indicated. Urobilinogen, Urine Dipstick Normal Normal, 0.2 mg/dL, 1.0 mg/dL 10/28/2023 10:50 AM EDT [facility] pH, Urine (dipstick) 7.0 5.0 - 8.0 10/28/2023 10:50 AM EDT [facility] Blood, Urine Dipstick Negative Negative 10/28/2023 10:50 AM EDT [facility] Ketone, Urine Dipstick Negative Negative 10/28/2023 10:50 AM EDT [facility] Nitrite, Urine Dipstick Negative Negative 10/28/2023 10:50 AM EDT [facility] Leukocytes, Urine Dipstick Negative Negative 10/28/2023 10:[address] [facility] Specific Gustine Urine Automated 1.018 1.005 - 1.030 10/28/2023 10:[address] [facility] Appearance, Urine Dipstick Clear Clear 10/28/2023 10:[address] [facility] Color, Urine Dipstick Dark Yellow Yellow, Dark Yellow 10/28/2023 10:50 AM EDT [facility] Urine URINE SPECIMEN OBTAINED BY CLEAN CATCH PROCEDURE / Unknown 10/28/2023 9:52 AM EDT 10/28/2023 9:52 AM EDT Alex Charles MD URINE ORDERABLES [facility] [place] [address] * (ABNORMAL) CEA (10/28/2023 9:49 AM EDT) Carcinoembryonic Antigen 5.8(H) <=3.8 ng/ml 10/28/2023 10:58 AM EDT [facility] Comment: Some smokers may have elevated CEA, generally < 5.5 ng/mL. This result was generated using a Nora Louise immunoassay. ??Results obtained from other methods or manufacturers cannot be used interchangeably with this method. Blood VENOUS BLOOD SPECIMEN / Unknown Venipuncture / Unknown 10/28/2023 9:49 AM EDT 10/28/2023 9:49 AM EDT Alex Charles MD CHEMISTRY ORDERABLES [facility] [place] [address] * (ABNORMAL) CBC (with Diff) (10/28/2023 9:49 AM EDT) White Blood Cell 7.25 4.00 - 9.50 x10(3)/mc L 10/28/2023 10:38 AM EDT [facility] Red Blood Cell 4.93 4.58 - 5.54 x10(6)/mc L 10/28/2023 10:[address] [facility] Hemoglobin 13.0(L) 13.7 - 16.5 g/dL 10/28/2023 10:[address] [facility] Hematocrit 41.5 40.5 - 48.5 % 10/28/2023 10:[address] [facility] Mean Cell Volume 84.2 82.9 - 93.1 fL 10/28/2023 10:[address] [facility] Mean Cell Hemoglobin 26.4(L) 27.5 - 32.1 pg 10/28/2023 10:[address] [facility] Mean Cell Hemoglobin Concentration 31.3(L) 32.0 - 35.7 g/dL 10/28/2023 10:38 AM T [facility] Platelet 314 145 - 357 x10(3)/mc L 10/28/2023 10:[address] [facility] Mean Platelet Volume 8.0 7.6 - 12.9 fL 10/28/2023 10:[address] [facility] RDW Standard Deviation 53.1(H) 36.0 - 45.0 fL 10/28/2023 10:[address] [facility] RDW coefficient of variation 17.5(H) 11.4 - 13.8 % 10/28/2023 10:[address] [facility] NRBC% auto 0.0 % 10/28/2023 10:[address] [facility] NRBC Absolute 0.00 0.00 - 0.00 x10(3)/mc L 10/28/2023 10:[address] [facility] Neutrophil % 76.4 % 10/28/2023 10:[address] [facility] Neutrophil Absolute (ANC) - Automated 5.54 1.70 - 6.10 x10(3)/mc L 10/28/2023 10:[address] [facility] Lymph % 12.3 % 10/28/2023 10:[address] [facility] Lymph Absolute 0.89(L) 0.90 - 3.20 x10(3)/mc L 10/28/2023 10:[address] [facility] Monocyte % 7.7 % 10/28/2023 10:[address] [facility] Monocyte Absolute 0.56 0.30 - 0.90 x10(3)/mc L 10/28/2023 10:[address] [facility] Eos % 2.3 % 10/28/2023 10:[address] [facility] Eos Absolute 0.17 0.00 - 0.40 x10(3)/mc L 10/28/2023 10:[address] [facility] Basophil % 0.6 % 10/28/2023 10:[address] [facility] Baso Absolute 0.04 0.00 - 0.10 x10(3)/mc L 10/28/2023 10:[address] [facility] Immature Gran % 0.7 % 10:[address] [facility] Immature Gran Absolute 0.05(H) 0.00 - 0.04 x10(3)/mc L 10/28/2023 10:[address] [facility] Blood VENOUS BLOOD SPECIMEN / Unknown Venipuncture / Unknown 10/28/2023 9:49 AM EDT 10/28/2023 9:49 AM EDT Alex Charles MD HEMATOLOGY ORDERABLE S [facility] [address] [place] [address] documented in this encounter Visit Diagnoses Diagnosis Colon cancer metastasized to liver Malignant neoplasm of colon, unspecified site Colon cancer metastasized to liver Malignant neoplasm of colon, unspecified site documented in this encounter Administered Medications Inactive Administered Medications - up to 3 most recent administrations Medication Order MAR Action Action Date Dose Rate Site dexAMETHasone (Decadron) tablet 10 mg 10 mg, Oral, ONCE, 1 dose, On Tue10/28/23 at 1215, Administer prior to chemotherapy, Routine Given 10/28/2023 12:18 PM EDT 10 mg OXALIplatin (Eloxatin) 200 mg in dextrose 5% 290 mL infusion 200 mg (rounded from 192.95 mg = 85 mg/m2/dose ? 2.27 m2 Treatment Plan BSA from Recorded weight), Intravenous, ONCE, 1 dose, On Tue10/28/23 at 1315, Administer over 120 Minutes, - Compatible with dextrose-containing solution only. Warning Vesicant/Irritant Medication - Avoid extravasation. New Bag 10/28/2023 12:54 PM EDT 200 mg 145 mL/hr palonosetron (Aloxi) (0.05 mg/mL) injection 0.25 mg 0.25 mg, Intravenous, ONCE, 1 dose, On Tue10/28/23 at 1215, Administer over 30 seconds. Administer prior to chemotherapy, Routine Given 10/28/2023 12:19 PM EDT 0.25 mg documented in this encounter Care Teams Consumer Electronics Merchandiser Relationship Specialty Start Date End Date None None PCP - General 01/20/10 documented as of this encounter
--- OUTSIDE RECORDS SUMMARY | 2024-01-05 09:58 | XMS_ITS | Encounter Summary ---
Author Organization [facility] Address [facility] [place] [address] Care Team Providers Care Tool Polisher Name Role Phone None Primary Care Provider Unavailabl e Encounter Details Date Type Department Care Team (Late Contact Info) Description 02/09/2017 Interpretation Only [address] [place] [address] Josh Pérez MD [address] [place] [id number] Social History Tobacco Use Types Packs/Day Years [...] AM EST Office Visit Hematology/Oncology at [address] [phone] Alex Charles MD [facility] [place] [address] Agnes Jose APRN [address] [place] [address] DR HEMATOLOGY AND ONCOLOGY [place], [place] [id number] Colon cancer metastasized to liver 01/05/2024 10:30 AM EST Infusion Hematology Oncology at [address] [phone] Arrived documented as of this encounter Procedures Procedure Name Priority Date/Time Associated Diagnosis Comments XR FLUORO MORE THAN ONE HOUR Routine 02/09/2017 9:30 AM EST documented in this encounter Results * XR FLUORO MORE THAN ONE HOUR (02/09/2017 9:30 AM EST) Anatomical Region Laterality [...] on filedocumented in this encounter Care Teams Tool Polisher Relationship Specialty Start Date End Date None None PCP - General 01/20/10 documented as of this encounter
--- OUTSIDE RECORDS SUMMARY | 2024-01-05 09:58 | XMS_ITS | Encounter Summary ---
[place] [address] Care Team Providers Care Head Of Marketing Analytics Name Role Phone None Primary Care Provider Unavailabl e Encounter Details Date Type Department Care Team (Late st Contact Info) Description 10/28/2023 Specialty [place] [address] Brit Lora CPHT Social History Tobacco Use Types Packs/Day Years Used Date Smoking Tobacco: Former Cigarettes 2 25 Alcohol Use Standard Drinks/Week Comments Yes 21 (1 standard drink = 0.6 oz pu re alcohol) Sex and Gender Information Value Date Recorded Sex Assigned at Not on file Gender Identity Not on file Sexual Orientation Not on file documented as of this encounter Progress Notes * Brit Lora CPHT - 10/28/2023 11:[address] [facility] has completed a benefits investigation for Bart Hathaway to review their eligibility to fill at [facility]. Per patient's medication list they are prescribed Capecitabine 500mg tablet and the medication is currently filled through the [facility] The patient is filling the medication through Specialty Pharmacy with a $0 copay. Bills through [employer] [facility] required documented in this encounter Plan of Treatment Upcoming Encounters Date Type Department Care Team (Late Contact Info) Description 01/05/2024 10:00 AM EST Office Visit Hematology/Oncology at [address] [phone] Alex Charles MD [facility] [place] [place] [address] Agnes Jose APRN [address] [place] [address] DR HEMATOLOGY AND ONCOLOGY [place], [place] [id number] Colon cancer metastasized to liver 01/05/2024 10:30 AM EST Infusion Hematology Oncology at [address] [phone] Arrived documented as of this encounter Goals Goal Patient Goal Type Associated Problems Recent Progress Patient-Stated? Author Patient's specific desired goal: Patient Facing Action Plan No Godfrey Noguera, [facility] Note: Goal(s): Live an additional year to year and a half Measured by: survival Time-frame: to be tracked by pharmacy annually documented as of this encounter Visit Diagnoses Not on filedocumented in this encounter Care Teams Head Of Marketing Analytics Relationship Specialty Start Date End Date None None PCP - General 01/20/10 documented as of this encounter
--- OUTSIDE RECORDS SUMMARY | 2024-01-05 09:58 | XMS_ITS | Encounter Summary ---
Author Organization [facility] Address [facility] [place] [address] Care Team Providers Care Operating Room Coordinator Name Role Phone None Primary Care Provider Unavailabl e Encounter Details Date Type Department Care Team (Late Contact Info) Description 04/19/2017 [facility] Conversion Results [address] [place] [phone] [facility] Conversion, Flowsheet Provider, Social History Tobacco Use Types Packs/Day Years [...] Sign Reading Time Taken Comments Blood Pressure 158/85 04/19/2017 12:00 AM EST Sourced from [facility] Conversion Pulse - - Temperature - - Respiratory Rate - - Oxygen Saturation - - Inhaled Oxygen Concentration - - Weight 103 kg (227 lb 1.9 oz) 04/19/2017 12:00 AM EST Sourced from [facility] Conversion Height 185.4 cm (6' 1) 04/19/2017 12:0 0 AM EST Sourced from [facility] Conversion Body Mass Index 29.96 04/19/2017 12:00 AM EST documented in this encounter Plan of Treatment Upcoming Encounters Date Type Department Care Team (Late st Contact Info) Description 01/05/2024 10:00 AM EST Office Visit Hematology/Oncology at [address] [phone] Alex Charles MD [facility] [place] [address] Agnes Jose APRN [address] [place] [address] DR HEMATOLOGY [place] [address] Colon cancer metastasized to liver 01/05/2024 10:30 AM EST Infusion Hematology Oncology at [address] [phone] Arrived documented as of this encounter Visit Diagnoses Not on filedocumented in this encounter Care Teams Operating Room Coordinator Relationship Specialty Start Date End Date None None PCP - General 01/20/10 documented as of this encounter
--- OUTSIDE RECORDS SUMMARY | 2024-01-05 09:58 | XMS_ITS | Encounter Summary ---
Author Organization [facility] [place] [address] Care Team Providers Care Sorting And Folding Supervisor Name Role Phone None Primary Care Provider Unavailabl e Encounter Details Date Type Department Care Team (Late Contact Info) Description 01/17/2020 Ancillary Procedure Radiology at [facility] [address] [place] [address] Josh Pérez MD [address] [place] [address] Social History Tobacco Use Types Packs/Day Years [...] 10:00 AM EST Office Visit Hematology/Oncology at [address] [phone] Alex Charles MD [facility] [place] [address] Agnes Jose APRN [address] [place] [address] DR HEMATOLOGY AND ONCOLOGY [place], [place] [address] Colon cancer metastasized to liver 01/05/2024 10:30 AM EST Infusion Hematology Oncology at [address] [phone] Arrived documented as of this encounter Procedures Procedure Name Priority Date/Time Associated Diagnosis Comments FILM LIBRARY STORAGE ONLY MR SPINE Routine 01/17/2020 12:00 AM EST documented in this encounter Results * Film Library- Storage Only MR Spine (01/17/2020 12:00 AM EST) Narrative PRISCILLA RODAS - 05/13/2020 5:20 PM EDT This exam is auto-finalizing. It's purpose is for storage only. Josh Pérez MD IMG FILM LIBRARY OR DERABLES Performing Organization Address City/State/[facility] Co de Phone Number [place], [place] documented in this encounter Visit Diagnoses Not on filedocumented in this encounter Care Teams Sorting And Folding Supervisor Relationship Specialty Start Date End Date None None PCP - General 01/20/10 documented as of this encounter
--- OUTSIDE RECORDS SUMMARY | 2024-01-05 09:58 | XMS_ITS | Encounter Summary ---
[place] [address] Care Team Providers Care Car Attendant Name Role Phone None Primary Care Provider Unavailabl e Reason for Visit * Reason Comments Prior Authorization Capecitabine 500mg Encounter Details Date Type Department Care Team (Late st Contact Info) Description 10/13/2023 Specialty [place] [phone] Janet [place], [facility] Social History Tobacco Use Types Packs/Day Years Used Date Smoking Tobacco: Former Cigarettes 2 25 Alcohol Use Standard Drinks/Week Comments Yes 21 (1 standard drink = 0.6 oz pu re alcohol) Sex and Gender Information Value Date Recorded Sex Assigned at Not on file Gender Identity Not on file Sexual Orientation Not on file documented as of this encounter Progress Notes * Janet [place] CPHT - 10/13/2023 10:20 AM EDT [facility], Benefits Investigation Patient: Bart Hathaway Patient : 1940 Patient Address: [place] [phone] (home) Medication Name: CAPECITABINE 500 MG TABLET Medication ID: Patient Location: [facility] HEM ONC 3K Patient Location Comment: Medication Strength Frequency Requested: Take three 500mg tablets twice daily Qty/Day Supply: New Start: New to Therapy Diagnosis & ICD-10 Code: Colon cancer metastasized to liver [C18.9, C78.7] Subscriber Insurance: [email or web address] Subscriber Insurance Comment: Fax: Physician: ALEX HOLLIDAY Physician Comment : PA Status: PA Not Needed Insurance mandated Pharmacy: Fillable at [facility]: Yes Insurance requirements/notes: None Copay: 15.59 Copay assistance: None Copay assistance comment: Pharmacy staff will be reaching out to the patient to inform them of their medication[facility]. If applicable, a pharmacist will speak with the patient to offer our specialty pharmacy services and to arrange delivery of their medication. Janet [place] CPHT 10/13/23 10:25 AM * Janet Hatfield CPHT - 10/13/2023 10:20 AM EDT [facility], Benefits Investigation Patient: Bart Hathaway Patient : 1940 Patient Address: [address] [place] [phone] (home) Medication Name: CAPECITABINE 500 MG TABLET Medication ID: Patient Location: [facility] HEM ONC 3K Patient Location Comment: Medication Strength Frequency Requested: Take three 500mg tablets twice daily Qty/Day Supply: New Start: New to Therapy Diagnosis & ICD-10 Code: Colon cancer metastasized to liver [C18.9, C78.7] Subscriber Insurance: [email or web address] Subscriber Insurance Comment: Fax: Physician: ALEX HOLLIDAY Physician Comment : PA Status: PA Not Needed Insurance mandated Pharmacy: Fillable at [facility]: Yes Insurance requirements/notes: None Copay: 0.00 Copay assistance: None Copay assistance comment: Pharmacy staff will be reaching out to the patient to inform them of their medication[facility]. If applicable, a pharmacist will speak with the patient to offer our specialty pharmacy services and to arrange delivery of their medication. Janet Hatfield CPHT 10/17/23 3:51 PM documented in this encounter Plan of Treatment Upcoming Encounters Date Type Department Care Team (Late st Contact Info) Description 01/05/2024 10:00 AM EST Office Visit Hematology/Oncology at [address] [phone] Alex Holliday MD [facility] [place] [address] Agnes Jose [address] HEMATOLOGY AND ONCOLOGY [place], [place] [address] Colon cancer metastasized to liver 01/05/2024 10:30 AM EST Infusion Hematology Oncology at [address] [phone] Arrived documented as of this encounter Visit Diagnoses Not on filedocumented in this encounter Care Teams Car Attendant Relationship Specialty Start Date End Date None None PCP - General 01/20/10 documented as of this encounter
--- OUTSIDE RECORDS SUMMARY | 2024-01-05 09:58 | XMS_ITS | Encounter Summary ---
Author Organization [facility] [place] [address] Care Team Providers Care Senior It Architect Name Role Phone None Primary Care Provider Unavailabl e Encounter Details Date Type Department Care Team (Late st Contact Info) Description 09/19/2023 Ancillary Procedure Radiology Library at [facility] [place] [address] Antony Blanco MD [address] [place] [address] [place] [address] Social History Tobacco Use Types Packs/Day Years [...] AM EST Office Visit Hematology/Oncology at [address] [phone] Alex Charles MD [facility] [place] [address] Agnes Jose APRN [address] [place] [address] DR [place] [address] Colon cancer metastasized to liver 01/05/2024 10:30 AM EST Infusion Hematology Oncology at [address] [phone] Arrived documented as of this encounter Procedures Procedure Name Priority Date/Time Associated Diagnosis Comments FILM LIBRARY STORAGE ONLY CT CHEST Routine 09/19/2023 12:00 AM EDT documented in this encounter Results * Film Library- Storage Only CT Chest (09/19/2023 12:00 AM EDT) Narrative PRISCILLA RODAS - 10/07/2023 3:39 PM EDT This exam is auto-finalizing. It's purpose is for storage only. Antony Blanco MD [facility] FILM LIBRARY ORD ERABLES Performing Organization Address City/State/[facility] Co de Phone Number [place], [place] documented in this encounter Visit Diagnoses Not on filedocumented in this encounter Care Teams Senior It Architect Relationship Specialty Start Date End Date None None PCP - General 01/20/10 documented as of this encounter
--- OUTSIDE RECORDS SUMMARY | 2024-01-05 09:58 | XMS_ITS | Encounter Summary ---
[place] [address] Care Team Providers Care Highway Research Engineer Name Role Phone None Primary Care Provider Unavailabl e Encounter Details Date Type Department Care Team (Latest Contact Info) Description 10/20/2023 Specialty [place] [address] Godfrey Noguera, [facility] Initial Clinical Assessment/Patient Education (capecitabine) for HemOnc Social History Tobacco Use Types Packs/Day Years Used Date Smoking Tobacco: Former Cigarettes 2 25 Alcohol Use Standard Drinks/Week Comments Yes 21 (1 standard drink = 0.6 oz pu re alcohol) Sex and Gender Information Value Date Recorded Sex Assigned at Not on file Gender Identity Not on file Sexual Orientation Not on file documented as of this encounter Progress Notes * Godfrey Noguera [place] - 10/20/2023 10:03 AM EDT Specialty Pharmacy Ongoing Clinical Assessment Note Comprehensive Medication Management (CMM) Bart Hathaway is a 83 y.o. (1940) male, who is being followed by [facility] Capecitabine. A review of the medication therapy was performed. The medication was filled as scheduled, and all medication related questions and concerns were addressed. The specialty pharmacy staff will follow up with the patient 5-7 days prior to next refill. Problems Linked to Specialty Episode(s) Colon cancer metastasized to liver Therapy Start Date: To be determined Summary and Recommendations: Initial consultation and assessment completed with Bart regarding his new capecitabine therapy which is being used concomitantly with oxaliplatin infusions (CAPOX). We reviewed the label and how he will take three 500mg tablets (1500mg) by mouth twice a day with meals, for 14 days followed by 7 days off. I recommended the doses by 10-12 hours if possible. I also suggested making a calendar because of the 2 week on / 1 week off schedule. Bart knows not to start the capecitabine until he speaks with the clinic after he receives it. We reviewed the warnings and precautions (hepatic toxicity, renal toxicity re: dehydration risk, DPYD testing, avoiding PPIs) as well as more common side effects such as edema, hand-foot syndrome, potential cardiovascular toxicity or BP increase, hematologic toxicity (anemia, neutropenia, thrombocytopenia), cough, infection, eye irritation, and gastrointestinal toxicity such as diarrhea, N/V, mouth sores. Bart has a couple of baseline risks to consider. He uses antihypertensive therapy and his BP is controlled but he will monitor for any increase. His recent creatinine clearance is estimated at 54ml/min, near the threshold for a dose reduction of capecitabine (dosing was reduced for starting dose) and he uses ibuprofen 600mg 3-4 times a day for severe OA pain which may be impacting his kidneys at baseline. I stressed the importance of staying hydrated and reporting any diarrhea to prevent complications from dehydration. Lastly he uses both ibuprofen and Eliquis, so we reviewed the potential for bruising and bleeding in the event that his platelets drop d/t chemotherapy. A recent lab showed his platelets in normal range, and he will have labs drawn regularly during his cycles. Clinic staff is aware of this risk. We reviewed his allergy list and reconciled his medication list, noting several changes. No drug interactions were identified other than the potential impact of his anti-platelet therapies overlapping with any bone marrowtoxicity on platelet count. Bart did not rate his quality of life numerically but expressed satisfaction that he can still use a chainsaw and chop wood for his wood stove. He has no pain to report aslong as he can use the ibuprofen. His goal is to live an additional year or year and a half. Bart prefers to knot picker cloth his capecitabine at this time, so we will fill it at [facility]. Lastly we reviewed safe handling, storage, and home safety in general. Is patient willing to proceed with Clinical Assessment?: Yes Clinic follow-up needed: Yes Comments: Bart will have labs, infusions, and cycles coordinated with the capecitabine Pharmacist follow-up needed: Yes Comments: will follow-up at one-month point Allergies and Drug intolerance: Allergies Allergen Reactions Grass Pollen nasal congestion Tree And Shrub Pollen nasal congestion Problem List: Patient Active Problem List Diagnosis Code Hypertension I10 Elevated cholesterol E78.00 Radiculopathy of lumbar region M54.16 Colon cancer metastasized to liver C18.9, C78.7 Medication List: Current Outpatient Medications Medication Sig Note Dispense Refill ibuprofen (Advil) 200 mg tablet Take 600 mg by mouth every 6 hours as needed for Pain. Indications:joint damage causing pain and loss of function apixaban (Eliquis) 2.5 mg tablet Take 2.5 mg by mouth. multivitamin with minerals (MULTIVITAMIN AND MINERALS ORAL) Take by mouth. potassium chloride ER (Klor-Con M) 20 mEq ER micro-encapsulated crystal tablet Take 20 mEq by mouth2 times daily. b complex vitamins Capsule Take by mouth. atorvastatin (Lipitor) 10 mg tablet Take 10 mg by mouth. cholecalciferoL, Vitamin D3, (Vitamin D3) 50 mcg (2,000 unit) tablet Take 50 mcg by mouth. metoprolol succinate XL (Toprol-XL) 100 mg ER 24 hr tablet Take 100 mg by mouth. NIFEdipine (Adalat CC) 60 mg ER tablet Take 60 mg by mouth. hydroCHLOROthiazide (Esidrix) 50 mg tablet Take 50 mg by mouth daily. fexofenadine-pseudoephedrine (Saniya-D 12 Hour) 60-120 mg Tablet Sustained Release 12 hr Take by mouth Daily @ 0600. 10/20/2023: Rarely used MV,Ca,Keh-Vhmr-TH-Lycopene 8 mg iron- 200 mcg-600 mcg Tablet Take 1 tablet by mouth Daily @ 0600. 10/20/2023: Not taking docusate sodium (Colace) 100 mg capsule Take 100 mg by mouth. 10/20/2023: As needed CAPEcitabine (Xeloda) 500 mg tablet Take 3 tablets (1,500 mg) by mouth 2 times daily. Take within 30 minutes after eating. Call clinic before/prior to starting medication/script. Take twice a day for14 days followed by 7 days off 84 tablet 5 thiamine 100 mg Tablet Take 1 tablet by mouth daily. (Patient not taking: Reported on 10/20/2023) 10/20/2023: Not taking 90 tablet 6 lisinopril (PRINIVIL;ZESTRIL) 10 mg Tablet Take 10 mg by mouth daily. 10/20/2023: Not taking simvastatin (ZOCOR) 10 mg Tablet Take 10 mg by mouth nightly. 10/20/2023: Not taking No current facility-administered medications for this visit. Medication reconciliation discrepancies (compared to [facility] med list): Yes Medication Reconciliation Discrepancies: Marked the following as not used: MVI w lycopene and iron,simvastatin, lisinopril. Marked the following as not needed recently: docusate, Saniya D Special dietary or hydration requirements: Yes Comments: capecitabine should be taken with food Specialty Assessment and Patient Counseling: Specialty Assessment completed: Yes Delivery method: Pickup Welcome Packet and Rights and Responsibilities: Patient provided welcome packet/rights and responsibilities: Yes Patient Counseling Completed: Yes Reviewed in detail with patient: Dose appropriateness based on recommended standard dosing Current medication list including OTC medications Medication and disease problems Allergies Comorbid conditions/ Problem List Past adverse events if any Special needs of the patient including physical and cognitive limitations Goals of therapy and management strategies Warnings, precautions, and contraindications Side effects Drug-drug and drug-food interactions Administration instructions including dose, frequency and method Handling, storage, and disposal Verifying expiration dates on products before use Rotating medication inventory to use oldest product first Relevant lab data Treatments impact on disease Dose appropriateness based on recommended standard dosing schedule, including any variations from FDA approved dosing Disease-Specific Assessment and Outcomes: 10/20/2023 Hem/Onc Current therapy Capecitabine Condition colon cancer, metastatic BSA 2.27 Were relevant labs reviewed by the pharmacist? Yes Has the patient been prescribed infection prophylaxis? N/A Has the patient been prescribed TLS prophylaxis? N/A If the patient is experiencing a side effect, is the associated adjunct medication supplied/ordered? No Reviewed with patient pertienent risk factors cross referencing past medical history, history of present illness Yes Patient's goals: Goals/Expected Outcomes Reviewed: Yes Goals Addressed This Visit's Progress Patient's specific desired goal: Goal(s): Live an additional year to year and a half Measured by: survival Time-frame: to be tracked by pharmacy annually Therapy Assessment and Recommendations: Therapy Assessment: Appropriate Therapy: Yes Patient Problems/Needs: recently diagnosed colon cancer, metastatic to liver On a scale of 1-10, what is the patient's overall confidence in administering this medication(s)?: 9-10 Care Plan reviewed and approved by both pharmacist and patient: Yes Did care plan change?: No Medication Therapy Recommendations No medication therapy recommendations to display This is a: New-Start Consult Godfrey Noguera RPH 10/20/23 11:16 AM documented in this encounter Plan of Treatment Upcoming Encounters Date Type Department Care Team (Late st Contact Info) Description 01/05/2024 10:00 AM EST Office Visit Hematology/Oncology at [address] [phone] Alex Charles MD [facility] [place] [address] Agnes Jose [address] HEMATOLOGY AND ONCOLOGY [place], [place] [id number] Colon cancer metastasized to liver 01/05/2024 10:30 AM EST Infusion Hematology Oncology at [address] [phone] Arrived documented as of this encounter Goals Goal Patient Goal Type Associated Problems Recent Progress Patient-Stated? Author Patient's specific desired goal: Patient Facing Action Plan No Godfrey Noguera RPH Note: Goal(s): Live an additional year to year and a half Measured by: survival Time-frame: to be tracked by pharmacy annually documented as of this encounter Visit Diagnoses Diagnosis Colon cancer metastasized to liver Malignant neoplasm of colon, unspecified site Colon cancer metastasized to liver Malignant neoplasm of colon, unspecified site documented in this encounter Care Teams Highway Research Engineer Relationship Specialty Start Date End Date None None PCP - General 01/20/10 documented as of this encounter
--- OUTSIDE RECORDS SUMMARY | 2024-01-05 09:58 | XMS_ITS | Encounter Summary ---
Author Organization [facility] [place] [address] Care Team Providers Care Carbon Paper Coating Machine Setter Name Role Phone None Primary Care Provider Unavailabl e Encounter Details Date Type Department Care Team (Late Contact Info) Description 10/20/2023 Orders Only [place]ematology [place] [address] Alex Charles MD [facility] [address] Colon cancer metastasized to liver Social History [...] AM EST Office Visit Hematology/Oncology at [address] [phone] Alex Charles MD [facility] [place] [address] Agnes Jose APRN [address] [place] [address] DR [place] [address] Colon cancer metastasized to liver 01/05/2024 10:30 AM EST Infusion Hematology Oncology at [address] [phone] Arrived documented as of this encounter Goals Goal Patient Goal Type Associated Problems Recent Progress Patient-Stated? Author Patient's specific desired goal: Patient Facing Action Plan Godfrey Najera, [facility] Note: Goal(s): Live an additional year to year and a half Measured by: survival Time-frame: to be tracked by pharmacy annually documented as of this encounter Visit Diagnoses Diagnosis Colon cancer metastasized to liver Malignant neoplasm of colon, unspecified site Colon cancer metastasized to liver Malignant neoplasm of colon, unspecified site documented in this encounter Care Teams Carbon Paper Coating Machine Setter Relationship Specialty Start Date End Date None None PCP - General 01/20/10 documented as of this encounter
--- OUTSIDE RECORDS SUMMARY | 2024-01-05 09:58 | XMS_ITS | Encounter Summary ---
Author Organization [facility] [place] [address] Care Team Providers Care Yarn Spinner Name Role Phone None Primary Care Provider Unavailabl e Reason for Visit * Reason Onset Date Comments Pre Procedure Call 08/04/2020 Encounter Details Date Type Department Care Team (Late Contact Info) Description 08/04/2020 Telephone Pain Management at [facility] [address] [facility] [place] [address] Ashley Baker RN Pre Procedure Call Social History Tobacco Use [...] encounter Miscellaneous Notes * Telephone Encounter - Ashley Baker RN - 08/04/2020 1:43 PM EDT Patient did not answer, message left to return call. documented in this encounter Plan of Treatment Upcoming Encounters Date Type Department Care Team (Late Contact Info) Description 01/05/2024 10:00 AM EST Office Visit Hematology/Oncology at [address] [phone] Alex Charles MD [facility] [place] [address] Agnes Jose APRN [address] [place] [address] DR [place] [address] Colon cancer metastasized to liver 01/05/2024 10:30 AM EST Infusion Hematology Oncology at [address] [phone] Arrived documented as of this encounter Visit Diagnoses Not on filedocumented in this encounter Care Teams Yarn Spinner Relationship Specialty Start Date End Date None None PCP - General 01/20/10 documented as of this encounter
--- OUTSIDE RECORDS SUMMARY | 2024-01-05 09:58 | XMS_ITS | Encounter Summary ---
Author Organization [facility] [place] [address] Care Team Providers Care Watch Train Assembler Name Role Phone None Primary Care Provider Unavailabl e Encounter Details Date Type Department Care Team (Late Contact Info) Description 10/26/2023 Orders Only Hematology [place] [phone] Alex Charles MD [facility] [place] [address] Social History Tobacco Use Types Packs/Day Years [...] 10:00 AM EST Office Visit Hematology/Oncology at [address] [phone] Alex Charles MD [facility] [place] [address] Agnes Jose APRN [address] [place] [address] DR HEMATOLOGY [place] [address] Colon cancer metastasized to liver 01/05/2024 10:30 AM EST Infusion Hematology Oncology at [address] [phone] Arrived documented as of this encounter Goals Goal Patient Goal Type Associated Problems Recent Progress Patient-Stated? Author Patient's specific desired goal: Patient Facing Action Plan No Godfrey Noguera, [facility] Note: Goal(s): Live an additional year to year and a half Measured by: survival Time-frame: to be tracked by pharmacy annually documented as of this encounter Visit Diagnoses Not on filedocumented in this encounter Care Teams Watch Train Assembler Relationship Specialty Start Date End Date None None PCP - General 01/20/10 documented as of this encounter
--- OUTSIDE RECORDS SUMMARY | 2024-01-05 09:58 | XMS_ITS | Encounter Summary ---
Author Organization [facility] [place] [address] Care Team Providers Care Director Of Development And Marketing Name Role Phone None Primary Care Provider Unavailabl e Encounter Details Date Type Department Care Team (Late st Contact Info) Description 11/11/2023 Telephone Hematology [place] [phone] Flor Dotson RN Social History Tobacco Use Types Packs/Day [...] encounter Miscellaneous Notes * Telephone Encounter - Flor Dotson RN - 11/11/2023 10:44 AM EDT Message receive from [place]: [phone] - patient called - has had a bad itchy rash for the last week - keeps getting worse - not sure what to take - started on his face, has spread to arms andbody T/C to patient: Patient is on Capecitabine 500 mg and he took his last dose this morning. Pt is at risk for Socrates's Geronimo. Call placed to patient who reported pain on his right shoulder but [facility]. Patient reported itching, facial swelling and pain to touch on his head neck and face. Rash startedcouple days ago. Patient is afebrile and his temperature this morning was 97.8. He denied exposure to sun, rash on his hands/feet, shortness of breath, headache, nausea, vomiting,constipation and diarrhea. Patient notified that triage nurse would f/u with provider & get back to him. Patient agreed w/plan and message sent to Dr Charles and Nean Man. Per GEORGINA Barrett:I think for safety sake he should go to ED, Emerson Melton is a risk T/C to patient: Call placed to Bart who was notified of above message from GEORGINA Barrett and he denied to go to ER for further evaluation. This nurse discussed risk for Emerson Melton with patient and emphasized needs to go to ER for further evaluation. Patient would like to wait until tomorrow and he will go to ER if symptoms are getting worse. This nurse advised patient to call 911 if he start having difficulty breathing or any new or worsening symptoms. Patient agreed w/plan and he is scheduled to see Dr Charles on 11/14. Nursing to call patient on Tuesday to reassess patient's symptoms. Per GEORGINA Barrett:Okay, at least he was advised. He can use topical hydrocortisone and topical benadryl in the meantime Bart notified and agreed w/plan. documented in this encounter Plan of Treatment Upcoming Encounters Date Type Department Care Team (Late st Contact Info) Description 01/05/2024 10:00 AM EST Office Visit Hematology/Oncology at [address] [phone] Alex Charles MD [facility] [place] [address] Agnes Jose APRN [address] [place] [address] DR HEMATOLOGY AND ONCOLOGY [place], [place] [id number] Colon cancer metastasized to liver 01/05/2024 10:30 AM EST Infusion Hematology Oncology at [address] [phone] Arrived documented as of this encounter Goals Goal Patient Goal Type Associated Problems Recent Progress Patient-Stated? Author Patient's specific desired goal: Patient Facing Action Plan No Godfrey Noguera, [facility] Note: Goal(s): Live an additional year to year and a half Measured by: survival Time-frame: to be tracked by pharmacy annually documented as of this encounter Visit Diagnoses Not on filedocumented in this encounter Care Teams Director Of Development And Marketing Relationship Specialty Start Date End Date None None PCP - General 01/20/10 documented as of this encounter
--- OUTSIDE RECORDS SUMMARY | 2024-01-05 09:58 | XMS_ITS | Encounter Summary ---
Author Organization [facility] [place] [address] Care Team Providers Care Fixing Carpenter Name Role Phone None Primary Care Provider Unavailabl e Encounter Details Date Type Department Care Team (Late st Contact Info) Description 09/22/2020 10:00 AM EDT - 09/22/2020 11:00 AM EDT Surgery Pain Management at [facility] [place] [place] [phone] Alfonso Ken MD [facility] [place] [address] INJECTION, EPIDURAL, LUMBAR OR SACRAL (CAUDAL), WITH IMAGING GUIDANCE (WRVU 1.8) Social History Tobacco Use Types Packs/Day Years [...] Craig RN - 09/22/2020 10:26 AM EDT [facility] Pain Management Discharge Instructions: You were seen today by: Surgeon(s): Alfonso Ken MD The following was performed: Procedure(s) (LRB): INJECTION, EPIDURAL, LUMBAR OR SACRAL (CAUDAL), WITH IMAGING GUIDANCE (VU 1.8) (N/A) It is normal that the injection site will be sore for up to 48 hours. {CHECK BOX SELECTION:39903} You may also experience mild stiffness in the joint near the injection site. You may resume your normal activities: {Time; today/tomorrow:80841}. You may shower today. DO NOT tub [...] 4-6 hours after your procedure. {CHECK BOX SELECTION:20001} If you have diabetes, monitor your blood sugars frequently. If your blood sugar increases and is of concern, contact your Primary Care Provider. You received the following medications: Medications Given During Procedure Date/Time Order Dose Route Action {\field{\*\fldinst HYPERLINK ecmd:ord?cm=[id number]}{\fldrslt \18 09/22/2020 1024}} dexamethasone(PF) (Decadron) (10 mg/mL) injection 15 mg Intra-articular Given {\field{\*\fldinst HYPERLINK ecmd:ord?ir=[id number]}{\fldrslt \18 09/22/2020 1025}} iohexoL (Omnipaque) (240 mg/mL) injection solution 2 mL Intra-articular Given {\field{\*\fldinst HYPERLINK ecmd:ord?kp=[id number]}{\fldrslt \18 09/22/2020 1025}} lidocaine (pf) (Xylocaine) (10 [...] Operative Note Patient Name: Bart Hathaway : [id number] MR#: [id number] Case Date: 09/22/2020 Surgeon: Surgeon(s) and Role: [...] epidural steroid injection by Josh Pérez MD [address] [place], [place] [id number]. The patient complains of low back pain [...] Alfonso Ken MD CC: Josh Pérez MD [address] [place] [id number] documented in this encounter Plan of Treatment Upcoming Encounters Date Type Department Care Team (Late Contact Info) Description 01/05/2024 10:00 AM EST Office Visit Hematology/Oncology at [address] [phone] Alex Charles MD [facility] [place] [address] Agnes Jose APRN [address] [place] [address] DR HEMATOLOGY AND ONCOLOGY [place], [place] [id number] Colon cancer metastasized to liver 01/05/2024 10:30 AM EST Infusion Hematology Oncology at [address] [phone] Arrived documented as of this encounter Procedures Procedure Name Priority Date/Time Associated Diagnosis Comments FILM LIBRARY - STORAGE ONLY PAIN CLINIC XR APD ONLY Routine 09/22/2020 10:32 AM EDT documented in this encounter Results * Film Library-Storage Only Pain Clinic XR APD Only (09/22/2020 10:32 AM EDT) Narrative [facility] - 09/22/2020 10:32 AM EDT See PACS for result report. Alfonso Ken MD IMG DX ORDERABLES Performing Organization Address City/State/[facility] Co de Phone Number [place], [place] documented in this encounter Visit Diagnoses Diagnosis Radiculopathy of lumbar region- Primary Thoracic or lumbosacral neuritis or radiculitis, unspecified Low back pain, unspecified back pain laterality, unspecified chronicity, unspecified whether sciatica present Colon cancer metastasized to liver Malignant neoplasm of colon, unspecified site documented in this encounter Administered Medications Inactive Administered Medications - up to 3 most recent administrations Medication Order MAR Action Action Date Dose Rate Site dexamethasone (PF) (Decadron) (10 mg/mL) injection ONCE PRN, Starting on Tue09/22/20 at 1024, Until Tue09/22/20 at 1228, Intra-Operative (Intra-Procedure), Routine Given 09/22/2020 10:24 AM EDT 15 mg iohexoL (Omnipaque) (240 mg/mL) injection solution ONCE PRN, Starting on Tue09/22/20 at 1025, Until Tue09/22/20 at 1228, Intra-Operative (Intra-Procedure), Routine Given 09/22/2020 10:25 AM EDT 2 mLs lidocaine (pf) (Xylocaine) (10 mg/mL) 1% injection ONCE PRN, Starting on Tue09/22/20 at 1025, Until Tue09/22/20 at 1228, Intra-Operative (Intra-Procedure), Routine Given 09/22/2020 10:25 AM EDT 2 mLs documented in this encounter Active and Recently [...] MD) documented in this encounter Care Teams Fixing Carpenter Relationship Specialty Start Date End Date None None PCP - General 01/20/10 documented as of this encounter
--- OUTSIDE RECORDS SUMMARY | 2024-01-05 09:58 | XMS_ITS | Encounter Summary ---
Author Organization [facility] [address] Care Team Providers Care Manager Of Program Name Role Phone None Primary Care Provider Unavailabl e Encounter Details Date Type Department Care Team (Late st Contact Info) Description 07/10/2020 Notes Only Pain Management at [facility] [address] [facility] [place] [phone] Maciej Peterson Social History Tobacco Use Types Packs/Day Years Used Date Smoking Tobacco: Former Cigarettes 2 25 Alcohol Use Standard Drinks/Week Comments Yes 21 (1 standard drink = 0.6 oz pu re alcohol) Sex and Gender Information Value Date Recorded Sex Assigned at Not on file Gender Identity Not on file Sexual Orientation Not on file documented as of this encounter Progress Notes * Maciej Peterson - 07/10/2020 3:15 PM EDT Patient name: Bart Hathaway : 1940 Scheduled date/time: 09/22/20 @ 945/1000 Procedure: LESI @ L2-3 Diagnoses: LOW BACK PAIN ICD 10:M54.5 Length of Procedure: []30 minutes [x]45 minutes[] 60 minutes [] 90 minutes Date of last MRI/CT: 01/17/20 (MRI/CT required prior to the following procedures: Blood Patch, Caudal Epidural, SEVERINO, LESI, TESI,TFESI) Entered referral [x] Confirmed that patient will have party bus driver that will stay with them during the procedure? Yes [x] No [] Does the patient currently have any skin openings, cuts or rashes? Yes [] No [x] For females under the age of 50 who are not post hysterectomy or menopause -Verbal statement of non- [] N/A [x] Has the patient had a Covid-19 vaccine [...] for further instructions) No [x] (Proceed with scheduling) On metformin or other diabetic medication? no On antibiotics? no On anticoagulants? no On NSAIDs? yes On any natural or nutritional vitamins or supplements? Yes [x] (Discontinue 7 days prior) No [] Anticoagulant Medication Therapy Protocol Guide for Procedures: [...] Guide for Procedures - (Guidelines from the [place] [employer]est[employer]) Lower Risk Procedures - Do not stop Anticoagulants OR NSAIDS Bursa Injections Peripheral joint and musculoskeletal injection [...] Block Peripheral Nerve Stimulation trial and Implant Pudendal Nerve Block Pocket revision and IPG/ITT replacement SCS Trial and Implant Sympathetic Block (stellate, thoracic, splanchnic, celiac, lumbar, hypogastric) Trigeminal Nerve Block documented in this encounter Plan of Treatment Upcoming Encounters Date Type Department Care Team (Late st Contact Info) Description 01/05/2024 10:00 AM EST Office Visit Hematology/Oncology at [address] [phone] Alex Charles MD [facility] [place] [address] Agnes Jose APRN [address] [place] [address] DR HEMATOLOGY [place] [address] Colon cancer metastasized to liver 01/05/2024 10:30 AM EST Infusion Hematology Oncology at [address] [phone] Arrived documented as of this encounter Visit Diagnoses Not on filedocumented in this encounter Care Teams Manager Of Program Relationship Specialty Start Date End Date None None PCP - General 01/20/10 documented as of this encounter
--- OUTSIDE RECORDS SUMMARY | 2024-01-05 09:58 | XMS_ITS | Encounter Summary ---
[place] [address] Care Team Providers Care Retoucher Name Role Phone None Primary Care Provider Unavailabl e Encounter Details Date Type Department Care Team (Late st Contact Info) Description 09/19/2023 External [place] [phone] Social History Tobacco Use Types Packs/Day Years [...] 10:00 AM EST Office Visit Hematology/Oncology at [address] [phone] Alex Charles MD [facility] [place] [place] [address] Agnes Jose APRN [address] [place] [address] DR HEMATOLOGY AND ONCOLOGY [place], [place] [id number] Colon cancer metastasized to liver 01/05/2024 10:30 AM EST Infusion Hematology Oncology at [address] [phone] Arrived documented as of this encounter Procedures Procedure Name Priority Date/Time Associated Diagnosis Comments SURGICAL PATHOLOGY SCAN Routine 09/19/2023 7:44 AM EDT documented in this encounter Results * Scan Doc: Surgical Pathology (09/19/2023 7:44 AM EDT) Historical Provider MD MCCORMICK MGR SCAN EX T ORDR/RSLT documented in this encounter Visit Diagnoses Not on filedocumented in this encounter Care Teams Retoucher Relationship Specialty Start Date End Date None None PCP - General 01/20/10 documented as of this encounter
--- OUTSIDE RECORDS SUMMARY | 2024-01-05 09:58 | XMS_ITS | Encounter Summary ---
Author Organization [facility] [place] [address] Care Team Providers Care Rope Cutter Name Role Phone None Primary Care Provider Unavailabl e Reason for Visit * Reason Comments Establish Care * Consultation (Routine) - Closed Specialty Diagnoses / Procedures Referred By Contac t Referred To Contact Hematology and Oncology Diagnoses Metastatic colon cancer to liver Self [facility] [address] [place] [address] Referral ID Status Reason Start Date Expiration Date Visits Re quested Visits Authorized [id number] Closed 09/09/2023 09/08/2024 1 1 Encounter Details Date Type Department Care Team (Late st Contact Info) Description 10/12/2023 2:45 PM EDT Office Visit Hematology [place] [phone] Alex Charles MD [facility] [place] [address] Colon cancer metastasized to liver Social History [...] Sign Reading Time Taken Comments Blood Pressure 146/86 10/12/2023 2:45 PM EDT Has not taken BP meds in two days due to medications being accidentially sent to [place] Pulse - - Temperature 36.4 ??C (97.5 ??F) 10/12/2023 2 :45 PM EDT Respiratory Rate 18 10/12/2023 2:45 PM EDT Oxygen Saturation 95% 10/12/2023 2:4 5 PM EDT Inhaled Oxygen Concentration - - Weight 100.5 kg (221 lb 9 oz) 10/12/2023 2:45 PM EDT Height 185 cm (6' 0.84) 10/12/2023 2:4 5 PM EDT Body Mass Index 29.36 10/12/2023 2:45 PM EDT documented in this encounter Progress Notes * Emiliano Rooney MD - 10/12/2023 2:45 PM EDT Subjective Patient ID: Bart Hathaway [...] - refer to outside case labelled as [id number] Pathologic Stage Classification (pTNM, AJCC 8th Edition) [...] colon cancer. The history is summarized above. Bart is accompanied to clinic today via phone by a friend, [place] Packer (currently in [place]). He explains that all of the oncologists are pushing me on chemo. He has reserves about chemo because he had previous wives who while on chemo for lung and He states that he is maintaining places in [place], [place], and [place]. He divides his time equally between all He feels overall well. I do everything. 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 Stool output is consistent and without blood. He does have an injured R shoulder and has had some tingling in his right hand as a result since June. Other medical issues of HTN and afib are well-controlled on his current medications. Soc Hx: Has homes in [place], [place], and [place]. 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 Fam [...] Vitals for the past 24 hrs: Temp Resp BP SpO2 10/12/23 1445 36.4 ??C (97.5 ??F) 18 146/86 95 % Physical Exam Vitals reviewed. Constitutional: General: He [...] discussed with Dr. Krishnan at [facility] whorecommended Folfox/avastin, and with Dr. Monroy at [facility] who discussed options of FOLFOX plus Avastin, [...] ablation, we will hold off on bevacizumab. Plan to RTC in 2 weeks with infusion (oxaliplatin), labs, and provider visit. Patient was seen and discussed with Dr. Charles. Emiliano Rooney MD Hematology/Oncology Fellow Mr. Hathaway was seen and discussed with Dr. Rooney. I independently reviewed the chart and images and was present for the yanez decision making portions of the visit. I agree with the history, exam and plan as discussed above. documented in this encounter Plan of Treatment Upcoming Encounters Date Type Department Care Team (Late st Contact Info) Description 01/05/2024 10:00 AM EST Office Visit Hematology/Oncology at [address] [phone] Alex Charles MD [facility] [place] [address] Agnes Jose APRN [address] [place] [address] DR HEMATOLOGY AND ONCOLOGY [place], [place] [phone] Colon cancer metastasized to liver 01/05/2024 10:30 AM EST Infusion Hematology Oncology at [address] [phone] Arrived documented as of this encounter Visit Diagnoses Diagnosis Colon cancer metastasized to liver Malignant neoplasm of colon, unspecified site Colon cancer metastasized to liver Malignant neoplasm of colon, unspecified site documented in this encounter Care Teams Rope Cutter Relationship Specialty Start Date End Date None None PCP - General 01/20/10 documented as of this encounter
== END 2024-01-05 09:45 | disposition home or self-care (01) ==
LOC: LBO 09:46
PROVIDERS: PCP Internal Medicine Hematology & Oncology; Visit Provider Internal Medicine Hematology & Oncology
DX: C18.9 Malignant neoplasm of colon, unspecified (principal); C78.7 Secondary malignant neoplasm of liver and intrahepatic bile duct
CPT/HCPCS: 36415; 80053; 82378; 85025

== ENCOUNTER 2024-01-24 02:37 | Outpatient (CLI) | payer MEDICARE, OTHER, SELFPAY ==
[2024-01-24 09:42] LABS: Abs Immature Grans 0.02 10^3/uL (0.0-0.06); Absolute Basophil Count 0.03 10^3/uL (0.0-0.2); Absolute Eosinophil Count 0.14 10^3/uL (0.0-0.7); Absolute Lymphocyte Count 1.06 10^3/uL (1.2-3.4); Absolute Monocyte Count 0.77 10^3/uL (0.1-0.8); Basophils % 0.7 %; Eosinophils % 3.1 %; HCT 38.5 % (40.0-50.0); HGB 12.5 g/dL (13.5-17.5); Immature Grans % 0.4 %; Lymphocytes % 23.5 %; MCH 29.3 pg (27.0-33.0); MCHC 32.5 % (32.0-36.0); MCV 90 fL (80-95); MPV 7.6 fL (8.0-11.0); Neutrophils % 55.3 %; Platelet Count 267 10^3/uL (130-400); RBC 4.26 10^6/uL (4.36-5.78); RDW 16.5 % (11.8-14.1); RDW-SD 54.6 fL; WBC 4.52 10^3/uL (4.4-10.8)
[2024-01-24 10:08] LABS: ALT 27 U/L (16-63); AST 19 U/L (15-37); Albumin 3.5 g/dL (3.4-5.0); Alkaline Phosphatase 81 U/L (46-116); Anion Gap 7.7 mmol/L (3-11); BUN 22 mg/dL (7-18); Bilirubin, Total 0.39 mg/dL (0.2-1.0); CO2 28.3 mmol/L (21.0-32.0); CREATININE 1.3 mg/dL (0.70-1.30); Calcium 9.6 mg/dL (8.5-10.1); Chloride 104 mmol/L (98-107); Estimated GFR 53.84 (mL/min/1.73m2); Glucose 109 mg/dL (74-106); Potassium 3.4 mmol/L (3.5-5.1); Sodium 140 mmol/L (136-145); Total Protein 7.7 g/dL (6.4-8.2)
[2024-01-24 18:01] LABS: CEA 2.2 ng/mL (See Note)
== END 2024-01-24 02:38 | disposition home or self-care (01) ==
LOC: LBO 02:37
PROVIDERS: Visit Provider Internal Medicine Hematology & Oncology
DX: C18.9 Malignant neoplasm of colon, unspecified (principal); C78.7 Secondary malignant neoplasm of liver and intrahepatic bile duct
CPT/HCPCS: 36415; 80053; 82378; 85025

== ENCOUNTER 2024-02-09 03:17 | Outpatient (CLI) | payer MEDICARE, OTHER, SELFPAY ==
[2024-02-09 10:46] LABS: Abs Immature Grans 0.02 10^3/uL (0.0-0.06); Absolute Basophil Count 0.03 10^3/uL (0.0-0.2); Absolute Eosinophil Count 0.07 10^3/uL (0.0-0.7); Absolute Lymphocyte Count 0.76 10^3/uL (1.2-3.4); Absolute Monocyte Count 0.56 10^3/uL (0.1-0.8); Absolute Neutrophil Count 3.31 10^3/uL (1.2-6.7); Basophils % 0.6 %; Eosinophils % 1.5 %; HCT 37.7 % (40.0-50.0); HGB 12.3 g/dL (13.5-17.5); Immature Grans % 0.4 %; MCH 29.4 pg (27.0-33.0); MCHC 32.6 % (32.0-36.0); MCV 90 fL (80-95); MPV 8.4 fL (8.0-11.0); Monocytes % 11.8 %; Neutrophils % 69.7 %; Platelet Count 218 10^3/uL (130-400); RBC 4.19 10^6/uL (4.36-5.78); RDW 15.7 % (11.8-14.1); RDW-SD 51.6 fL; WBC 4.75 10^3/uL (4.4-10.8)
[2024-02-09 11:14] LABS: ALT 22 U/L (16-63); AST 20 U/L (15-37); Albumin 3.3 g/dL (3.4-5.0); Alkaline Phosphatase 84 U/L (46-116); Anion Gap 11.4 mmol/L (3-11); BUN 26 mg/dL (7-18); Bilirubin, Total 0.41 mg/dL (0.2-1.0); CO2 23.6 mmol/L (21.0-32.0); CREATININE 1.6 mg/dL (0.70-1.30); Calcium 9.2 mg/dL (8.5-10.1); Chloride 110 mmol/L (98-107); Estimated GFR 41.96 (mL/min/1.73m2); Glucose 99 mg/dL (74-106); Sodium 145 mmol/L (136-145); Total Protein 7.3 g/dL (6.4-8.2)
[2024-02-09 18:53] LABS: CEA 2.4 ng/mL (See Note)
== END 2024-02-09 03:18 | disposition home or self-care (01) ==
LOC: LBO 03:17
PROVIDERS: Visit Provider Internal Medicine Hematology & Oncology
DX: C18.9 Malignant neoplasm of colon, unspecified (principal)
CPT/HCPCS: 36415; 80053; 82378; 85025

== ENCOUNTER 2024-02-23 16:13 | Outpatient (CLI) | payer MEDICARE, OTHER, SELFPAY ==
[2024-02-23 10:35] LABS: Abs Immature Grans 0.03 10^3/uL (0.0-0.06); Absolute Basophil Count 0.03 10^3/uL (0.0-0.2); Absolute Eosinophil Count 0.01 10^3/uL (0.0-0.7); Absolute Lymphocyte Count 0.87 10^3/uL (1.2-3.4); Absolute Monocyte Count 0.63 10^3/uL (0.1-0.8); Absolute Neutrophil Count 5.79 10^3/uL (1.2-6.7); Basophils % 0.4 %; Eosinophils % 0.1 %; HCT 37.5 % (40.0-50.0); HGB 12.3 g/dL (13.5-17.5); Immature Grans % 0.4 %; Lymphocytes % 11.8 %; MCH 29.4 pg (27.0-33.0); MCHC 32.8 % (32.0-36.0); MCV 90 fL (80-95); MPV 8.3 fL (8.0-11.0); Monocytes % 8.6 %; Neutrophils % 78.7 %; Platelet Count 201 10^3/uL (130-400); RBC 4.18 10^6/uL (4.36-5.78); RDW 16.1 % (11.8-14.1); WBC 7.36 10^3/uL (4.4-10.8)
[2024-02-23 10:46] LABS: ALT 17 U/L (16-63); AST 19 U/L (15-37); Albumin 3.5 g/dL (3.4-5.0); Alkaline Phosphatase 86 U/L (46-116); Anion Gap 10.9 mmol/L (3-11); BUN 15 mg/dL (7-18); Bilirubin, Total 0.62 mg/dL (0.2-1.0); CO2 26.1 mmol/L (21.0-32.0); CREATININE 1.5 mg/dL (0.70-1.30); Calcium 9.1 mg/dL (8.5-10.1); Chloride 103 mmol/L (98-107); Estimated GFR 45.34 (mL/min/1.73m2); Glucose 122 mg/dL (74-106); Potassium 3.3 mmol/L (3.5-5.1); Sodium 140 mmol/L (136-145); Total Protein 7.5 g/dL (6.4-8.2)
[2024-02-23 18:23] LABS: CEA 2.7 ng/mL (See Note)
== END 2024-02-23 16:14 | disposition home or self-care (01) ==
LOC: LBO 16:18
PROVIDERS: Visit Provider Internal Medicine Hematology & Oncology
DX: C78.7 Secondary malignant neoplasm of liver and intrahepatic bile duct (principal); C18.9 Malignant neoplasm of colon, unspecified
CPT/HCPCS: 36415; 80053; 82378; 85025

== ENCOUNTER 2024-03-08 04:46 | Outpatient (CLI) | payer MEDICARE, OTHER, SELFPAY ==
[2024-03-08 09:53] LABS: Abs Immature Grans 0.01 10^3/uL (0.0-0.06); Absolute Basophil Count 0.02 10^3/uL (0.0-0.2); Absolute Eosinophil Count 0.12 10^3/uL (0.0-0.7); Absolute Lymphocyte Count 0.66 10^3/uL (1.2-3.4); Absolute Monocyte Count 0.27 10^3/uL (0.1-0.8); Absolute Neutrophil Count 2.81 10^3/uL (1.2-6.7); Basophils % 0.5 %; Eosinophils % 3.1 %; HCT 37.9 % (40.0-50.0); HGB 12.3 g/dL (13.5-17.5); Immature Grans % 0.3 %; MCH 29.4 pg (27.0-33.0); MCHC 32.5 % (32.0-36.0); MCV 91 fL (80-95); MPV 8.2 fL (8.0-11.0); Monocytes % 6.9 %; Neutrophils % 72.2 %; Platelet Count 301 10^3/uL (130-400); RBC 4.19 10^6/uL (4.36-5.78); RDW-SD 52.9 fL; WBC 3.89 10^3/uL (4.4-10.8)
[2024-03-08 10:07] LABS: ALT 19 U/L (16-63); AST 18 U/L (15-37); Albumin 3.2 g/dL (3.4-5.0); Alkaline Phosphatase 82 U/L (46-116); Anion Gap 7.8 mmol/L (3-11); BUN 22 mg/dL (7-18); CO2 28.2 mmol/L (21.0-32.0); CREATININE 1.5 mg/dL (0.70-1.30); Chloride 111 mmol/L (98-107); Estimated GFR 45.34 (mL/min/1.73m2); Glucose 96 mg/dL (74-106); Potassium 4.2 mmol/L (3.5-5.1); Sodium 147 mmol/L (136-145); Total Protein 7.1 g/dL (6.4-8.2)
[2024-03-08 20:27] LABS: CEA 2.6 ng/mL (See Note)
== END 2024-03-08 04:47 | disposition home or self-care (01) ==
LOC: LBO 04:46
PROVIDERS: Visit Provider Internal Medicine Hematology & Oncology
DX: C18.9 Malignant neoplasm of colon, unspecified (principal); C78.7 Secondary malignant neoplasm of liver and intrahepatic bile duct
CPT/HCPCS: 36415; 80053; 82378; 85025

== ENCOUNTER 2024-03-15 01:08 | Outpatient (CLI) | payer MEDICARE, OTHER, SELFPAY ==
[2024-03-15 11:07] LABS: Abs Immature Grans 0.06 10^3/uL (0.0-0.06); Absolute Basophil Count 0.04 10^3/uL (0.0-0.2); Absolute Eosinophil Count 0.16 10^3/uL (0.0-0.7); Absolute Lymphocyte Count 1.42 10^3/uL (1.2-3.4); Absolute Monocyte Count 0.76 10^3/uL (0.1-0.8); Absolute Neutrophil Count 2.55 10^3/uL (1.2-6.7); Basophils % 0.8 %; Eosinophils % 3.2 %; HCT 36.7 % (40.0-50.0); HGB 11.8 g/dL (13.5-17.5); Immature Grans % 1.2 %; Lymphocytes % 28.5 %; MCH 29.4 pg (27.0-33.0); MCHC 32.2 % (32.0-36.0); MCV 91 fL (80-95); Monocytes % 15.2 %; Neutrophils % 51.1 %; Platelet Count 321 10^3/uL (130-400); RBC 4.02 10^6/uL (4.36-5.78); RDW 17.1 % (11.8-14.1); RDW-SD 57.6 fL; WBC 4.99 10^3/uL (4.4-10.8)
[2024-03-15 19:03] LABS: CEA 2.2 ng/mL (See Note)
== END 2024-03-15 01:09 | disposition home or self-care (01) ==
PROVIDERS: Visit Provider Nurse Practitioner Family
DX: C18.9 Malignant neoplasm of colon, unspecified (principal)
CPT/HCPCS: 36415; 80053; 82378; 85025

== ENCOUNTER 2024-03-15 21:45 | Outpatient (REF) | payer MEDICARE, OTHER, SELFPAY ==
[2024-03-15 12:49] LABS: ALT 21 U/L (16-63); AST 19 U/L (15-37); Albumin 3.3 g/dL (3.4-5.0); Alkaline Phosphatase 78 U/L (46-116); Anion Gap 5.8 mmol/L (3-11); BUN 19 mg/dL (7-18); CO2 29.2 mmol/L (21.0-32.0); CREATININE 1.3 mg/dL (0.70-1.30); Calcium 9.2 mg/dL (8.5-10.1); Chloride 110 mmol/L (98-107); Estimated GFR 53.84 (mL/min/1.73m2); Glucose 98 mg/dL (74-106); Potassium 4.8 mmol/L (3.5-5.1); Sodium 145 mmol/L (136-145); Total Protein 7.3 g/dL (6.4-8.2)
== END 2024-03-15 21:46 | disposition home or self-care (01) ==
LOC: LBN 21:45
PROVIDERS: Visit Provider Nurse Practitioner Family
DX: C18.9 Malignant neoplasm of colon, unspecified (principal); C78.7 Secondary malignant neoplasm of liver and intrahepatic bile duct
CPT/HCPCS: 80053

== ENCOUNTER 2024-03-29 08:24 | Outpatient (CLI) | payer MEDICARE, OTHER, SELFPAY ==
[2024-03-29 08:23] LABS: Abs Immature Grans 0.02 10^3/uL (0.0-0.06); Absolute Basophil Count 0.03 10^3/uL (0.0-0.2); Absolute Eosinophil Count 0.25 10^3/uL (0.0-0.7); Absolute Lymphocyte Count 1.32 10^3/uL (1.2-3.4); Absolute Monocyte Count 0.77 10^3/uL (0.1-0.8); Absolute Neutrophil Count 3.27 10^3/uL (1.2-6.7); Basophils % 0.5 %; Eosinophils % 4.4 %; HCT 37.8 % (40.0-50.0); HGB 12.5 g/dL (13.5-17.5); Immature Grans % 0.4 %; Lymphocytes % 23.3 %; MCH 29.3 pg (27.0-33.0); MCHC 33.1 % (32.0-36.0); MCV 89 fL (80-95); MPV 8.3 fL (8.0-11.0); Monocytes % 13.6 %; Neutrophils % 57.8 %; Platelet Count 232 10^3/uL (130-400); RBC 4.27 10^6/uL (4.36-5.78); RDW 17.2 % (11.8-14.1); RDW-SD 55.7 fL; WBC 5.66 10^3/uL (4.4-10.8)
[2024-03-29 08:42] LABS: ALT 58 U/L (16-63); AST 41 U/L (15-37); Albumin 3.2 g/dL (3.4-5.0); Alkaline Phosphatase 81 U/L (46-116); Anion Gap 8.2 mmol/L (3-11); BUN 19 mg/dL (7-18); Bilirubin, Total 0.35 mg/dL (0.2-1.0); CO2 27.8 mmol/L (21.0-32.0); CREATININE 1.3 mg/dL (0.70-1.30); Calcium 9.3 mg/dL (8.5-10.1); Chloride 106 mmol/L (98-107); Estimated GFR 53.84 (mL/min/1.73m2); Glucose 143 mg/dL (74-106); Potassium 3.6 mmol/L (3.5-5.1); Sodium 142 mmol/L (136-145); Total Protein 7.7 g/dL (6.4-8.2)
[2024-03-29 21:23] LABS: CEA 2.7 ng/mL (See Note)
== END 2024-03-29 08:25 | disposition home or self-care (01) ==
LOC: LBO 08:25
PROVIDERS: Visit Provider Internal Medicine Hematology & Oncology
DX: C18.9 Malignant neoplasm of colon, unspecified (principal); C78.7 Secondary malignant neoplasm of liver and intrahepatic bile duct
CPT/HCPCS: 36415; 80053; 82378; 85025

== ENCOUNTER 2024-04-10 03:28 | Outpatient (CLI) | payer MEDICARE, OTHER, SELFPAY ==
[2024-04-10 10:33] LABS: Abs Immature Grans 0.02 10^3/uL (0.0-0.06); Absolute Basophil Count 0.05 10^3/uL (0.0-0.2); Absolute Eosinophil Count 0.21 10^3/uL (0.0-0.7); Absolute Lymphocyte Count 1.08 10^3/uL (1.2-3.4); Absolute Monocyte Count 0.76 10^3/uL (0.1-0.8); Absolute Neutrophil Count 2.91 10^3/uL (1.2-6.7); Eosinophils % 4.2 %; HCT 39.2 % (40.0-50.0); HGB 12.6 g/dL (13.5-17.5); Immature Grans % 0.4 %; Lymphocytes % 21.5 %; MCH 29.1 pg (27.0-33.0); MCHC 32.1 % (32.0-36.0); MCV 91 fL (80-95); MPV 7.8 fL (8.0-11.0); Monocytes % 15.1 %; Neutrophils % 57.8 %; Platelet Count 286 10^3/uL (130-400); RBC 4.33 10^6/uL (4.36-5.78); RDW 16.3 % (11.8-14.1); RDW-SD 54.1 fL; WBC 5.03 10^3/uL (4.4-10.8)
[2024-04-10 10:52] LABS: ALT 24 U/L (16-63); AST 17 U/L (15-37); Albumin 3.4 g/dL (3.4-5.0); Alkaline Phosphatase 85 U/L (46-116); Anion Gap 9.3 mmol/L (3-11); BUN 19 mg/dL (7-18); Bilirubin, Total 0.34 mg/dL (0.2-1.0); CO2 27.7 mmol/L (21.0-32.0); CREATININE 1.3 mg/dL (0.70-1.30); Calcium 9.3 mg/dL (8.5-10.1); Chloride 107 mmol/L (98-107); Estimated GFR 53.84 (mL/min/1.73m2); Glucose 103 mg/dL (74-106); Potassium 3.6 mmol/L (3.5-5.1); Sodium 144 mmol/L (136-145); Total Protein 7.5 g/dL (6.4-8.2)
[2024-04-10 18:54] LABS: CEA 2.7 ng/mL (See Note)
== END 2024-04-10 03:29 | disposition home or self-care (01) ==
LOC: LBO 03:29
PROVIDERS: Visit Provider Internal Medicine Hematology & Oncology
DX: C18.9 Malignant neoplasm of colon, unspecified (principal); C78.7 Secondary malignant neoplasm of liver and intrahepatic bile duct
CPT/HCPCS: 36415; 80053; 82378; 85025

== ENCOUNTER 2024-04-26 10:36 | Outpatient (CLI) | payer MEDICARE, OTHER, SELFPAY ==
[2024-04-26 10:25] LABS: Abs Immature Grans 0.03 10^3/uL (0.0-0.06); Absolute Basophil Count 0.03 10^3/uL (0.0-0.2); Absolute Eosinophil Count 0.12 10^3/uL (0.0-0.7); Absolute Lymphocyte Count 1.03 10^3/uL (1.2-3.4); Absolute Monocyte Count 0.73 10^3/uL (0.1-0.8); Absolute Neutrophil Count 2.26 10^3/uL (1.2-6.7); Basophils % 0.7 %; Eosinophils % 2.9 %; HCT 38.6 % (40.0-50.0); HGB 12.5 g/dL (13.5-17.5); Immature Grans % 0.7 %; Lymphocytes % 24.5 %; MCH 29.3 pg (27.0-33.0); MCHC 32.4 % (32.0-36.0); MCV 90 fL (80-95); MPV 7.7 fL (8.0-11.0); Monocytes % 17.4 %; Neutrophils % 53.8 %; Platelet Count 230 10^3/uL (130-400); RBC 4.27 10^6/uL (4.36-5.78); RDW 16.9 % (11.8-14.1); RDW-SD 54.9 fL
[2024-04-26 10:42] LABS: ALT 28 U/L (16-63); AST 18 U/L (15-37); Albumin 3.4 g/dL (3.4-5.0); Alkaline Phosphatase 79 U/L (46-116); Anion Gap 9.3 mmol/L (3-11); BUN 24 mg/dL (7-18); Bilirubin, Total 0.39 mg/dL (0.2-1.0); CO2 26.7 mmol/L (21.0-32.0); CREATININE 1.3 mg/dL (0.70-1.30); Calcium 9.2 mg/dL (8.5-10.1); Chloride 109 mmol/L (98-107); Estimated GFR 53.84 (mL/min/1.73m2); Glucose 107 mg/dL (74-106); Potassium 3.9 mmol/L (3.5-5.1); Sodium 145 mmol/L (136-145); Total Protein 7.1 g/dL (6.4-8.2)
[2024-04-26 22:07] LABS: CEA 2.6 ng/mL (See Note)
== END 2024-04-26 10:37 | disposition home or self-care (01) ==
LOC: LBO 10:38
PROVIDERS: Visit Provider Nurse Practitioner Family
DX: C18.9 Malignant neoplasm of colon, unspecified (principal); C78.7 Secondary malignant neoplasm of liver and intrahepatic bile duct
CPT/HCPCS: 36415; 80053; 82378; 85025

== ENCOUNTER 2024-05-10 10:48 | Outpatient (CLI) | payer MEDICARE, OTHER, SELFPAY ==
[2024-05-10 09:53] LABS: Abs Immature Grans 0.05 10^3/uL (0.0-0.06); Absolute Basophil Count 0.03 10^3/uL (0.0-0.2); Absolute Eosinophil Count 0.17 10^3/uL (0.0-0.7); Absolute Lymphocyte Count 0.98 10^3/uL (1.2-3.4); Absolute Neutrophil Count 4.58 10^3/uL (1.2-6.7); Basophils % 0.4 %; Eosinophils % 2.5 %; HCT 41.6 % (40.0-50.0); HGB 13.3 g/dL (13.5-17.5); Immature Grans % 0.7 %; Lymphocytes % 14.2 %; MCH 29.6 pg (27.0-33.0); MCV 92 fL (80-95); MPV 8.5 fL (8.0-11.0); Monocytes % 15.9 %; Neutrophils % 66.3 %; Platelet Count 261 10^3/uL (130-400); RDW 16.5 % (11.8-14.1); RDW-SD 56.1 fL; WBC 6.91 10^3/uL (4.4-10.8)
[2024-05-10 10:08] LABS: ALT 44 U/L (16-63); AST 23 U/L (15-37); Albumin 3.4 g/dL (3.4-5.0); Alkaline Phosphatase 86 U/L (46-116); BUN 21 mg/dL (7-18); Bilirubin, Total 0.4 mg/dL (0.2-1.0); CREATININE 1.1 mg/dL (0.70-1.30); Calcium 9.3 mg/dL (8.5-10.1); Chloride 107 mmol/L (98-107); Estimated GFR 65.79 (mL/min/1.73m2); Glucose 117 mg/dL (74-106); Potassium 4.6 mmol/L (3.5-5.1); Sodium 145 mmol/L (136-145); Total Protein 7.7 g/dL (6.4-8.2)
[2024-05-10 17:49] LABS: CEA 1.8 ng/mL (See Note)
== END 2024-05-10 10:49 | disposition home or self-care (01) ==
LOC: LBO 10:50
PROVIDERS: Visit Provider Nurse Practitioner Family
DX: C18.9 Malignant neoplasm of colon, unspecified (principal); C78.7 Secondary malignant neoplasm of liver and intrahepatic bile duct
CPT/HCPCS: 36415; 80053; 82378; 85025

== ENCOUNTER 2024-05-17 01:31 | Outpatient (CLI) | payer MEDICARE, OTHER, SELFPAY ==
[2024-05-17 09:22] LABS: Abs Immature Grans 0.07 10^3/uL (0.0-0.06); Absolute Basophil Count 0.07 10^3/uL (0.0-0.2); Absolute Eosinophil Count 0.19 10^3/uL (0.0-0.7); Absolute Lymphocyte Count 1.15 10^3/uL (1.2-3.4); Absolute Monocyte Count 0.81 10^3/uL (0.1-0.8); Absolute Neutrophil Count 3.76 10^3/uL (1.2-6.7); Basophils % 1.2 %; Eosinophils % 3.1 %; HCT 41.8 % (40.0-50.0); HGB 13.7 g/dL (13.5-17.5); Immature Grans % 1.2 %; MCH 29.7 pg (27.0-33.0); MCHC 32.8 % (32.0-36.0); MCV 91 fL (80-95); MPV 8.2 fL (8.0-11.0); Monocytes % 13.4 %; Neutrophils % 62.1 %; Platelet Count 307 10^3/uL (130-400); RBC 4.61 10^6/uL (4.36-5.78); RDW 15.9 % (11.8-14.1); RDW-SD 52.8 fL; WBC 6.05 10^3/uL (4.4-10.8)
[2024-05-17 09:26] LABS: ALT 30 U/L (16-63); AST 20 U/L (15-37); Albumin 3.6 g/dL (3.4-5.0); Alkaline Phosphatase 92 U/L (46-116); Anion Gap 9.8 mmol/L (3-11); BUN 20 mg/dL (7-18); Bilirubin, Total 0.3 mg/dL (0.2-1.0); CO2 25.2 mmol/L (21.0-32.0); CREATININE 1.2 mg/dL (0.70-1.30); Calcium 9.4 mg/dL (8.5-10.1); Chloride 110 mmol/L (98-107); Estimated GFR 59.26 (mL/min/1.73m2); Glucose 120 mg/dL (74-106); Potassium 3.9 mmol/L (3.5-5.1); Sodium 145 mmol/L (136-145); Total Protein 7.8 g/dL (6.4-8.2)
[2024-05-17 18:54] LABS: CEA 1.9 ng/mL (See Note)
== END 2024-05-17 01:32 | disposition home or self-care (01) ==
PROVIDERS: Visit Provider Nurse Practitioner Family
DX: C18.9 Malignant neoplasm of colon, unspecified (principal); C78.7 Secondary malignant neoplasm of liver and intrahepatic bile duct
CPT/HCPCS: 36415; 80053; 82378; 85025

== ENCOUNTER 2024-05-31 03:20 | Outpatient (CLI) | payer MEDICARE, OTHER, SELFPAY ==
[2024-05-31 09:27] LABS: Abs Immature Grans 0.02 10^3/uL (0.0-0.06); Absolute Basophil Count 0.05 10^3/uL (0.0-0.2); Absolute Eosinophil Count 0.14 10^3/uL (0.0-0.7); Absolute Monocyte Count 0.63 10^3/uL (0.1-0.8); Absolute Neutrophil Count 3.39 10^3/uL (1.2-6.7); Basophils % 0.9 %; Eosinophils % 2.6 %; HCT 41.2 % (40.0-50.0); HGB 13.4 g/dL (13.5-17.5); Immature Grans % 0.4 %; Lymphocytes % 20.6 %; MCHC 32.5 % (32.0-36.0); MCV 92 fL (80-95); Monocytes % 11.8 %; Neutrophils % 63.7 %; Platelet Count 205 10^3/uL (130-400); RBC 4.47 10^6/uL (4.36-5.78); RDW 15.4 % (11.8-14.1); RDW-SD 51.8 fL; WBC 5.33 10^3/uL (4.4-10.8)
[2024-05-31 09:42] LABS: ALT 29 U/L (16-63); AST 19 U/L (15-37); Albumin 3.6 g/dL (3.4-5.0); Alkaline Phosphatase 84 U/L (46-116); Anion Gap 9.6 mmol/L (3-11); BUN 22 mg/dL (7-18); Bilirubin, Total 0.4 mg/dL (0.2-1.0); CO2 27.4 mmol/L (21.0-32.0); CREATININE 1.3 mg/dL (0.70-1.30); Calcium 9.1 mg/dL (8.5-10.1); Chloride 109 mmol/L (98-107); Estimated GFR 53.84 (mL/min/1.73m2); Glucose 90 mg/dL (74-106); Potassium 3.8 mmol/L (3.5-5.1); Sodium 146 mmol/L (136-145); Total Protein 7.4 g/dL (6.4-8.2)
[2024-05-31 18:53] LABS: CEA 2.3 ng/mL (See Note)
== END 2024-05-31 03:21 | disposition home or self-care (01) ==
PROVIDERS: Visit Provider Nurse Practitioner Family
DX: C18.9 Malignant neoplasm of colon, unspecified (principal); C78.7 Secondary malignant neoplasm of liver and intrahepatic bile duct
CPT/HCPCS: 36415; 80053; 82378; 85025

== ENCOUNTER 2024-06-14 01:02 | Outpatient (CLI) | payer MEDICARE, OTHER, SELFPAY ==
[2024-06-14 10:39] LABS: Abs Immature Grans 0.02 10^3/uL (0.0-0.06); Absolute Basophil Count 0.03 10^3/uL (0.0-0.2); Absolute Eosinophil Count 0.11 10^3/uL (0.0-0.7); Absolute Lymphocyte Count 1.03 10^3/uL (1.2-3.4); Absolute Monocyte Count 0.58 10^3/uL (0.1-0.8); Absolute Neutrophil Count 2.79 10^3/uL (1.2-6.7); Basophils % 0.7 %; Eosinophils % 2.4 %; HGB 13.4 g/dL (13.5-17.5); Immature Grans % 0.4 %; Lymphocytes % 22.6 %; MCH 30.1 pg (27.0-33.0); MCHC 32.7 % (32.0-36.0); MCV 92 fL (80-95); Monocytes % 12.7 %; Neutrophils % 61.2 %; Platelet Count 217 10^3/uL (130-400); RBC 4.45 10^6/uL (4.36-5.78); RDW 15.4 % (11.8-14.1); RDW-SD 51.8 fL; WBC 4.56 10^3/uL (4.4-10.8)
[2024-06-14 10:57] LABS: ALT 27 U/L (16-63); AST 17 U/L (15-37); Albumin 3.6 g/dL (3.4-5.0); Alkaline Phosphatase 86 U/L (46-116); Anion Gap 8.9 mmol/L (3-11); BUN 23 mg/dL (7-18); Bilirubin, Total 0.4 mg/dL (0.2-1.0); CO2 29.1 mmol/L (21.0-32.0); CREATININE 1.3 mg/dL (0.70-1.30); Calcium 9.4 mg/dL (8.5-10.1); Chloride 107 mmol/L (98-107); Estimated GFR 53.84 (mL/min/1.73m2); Glucose 70 mg/dL (74-106); Potassium 4.1 mmol/L (3.5-5.1); Sodium 145 mmol/L (136-145); Total Protein 7.3 g/dL (6.4-8.2)
[2024-06-14 17:35] LABS: CEA 2.5 ng/mL (See Note)
== END 2024-06-14 01:03 | disposition home or self-care (01) ==
LOC: LBO 01:02
PROVIDERS: Visit Provider Nurse Practitioner Family
DX: C18.9 Malignant neoplasm of colon, unspecified (principal); C78.7 Secondary malignant neoplasm of liver and intrahepatic bile duct
CPT/HCPCS: 36415; 80053; 82378; 85025

== ENCOUNTER 2024-06-28 03:52 | Outpatient (CLI) | payer MEDICARE, OTHER, SELFPAY ==
[2024-06-28 09:14] LABS: Abs Immature Grans 0.03 10^3/uL (0.0-0.06); Absolute Basophil Count 0.02 10^3/uL (0.0-0.2); Absolute Eosinophil Count 0.09 10^3/uL (0.0-0.7); Absolute Lymphocyte Count 0.91 10^3/uL (1.2-3.4); Absolute Neutrophil Count 2.67 10^3/uL (1.2-6.7); Basophils % 0.5 %; Eosinophils % 2.1 %; HCT 41.4 % (40.0-50.0); HGB 13.4 g/dL (13.5-17.5); Immature Grans % 0.7 %; Lymphocytes % 21.1 %; MCH 30.2 pg (27.0-33.0); MCHC 32.4 % (32.0-36.0); MCV 94 fL (80-95); MPV 8.1 fL (8.0-11.0); Monocytes % 13.9 %; Neutrophils % 61.7 %; Platelet Count 201 10^3/uL (130-400); RBC 4.43 10^6/uL (4.36-5.78); RDW 15.4 % (11.8-14.1); RDW-SD 53.1 fL; WBC 4.32 10^3/uL (4.4-10.8)
[2024-06-28 09:31] LABS: ALT 29 U/L (16-63); AST 16 U/L (15-37); Albumin 3.6 g/dL (3.4-5.0); Alkaline Phosphatase 82 U/L (46-116); Anion Gap 6.7 mmol/L (3-11); BUN 25 mg/dL (7-18); Bilirubin, Total 0.3 mg/dL (0.2-1.0); CO2 28.3 mmol/L (21.0-32.0); CREATININE 1.2 mg/dL (0.70-1.30); Calcium 9.3 mg/dL (8.5-10.1); Chloride 111 mmol/L (98-107); Estimated GFR 59.26 (mL/min/1.73m2); Glucose 85 mg/dL (74-106); Potassium 4.1 mmol/L (3.5-5.1); Sodium 146 mmol/L (136-145); Total Protein 7.3 g/dL (6.4-8.2)
[2024-06-28 21:30] LABS: CEA 2.5 ng/mL (See Note)
== END 2024-06-28 03:53 | disposition home or self-care (01) ==
LOC: LBO 03:53
PROVIDERS: Visit Provider Nurse Practitioner Family
DX: C18.9 Malignant neoplasm of colon, unspecified (principal); C78.7 Secondary malignant neoplasm of liver and intrahepatic bile duct
CPT/HCPCS: 36415; 80053; 82378; 85025

== ENCOUNTER 2024-07-12 09:15 | Outpatient (CLI) | payer MEDICARE, OTHER, SELFPAY ==
[2024-07-12 09:29] LABS: Abs Immature Grans 0.01 10^3/uL (0.0-0.06); Absolute Basophil Count 0.02 10^3/uL (0.0-0.2); Absolute Eosinophil Count 0.08 10^3/uL (0.0-0.7); Absolute Lymphocyte Count 0.83 10^3/uL (1.2-3.4); Absolute Monocyte Count 0.77 10^3/uL (0.1-0.8); Absolute Neutrophil Count 3.11 10^3/uL (1.2-6.7); Basophils % 0.4 %; Eosinophils % 1.7 %; HCT 39.6 % (40.0-50.0); HGB 13.3 g/dL (13.5-17.5); Immature Grans % 0.2 %; Lymphocytes % 17.2 %; MCH 30.3 pg (27.0-33.0); MCHC 33.6 % (32.0-36.0); MCV 90 fL (80-95); MPV 8.2 fL (8.0-11.0); Neutrophils % 64.5 %; Platelet Count 202 10^3/uL (130-400); RBC 4.39 10^6/uL (4.36-5.78); RDW 15.7 % (11.8-14.1); RDW-SD 51.9 fL; WBC 4.82 10^3/uL (4.4-10.8)
[2024-07-12 09:51] LABS: ALT 26 U/L (16-63); AST 20 U/L (15-37); Albumin 3.6 g/dL (3.4-5.0); Alkaline Phosphatase 78 U/L (46-116); Anion Gap 7.4 mmol/L (3-11); BUN 27 mg/dL (7-18); Bilirubin, Total 0.4 mg/dL (0.2-1.0); CO2 26.6 mmol/L (21.0-32.0); CREATININE 1.3 mg/dL (0.70-1.30); Calcium 9.3 mg/dL (8.5-10.1); Chloride 106 mmol/L (98-107); Estimated GFR 53.84 (mL/min/1.73m2); Glucose 111 mg/dL (74-106); Potassium 3.8 mmol/L (3.5-5.1); Sodium 140 mmol/L (136-145); Total Protein 7.1 g/dL (6.4-8.2)
[2024-07-12 19:17] LABS: CEA 2.5 ng/mL (See Note)
== END 2024-07-12 09:16 | disposition home or self-care (01) ==
LOC: LBO 09:15
PROVIDERS: Visit Provider Nurse Practitioner Family
DX: C18.9 Malignant neoplasm of colon, unspecified (principal); C78.7 Secondary malignant neoplasm of liver and intrahepatic bile duct
CPT/HCPCS: 36415; 80053; 82378; 85025

== ENCOUNTER 2024-08-02 09:00 | Outpatient (CLI) | payer MEDICARE, OTHER, SELFPAY ==
[2024-08-02 09:09] LABS: Abs Immature Grans 0.05 10^3/uL (0.0-0.06); Absolute Basophil Count 0.05 10^3/uL (0.0-0.2); Absolute Eosinophil Count 0.13 10^3/uL (0.0-0.7); Absolute Lymphocyte Count 1.13 10^3/uL (1.2-3.4); Absolute Monocyte Count 0.58 10^3/uL (0.1-0.8); Absolute Neutrophil Count 3.46 10^3/uL (1.2-6.7); Basophils % 0.9 %; Eosinophils % 2.4 %; HCT 43.2 % (40.0-50.0); HGB 14.5 g/dL (13.5-17.5); Immature Grans % 0.9 %; Lymphocytes % 20.9 %; MCH 30.5 pg (27.0-33.0); MCHC 33.6 % (32.0-36.0); MCV 91 fL (80-95); MPV 8.2 fL (8.0-11.0); Monocytes % 10.7 %; Neutrophils % 64.2 %; Platelet Count 266 10^3/uL (130-400); RBC 4.76 10^6/uL (4.36-5.78); RDW 15.1 % (11.8-14.1); RDW-SD 50.6 fL
[2024-08-02 09:26] LABS: ALT 27 U/L (16-63); AST 23 U/L (15-37); Albumin 3.6 g/dL (3.4-5.0); Alkaline Phosphatase 82 U/L (46-116); Anion Gap 6.4 mmol/L (3-11); BUN 21 mg/dL (7-18); Bilirubin, Total 0.4 mg/dL (0.2-1.0); CO2 28.6 mmol/L (21.0-32.0); CREATININE 1.3 mg/dL (0.70-1.30); Calcium 9.1 mg/dL (8.5-10.1); Chloride 105 mmol/L (98-107); Estimated GFR 53.84 (mL/min/1.73m2); Glucose 103 mg/dL (74-106); Potassium 3.7 mmol/L (3.5-5.1); Sodium 140 mmol/L (136-145); Total Protein 7.1 g/dL (6.4-8.2)
[2024-08-02 18:56] LABS: CEA 2.8 ng/mL (See Note)
== END 2024-08-02 09:01 | disposition home or self-care (01) ==
LOC: LBO 09:01
PROVIDERS: Visit Provider Nurse Practitioner Family
DX: C18.9 Malignant neoplasm of colon, unspecified (principal); C78.7 Secondary malignant neoplasm of liver and intrahepatic bile duct
CPT/HCPCS: 36415; 80053; 82378; 85025

== ENCOUNTER 2024-08-16 01:12 | Outpatient (CLI) | payer MEDICARE, OTHER, SELFPAY ==
[2024-08-16 12:08] LABS: Abs Immature Grans 0.02 10^3/uL (0.0-0.06); Absolute Basophil Count 0.03 10^3/uL (0.0-0.2); Absolute Eosinophil Count 0.13 10^3/uL (0.0-0.7); Absolute Lymphocyte Count 1.23 10^3/uL (1.2-3.4); Absolute Monocyte Count 0.76 10^3/uL (0.1-0.8); Absolute Neutrophil Count 3.34 10^3/uL (1.2-6.7); Basophils % 0.5 %; Eosinophils % 2.4 %; HCT 41.7 % (40.0-50.0); Immature Grans % 0.4 %; Lymphocytes % 22.3 %; MCH 30.7 pg (27.0-33.0); MCHC 33.6 % (32.0-36.0); MCV 91 fL (80-95); MPV 8.2 fL (8.0-11.0); Monocytes % 13.8 %; Neutrophils % 60.6 %; Platelet Count 233 10^3/uL (130-400); RBC 4.56 10^6/uL (4.36-5.78); RDW 14.7 % (11.8-14.1); WBC 5.51 10^3/uL (4.4-10.8)
[2024-08-16 13:18] LABS: ALT 34 U/L (16-63); AST 19 U/L (15-37); Albumin 3.8 g/dL (3.4-5.0); Alkaline Phosphatase 88 U/L (46-116); Anion Gap 9.9 mmol/L (3-11); BUN 27 mg/dL (7-18); Bilirubin, Total 0.4 mg/dL (0.2-1.0); CO2 25.1 mmol/L (21.0-32.0); CREATININE 1.4 mg/dL (0.70-1.30); Calcium 9.1 mg/dL (8.5-10.1); Chloride 104 mmol/L (98-107); Estimated GFR 49.25 (mL/min/1.73m2); Glucose 89 mg/dL (74-106); Potassium 4.2 mmol/L (3.5-5.1); Sodium 139 mmol/L (136-145); Total Protein 7.3 g/dL (6.4-8.2)
[2024-08-16 18:41] LABS: CEA 3.4 ng/mL (See Note)
== END 2024-08-16 01:13 | disposition home or self-care (01) ==
LOC: LBO 01:12
PROVIDERS: Visit Provider Nurse Practitioner Family
DX: C18.9 Malignant neoplasm of colon, unspecified (principal); C78.7 Secondary malignant neoplasm of liver and intrahepatic bile duct
CPT/HCPCS: 36415; 80053; 82378; 85025

== ENCOUNTER 2024-08-30 02:54 | Outpatient (CLI) | payer MEDICARE, OTHER, SELFPAY ==
[2024-08-30 10:15] LABS: Abs Immature Grans 0.08 10^3/uL (0.0-0.06); HCT 39.7 % (40.0-50.0); HGB 13.2 g/dL (13.5-17.5); Immature Grans % 1.2 %; MCH 30.5 pg (27.0-33.0); MCHC 33.2 % (32.0-36.0); MCV 92 fL (80-95); MPV 8.0 fL (8.0-11.0); Platelet Count 247 10^3/uL (130-400); RBC 4.33 10^6/uL (4.36-5.78); RDW 14.3 % (11.8-14.1); RDW-SD 47.8 fL; WBC 6.72 10^3/uL (4.4-10.8)
[2024-08-30 10:37] LABS: ALT 34 U/L (16-63); AST 18 U/L (15-37); Albumin 3.8 g/dL (3.4-5.0); Alkaline Phosphatase 89 U/L (46-116); Anion Gap 11.9 mmol/L (3-11); BUN 27 mg/dL (7-18); Bilirubin, Total 0.4 mg/dL (0.2-1.0); CO2 24.1 mmol/L (21.0-32.0); Calcium 9.2 mg/dL (8.5-10.1); Chloride 107 mmol/L (98-107); Estimated GFR 49.25 (mL/min/1.73m2); Glucose 99 mg/dL (74-106); Potassium 4.0 mmol/L (3.5-5.1); Sodium 143 mmol/L (136-145); Total Protein 7.5 g/dL (6.4-8.2)
[2024-08-30 14:21] LABS: Glucose Negative (Negative)
[2024-08-30 14:38] LABS: C & S Indicated? Yes; RBC 0-2 HPF (0-2)
[2024-08-30 19:14] LABS: CEA 3.8 ng/mL (See Note)
== END 2024-08-30 02:55 | disposition home or self-care (01) ==
LOC: LBO 02:54
PROVIDERS: Visit Provider Nurse Practitioner Family
DX: C18.9 Malignant neoplasm of colon, unspecified (principal); C78.7 Secondary malignant neoplasm of liver and intrahepatic bile duct; R35.0 Frequency of micturition
CPT/HCPCS: 36415; 80053; 87077; 81003; 81015; 82378; 85025; 87086; 87186

== ENCOUNTER 2024-09-13 08:30 | Outpatient (CLI) | payer MEDICARE, OTHER, SELFPAY ==
[2024-09-13 08:45] LABS: Abs Immature Grans 0.02 10^3/uL (0.0-0.06); HCT 40.9 % (40.0-50.0); HGB 13.9 g/dL (13.5-17.5); Immature Grans % 0.4 %; MCH 30.9 pg (27.0-33.0); MCHC 34.0 % (32.0-36.0); MCV 91 fL (80-95); MPV 8.2 fL (8.0-11.0); Platelet Count 212 10^3/uL (130-400); RBC 4.50 10^6/uL (4.36-5.78); RDW 14.6 % (11.8-14.1); RDW-SD 48.7 fL; WBC 5.18 10^3/uL (4.4-10.8)
[2024-09-13 09:00] LABS: ALT 32 U/L (16-63); AST 19 U/L (15-37); Albumin 3.6 g/dL (3.4-5.0); Alkaline Phosphatase 88 U/L (46-116); Anion Gap 9.3 mmol/L (3-11); BUN 22 mg/dL (7-18); Bilirubin, Total 0.5 mg/dL (0.2-1.0); CO2 27.7 mmol/L (21.0-32.0); Calcium 9.3 mg/dL (8.5-10.1); Chloride 104 mmol/L (98-107); Estimated GFR 59.26 (mL/min/1.73m2); Glucose 115 mg/dL (74-106); Potassium 3.7 mmol/L (3.5-5.1); Sodium 141 mmol/L (136-145); Total Protein 7.1 g/dL (6.4-8.2)
[2024-09-13 19:13] LABS: CEA 4.4 ng/mL (See Note)
== END 2024-09-13 08:31 | disposition home or self-care (01) ==
LOC: LBO 08:31
PROVIDERS: Visit Provider Nurse Practitioner Family
DX: C18.9 Malignant neoplasm of colon, unspecified (principal); C78.7 Secondary malignant neoplasm of liver and intrahepatic bile duct
CPT/HCPCS: 36415; 80053; 82378; 85025

== ENCOUNTER 2024-10-11 03:51 | Outpatient (CLI) | payer MEDICARE, OTHER, SELFPAY ==
[2024-10-11 08:12] LABS: Abs Immature Grans 0.04 10^3/uL (0.0-0.06); HCT 41.0 % (40.0-50.0); HGB 13.8 g/dL (13.5-17.5); Immature Grans % 0.8 %; MCH 30.9 pg (27.0-33.0); MCHC 33.7 % (32.0-36.0); MCV 92 fL (80-95); MPV 8.4 fL (8.0-11.0); Platelet Count 200 10^3/uL (130-400); RBC 4.47 10^6/uL (4.36-5.78); RDW 14.8 % (11.8-14.1); RDW-SD 50.0 fL; WBC 4.84 10^3/uL (4.4-10.8)
[2024-10-11 08:41] LABS: ALT 37 U/L (16-63); AST 27 U/L (15-37); Albumin 3.6 g/dL (3.4-5.0); Alkaline Phosphatase 91 U/L (46-116); Anion Gap 10.7 mmol/L (3-11); BUN 24 mg/dL (7-18); Bilirubin, Total 0.5 mg/dL (0.2-1.0); CO2 27.3 mmol/L (21.0-32.0); Calcium 9.5 mg/dL (8.5-10.1); Chloride 106 mmol/L (98-107); Estimated GFR 49.25 (mL/min/1.73m2); Glucose 99 mg/dL (74-106); Potassium 3.8 mmol/L (3.5-5.1); Sodium 144 mmol/L (136-145); Total Protein 7.2 g/dL (6.4-8.2)
[2024-10-11 22:09] LABS: CEA 6.0 ng/mL (See Note)
== END 2024-10-11 03:52 | disposition home or self-care (01) ==
LOC: LBO 03:51
PROVIDERS: Visit Provider Nurse Practitioner Family
DX: C18.9 Malignant neoplasm of colon, unspecified (principal)
CPT/HCPCS: 36415; 80053; 82378; 85025

== ENCOUNTER 2024-10-25 04:13 | Outpatient (CLI) | payer MEDICARE, OTHER, SELFPAY ==
[2024-10-25 07:17] LABS: Abs Immature Grans 0.04 10^3/uL (0.0-0.06); HCT 42.2 % (40.0-50.0); HGB 14.2 g/dL (13.5-17.5); Immature Grans % 0.8 %; MCH 31.1 pg (27.0-33.0); MCHC 33.6 % (32.0-36.0); MCV 92 fL (80-95); MPV 8.5 fL (8.0-11.0); Platelet Count 199 10^3/uL (130-400); RBC 4.57 10^6/uL (4.36-5.78); RDW 14.6 % (11.8-14.1); RDW-SD 48.9 fL; WBC 4.74 10^3/uL (4.4-10.8)
[2024-10-25 07:36] LABS: ALT 33 U/L (16-63); AST 23 U/L (15-37); Albumin 3.6 g/dL (3.4-5.0); Alkaline Phosphatase 96 U/L (46-116); Anion Gap 8.9 mmol/L (3-11); BUN 21 mg/dL (7-18); Bilirubin, Total 0.4 mg/dL (0.2-1.0); CO2 26.1 mmol/L (21.0-32.0); Calcium 9.3 mg/dL (8.5-10.1); Chloride 106 mmol/L (98-107); Estimated GFR 65.79 (mL/min/1.73m2); Glucose 110 mg/dL (74-106); Potassium 3.7 mmol/L (3.5-5.1); Sodium 141 mmol/L (136-145); Total Protein 7.3 g/dL (6.4-8.2)
[2024-10-25 21:44] LABS: CEA 4.2 ng/mL (See Note)
== END 2024-10-25 04:14 | disposition home or self-care (01) ==
LOC: LBO 04:13
PROVIDERS: Visit Provider Nurse Practitioner Family
DX: C18.9 Malignant neoplasm of colon, unspecified (principal); C78.7 Secondary malignant neoplasm of liver and intrahepatic bile duct
CPT/HCPCS: 36415; 80053; 82378; 85025

== ENCOUNTER 2025-01-31 01:40 | Outpatient (CLI) | payer MEDICARE, OTHER, SELFPAY ==
[2025-01-31 10:16] LABS: Abs Immature Grans 0.04 10^3/uL (0.0-0.06); HCT 47.7 % (40.0-50.0); HGB 16.0 g/dL (13.5-17.5); Immature Grans % 0.5 %; MCH 29.7 pg (27.0-33.0); MCHC 33.5 % (32.0-36.0); MCV 89 fL (80-95); MPV 9.0 fL (8.0-11.0); Platelet Count 244 10^3/uL (130-400); RBC 5.39 10^6/uL (4.36-5.78); RDW 17.2 % (11.8-14.1); RDW-SD 54.8 fL; WBC 8.40 10^3/uL (4.4-10.8)
[2025-01-31 11:06] LABS: ALT 63 U/L (10-49); AST 81 U/L (<34); Albumin 3.5 g/dL (3.2-5.0); Alkaline Phosphatase 212 U/L (46-116); Anion Gap 15.6 mmol/L (3-11); BUN 44 mg/dL (9-23); Bilirubin, Total 2.40 mg/dL (0.2-1.2); CO2 19.4 mmol/L (20.0-31.0); Calcium 8.9 mg/dL (8.3-10.6); Chloride 101 mmol/L (98-107); Glucose 126 mg/dL (74-106); Potassium 3.1 mmol/L (3.5-5.1); Sodium 136 mmol/L (136-145); Total Protein 7.0 g/dL (5.7-8.2)
[2025-01-31 18:16] LABS: CEA 14.9 ng/mL (See Note)
== END 2025-01-31 01:41 | disposition home or self-care (01) ==
LOC: LBO 01:40
PROVIDERS: Visit Provider Nurse Practitioner Family
DX: C18.9 Malignant neoplasm of colon, unspecified (principal); C78.7 Secondary malignant neoplasm of liver and intrahepatic bile duct
CPT/HCPCS: 36415; 80053; 82378; 85025